=== PATIENT | male | born 1950 | race Caucasian/White ===

== ENCOUNTER → 2024-11-14 | Outpatient (CLI) | payer MEDICARE, SELFPAY ==
--- NOTE | 2024-11-14 11:13 | US_ITS ---
PROCEDURE: HEAD/NECK SOFT TISSUE REASON FOR EXAM: LUMP LEFT NECK History of thyroid cancer with a status post thyroidectomy. COMPARISON: None. TECHNIQUE: Targeted sonogram to the area of the left neck was performed. FINDINGS: In the anterior midline of the left side of the cervical region there is a 1.5 cm x 1.1 cm x 0.4 cm isoechoic density suggestive of a possible lipoma. US/Head/Neck Soft Tissue IMPRESSION: The palpable lump corresponds to a 1.5 cm x 1.1 cm x 0.4 cm isoechoic nodular d ensity suggestive of a lipoma. Reading Location: [id number]
== END | disposition home or self-care (01) ==
PROVIDERS: PCP Family Medicine; Referring Provider Family Medicine; Visit Provider Family Medicine
DX: R22.1 Localized swelling, mass and lump, neck (principal)
CPT/HCPCS: 76536

== ENCOUNTER → 2025-01-08 | Outpatient (CLI) | payer MEDICARE, SELFPAY ==
[2025-01-08 10:24] LABS: Hematocrit 41.5 % (40-54); Hemoglobin 14.1 g/dL (13.0-16.5); Mean Corpuscular Hgb 32.3 pg (27.0-32.0); Mean Platelet Vol. 10.1 fl (6.2-12.0); Platelet Count 272 K/mm3 (150-450); RBC Distribution Width CV 13.3 % (11.6-14.6); RBC Distribution Width SD 47.1 fl (35.1-43.9); Red Blood Count 4.37 M/mm3 (4.6-6.2); White Blood Count 6.1 K/mm3 (4.4-11.0)
[2025-01-08 11:03] LABS: Hemoglobin A1c 5.9 % (<=5.6)
[2025-01-08 11:29] LABS: ALB/GLOB Ratio 1.5 RATIO (0.9-2.4); AST(SGOT) 30 U/L (<=37); Alanine Aminotransfer ALT/SGPT 28 U/L (<=46); Albumin, Serum 3.9 g/dL (3.4-4.8); Alkaline Phosphatase 53 U/L (40-129); Anion Gap 9 (5-15); BUN 15 mg/dL (4-19); BUN/Creat Ratio 12.3 RATIO (10-20); Calcium,Total 8.5 mg/dL (7.6-11.0); Chloride 107 mmol/L (98-108); Cholesterol 119 mg/dL (<=200); Creatinine, Serum 1.24 mg/dL (0.70-1.20); EST Glomerular Filtration Rate 62 (>60); Globulin 2.7 g/dL (2.2-4.2); Glucose 100 mg/dL (70-99); High Density Lipoprotein 47 mg/dL; Low Density Lipoprotein Calc. 57 mg/dL; Protein, Total 6.6 g/dL (5.9-8.4); Sodium Level 140 mmol/L (133-145); Thyroid Stim Hormone (TSH) 0.234 uIU/mL (0.300-4.200); Total Bilirubin 0.49 mg/dL (0.00-1.30); Triglycerides 73 mg/dL; Very Low Density Lipoprotein 15 mg/dL (5-40); cholesterol:hdl ratio screen 2.53
== END | disposition home or self-care (01) ==
LOC: MTLAB 07:09
PROVIDERS: PCP Family Medicine; Referring Provider Family Medicine; Visit Provider Family Medicine
DX: I10 Essential (primary) hypertension (principal); E03.9 Hypothyroidism, unspecified; E55.9 Vitamin D deficiency, unspecified; Z76.89 Persons encountering health services in other specified circumstances
CPT/HCPCS: 36415; 80053; 80061; 82306; 83036; 84439; 84443; 85027

== ENCOUNTER → 2025-02-18 | Outpatient (CLI) | payer MEDICARE, SELFPAY ==
--- NOTE | 2025-02-18 11:23 | US_ITS ---
PROCEDURE: EXT NON VASC LIMITED/SOFT TISS 02/18/2025 REASON FOR EXAM: POSSIBLE HEMATOMA (R) THIGH/INJURY TECHNIQUE: EXT NON VASC LIMITED/SOFT TISS COMPARISON: None US/Ext Non Vasc Limited/Soft Tiss IMPRESSION: Targeted sonogram of the right anterior thigh demonstrates isoechoic, nonvascul ar lesion measuring 1.5 x 2.6 x 0.8 cm. Reading Location: [id number]
--- OUTSIDE RECORDS SUMMARY | 2025-02-18 22:55 | XMS RPT_ITS | CCD ---
Author Organization [facility]iniSy[facility] Care Team Providers Care Contracts Specialist Name Role Phone FREDI MEDEL ID~[id number] Unavailable Unava ilphong GRESHAMANAMIKA Unavailable Unavailable CELESTIN, CINDY Primary Care Physician CANDACE LUGO, KRISTA Primary Care Physician Unavailab coleen CELESTIN, ELIZABETH CINDY Primary Care Unavailable DAYANA REED Attending Unavailab colene MARIA MD, KRISTA Primary Care Unavailable JAIRO VAZQUEZ MD Attending Unavailable CANDACE LUGO, KRISTA Primary Care Unavailable JOSE MARIA MD Attending Unavailable CANDACE LUGO, KRISTA Primary Care Unavailable JOSE MARIA MD Attending Unavailable CELESTIN, CREMATORIUM OPERATOR CINDY Primary Care Unavailable CELESTIN, CREMATORIUM OPERATOR CINDY Attending Unavailable CELESTIN, CREMATORIUM OPERATOR CINDY Primary Care Unavailable PRISCILA PEOPLES MD Attending Unavail able CANDACE LUGO, KRISTA Primary Care Unavailable DR BEATRIS WOODALL DO Attending Unavailable Jose Maria MD Primary Care Provider Jose Maria MD Attending Provider [phone] Jose Maria MD Referring Provider [phone] CANDACE LUGO, KRISTA Primary Care Unavailable ALIYAH CARRINGTON MD Attending Unavailable CANDACE LUGO, KRISTA Primary Care Unavailable ALIYAH CARRINGTON MD Attending Unavailable ALIYAH CARRINGTON MD Admitting Unavailable ALIYAH CARRINGTON MD Attending Unavailable TAUTM FERRERA-YAYA WESTBROOK Referring Unavail phong MARIA MD, KRISTA Primary Care Unavailable ALIYAH CARRINGTON MD Attending Unavailable FAWAD, ELIZABETH CINDY Primary Care Unavailable Jose Maria Attending Unavailable Jose Maria Referring Unavailable Jose Maria Primary Care Unavailable Jose Maria Attending Unavailable Jose Maria Referring Unavailable Jose Maria Primary Care Unavailable Jose Maria Attending Unavailable Jose Maria Referring Unavailable Candace, Chalon Primary Care Unavailable Allergies Allergy Classification Reported Allergen(s) Allergy Type Date of Onset Reaction(s) Facility (7 sources) Penicillin; Translations: [penicillin] Drug Allergy Eruption of skin (disorder) [facility] (7 sources) Sulfonamide; Translations: [sulfa drugs] Drug allergy Eruption of skin (disorder) [facility] Medications Current Medications Medication Drug Class(es) Dates Sig (Normalized) Sig (Original) 0.25 MG, 0.5 MG Dose 3 ML semaglutide 0.68 MG/ML Pen Injector [Ozempic] (2 sources) Start: 11-28-2024 Ozempic 2 mg/3 mL (0.25 mg or 0.5 mg dose) subcutaneous solution Dose : 0.25 mg =, Subcutaneous, Tuesday, rotate injection sites, # 1 EA, 0 Refill(s) Start Date: 11/28/24 Status: Ordered Quantity: 1.0 Unit: EA Repeat number: 1 Start: 11-28-2024 Ozempic 2 mg/3 mL (0.25 mg or 0.5 mg dose) subcutaneous solution Dose : 0.25 mg =, Subcutaneous, Tuesday, rotate injection sites, # 1 EA, 0 Refill(s) Start Date: 11/28/24 Status: Ordered Quantity: 1.0 Unit: EA Repeat number: 1 3 ML semaglutide 2.68 MG/ML Pen Injector [Ozempic] (1 source) Start: 2024 inject 1 dose by subcutaneous injection every week Ozempic 8 mg/3 mL (2 mg dose) subcutaneous solution Dose : 2 mg =, Subcutaneous, qWeek, in the abdomen, thigh, or upper arm, # 3 mL, 0 Refill(s) Start Date: 07/04/24 Status: Ordered amiodarone hydrochloride 200 mg oral tablet (5 sources) Antiarrhythmic Start: 08-01-2024 amiodarone 200 mg oral tablet Dose : 200 mg = 1 tab(s), Oral, qDay, # 90 tab(s), 4 Refill(s), Pharmacy: [facility]/pharmacy #[id number], 172.7, cm, 07/25/24 14:24:00 EST, Height, kg, 07/25/24 14:24:00 EST, Dosing Weight Start Date: 08/01/24 Status: Ordered Quantity: 90.0 Unit: tab(s) Repeat number: 5 apixaban 5 mg oral tablet (6 sources) Factor Xa Inhibitor Start: 07-17-2024 Eliquis 5 mg oral tablet Dose : 5 mg = 1 tab(s), Oral, BID, # 60 tab(s), 5 Refill(s), Pharmacy: [facility]/pharmacy #[id number], 172.7, cm, 07/04/24 12:56:00 EDT, Height, 129.7, kg, 07/04/24 12:56:00 EDT, Dosing Weight Start Date: 07/17/24 Status: Ordered Quantity: 60.0 Unit: tab(s) Repeat number: 6 atorvastatin 20 mg oral tablet (6 sources) HMG-CoA Reductase Inhibitor Start: 2024 atorvastatin 20 mg oral tablet Dose : 20 mg = 1 tab(s), Oral, qHS, # 90 tab(s), 0 Refill(s) Start Date: 07/04/24 Status: Ordered Quantity: 90.0 Unit: tab(s) Repeat number: 1 azithromycin 250 mg oral tablet (1 source) Macrolide Antimicrobial Start: 10-23-2024 End: 10-28-2024 azithromycin 250 mg oral tablet Dose : 250 mg = 1 tab(s), Oral, Daily, Take with a probiotic, X 5 day(s), # 6 tab(s), 0 Refill(s), 10/28/24 12:32:00 PM EST, 131.3 Start Date: 10/23/24 Stop Date: 10/28/24 Status: Ordered Quantity: 6.0 Unit: tab(s) Repeat number: 1 ergocalciferol 1.25 mg oral capsule (2 sources) Provitamin D2 Compound Start: 11-28-2024 ergocalciferol 50,000 intl units (1.25 mg) oral capsule Dose : 50,000 International_Unit = 1 cap(s), Oral, Tuesday, 0 Refill(s) Start Date: 11/28/24 Status: Ordered Repeat number: 1 fenofibrate 160 mg oral tablet (4 sources) Peroxisome Proliferator Receptor alpha Agonist Start: 10-11-2024 fenofibrate 160 mg oral tablet Dose : 160 mg = 1 tab(s), Oral, qAM, TAKE 1 TABLET BY MOUTH EVERY DAY Start Date: 10/11/24 Status: Ordered Repeat number: 1 ipratropium bromide 0.042 mg/actuat metered dose nasal spray (4 sources) Anticholinergic Start: 2024 ipratropium 42 mcg/inh (0.06%) nasal spray 84 mcg Dose = 2 spray(s), Nasal, TID, # 15 mL, 0 Refill(s) Start Date: 07/04/24 Status: Ordered Quantity: 15.0 Unit: mL Repeat number: 1 ketoconazole 20 mg/ml topical cream (2 sources) Azole Antifungal Start: 11-12-2024 ketoconazole 2% topical cream Apply 1 mary, Topical, qDay, MIX 50/50 WITH MOMETASONE AND APPLY TO FACE TWICE A DAY NEEDED Start Date: 11/12/24 Status: Ordered Repeat number: 1 levothyroxine sodium 0.2 mg oral tablet (6 sources) l-Thyroxine Start: 11-12-2024 levothyroxine 200 mcg (0.2 mg) oral tablet Dose : 200 mcg = 1 tab(s), Oral, qAM, # 30 tab(s), 0 Refill(s) Start Date: 11/12/24 Status: Ordered Quantity: 30.0 Unit: tab(s) Repeat number: 1 Start: 2024 levothyroxine 175 mcg (0.175 mg) oral tablet Dose : 175 mcg = 1 tab(s), Oral, qDay, # 90 tab(s), 0 Refill(s) Start Date: 07/04/24 Status: Ordered Quantity: 90.0 Unit: tab(s) Repeat number: 1 lisinopril 10 mg oral tablet (6 sources) Angiotensin Converting Enzyme Inhibitor Start: 07-25-2024 lisinopril 10 mg ora l tablet Dose : 10 mg = 1 tab(s), Oral, qDay, # 90 tab(s), 3 Refill(s), Pharmacy: [facility]/pharmacy #[id number], 172.7, cm, 07/25/24 14:24:00 EST, Height, kg, 07/25/24 14:24:00 EST, Dosing Weight Start Date: 07/25/24 Status: Ordered Quantity: 90.0 Unit: tab(s) Repeat number: 4 Lopressor 25mg--USE metoprolol tartrate 25 mg oral tablet (7 sources) Start: 11-07-2024 Lopressor 25mg --USE metoprolol tartrate 25 mg oral tablet Dose : 25 mg = 1 tab(s), Oral, BID, # 180 tab(s), 0 Refill(s), Pharmacy: [facility]/pharmacy #[id number], 172.7, cm, 10/11/24 9:07:00 EST, Height, kg, 10/23/24 10:57:00 EST, Dosing Weight Start Date: 11/07/24 Status: Ordered Quantity: 180.0 Unit: tab(s) Repeat number: 1 Start: 2024 Lopressor 25mg --USE metoprolol tartrate 25 mg oral tablet Dose : 25 mg = 1 tab(s), Oral, BID, 0 Refill(s) Start Date: 07/04/24 Status: Ordered Repeat number: 1 Start: 2024 Lopressor 25mg --USE metoprolol tartrate 25 mg oral tablet 0 Refill(s) Start Date: 07/04/24 Status: Ordered Repeat number: 1 Start: 2024 Lopressor 25mg --USE metoprolol tartrate 25 mg oral tablet Dose : 25 mg = 1 tab(s), Oral, BID, 0 Refill(s) Start Date: 07/04/24 Status: Ordered Start: 2024 Lopressor 25mg --USE metoprolol tartrate 25 mg oral tablet 0 Refill(s) Start Date: 07/04/24 Status: Ordered omeprazole 20 mg delayed release oral capsule (6 sources) Proton Pump Inhibitor Start: 2024 omeprazo le 20 mg oral delayed release capsule Dose : 20 mg = 1 cap(s), Oral, qAM Start Date: 07/04/24 Status: Ordered Repeat number: 1 Start: 2024 take 2 capsules by m outh twice daily 30 minutes before mealtime omeprazole 20 mg oral delayed release capsule TAKE 2 CAPSULES BY MOUTH TWICE A DAY. TAKE ON AN EMPTY STOMACH AT LEAST 30 MIN BEFORE A MEAL Start Date: 07/04/24 Status: Ordered Repeat number: 1 predniSONE 20 mg oral tablet (1 source) Start: 10-23-2024 End: 10-26-2024 predniSONE 20 mg oral tablet Dose : 20 mg = 1 tab(s), Oral, BID, X 3 day(s), # 6 tab(s), 0 Refill(s), 10/26/24 12:32:00 PM EST Start Date: 10/23/24 Stop Date: 10/26/24 Status: Ordered Quantity: 6.0 Unit: tab(s) Repeat number: 1 pregabalin 100 mg oral capsule (4 sources) Start: 2024 take 1 capsule by mouth twice daily pregabalin 100 mg oral capsule TAKE 1 CAPSULE BY MOUTH TWICE A DAY Start Date: 07/04/24 Status: Ordered Repeat number: 1 Completed/Discontinued Medications Medication Drug Class(es) Dates Sig (Normalized) Sig (Original) Albuterol (4 sources) beta2-Adrenergic Agonist Start: 10-23-2024 End: 11-22-2024 take 1 puff(s) by inhalation four times daily Ventolin HFA MDI (90 mcg/inh) inhalation aerosol 1 puff(s), Inhalation, QID, # 1 EA, 0 Refill(s) Start Date: 10/23/24 Stop Date: 11/22/24 Status: Ordered Quantity: 1.0 Unit: EA Repeat number: 1 Clobetasol (6 sources) Corticosteroid Start: 2024 Clobetasol (Eqv-Temovate) 0.05% topical cream Dose = 1 mary, Topical, qDay, 0 Refill(s) Start Date: 07/04/24 Status: Ordered Repeat number: 1 Start: 2024 Clobetasol (Eq v-Temovate) 0.05% topical cream 0 Refill(s) Start Date: 07/04/24 Status: Ordered Repeat number: 1 Start: 2024 Clobetasol (Eq v-Temovate) 0.05% topical cream 0 Refill(s) Start Date: 07/04/24 Status: Ordered mometasone furoate 1 mg/ml topical cream (7 sources) Corticosteroid Start: 2024 mometasone 0.1 % topical cream Apply 1 mary, Topical, Daily, 0 Refill(s), 129.1 Start Date: 07/04/24 Status: Ordered Repeat number: 1 Problems Problem Classification Problem Date Documented Date Episodic/Chronic Allergic reactions (2 sources) Allergy status to penicillin; Translations: [Allergy status to sulfonamides status] Onset: 12-25-2024 Episodic Anxiety disorders (1 source) Anxiety disorder, unspecified; Translations: [Anxiety disorder, unspecified] Onset: 12-25-2024 Chronic Cancer of prostate (1 source) Personal history of malignant neoplasm of prostate; Translations: [Personal history of malignant neoplasm of prostate] Onset: 12-25-2024 Episodic Cancer of thyroid (1 source) Personal history of malignant neoplasm of thyroid; Translations: [Personal history of malignant neoplasm of thyroid] Onset: 12-25-2024 Episodic Cardiac dysrhythmias (7 sources) Atrial flutter; Translations: [Unspecified atrial flutter] Onset: 07-02-2024 Chronic Cardiac dysrhythmias (4 sources) Sinus bradycardia 10-11-2024 Episodic Coagulation and hemorrhagic disorders (1 source) Bleeds easily 12-01-2024 Chronic Coagulation and hemorrhagic disorders (1 source) Hemorrhagic condition, unspecified; Translations: [Hemorrhagic condition, unspecified] Onset: 12-04-2024 Episodic Complications of surgical procedures or medical care (1 source) Postprocedural hypothyroidism; Translations: [Postprocedural hypothyroidism] Onset: 12-25-2024 Chronic Diabetes mellitus without complication (2 sources) Impaired fasting glucose; Translations: [Impaired fasting glucose] Onset: 12-10-2017 Episodic Disorders of lipid metabolism (1 source) Hyperlipidemia, unspecified; Translations: [Hyperlipidemia, unspecified] Onset: 12-25-2024 Chronic Esophageal disorders (5 sources) Gastroesophageal reflux disease; Translations: [Gastro-esophageal reflux disease without esophagitis] Onset: 12-25-2024 10-11-2024 Chronic Essential hypertension (9 sources) Essential (primary) hypertension; Translations: [Hypertensive disorder] Onset: 12-10-2017 10-11-2024 Chronic Hyperplasia of prostate (1 source) Benign prostatic hyperplasia without lower urinary tract symptoms; Translations: [Benign prostatic hyperplasia without lower urinary tract symptoms] Onset: 12-25-2024 Chronic Menopausal disorders (1 source) Hormone replacement therapy; Translations: [Hormone replacement therapy] Onset: 12-25-2024 Episodic Other aftercare (1 source) Encounter for therapeutic drug level monitoring; Translations: [Encounter for therapeutic drug level monitoring] Onset: 12-25-2024 Episodic Other aftercare (1 source) exterminator termite (current) use of anticoagulants; Translations: [exterminator termite (current) use of anticoagulants] Onset: 12-25-2024 Episodic Other aftercare (1 source) Other half-way (current) drug therapy; Translations: [Other half-way (current) drug therapy] Onset: 12-25-2024 Episodic Other injuries and conditions due to external causes (1 source) Unspecified injury of right thigh, initial encounter; Translations: [Unspecified injury of right thigh, initial encounter] Onset: 02-11-2025 Episodic Other male genital disorders (1 source) Male erectile dysfunction, unspecified; Translations: [Male erectile dysfunction, unspecified] Onset: 12-25-2024 Chronic Other nutritional; endocrine; and metabolic disorders (4 sources) Obesity 10-11-2024 Chronic Other nutritional; endocrine; and metabolic disorders (1 source) Obesity, unspecified; Translations: [Obesity, unspecified] Onset: 12-25-2024 Chronic Other nutritional; endocrine; and metabolic disorders (1 source) Body mass index (BMI) 45.0-49.9, adult; Translations: [Body mass index [BMI] 45.0-49.9, adult] Onset: 12-25-2024 Chronic Other skin disorders (1 source) Localized swelling, mass and lump, neck; Translations: [Localized swelling, mass and lump, neck] Onset: 11-24-2024 Episodic Residual codes; unclassified (4 sources) Obstructive sleep apnea syndrome 10-11-2024 Chronic Residual codes; unclassified (2 sources) Obstructive sleep apnea (adult) (pediatric); Translations: [Obstructive sleep apnea (adult) (pediatric)] Onset: 12-04-2024 Chronic Residual codes; unclassified (1 source) Personal history of irradiation; Translations: [Personal history of irradiation] Onset: 12-25-2024 Episodic Thyroid disorders (2 sources) Hypothyroidism, unspecified; Translations: [Hypothyroidism, unspecified] Onset: 12-10-2017 Chronic Unclassified (2 sources) Encounter for screening for malignant neoplasm of prostate; Translations: [Encounter for screening for malignant neoplasm of prostate] Onset: 12-10-2017 Episodic Unclassified (2 sources) Other persistent atrial fibrillation; Translations: [Other persistent atrial fibrillation] Onset: 12-04-2024 Unclassified (1 source) Long-term (current) use of injectable non-insulin antidiabetic drugs; Translations: [Long-term (current) use of injectable non-insulin antidiabetic drugs] Onset: 12-25-2024 Results Test Name Value Interpretation Reference Range Facility Anion gap in Serum or Plasma Ordered By: Jose Maria on 01-08-2025 Anion gap [Moles/Vol] 9 mmol/L 5-15 [facility] BUN/creatinine ratioOrdered By: Jose Maria on 01-08-2025 Urea nitrogen/Creatinine [Mass ratio] 12.3 mg/mg 10-20 [facility] Bilirubin, totalOrdered By: Jose Maria on 01-08-2025 Bilirubin [Mass/Vol] 0.49 mg/dL 0.00-1.30 [facility] CBC-Complete Blood Cnt No Di ffon 01-08-2025 Erythrocyte distribution width (RBC) [Ratio] 13.3 % Normal 11.6-14.6 [facility] Comment on above: Order Comment: Order Date: 11/01/24 Order Info: [id number] - CBC Performed By: #### L [id number], L500.4100, L506.0400, L100.0500 #### [facility] [address] [place], [address] Hematocrit (Bld) [Volume fraction] 41.5 % Normal 40-54 [facility] Comment on above: Order Comment: Order Date: 11/01/24 Order Info: [id number] - CBC Performed By: #### L 500.4050, L500.4100, L506.0400, L100.0500 #### [facility] [address] [place], [address] Hemoglobin (Bld) [Mass/Vol] 14.1 g/dL Normal 13.0-16.5 [facility] Comment on above: Order Comment: Order Date: 11/01/24 Order Info: [id number] - CBC Performed By: #### L 500.4050, L500.4100, L506.0400, L100.0500 #### [facility] [address] [place], [address] MCH (RBC) [Entitic mass] 32.3 pg High 27.0-32.0 [facility] Comment on above: Order Comment: Order Date: 11/01/24 Order Info: [id number] - CBC Performed By: #### L 500.4050, L500.4100, L506.0400, L100.0500 #### [facility] [address] [place], [address] MCHC (RBC) [Mass/Vol] 34.0 g/dL Normal 32-36 [facility] Comment on above: Order Comment: Order Date: 11/01/24 Order Info: [id number] - CBC Performed By: #### L 500.4050, [id number], L506.0400, L100.0500 #### [facility] [address] [place], [address] MCV (RBC) [Entitic vol] 95.0 fL High 80-94 [facility] Comment on above: Order Comment: Order Date: 11/01/24 Order Info: [id number] - CBC Performed By: #### L 500.4050, L500.4100, L506.0400, L100.0500 #### [facility] [address] [place], [address] Platelet mean volume (Bld) [Entitic vol] 10.1 fL Normal 6.2-12.0 [facility] Comment on above: Order Comment: Order Date: 11/01/24 Order Info: [id number] - CBC Performed By: #### L 500.4050, L500.4100, L506.0400, L100.0500 #### [facility] [address] [place], [address] Platelets (Bld) [#/Vol] 272 10*3/uL Normal 150-450 [facility] Comment on above: Order Comment: Order Date: 11/01/24 Order Info: [id number] - CBC Performed By: #### L 500.4050, L500.4100, L506.0400, L100.0500 #### [facility] [address] [place], [address] RBC (Bld) [#/Vol] 4.37 10*6/uL Low 4.6-6.2 [facility] Comment on above: Order Comment: Order Date: 11/01/24 Order Info: [id number] - CBC Performed By: #### L 500.4050, L500.4100, L506.0400, L100.0500 #### [facility] [address] [place], [address] RDW SD 47.1 fl High 35.1-43.9 [facility] Comment on above: Order Comment: Order Date: 11/01/24 Order Info: [id number] - CBC Performed By: #### L 500.4050, L500.4100, L506.0400, L100.0500 #### [facility] [address] [place], [address] WBC (Bld) [#/Vol] 6.1 10*3/uL Normal 4.4-11.0 [facility] Comment on above: Order Comment: Order Date: 11/01/24 Order Info: [id number] - CBC Performed By: #### L 500.4050, L500.4100, L506.0400, L100.0500 #### [facility] [address] [place], [address] Calculated very low density lipoprotein (VLDL) cholesterol measurementOrdered By: Jose Maria on 01-08-2025 Calculated very low density lipoprotein (VLDL) cholesterol measurement 15 mg/dL 5-40 [facility] Carbon dioxide, total [Moles /volume] in Central venous bloodOrdered By: Jose Maria on 01-08-2025 CO2 [Moles/Vol] 24.0 mmol/L 21.0-32.0 [facility] Chloride assayOrdered By: Kameron Maria on 01-08-2025 Chloride [Moles/Vol] 107 mmol/L 98-108 [facility] Comprehensive Metabolic Prof ilon 01-08-2025 Albumin [Mass/Vol] 3.9 g/dL Normal 3.4-4.8 [facility] Comment on above: Order Comment: Order Date: 11/01/24 Order Info: [id number] - CMP Order Info: [id number] - LIPID Order Date: 11/26/24 Order Info: [id number] - TSH Order Info: [id number] - T4F Performed By: #### L 500.4050, L500.4100, L506.0400, L100.0500 #### [facility] [address] [place], [address] Albumin/Globulin [Mass ratio] 1.5 {ratio} Normal 0.9-2.4 [facility] Comment on above: Order Comment: Order Date: 11/01/24 Order Info: [id number] - CMP Order Info: [id number] - LIPID Order Date: 11/26/24 Order Info: [id number] - TSH Order Info: [id number] - T4F Performed By: #### L 500.4050, L500.4100, L506.0400, L100.0500 #### [facility] [address] [place], [address] ALK PHOS 53 U/L Normal 40-129 [facility] Comment on above: Order Comment: Order Date: 11/01/24 Order Info: [id number] - CMP Order Info: [id number] - LIPID Order Date: 11/26/24 Order Info: [id number] - TSH Order Info: [id number] - T4F Performed By: #### L 500.4050, L500.4100, L506.0400, L100.0500 #### [facility] [address] [place], [address] ALT [Catalytic activity/Vol] 28 U/L Normal <=46 [facility] Comment on above: Order Comment: Order Date: 11/01/24 Order Info: [id number] - CMP Order Info: [id number] - LIPID Order Date: 11/26/24 Order Info: [id number] - TSH Order Info: [id number] - T4F Performed By: #### L 500.4050, L500.4100, L506.0400, L100.0500 #### [facility] [address] [place], [address] AST [Catalytic activity/Vol] 30 U/L Normal <=37 [facility] Comment on above: Order Comment: Order Date: 11/01/24 Order Info: 07-1 - CMP Order Info: [id number] - LIPID Order Date: 11/26/24 Order Info: [id number] - TSH Order Info: [id number] - T4F Performed By: #### L 500.4050, L500.4100, L506.0400, L100.0500 #### [facility] [address] [place], [address] Bilirubin [Mass/Vol] 0.49 mg/dL Normal 0.00-1.30 [facility] Comment on above: Order Comment: Order Date: 11/01/24 Order Info: [id number]- - CMP Order Info: [id number] - LIPID Order Date: 11/26/24 Order Info: [id number] - TSH Order Info: [id number] - T4F Performed By: #### L 500.4050, L500.4100, L506.0400, L100.0500 #### [facility] [address] [place], [address] BUN/CRE 12.3 RATIO Normal 10-20 [facility] Comment on above: Order Comment: Order Date: 11/01/24 Order Info: [id number] - CMP Order Info: [id number] - LIPID Order Date: 11/26/24 Order Info: [id number] - TSH Order Info: [id number] - T4F Performed By: #### L 500.4050, L500.4100, L506.0400, L100.0500 #### [facility] [address] [place], [address] Calcium [Mass/Vol] 8.5 mg/dL Normal 7.6-11.0 [facility] Comment on above: Order Comment: Order Date: 11/01/24 Order Info: [id number] - CMP Order Info: [id number] - LIPID Order Date: 11/26/24 Order Info: [id number] - TSH Order Info: [id number] - T4F Performed By: #### L 500.4050, L500.4100, L506.0400, L100.0500 #### [facility] [address] [place], [address] Chloride [Moles/Vol] 107 mmol/L Normal 98-108 [facility] Comment on above: Order Comment: Order Date: 11/01/24 Order Info: 07-1 - CMP Order Info: [id number] - LIPID Order Date: 11/26/24 Order Info: [id number] - TSH Order Info: [id number] - T4F Performed By: #### L 500.4050, L500.4100, L506.0400, L100.0500 #### [facility] [address] [place], [address] CO2 [Moles/Vol] 24.0 mmol/L Normal 21.0-32.0 [facility] Comment on above: Order Comment: Order Date: 11/01/24 Order Info: [id number] - CMP Order Info: [id number] - LIPID Order Date: 11/26/24 Order Info: [id number] - TSH Order Info: [id number] - T4F Performed By: #### L 500.4050, L500.4100, L506.0400, L100.0500 #### [facility] [address] [place], [address] Creatinine [Mass/Vol] 1.24 mg/dL High 0.70-1.20 [facility] Comment on above: Order Comment: Order Date: 11/01/24 Order Info: [id number] - CMP Order Info: - LIPID Order Date: 11/26/24 Order Info: 3 - TSH Order Info: 7 - T4F Performed By: #### L 500.4050, L500.4100, L506.0400, L100.0500 #### [facility] [address] [place], [address] GAP 9 Normal 5-15 [facility] Comment on above: Order Comment: Order Date: 11/01/24 Order Info: [id number] - CMP Order Info: - LIPID Order Date: 11/26/24 Order Info: 3 - TSH Order Info: 7 - T4F Performed By: #### L 500.4050, L500.4100, L506.0400, L100.0500 #### [facility] [address] [place], [place], [address] GFR/1.73 sq M.predicted among non-blacks MDRD (S/P/Bld) [Vol rate/Area] 62 mL/min/{1.73_m2} Normal >60 [facility] Comment on above: Order Comment: Order Date: 11/01/24 Order Info: [id number] - CMP Order Info: [id number] - LIPID Order Date: 11/26/24 Order Info: 3 - TSH Order Info: 7 - T4F Result Comment: mL/m in/1.73m2 CKD-EPI Creatinine Equation (2020) Performed By: #### L 500.4050, L500.4100, L506.0400, L100.0500 #### [facility] [address] [place], [place], [address] Globulin (S) [Mass/Vol] 2.7 g/dL Normal 2.2-4.2 [facility] Comment on above: Order Comment: Order Date: 11/01/24 Order Info: 07-1 - CMP Order Info: [id number] - LIPID Order Date: 11/26/24 Order Info: [id number] - TSH Order Info: [id number] - T4F Performed By: #### L 500.4050, L500.4100, L506.0400, L100.0500 #### [facility] [address] [place], [address] Glucose [Mass/Vol] 100 mg/dL High 70-99 [facility] Comment on above: Order Comment: Order Date: 11/01/24 Order Info: 86-1 - CMP Order Info: [id number] - LIPID Order Date: 11/26/24 Order Info: 3016-3 - TSH Order Info: 3024-7 - T4F Performed By: #### L 500.4050, L500.4100, L506.0400, L100.0500 #### [facility] [address] [place], [address] Potassium [Moles/Vol] 4.0 mmol/L Normal 3.3-5.1 [facility] Comment on above: Order Comment: Order Date: 11/01/24 Order Info: 86-1 - CMP Order Info: [id number] - LIPID Order Date: 11/26/24 Order Info: 3016-3 - TSH Order Info: 3024-7 - T4F Performed By: #### L 500.4050, L500.4100, L506.0400, L100.0500 #### [facility] [address] [place], [address] Sodium [Moles/Vol] 140 mmol/L Normal 133-145 [facility] Comment on above: Order Comment: Order Date: 11/01/24 Order Info: 0786-1 - CMP Order Info: [id number] - LIPID Order Date: 11/26/24 Order Info: 3016-3 - TSH Order Info: 3024-7 - T4F Performed By: #### L 500.4050, L500.4100, L506.0400, L100.0500 #### [facility] [address] [place], [place], [address] T PROT 6.6 g/dL Normal 5.9-8.4 [facility] Comment on above: Order Comment: Order Date: 11/01/24 Order Info: 0786-1 - CMP Order Info: [id number] - LIPID Order Date: 11/26/24 Order Info: 3016-3 - TSH Order Info: 7 - T4F Performed By: #### L 500.4050, L500.4100, L506.0400, L100.0500 #### [facility] [address] [place], [address] Urea nitrogen [Mass/Vol] 15 mg/dL Normal 4-19 [facility] Comment on above: Order Comment: Order Date: 11/01/24 Order Info: 0786-1 - CMP Order Info: [id number] - LIPID Order Date: 11/26/24 Order Info: 3016-3 - TSH Order Info: 3024-03 - T4F Performed By: #### L 500.4050, L500.4100, L506.0400, L100.0500 #### [facility] [address] [place], [address] Erythrocyte distribution wid th ratioOrdered By: Jose Maria on 01-08-2025 Erythrocyte distribution width (RBC) [Ratio] 13.3 % 11.6-14.6 [facility] Erythrocyte distribution wid th standard deviationOrdered By: Jose Maria on 01-08-2025 Erythrocyte distribution width (RBC) [Ratio] 47.1 fl High 35.1-43.9 [facility] Glomerular filtration rate ( GFR) estimation/1.73 sq m using serum, plasma, or whole bOrdered By: Jose Maria on 01-08-2025 GFR/1.73 sq M.predicted among non-blacks MDRD (S/P/Bld) [Vol rate/Area] 62 mL/min/{1.73_m2} >60 [facility] Comment on above: mL/min/1.73m2 CKD-EP I Creatinine Equation (2020) Hematocrit Auto (Bld) [Volum e fraction]Ordered By: Jose Maria on 01-08-2025 Hematocrit (Bld) [Volume fraction] 41.5 % 40-54 [facility] Hemoglobin A1con 01-08-2025 HbA1c (Bld) [Mass fraction] 5.9 % High <=5.6 [facility] Comment on above: Order Comment: Order Date: 11/20/24 Order Info: [id number] - A1C Result Comment: Norm al < 5.7 % Prediabetic 5.7 - 6.4 % Diabetic >or= 6.5 % Please note range changes. Performed By: #### L 501.9988 #### [facility] [address] [place], [place], [id number] Hemoglobin A1c percentageOrd ered By: Jose Maria on 01-08-2025 HbA1c (Bld) [Mass fraction] 5.9 % High <5.7 [facility] Comment on above: Normal < 5.7 % Predi abetic 5.7 - 6.4 % Diabetic >or= 6.5 % Please note range changes. Hemoglobin measurementOrdere d By: Jose Maria on 01-08-2025 Hemoglobin (Bld) [Mass/Vol] 14.1 g/dL 13.0-16.5 [facility] LDL calc ser/plasOrdered By: Jose Maria on 01-08-2025 Cholesterol in LDL [Mass/Vol] 57 mg/dL [facility] Comment on above: Xziavillis=719-464 m g/dL & Higher Pbhn=988 mg/dL or greater Laboratory - Chemistry and C hemistry - challengeOrdered By: Jose Maria on 01-08-2025 AST [Catalytic activity/Vol] 30 U/L <38 [facility] Lipid Profileon 01-08-2025 CHOL:HDL 2.53 Normal [facility] Comment on above: Order Comment: Order Date: 11/01/24 Order Info: 0786-1 - CMP Order Info: [id number] - LIPID Order Date: 11/26/24 Order Info: 3016-3 - TSH Order Info: 3024-7 - T4F Performed By: #### L 500.4050, L500.4100, L506.0400, L100.0500 #### [facility] [address] [place], [address] Cholesterol [Mass/Vol] 119 mg/dL Normal <=200 [facility] Comment on above: Order Comment: Order Date: 11/01/24 Order Info: 0786-1 - CMP Order Info: [id number] - LIPID Order Date: 11/26/24 Order Info: 6-3 - TSH Order Info: 7 - T4F Result Comment: Chol esterol level, Desirable <200 mg/dL Borderline high cholesterol 200-239 mg/dL High cholesterol >=240 mg/dL Recommendations of the NCEP Adult Treatment Panel for the following risk-cutoff thresholds for the [place] population. Performed By: #### L 500.4050, L500.4100, L506.0400, L100.0500 #### [facility] [address] [place], [address] Cholesterol in HDL [Mass/Vol] 47 mg/dL Normal [facility] Comment on above: Order Comment: Order Date: 11/01/24 Order Info: 0786-1 - CMP Order Info: [id number] - LIPID Order Date: 11/26/24 Order Info: 3 - TSH Order Info: 7 - T4F Result Comment: Elaina onal Cholesterol Education Program (NCEP) guidelines: <40 mg/dL: Low HDL-cholesterol (major risk factor for CHD) >= 60 mg/dL: High HDL-cholesterol (negative risk factor for CHD) HDL-cholesterol is affected by a number of factors, e.g. smoking, exercise, hormones, sex and age. Performed By: #### L 500.4050, L500.4100, L506.0400, L100.0500 #### [facility] [address] [place], [address] Cholesterol in LDL [Mass/Vol] 57 mg/dL Normal [facility] Comment on above: Order Comment: Order Date: 11/01/24 Order Info: 0786-1 - CMP Order Info: [id number] - LIPID Order Date: 11/26/24 Order Info: 3016-3 - TSH Order Info: 3024-03 - T4F Result Comment: Bord efsilm=923-362 mg/dL Higher Vmyu=413 mg/dL or greater Performed By: #### L 500.4050, L500.4100, L506.0400, L100.0500 #### [facility] [address] [place], [address] Cholesterol in VLDL [Mass/Vol] 15 mg/dL Normal 5-40 [facility] Comment on above: Order Comment: Order Date: 11/01/24 Order Info: 0786-1 - CMP Order Info: - LIPID Order Date: 11/26/24 Order Info: [id number] - TSH Order Info: 3024-03 - T4F Performed By: #### L 500.4050, L500.4100, L506.0400, L100.0500 #### [facility] [address] [place], [address] Triglyceride [Mass/Vol] 73 mg/dL Normal [facility] Comment on above: Order Comment: Order Date: 11/01/24 Order Info: 0786- - CMP Order Info: - LIPID Order Date: 11/26/24 Order Info: 3015-11 - TSH Order Info: 3024-03 - T4F Result Comment: The drugs N-Acetylcysteine and Metamizole may falsely depress this assay. Normal range: <150 mg/dL Borderline High: 150-199 mg/dL High: 200-499 mg/dL Very High: >500 mg/dL Performed By: #### L 500.4050, L500.4100, L506.0400, L100.0500 #### [facility] [address] [place], [address] MCV (mean corpuscular volume ) determinationOrdered By: oJse Maria on 01-08-2025 MCV (RBC) [Entitic vol] 95.0 fL High 80-94 [facility] Mean corpuscular hemoglobin (MCH) determinationOrdered By: Jose Maria on 01-08-2025 MCH (RBC) [Entitic mass] 32.3 pg High 27.0-32.0 [facility] Mean corpuscular hemoglobin concentration (MCHC) determinationOrdered By: Jose Maria on 01-08-2025 MCHC (RBC) [Mass/Vol] 34.0 g/dL 32-36 [facility] Mean platelet volume determi nationOrdered By: Jose Maria on 01-08-2025 Platelet mean volume (Bld) [Entitic vol] 10.1 fL 6.2-12.0 [facility] Platelet countOrdered By: Kameron Maria on 01-08-2025 Platelets (Bld) [#/Vol] 272 10*3/uL 150-450 [facility] Potassium measurement (mass/ volume)Ordered By: Jose Maria on 01-08-2025 Potassium (Unsp spec) [Mass/Vol] 4.0 mmol/L 3.3-5.1 [facility] RBC Auto (Bld) [#/Vol]Ordere d By: Jose Maria on 01-08-2025 RBC (Bld) [#/Vol] 4.37 10*6/uL Low 4.6-6.2 [facility] Screening total cholesterol/ high density lipoprotein (HDL) cholesterol ratioOrdered By: Jose Maria on 01-08-2025 Cholesterol.total/Choles terol in HDL [Mass ratio] 2.53 {ratio} [facility] Serum creatinine measurement (mass/volume)Ordered By: Jose Maria on 01-08-2025 Creatinine [Mass/Vol] 1.24 mg/dL High 0.70-1.20 [facility] Serum globulin measurementOr dered By: Jose Maria on 01-08-2025 Globulin (S) [Mass/Vol] 2.7 g/dL 2.2-4.2 [facility] Serum glucose measurement (m ass/volume)Ordered By: Jose Maria on 01-08-2025 Glucose [Mass/Vol] 100 mg/dL High 70-99 [facility] Serum or plasma alanine serrano otransferase (ALT) measurementOrdered By: Jose Maria on 01-08-2025 ALT [Catalytic activity/Vol] 28 U/L <47 [facility] Serum or plasma albumin rolando urement (mass/volume)Ordered By: Jose Maria on 01-08-2025 Albumin [Mass/Vol] 3.9 g/dL 3.4-4.8 [facility] Serum or plasma albumin/glob ulin mass ratioOrdered By: Jose Maria on 01-08-2025 Albumin/Globulin [Mass ratio] 1.5 {ratio} 0.9-2.4 [facility] Serum or plasma alkaline marcelo sphatase measurementOrdered By: Jose Maria on 01-08-2025 ALP [Catalytic activity/Vol] 53 U/L 40-129 [facility] Serum or plasma calcium rolando urement (mass/volume)Ordered By: Jose Maria on 01-08-2025 Calcium [Mass/Vol] 8.5 mg/dL 7.6-11.0 [facility] Serum or plasma cholesterol in HDL measurement (mass/volume)Ordered By: Jose Maria on 01-08-2025 Cholesterol in HDL [Mass/Vol] 47 mg/dL >40 [facility] Comment on above: National Cholesterol Education Program (NCEP) guidelines:<40 mg/dL: Low HDL-cholesterol (major risk factor for CHD)>= 60 mg/dL: High HDL-cholesterol (negative risk factor for CHD)HDL-cholesterol is affected by a number of factors, e.g. smoking, exercise, hormones, sex and age. Serum or plasma cholesterol measurement (mass/volume)Ordered By: oJse Maria on 01-08-2025 Cholesterol [Mass/Vol] 119 mg/dL <201 [facility] Comment on above: Cholesterol level, D esirable <200 mg/dLBorderline high cholesterol 200-239 mg/dLHigh cholesterol >=240 mg/dLRecommendations of the NCEP Adult Treatment Panel for the following risk-cutoff thresholds for the [place] population. Serum or plasma urea nitroge n measurement (mass/volume)Ordered By: Jose Maria on 01-08-2025 Urea nitrogen [Mass/Vol] 15 mg/dL 4-19 [facility] Sodium levelOrdered By: Kristine Maria on 01-08-2025 Sodium [Moles/Vol] 140 mmol/L 133-145 [facility] T4 Free Directon 01-08-2025 T4 FREE DIRECT 2.40 ng/dL High 0.76-1.46 [facility] Comment on above: Order Comment: Order Date: 11/01/24 Order Info: 0786-1 - CMP Order Info: [id number] - LIPID Order Date: 11/26/24 Order Info: 3016-3 - TSH Order Info: 3024-7 - T4F Performed By: #### L 500.4050, L500.4100, L506.0400, L100.0500 #### [facility] [address] [place], [place], [id number] T4 freeOrdered By: Jose byrd on 01-08-2025 Free T4 [Mass/Vol] 2.40 ng/dL High 0.76-1.46 [facility] TSH DL <= 0.005 mIU/L QnOrde red By: Jose Maria on 01-08-2025 TSH Qn 0.234 uIU/mL Low 0.300-4.200 [facility] Thyroid Stim Hormone (TSH)on 01-08-2025 TSH 0.234 uIU/mL Low 0.300-4.200 [facility] Comment on above: Order Comment: Order Date: 11/01/24 Order Info: 0786-1 - CMP Order Info: [id number] - LIPID Order Date: 11/26/24 Order Info: 3016-3 - TSH Order Info: 3024-7 - T4F Performed By: #### L 501.9520 #### [facility] [address] [facility] [place], [place], [id number] Total proteinOrdered By: Charito Maria on 01-08-2025 Protein [Mass/Vol] 6.6 g/dL 5.9-8.4 [facility] Triglycerides measurementOrd ered By: Jose Maria on 01-08-2025 Triglyceride [Mass/Vol] 73 mg/dL <199 [facility] Comment on above: The drugs N-Acetylcy steine and Metamizole may falsely depress this assay. Normal range: <150 mg/dLBorderline High: 150-199 mg/dLHigh: 200-499 mg/dLVery High: >500 mg/dL Vitamin D,25 Hydroxyon 01-08 Vitamin D 25-OH 27.0 ng/mL Low 30-100 [facility] Comment on above: Order Comment: Order Date: 11/01/24 Order Info: 0786-1 - CMP Order Info: [id number] - LIPID Order Date: 11/26/24 Order Info: 3016-3 - TSH Order Info: 3024-7 - T4F Result Comment: Aislinn min D Status Deficiency: <20 ng/mL (50nmol/L) Insufficiency: 20-30 ng/mL (50-75 nmol/L) Sufficiency: 30-100 ng/mL (75-250 nmol/L) Toxicity: >100 ng/mL (>250 nmol/L) Performed By: #### L 506.1001 #### [facility] [address] [place], [address] White blood cell (WBC) count Ordered By: Jose Maria on 01-08-2025 WBC (Bld) [#/Vol] 6.1 10*3/uL 4.4-11.0 [facility] .GFRon 12-26-2024 Estimated Glomerular Filtration Rate 58 ml/min/1.73sqm Normal [facility] Comment on above: Result Comment: Stages of Chronic Kidney Disease (CKD) Stage Description eGFR(ml/min/1.73 sq.m.) CKD 1 Normal kidney function or >=90 normal kindney function with possible kidney damage (ex. Proteinuria) CKD 2 Kidney damage with mild loss 60-89 of kidney function CKD 3a Mild to moderate loss of kidney 45-59 function CKD 3b Moderate to severe loss of 30-44 of kindey function CKD 4 Severe loss of kidney function 15-29 CKD 5 Kidney failure <15 Note: (go live 2024) the eGFR calculation was updated to the 2020 CKD-EPI creatinine equation without a race factor to calculate the eGFR results. Performed By: #### G , BMP #### [facility] [address] [place] [address] BMPon 12-26-2024 BUN/Creatinine Ratio 14.6 ratio Normal 10.0-22.0 [facility] Comment on above: Performed By: #### Alex FR, BMP #### [address] [address] Calcium [Mass/Vol] 8.5 mg/dL Low 8.7-10.4 [facility] Comment on above: Performed By: #### G FR, BMP #### [address] [address] Chloride [Moles/Vol] 107 mmol/L Normal 98-110 [facility] Comment on above: Performed By: #### G FR, BMP #### [address] [address] CO2 [Moles/Vol] 29 mmol/L Normal 22-32 [facility] Comment on above: Performed By: #### Alex ADLER, BMP #### [address] [address] Creatinine [Mass/Vol] 1.30 mg/dL Normal 0.60-1.40 [facility] Comment on above: Result Comment: Test ing performed on [employer] analyzer using enzymatic creatinine methodology. Performed By: #### Alex ADLER, BMP #### [address] [address] Electrolyte Balance 7.0 mEq/L Normal 4.0-15.0 [facility] Comment on above: Performed By: #### Alex FR, BMP #### [address] [address] Glucose [Mass/Vol] 133 mg/dL High 82-115 [facility] Comment on above: Performed By: #### Alex FR, BMP #### [address] [address] Potassium [Moles/Vol] 3.8 mmol/L Normal 3.5-5.0 [facility] Comment on above: Performed By: #### Alex FR, BMP #### [address] [address] Sodium [Moles/Vol] 143 mmol/L Normal 136-145 [facility] Comment on above: Performed By: #### Alex FR, BMP #### [address] [address] Urea nitrogen [Mass/Vol] 19.0 mg/dL Normal 8.0-22.0 [facility] Comment on above: Performed By: #### G , CASSIE #### [facility] [address] [place] [address] LABORATORYOrdered By: SYSTEM SYSTEM on 12-26-2024 Calcium [Mass/Vol] 8.5 mg/dL Low 8.7 - 10. 4 mg/dL ADM SS Chloride [Moles/Vol] 107 mmol/L Normal 98 - 11 0 mEq/L AH ADM SS CO2 [Moles/Vol] 29 mmol/L Normal 22 - 32 mEq/L AH ADM SS Creatinine [Mass/Vol] 1.30 mg/dL Normal 0.60 - 1.40 mg/dL ADM SS Comment on above: Interpretive Data: T esting performed on [employer] analyzer using enzymatic creatinine methodology. Electrolyte Balance 7.0 mEq/L Normal 4.0 - 15 .0 mEq/L AH ADM SS Estimated Glomerular Filtration Rate 58 ml/min/1.73sqm Invalid Interpretation Code Chemistry S Comment on above: Interpretive Data: Stages of Chronic Kidney Disease (CKD) Stage Description eGFR(ml/min/1.73 sq.m.) CKD 1 Normal kidney function or >=90 normal kindney function with possible kidney damage (ex. Proteinuria) CKD 2 Kidney damage with mild loss 60-89 of kidney function CKD 3a Mild to moderate loss of kidney 45-59 function CKD 3b Moderate to severe loss of 30-44 of kindey function CKD 4 Severe loss of kidney function 15-29 CKD 5 Kidney failure <15 Note: (go live 2024) the eGFR calculation was updated to the 2020 CKD-EPI creatinine equation without a race factor to calculate the eGFR results. Glucose [Mass/Vol] 133 mg/dL High 82 - 115 mg/dL AH ADM SS Potassium [Moles/Vol] 3.8 mmol/L Normal 3.5 - 5.0 mEq/L AH ADM SS Sodium [Moles/Vol] 143 mmol/L Normal 136 - 145 mEq/L AH ADM SS Urea nitrogen [Mass/Vol] 19.0 mg/dL Normal 8.0 - 22.0 mg/dL AH ADM SS Urea nitrogen/Creatinine [Mass ratio] 14.6 ratio Normal 10.0 - 22.0 ratio AH ADM SS .Auto Diffon 12-25-2024 Basophil, Absolute 0.1 10 3/mcL Normal 0.0-0.3 [facility] Comment on above: Performed By: #### A NORI RIOS #### [address] [address] Basophils/100 WBC (Bld) 1.1 % Normal 0.0-2.5 [facility] Comment on above: Performed By: #### A NORI RIOS #### [address] [address] Eosinophil, Absolute 0.2 10 3/mcL Normal 0.0-0.7 [facility] Comment on above: Performed By: #### A NORI RIOS #### [address] [address] Eosinophils/100 WBC (Bld) 4.6 % Normal 0.0-6.0 [facility] Comment on above: Performed By: #### A NORI RIOS #### [address] [address] Lymphocyte, Absolute 1.0 10 3/mcL Normal 0.9-4.3 [facility] Comment on above: Performed By: #### NORI ZEPEDA #### [address] [address] Lymphocytes/100 WBC (Bld) 18.3 % Low 20.0-40.0 [facility] Comment on above: Performed By: #### A NORI RIOS #### [address] [address] Monocyte, Absolute 0.7 10 3/mcL Normal 0.1-1.4 [facility] Comment on above: Performed By: #### A NROI RIOS #### [address] [address] Monocytes/100 WBC (Bld) 12.5 % Normal 2.0-13.0 [facility] Comment on above: Performed By: #### A NORI RIOS #### [address] [address] Neutrophils/100 WBC (Bld) 63.5 % Normal 50.0-75.0 [facility] Comment on above: Performed By: #### A NORI RIOS #### [address] [address] .GFRon 12-25-2024 Estimated Glomerular Filtration Rate 71 ml/min/1.73sqm Normal [facility] Comment on above: Result Comment: Stages of Chronic Kidney Disease (CKD) Stage Description eGFR(ml/min/1.73 sq.m.) CKD 1 Normal kidney function or >=90 normal kindney function with possible kidney damage (ex. Proteinuria) CKD 2 Kidney damage with mild loss 60-89 of kidney function CKD 3a Mild to moderate loss of kidney 45-59 function CKD 3b Moderate to severe loss of 30-44 of kindey function CKD 4 Severe loss of kidney function 15-29 CKD 5 Kidney failure <15 Note: (go live 2024) the eGFR calculation was updated to the 2020 CKD-EPI creatinine equation without a race factor to calculate the eGFR results. Performed By: #### A NORI RIOS #### [address] [address] .NEUABSon 12-25-2024 Neutrophil, Absolute 3.4 10 3/mcL Normal 2.3-8.1 [facility] Comment on above: Performed By: #### A NORI RIOS #### [address] [address] ABO/Rh (Gel)on 12-25-2024 ABO/Rh Interp Positive Invalid Interpretation Code [facility] Comment on above: Performed By: #### A NORI RIOS #### [address] [address] ABS (Gel)on 12-25-2024 ABSC Interp (Gel) Negative Normal [facility] Comment on above: Performed By: #### A NORI RIOS #### [address] [address] APTTon 12-25-2024 aPTT Coag (Bld) [Time] 36.4 s High 25.0-35.0 [facility] Comment on above: Result Comment: For Heparin anticoagulation therapy, the recommended therapeutic range is: 54-77 seconds (APTT Correlation with Anti-Xa therapeutic range of 0.3-0.7 units/ml). PLEASE REFERENCE THE PHARMACY PROTOCOL FOR DOSING. Performed By: #### G FR, PRO, CBC, BMP, ADIFF, ANEU #### [address] [address] BMPon 12-25-2024 BUN/Creatinine Ratio 13.5 ratio Normal 10.0-22.0 [facility] Comment on above: Performed By: #### A NORI RIOS #### [address] [address] Calcium [Mass/Vol] 8.9 mg/dL Normal 8.7-10.4 [facility] Comment on above: Performed By: #### A NORI RIOS #### [address] [address] Chloride [Moles/Vol] 107 mmol/L Normal 98-110 [facility] Comment on above: Performed By: #### A NORI RIOS #### [address] [address] CO2 [Moles/Vol] 27 mmol/L Normal 22-32 [facility] Comment on above: Performed By: #### A NORI RIOS #### [address] [address] Creatinine [Mass/Vol] 1.11 mg/dL Normal 0.60-1.40 [facility] Comment on above: Result Comment: Test ing performed on [employer] analyzer using enzymatic creatinine methodology. Performed By: #### A NORI RIOS #### [address] [address] Electrolyte Balance 10.0 mEq/L Normal 4.0-15.0 [facility] Comment on above: Performed By: #### NORI ZEPEDA #### [address] [address] Glucose [Mass/Vol] 99 mg/dL Normal 82-115 [facility] Comment on above: Performed By: #### NORI ZEPEDA #### [address] [address] Potassium [Moles/Vol] 3.8 mmol/L Normal 3.5-5.0 [facility] Comment on above: Performed By: #### A NORI RIOS #### [address] [address] Sodium [Moles/Vol] 144 mmol/L Normal 136-145 [facility] Comment on above: Performed By: #### A NORI RIOS #### [address] [address] Urea nitrogen [Mass/Vol] 15.0 mg/dL Normal 8.0-22.0 [facility] Comment on above: Performed By: #### A NORI RIOS #### [address] [address] CBCon 12-25-2024 Erythrocyte distribution width (RBC) [Ratio] 13.9 % Normal 11.5-15.5 [facility] Comment on above: Performed By: #### A NORI RIOS #### [address] [address] Hematocrit (Bld) [Volume fraction] 42.4 % Normal 40.0-52.0 [facility] Comment on above: Performed By: #### A NROI RIOS #### [address] [address] Hgb 14.7 G/dL Normal 13.0-17.5 [facility] Comment on above: Performed By: #### A NORI RIOS #### [address] [address] MCH (RBC) [Entitic mass] 32.7 pg Normal 27.0-33.0 [facility] Comment on above: Performed By: #### A NORI RIOS #### [address] [address] MCHC 34.6 G/dL Normal 32.0-36.0 [facility] Comment on above: Performed By: #### A NORI RIOS #### [address] [address] MCV (RBC) [Entitic vol] 94.5 fL Normal 81.0-100.0 [facility] Comment on above: Performed By: #### A NORI RIOS #### [place] [address] Platelet 220 10 3/mcL Normal 150-450 [facility] Comment on above: Performed By: #### A NORI RIOS #### [place] [address] Platelet mean volume (Bld) [Entitic vol] 8.4 fL Normal 6.4-10.5 [facility] Comment on above: Performed By: #### A NORI RIOS #### [place] [address] RBC 4.49 10 6/mcL Low 4.50-6.00 [facility] Comment on above: Performed By: #### A NORI RIOS #### [place] [address] WBC 5.3 10 3/mcL Normal 4.5-10.8 [facility] Comment on above: Performed By: #### A NORI RIOS #### [place] [address] FIBon 12-25-2024 Fibrinogen 321 mg/dL Normal 250-560 [facility] Comment on above: Performed By: #### G FR, PRO, CBC, BMP, ADIFF, ANEU #### [place] [address] LABORATORYOrdered By: Florencio Michael on 12-25-2024 ABO and Rh group Nom (Bld) Blood group O Rh(D) positive Invalid Interpretation Code AH BB Auto SS Blood group antibody screen Ql Negative ABSC (12/25/24 11:06 AM) Normal AH BB Auto SS LABORATORYOrdered By: SYSTEM SYSTEM on 12-25-2024 aPTT Coag (Bld) [Time] 36.4 s High 25.0 - 35.0 seconds AH [facility] SS Comment on above: Interpretive Data: F or Heparin anticoagulation therapy, the recommended therapeutic range is: 54-77 seconds (APTT Correlation with Anti-Xa therapeutic range of 0.3-0.7 units/ml). PLEASE REFERENCE THE PHARMACY PROTOCOL FOR DOSING. Basophils (Bld) [#/Vol] 0.1 103/mcL Normal 0.0 - 0.3 10^3/mcL Workflow SS Basophils/100 WBC (Bld) 1.1 % Normal 0.0 - 2.5 % Workflow SS Calcium [Mass/Vol] 8.9 mg/dL Normal 8.7 - 10. 4 mg/dL ADM SS Chloride [Moles/Vol] 107 mmol/L Normal 98 - 11 0 mEq/L AH ADM SS CO2 [Moles/Vol] 27 mmol/L Normal 22 - 32 mEq/L ADM SS Creatinine [Mass/Vol] 1.11 mg/dL Normal 0.60 - 1.40 mg/dL AH ADM SS Comment on above: Interpretive Data: T esting performed on S[employer] Medical analyzer using enzymatic creatinine methodology. Electrolyte Balance 10.0 mEq/L Normal 4.0 - 15 .0 mEq/L ADM SS Eosinophils (Bld) [#/Vol] 0.2 103/mcL Normal 0.0 - 0.7 10^3/mcL Workflow SS Eosinophils/100 WBC (Bld) 4.6 % Normal 0.0 - 6.0 % Workflow SS Erythrocyte distribution width (RBC) [Ratio] 13.9 % Normal 11.5 - 15.5 % Workflow SS Estimated Glomerular Filtration Rate 71 ml/min/1.73sqm Invalid Interpretation Code Chemistry S Comment on above: Interpretive Data: Stages of Chronic Kidney Disease (CKD) Stage Description eGFR(ml/min/1.73 sq.m.) CKD 1 Normal kidney function or >=90 normal kindney function with possible kidney damage (ex. Proteinuria) CKD 2 Kidney damage with mild loss 60-89 of kidney function CKD 3a Mild to moderate loss of kidney 45-59 function CKD 3b Moderate to severe loss of 30-44 of kindey function CKD 4 Severe loss of kidney function 15-29 CKD 5 Kidney failure <15 Note: (go live 2024) the eGFR calculation was updated to the 2020 CKD-EPI creatinine equation without a race factor to calculate the eGFR results. Fibrinogen 321 mg/dL Normal 250 - 560 mg/dL [facility] SS Glucose [Mass/Vol] 99 mg/dL Normal 82 - 115 mg/dL AH ADM SS Hematocrit (Bld) [Volume fraction] 42.4 % Normal 40.0 - 52.0 % AH Workflow SS Hemoglobin (Bld) [Mass/Vol] 14.7 G/dL Normal 13.0 - 17.5 G/dL AH Workflow SS Lymphocytes (Bld) [#/Vol] 1.0 103/mcL Normal 0.9 - 4.3 10^3/mcL AH Workflow SS Lymphocytes/100 WBC (Bld) 18.3 % Low 20.0 - 40.0 % AH Workflow SS MCH (RBC) [Entitic mass] 32.7 pg Normal 27. 0 - 33.0 pg AH Workflow SS MCHC 34.6 G/dL Normal 32.0 - 36.0 G/dL Workflow SS MCV (RBC) [Entitic vol] 94.5 fL Normal 81.0 - 100.0 fL Workflow SS Monocytes (Bld) [#/Vol] 0.7 103/mcL Normal 0.1 - 1.4 10^3/mcL AH Workflow SS Monocytes/100 WBC (Bld) 12.5 % Normal 2.0 - 13.0 % AH Workflow SS Neutrophils (Bld) [#/Vol] 3.4 103/mcL Normal 2.3 - 8.1 10^3/mcL AH Workflow SS Neutrophils/100 WBC (Bld) 63.5 % Normal 50.0 - 75.0 % Workflow SS Platelet mean volume (Bld) [Entitic vol] 8.4 fL Normal 6.4 - 10.5 fL Workflow SS Platelets (Bld) [#/Vol] 220 103/mcL Normal 150 - 450 10^3/mcL Workflow SS Potassium [Moles/Vol] 3.8 mmol/L Normal 3.5 - 5.0 mEq/L ADM SS PT Coag (PPP) [Time] 11.6 s Normal 9.0 - 1 4.4 seconds [facility] SS Comment on above: Interpretive Data: E ffective 03/19/08, Protime results may be affected by some antibiotics (i.e. Ciprofloxacin, Azithromycin, Bactrim) which may potentiate the action of oral anticoagulants, with further increases in Protime/INR. PT International Ratio 1.0 ratio Invalid Interpretation Code [facility] SS Comment on above: Interpretive Data: Александр troncoso [employer] (CHEST, 1992, 102:312S-25S) recommended therapeutic range for oral anticoagulant therapy is: LOW RISK: Prophylaxis of venous thrombosis INR: 2.0-3.0 Treatment of pulmonary embolism 2.0-3.0 Prevention of systemic embolism 2.0-3.0 HIGH RISK: Mechanical prosthetic valves 2.5-3.5 RBC (Bld) [#/Vol] 4.49 106/mcL Low 4.50 - 6.0 0 10^6/mcL AH Workflow SS Sodium [Moles/Vol] 144 mmol/L Normal 136 - 145 mEq/L AH ADM SS Urea nitrogen [Mass/Vol] 15.0 mg/dL Normal 8.0 - 22.0 mg/dL AH ADM SS Urea nitrogen/Creatinine [Mass ratio] 13.5 ratio Normal 10.0 - 22.0 ratio AH ADM SS WBC (Bld) [#/Vol] 5.3 103/mcL Normal 4.5 - 10.8 10^3/mcL AH Workflow SS PROon 12-25-2024 INR Coag (PPP) [Relative time] 1.0 {INR} Normal [facility] Comment on above: Result Comment: [employer] (CHEST, 1992, 102:312S-25S) recommended therapeutic range for oral anticoagulant therapy is: LOW RISK: Prophylaxis of venous thrombosis INR: 2.0-3.0 Treatment of pulmonary embolism 2.0-3.0 Prevention of systemic embolism 2.0-3.0 HIGH RISK: Mechanical prosthetic valves 2.5-3.5 Performed By: #### G FR, PRO, CBC, BMP, ADIFF, ANEU #### [place] [address] PT Coag (PPP) [Time] 11.6 s Normal 9.0-14.4 [facility] Comment on above: Result Comment: Effe ctive 03/19/08, Protime results may be affected by some antibiotics (i.e. Ciprofloxacin, Azithromycin, Bactrim) which may potentiate the action of oral anticoagulants, with further increases in Protime/INR. Performed By: #### G FR, PRO, CBC, BMP, ADIFF, ANEU #### [address] [address] .Auto Diffon 11-28-2024 Basophil, Absolute 0.1 10 3/mcL Normal 0.0-0.3 [facility] Comment on above: Performed By: #### A GABRIEL ABSGEL #### [address] [address] Basophils/100 WBC (Bld) 1.1 % Normal 0.0-2.5 [facility] Comment on above: Performed By: #### A GABRIEL ABSGEL #### [address] [address] Eosinophil, Absolute 0.3 10 3/mcL Normal 0.0-0.7 [facility] Comment on above: Performed By: #### A GABRIEL ABSGEL #### [address] [address] Eosinophils/100 WBC (Bld) 4.5 % Normal 0.0-6.0 [facility] Comment on above: Performed By: #### A GABRIEL ABSGEL #### [address] [address] Lymphocyte, Absolute 1.4 10 3/mcL Normal 0.9-4.3 [facility] Comment on above: Performed By: #### A GABRIEL ABSGEL #### [address] [address] Lymphocytes/100 WBC (Bld) 22.6 % Normal 20.0-40.0 [facility] Comment on above: Performed By: #### A GABRIEL ABSGEL #### [address] [address] Monocyte, Absolute 0.7 10 3/mcL Normal 0.1-1.4 [facility] Comment on above: Performed By: #### A GABRIEL ABSGEL #### [address] [address] Monocytes/100 WBC (Bld) 11.0 % Normal 2.0-13.0 [facility] Comment on above: Performed By: #### A GABRIEL ABSGEL #### [address] [address] Neutrophils/100 WBC (Bld) 60.8 % Normal 50.0-75.0 [facility] Comment on above: Performed By: #### NORI ZEPEDA #### [place] [address] .GFRon 11-28-2024 Estimated Glomerular Filtration Rate 66 ml/min/1.73sqm Normal [facility] Comment on above: Result Comment: Stages of Chronic Kidney Disease (CKD) Stage Description eGFR(ml/min/1.73 sq.m.) CKD 1 Normal kidney function or >=90 normal kindney function with possible kidney damage (ex. Proteinuria) CKD 2 Kidney damage with mild loss 60-89 of kidney function CKD 3a Mild to moderate loss of kidney 45-59 function CKD 3b Moderate to severe loss of 30-44 of kindey function CKD 4 Severe loss of kidney function 15-29 CKD 5 Kidney failure <15 Note: (go live 2024) the eGFR calculation was updated to the 2020 CKD-EPI creatinine equation without a race factor to calculate the eGFR results. Performed By: #### G FR, PRO, CBC, BMP, ADIFF, ANEU #### [place] [address] .NEUABSon 11-28-2024 Neutrophil, Absolute 3.8 10 3/mcL Normal 2.3-8.1 [facility] Comment on above: Performed By: #### A NORI RIOS #### [place] [address] ABO/Rh (Gel)on 11-28-2024 ABO/Rh Interp Positive Invalid Interpretation Code [facility] Comment on above: Performed By: #### NORI ZEPEDA #### [place] [address] ABS (Gel)on 11-28-2024 ABSC Interp (Gel) Negative Normal [facility] Comment on above: Performed By: #### NORI ZEPEDA #### [place] [address] CBCon 11-28-2024 Erythrocyte distribution width (RBC) [Ratio] 14.8 % Normal 11.5-15.5 [facility] Comment on above: Performed By: #### A NORI RIOS #### [place] [id number] Hematocrit (Bld) [Volume fraction] 46.0 % Normal 40.0-52.0 [facility] Comment on above: Performed By: #### A NORI RIOS #### [place] [address] Hgb 15.3 G/dL Normal 13.0-17.5 [facility] Comment on above: Performed By: #### A NORI RIOS #### [place] [address] MCH (RBC) [Entitic mass] 31.6 pg Normal 27.0-33.0 [facility] Comment on above: Performed By: #### A NORI RIOS #### [place] [address] MCHC 33.3 G/dL Normal 32.0-36.0 [facility] Comment on above: Performed By: #### A NORI RIOS #### [place] [address] MCV (RBC) [Entitic vol] 95.0 fL Normal 81.0-100.0 [facility] Comment on above: Performed By: #### A NORI RIOS #### [place] [address] Platelet 225 10 3/mcL Normal 150-450 [facility] Comment on above: Performed By: #### A NORI RIOS #### [place] [address] Platelet mean volume (Bld) [Entitic vol] 8.6 fL Normal 6.4-10.5 [facility] Comment on above: Performed By: #### A NORI RIOS #### [place] [address] RBC 4.85 10 6/mcL Normal 4.50-6.00 [facility] Comment on above: Performed By: #### A NORI RIOS #### [place] [address] WBC 6.3 10 3/mcL Normal 4.5-10.8 [facility] Comment on above: Performed By: #### A GABRIEL NORI #### [place] [phone] CMPon 11-28-2024 Albumin Level 3.9 G/dL Normal 3.2-4.8 [facility] Comment on above: Performed By: #### G FR, PRO, CBC, BMP, ADIFF, ANEU #### [place] [address] Albumin/Globulin [Mass ratio] 1.3 {ratio} Normal 0.9-1.6 [facility] Comment on above: Performed By: #### G FR, PRO, CBC, BMP, ADIFF, ANEU #### [place] [address] ALP [Catalytic activity/Vol] 63 U/L Normal 38-126 [facility] Comment on above: Performed By: #### G FR, PRO, CBC, BMP, ADIFF, ANEU #### [place] [address] ALT [Catalytic activity/Vol] 27 U/L Normal 12-55 [facility] Comment on above: Performed By: #### G FR, PRO, CBC, BMP, ADIFF, ANEU #### [place] [address] AST [Catalytic activity/Vol] 35 U/L High 8-34 [facility] Comment on above: Performed By: #### G FR, PRO, CBC, BMP, ADIFF, ANEU #### [place] [address] Bili Total 0.60 mg/dL Normal 0.20-1.20 [facility] Comment on above: Result Comment: Use of this assay is not recommended for patients undergoing treatment with eltrombopag due to the potential for falsely elevated results. Performed By: #### G FR, PRO, CBC, BMP, ADIFF, ANEU #### [place] [address] BUN/Creatinine Ratio 14.4 ratio Normal 10.0-22.0 [facility] Comment on above: Performed By: #### G FR, PRO, CBC, BMP, ADIFF, ANEU #### [address] [address] Calcium [Mass/Vol] 8.8 mg/dL Normal 8.7-10.4 [facility] Comment on above: Performed By: #### G FR, PRO, CBC, BMP, ADIFF, ANEU #### [address] [address] Chloride [Moles/Vol] 107 mmol/L Normal 98-110 [facility] Comment on above: Performed By: #### G FR, PRO, CBC, BMP, ADIFF, ANEU #### [address] [address] CO2 [Moles/Vol] 24 mmol/L Normal 22-32 [facility] Comment on above: Performed By: #### G FR, PRO, CBC, BMP, ADIFF, ANEU #### [address] [address] Creatinine [Mass/Vol] 1.18 mg/dL Normal 0.60-1.40 [facility] Comment on above: Result Comment: Test ing performed on S[employer] Medical analyzer using enzymatic creatinine methodology. Performed By: #### G FR, PRO, CBC, BMP, ADIFF, ANEU #### [address] [address] Electrolyte Balance 9.0 mEq/L Normal 4.0-15.0 [facility] Comment on above: Performed By: #### G FR, PRO, CBC, BMP, ADIFF, ANEU #### [address] [address] Globulin 3.1 G/dL Normal 1.5-3.8 [facility] Comment on above: Performed By: #### G FR, PRO, CBC, BMP, ADIFF, ANEU #### [address] [address] Glucose [Mass/Vol] 153 mg/dL High 82-115 [facility] Comment on above: Performed By: #### G FR, PRO, CBC, BMP, ADIFF, ANEU #### [address] [address] Potassium [Moles/Vol] 4.1 mmol/L Normal 3.5-5.0 [facility] Comment on above: Performed By: #### G FR, PRO, CBC, BMP, ADIFF, ANEU #### [address] [address] Sodium [Moles/Vol] 140 mmol/L Normal 136-145 [facility] Comment on above: Performed By: #### G FR, PRO, CBC, BMP, ADIFF, ANEU #### [address] [address] Total Protein 7.0 G/dL Normal 5.7-8.2 [facility] Comment on above: Performed By: #### G FR, PRO, CBC, BMP, ADIFF, ANEU #### [address] [address] Urea nitrogen [Mass/Vol] 17.0 mg/dL Normal 8.0-22.0 [facility] Comment on above: Performed By: #### G FR, PRO, CBC, BMP, ADIFF, ANEU #### [address] [address] LABORATORYOrdered By: SYSTEM SYSTEM on 11-28-2024 Albumin BCP dye [Mass/Vol] 3.9 G/dL Normal 3.2 - 4.8 G/dL ADM SS Albumin/Globulin [Mass ratio] 1.3 {ratio} Normal 0.9 - 1.6 ratio ADM SS ALP [Catalytic activity/Vol] 63 U/L Normal 38 - 126 U/L ADM SS ALT No additional P-5'-P [Catalytic activity/Vol] 27 U/L Normal 12 - 55 U/L ADM SS AST [Catalytic activity/Vol] 35 U/L High 8 - 34 U/L ADM SS Basophils (Bld) [#/Vol] 0.1 103/mcL Normal 0.0 - 0.3 10^3/mcL Workflow SS Basophils/100 WBC (Bld) 1.1 % Normal 0.0 - 2.5 % Workflow SS Bilirubin [Mass/Vol] 0.60 mg/dL Normal 0.20 - 1.20 mg/dL ADM SS Comment on above: Interpretive Data: U se of this assay is not recommended for patients undergoing treatment with eltrombopag due to the potential for falsely elevated results. Calcium [Mass/Vol] 8.8 mg/dL Normal 8.7 - 10. 4 mg/dL ADM SS Chloride [Moles/Vol] 107 mmol/L Normal 98 - 11 0 mEq/L ADM SS CO2 [Moles/Vol] 24 mmol/L Normal 22 - 32 mEq/L AH ADM SS Creatinine [Mass/Vol] 1.18 mg/dL Normal 0.60 - 1.40 mg/dL ADM SS Comment on above: Interpretive Data: T esting performed on [employer] analyzer using enzymatic creatinine methodology. Electrolyte Balance 9.0 mEq/L Normal 4.0 - 15 .0 mEq/L ADM SS Eosinophils (Bld) [#/Vol] 0.3 103/mcL Normal 0.0 - 0.7 10^3/mcL Workflow SS Eosinophils/100 WBC (Bld) 4.5 % Normal 0.0 - 6.0 % Workflow SS Erythrocyte distribution width (RBC) [Ratio] 14.8 % Normal 11.5 - 15.5 % Workflow SS Estimated Glomerular Filtration Rate 66 ml/min/1.73sqm Invalid Interpretation Code Chemistry S Comment on above: Interpretive Data: Stages of Chronic Kidney Disease (CKD) Stage Description eGFR(ml/min/1.73 sq.m.) CKD 1 Normal kidney function or >=90 normal kindney function with possible kidney damage (ex. Proteinuria) CKD 2 Kidney damage with mild loss 60-89 of kidney function CKD 3a Mild to moderate loss of kidney 45-59 function CKD 3b Moderate to severe loss of 30-44 of kindey function CKD 4 Severe loss of kidney function 15-29 CKD 5 Kidney failure <15 Note: (go live 2024) the eGFR calculation was updated to the 2020 CKD-EPI creatinine equation without a race factor to calculate the eGFR results. Globulin 3.1 G/dL Normal 1.5 - 3.8 G/dL ADM SS Glucose [Mass/Vol] 153 mg/dL High 82 - 115 mg/dL ADM SS Hematocrit (Bld) [Volume fraction] 46.0 % Normal 40.0 - 52.0 % Workflow SS Hemoglobin (Bld) [Mass/Vol] 15.3 G/dL Normal 13.0 - 17.5 G/dL AH Workflow SS Lymphocytes (Bld) [#/Vol] 1.4 103/mcL Normal 0.9 - 4.3 10^3/mcL AH Workflow SS Lymphocytes/100 WBC (Bld) 22.6 % Normal 20.0 - 40.0 % AH Workflow SS MCH (RBC) [Entitic mass] 31.6 pg Normal 27. 0 - 33.0 pg AH Workflow SS MCHC 33.3 G/dL Normal 32.0 - 36.0 G/dL AH Workflow SS MCV (RBC) [Entitic vol] 95.0 fL Normal 81.0 - 100.0 fL AH Workflow SS Monocytes (Bld) [#/Vol] 0.7 103/mcL Normal 0.1 - 1.4 10^3/mcL AH Workflow SS Monocytes/100 WBC (Bld) 11.0 % Normal 2.0 - 13.0 % AH Workflow SS Neutrophils (Bld) [#/Vol] 3.8 103/mcL Normal 2.3 - 8.1 10^3/mcL AH Workflow SS Neutrophils/100 WBC (Bld) 60.8 % Normal 50.0 - 75.0 % AH Workflow SS Platelet mean volume (Bld) [Entitic vol] 8.6 fL Normal 6.4 - 10.5 fL AH Workflow SS Platelets (Bld) [#/Vol] 225 103/mcL Normal 150 - 450 10^3/mcL AH Workflow SS Potassium [Moles/Vol] 4.1 mmol/L Normal 3.5 - 5.0 mEq/L ADM SS Protein [Mass/Vol] 7.0 G/dL Normal 5.7 - 8.2 G/dL ADM SS RBC (Bld) [#/Vol] 4.85 106/mcL Normal 4.50 - 6.0 0 10^6/mcL AH Workflow SS Sodium [Moles/Vol] 140 mmol/L Normal 136 - 145 mEq/L AH ADM SS Urea nitrogen [Mass/Vol] 17.0 mg/dL Normal 8.0 - 22.0 mg/dL AH ADM SS Urea nitrogen/Creatinine [Mass ratio] 14.4 ratio Normal 10.0 - 22.0 ratio ADM SS WBC (Bld) [#/Vol] 6.3 103/mcL Normal 4.5 - 10.8 10^3/mcL AH Workflow SS A1Con 03-19-2025 Glucose [Mass/Vol] 134 mg/dL Normal [facility] Comment on above: Result Comment: Radha mated Average Glucose calculated by equation ((28.7xA1C)-46.7) Estimated average glucose (eAG) is a calculated value from Hemoglobin A1C and is sales and service representative of the average blood glucose level in the last 2-3 month period. Normal range: less than 114 mg/dL Performed By: #### C BC, ADIFF, ANEU, TSH, CMP, GFR, LIPID, VIDH #### [address] [address] #### FT4 #### [address] [address] HbA1c (Bld) [Mass fraction] 6.3 % Normal 4.3-6.4 [facility] Comment on above: Performed By: #### C BC, ADIFF, ANEU, TSH, CMP, GFR, LIPID, VIDH #### [address] [address] #### FT4 #### [address] [address] Head/Neck Soft Tissueon - Head/Neck Soft Tissue [facility] Imaging Services [address] [place] [id number] Head/Neck Soft Tissue MR#: [id number] Acct: [id number] Name: CHARLOTTE DE LA TORRE Rep #: [id number] : 1950 M 74 From: [address] MD PCP: Dr. Jose Maria MD Status: [facility] Study: Head/Neck Soft Tissue Date of Exam: 11/14/24 Exam# [id number] Ordering Dr: Jose Maria MD PROCEDURE: HEAD/NECK SOFT TISSUE REASON FOR EXAM: LUMP LEFT NECK History of thyroid cancer with a status post thyroidectomy. COMPARISON: None. TECHNIQUE: Targeted sonogram to the area of the left neck was performed. FINDINGS: In the anterior midline of the left side of the cervical region there is a 1.5 cm x 1.1 cm x 0.4 cm isoechoic density suggestive of a possible lipoma. US/Head/Neck Soft Tissue IMPRESSION: The palpable lump corresponds to a 1.5 cm x 1.1 cm x 0.4 cm isoechoic nodular density suggestive of a lipoma. Reading Location: [id number] CC: Dr. Jose Maria MD Rn Immunology: Signed Normal [facility] .Auto Diffon 11-06-2024 Basophil, Absolute 0.1 10 3/mcL Normal 0.0-0.2 [facility] Comment on above: Performed By: #### C BC, ADIFF, ANEU, TSH, CMP, GFR, LIPID, VIDH #### [place] [address] #### FT4 #### [address] [address] Basophils/100 WBC (Bld) 1.4 % Normal 0.0-2.5 [facility] Comment on above: Performed By: #### C BC, ADIFF, ANEU, TSH, CMP, GFR, LIPID, VIDH #### [address] [address] #### FT4 #### [address] [address] Eosinophil, Absolute 0.4 10 3/mcL Normal 0.0-0.7 [facility] Comment on above: Performed By: #### C BC, ADIFF, ANEU, TSH, CMP, GFR, LIPID, VIDH #### [place] [address] #### FT4 #### [address] [address] Eosinophils/100 WBC (Bld) 4.0 % Normal 0.0-7.0 [facility] Comment on above: Performed By: #### C BC, ADIFF, ANEU, TSH, CMP, GFR, LIPID, VIDH #### [place] [address] #### FT4 #### [address] [address] Lymphocyte, Absolute 2.3 10 3/mcL Normal 0.9-4.3 [facility] Comment on above: Performed By: #### C BC, ADIFF, ANEU, TSH, CMP, GFR, LIPID, VIDH #### [address] [address] #### FT4 #### [address] [address] Lymphocytes/100 WBC (Bld) 26.5 % Normal 20.0-40.0 [facility] Comment on above: Performed By: #### C BC, ADIFF, ANEU, TSH, CMP, GFR, LIPID, VIDH #### [place] [address] #### FT4 #### [address] [address] Monocyte, Absolute 1.0 10 3/mcL Normal 0.1-1.4 [facility] Comment on above: Performed By: #### C BC, ADIFF, ANEU, TSH, CMP, GFR, LIPID, VIDH #### [place] [address] #### FT4 #### [address] [address] Monocytes/100 WBC (Bld) 10.8 % Normal 2.0-13.0 [facility] Comment on above: Performed By: #### C BC, ADIFF, ANEU, TSH, CMP, GFR, LIPID, VIDH #### [place] [address] #### FT4 #### [address] [address] Neutrophils/100 WBC (Bld) 57.3 % Normal 50.0-75.0 [facility] Comment on above: Performed By: #### C BC, ADIFF, ANEU, TSH, CMP, GFR, LIPID, VIDH #### [place] [address] #### FT4 #### [address] [address] .GFRon 11-06-2024 Estimated Glomerular Filtration Rate 51 ml/min/1.73sqm Normal [facility] Comment on above: Result Comment: Stages of Chronic Kidney Disease (CKD) Stage Description eGFR(ml/min/1.73 sq.m.) CKD 1 Normal kidney function or >=90 normal kindney function with possible kidney damage (ex. Proteinuria) CKD 2 Kidney damage with mild loss 60-89 of kidney function CKD 3a Mild to moderate loss of kidney 45-59 function CKD 3b Moderate to severe loss of 30-44 of kindey function CKD 4 Severe loss of kidney function 15-29 CKD 5 Kidney failure <15 Note: (go live 2024) the eGFR calculation was updated to the 2020 CKD-EPI creatinine equation without a race factor to calculate the eGFR results. Performed By: #### C BC, ADIFF, ANEU, TSH, CMP, GFR, LIPID, VIDH #### [address] [address] #### FT4 #### [address] [address] .NEUABSon 11-06-2024 Neutrophil, Absolute 5.1 10 3/mcL Normal 2.3-8.1 [facility] Comment on above: Performed By: #### C BC, ADIFF, ANEU, TSH, CMP, GFR, LIPID, VIDH #### [address] [address] #### FT4 #### [address] [address] CBCon 11-06-2024 Erythrocyte distribution width (RBC) [Ratio] 13.9 % Normal 11.5-15.5 [facility] Comment on above: Performed By: #### C BC, ADIFF, ANEU, TSH, CMP, GFR, LIPID, VIDH #### [address] [address] #### FT4 #### [place] [address] Hematocrit (Bld) [Volume fraction] 44.5 % Normal 40.0-52.0 [facility] Comment on above: Performed By: #### C BC, ADIFF, ANEU, TSH, CMP, GFR, LIPID, VIDH #### [place] [address] #### FT4 #### [place] [address] Hgb 15.1 G/dL Normal 13.0-17.5 [facility] Comment on above: Performed By: #### C BC, ADIFF, ANEU, TSH, CMP, GFR, LIPID, VIDH #### [place] [address] #### FT4 #### [place] [address] MCH (RBC) [Entitic mass] 31.9 pg Normal 27.0-33.0 [facility] Comment on above: Performed By: #### C BC, ADIFF, ANEU, TSH, CMP, GFR, LIPID, VIDH #### [place] [address] #### FT4 #### [place] [address] MCHC 33.9 G/dL Normal 32.0-36.0 [facility] Comment on above: Performed By: #### C BC, ADIFF, ANEU, TSH, CMP, GFR, LIPID, VIDH #### [place] [address] #### FT4 #### [place] [address] MCV (RBC) [Entitic vol] 94.2 fL Normal 81.0-100.0 [facility] Comment on above: Performed By: #### C BC, ADIFF, ANEU, TSH, CMP, GFR, LIPID, VIDH #### [place] [address] #### FT4 #### [place] [address] Platelet 261 10 3/mcL Normal 150-450 [facility] Comment on above: Performed By: #### C BC, ADIFF, ANEU, TSH, CMP, GFR, LIPID, VIDH #### [place] [id number] #### FT4 #### [place] [address] Platelet mean volume (Bld) [Entitic vol] 8.0 fL Normal 6.4-10.5 [facility] Comment on above: Performed By: #### C BC, ADIFF, ANEU, TSH, CMP, GFR, LIPID, VIDH #### [place] [id number] #### FT4 #### [place] [address] RBC 4.72 10 6/mcL Normal 4.50-6.00 [facility] Comment on above: Performed By: #### C BC, ADIFF, ANEU, TSH, CMP, GFR, LIPID, VIDH #### [place] [id number] #### FT4 #### [place] [address] WBC 8.8 10 3/mcL Normal 4.5-10.8 [facility] Comment on above: Performed By: #### C BC, ADIFF, ANEU, TSH, CMP, GFR, LIPID, VIDH #### [place] [id number] #### FT4 #### [place] [address] CMPon 11-06-2024 Albumin Level 3.6 G/dL Normal 3.4-4.8 [facility] Comment on above: Performed By: #### C BC, ADIFF, ANEU, TSH, CMP, GFR, LIPID, VIDH #### [place] [address] #### FT4 #### [place] [address] Albumin/Globulin [Mass ratio] 1.0 {ratio} Low 1.1-2.5 [facility] Comment on above: Performed By: #### C BC, ADIFF, ANEU, TSH, CMP, GFR, LIPID, VIDH #### [place] [address] #### FT4 #### [address] [address] ALP [Catalytic activity/Vol] 56 U/L Normal 40-135 [facility] Comment on above: Performed By: #### C BC, ADIFF, ANEU, TSH, CMP, GFR, LIPID, VIDH #### [place] [address] #### FT4 #### [place] [address] ALT [Catalytic activity/Vol] 30 U/L Normal 16-63 [facility] Comment on above: Performed By: #### C BC, ADIFF, ANEU, TSH, CMP, GFR, LIPID, VIDH #### [place] [address] #### FT4 #### [place] [address] AST [Catalytic activity/Vol] 24 U/L Normal 10-40 [facility] Comment on above: Performed By: #### C BC, ADIFF, ANEU, TSH, CMP, GFR, LIPID, VIDH #### [place] [address] #### FT4 #### [place] [address] Bili Total 0.6 mg/dL Normal 0.2-1.0 [facility] Comment on above: Result Comment: Use of this assay is not recommended for patients undergoing treatment with eltrombopag due to the potential for falsely elevated results. Performed By: #### C BC, ADIFF, ANEU, TSH, CMP, GFR, LIPID, VIDH #### [place] [address] #### FT4 #### [place] [address] BUN/Creatinine Ratio 11 ratio Normal 7-27 [facility] Comment on above: Performed By: #### C BC, ADIFF, ANEU, TSH, CMP, GFR, LIPID, VIDH #### [place] [address] #### FT4 #### [address] [address] Calcium [Mass/Vol] 8.6 mg/dL Normal 8.4-10.2 [facility] Comment on above: Performed By: #### C BC, ADIFF, ANEU, TSH, CMP, GFR, LIPID, VIDH #### [place] [address] #### FT4 #### [address] [address] Chloride [Moles/Vol] 105 mmol/L Normal 98-107 [facility] Comment on above: Performed By: #### C BC, ADIFF, ANEU, TSH, CMP, GFR, LIPID, VIDH #### [place] [address] #### FT4 #### [address] [address] CO2 [Moles/Vol] 28 mmol/L Normal 23-31 [facility] Comment on above: Performed By: #### C BC, ADIFF, ANEU, TSH, CMP, GFR, LIPID, VIDH #### [place] [address] #### FT4 #### [address] [address] Creatinine [Mass/Vol] 1.46 mg/dL High 0.70-1.30 [facility] Comment on above: Result Comment: Test ing performed on Siemens Dimension EXL analyzer using a modified kinetic [place] technique. Performed By: #### C BC, ADIFF, ANEU, TSH, CMP, GFR, LIPID, VIDH #### [place] [address] #### FT4 #### [address] [address] Electrolyte Balance 9.0 mEq/L Normal 4.0-15.0 [facility] Comment on above: Performed By: #### C BC, ADIFF, ANEU, TSH, CMP, GFR, LIPID, VIDH #### [address] [address] #### FT4 #### [address] [address] Globulin 3.6 G/dL Normal 1.5-3.8 [facility] Comment on above: Performed By: #### C BC, ADIFF, ANEU, TSH, CMP, GFR, LIPID, VIDH #### [place] [address] #### FT4 #### [address] [address] Glucose [Mass/Vol] 117 mg/dL High 83-110 [facility] Comment on above: Performed By: #### C BC, ADIFF, ANEU, TSH, CMP, GFR, LIPID, VIDH #### [place] [address] #### FT4 #### [address] [address] Potassium [Moles/Vol] 4.0 mmol/L Normal 3.5-5.1 [facility] Comment on above: Performed By: #### C BC, ADIFF, ANEU, TSH, CMP, GFR, LIPID, VIDH #### [address] [address] #### FT4 #### [address] [address] Sodium [Moles/Vol] 142 mmol/L Normal 136-145 [facility] Comment on above: Performed By: #### C BC, ADIFF, ANEU, TSH, CMP, GFR, LIPID, VIDH #### [place] [address] #### FT4 #### [address] [address] Total Protein 7.2 G/dL Normal 6.4-8.2 [facility] Comment on above: Performed By: #### C BC, ADIFF, ANEU, TSH, CMP, GFR, LIPID, VIDH #### [address] [address] #### FT4 #### [address] [address] Urea nitrogen [Mass/Vol] 16 mg/dL Normal 7-18 [facility] Comment on above: Performed By: #### C BC, ADIFF, ANEU, TSH, CMP, GFR, LIPID, VIDH #### [address] [address] #### FT4 #### [address] [address] FT4on 11-06-2024 Free T4 [Mass/Vol] 1.88 ng/dL High 0.89-1.76 [facility] Comment on above: Result Comment: No te - New Reference Range in effect 20 Performed By: #### P SA #### [address] [address] LABORATORYOrdered By: SYSTEM SYSTEM on 11-06-2024 25-hydroxyvitamin D3 [Mass/Vol] 9.1 ng/mL Invalid Interpretation Code AO ADM SS Comment on above: Interpretive Data: I nterpretive Values Based on Total 25(OH) Vitamin D: Deficient <20 ng/mL Insufficient 20 - <30 ng/mL Sufficient 30-100 ng/mL Albumin BCP dye [Mass/Vol] 3.6 G/dL Normal 3.4 - 4.8 G/dL AO ADM SS Albumin/Globulin [Mass ratio] 1.0 {ratio} Low 1.1 - 2.5 ratio AO ADM SS ALP [Catalytic activity/Vol] 56 U/L Normal 40 - 135 U/L AO ADM SS ALT With P-5'-P [Catalytic activity/Vol] 30 U/L Normal 16 - 63 U/L AO ADM SS AST With P-5'-P [Catalytic activity/Vol] 24 U/L Normal 10 - 40 U/L AO ADM SS Basophils (Bld) [#/Vol] 0.1 103/mcL Normal 0.0 - 0.2 10^3/mcL AO Workflow SS Basophils/100 WBC (Bld) 1.4 % Normal 0.0 - 2.5 % AO Workflow SS Bilirubin [Mass/Vol] 0.6 mg/dL Normal 0.2 - 1 .0 mg/dL AO ADM SS Comment on above: Interpretive Data: U se of this assay is not recommended for patients undergoing treatment with eltrombopag due to the potential for falsely elevated results. Calcium [Mass/Vol] 8.6 mg/dL Normal 8.4 - 10. 2 mg/dL AO ADM SS Chloride [Moles/Vol] 105 mmol/L Normal 98 - 10 7 mmol/L AO ADM SS CO2 [Moles/Vol] 28 mmol/L Normal 23 - 31 mmol/L AO ADM SS Creatinine [Mass/Vol] 1.46 mg/dL High 0.70 - 1.30 mg/dL AO ADM SS Comment on above: Interpretive Data: T esting performed on Siemens Dimension EXL analyzer using a modified kinetic [place] technique. Electrolyte Balance 9.0 mEq/L Normal 4.0 - 15 .0 mEq/L AO ADM SS Eosinophil, Absolute 0.4 103/mcL Normal 0.0 - 0 .7 10^3/mcL AO Workflow SS Eosinophils/100 WBC (Bld) 4.0 % Normal 0.0 - 7.0 % AO Workflow SS Erythrocyte distribution width (RBC) [Ratio] 13.9 % Normal 11.5 - 15.5 % AO Workflow SS Estimated Glomerular Filtration Rate 51 ml/min/1.73sqm Invalid Interpretation Code AO Chemistry S Comment on above: Interpretive Data: Stages of Chronic Kidney Disease (CKD) Stage Description eGFR(ml/min/1.73 sq.m.) CKD 1 Normal kidney function or >=90 normal kindney function with possible kidney damage (ex. Proteinuria) CKD 2 Kidney damage with mild loss 60-89 of kidney function CKD 3a Mild to moderate loss of kidney 45-59 function CKD 3b Moderate to severe loss of 30-44 of kindey function CKD 4 Severe loss of kidney function 15-29 CKD 5 Kidney failure <15 Note: (go live 2024) the eGFR calculation was updated to the 2020 CKD-EPI creatinine equation without a race factor to calculate the eGFR results. Free T4 [Mass/Vol] 1.88 ng/dL High 0.89 - 1. 76 ng/dL AH ADM SS Comment on above: Interpretive Data: * *Note - New Reference Range in effect 20 Globulin 3.6 G/dL Normal 1.5 - 3.8 G/dL AO ADM SS Glucose [Mass/Vol] 117 mg/dL High 83 - 110 mg/dL AO ADM SS Hematocrit (Bld) [Volume fraction] 44.5 % Normal 40.0 - 52.0 % AO Workflow SS Hemoglobin (Bld) [Mass/Vol] 15.1 G/dL Normal 13.0 - 17.5 G/dL AO Workflow SS Lymphocytes (Bld) [#/Vol] 2.3 103/mcL Normal 0.9 - 4.3 10^3/mcL AO Workflow SS Lymphocytes/100 WBC (Bld) 26.5 % Normal 20.0 - 40.0 % AO Workflow SS MCH (RBC) [Entitic mass] 31.9 pg Normal 27. 0 - 33.0 pg AO Workflow SS MCHC 33.9 G/dL Normal 32.0 - 36.0 G/dL AO Workflow SS MCV (RBC) [Entitic vol] 94.2 fL Normal 81.0 - 100.0 fL AO Workflow SS Monocytes (Bld) [#/Vol] 1.0 103/mcL Normal 0.1 - 1.4 10^3/mcL AO Workflow SS Monocytes/100 WBC (Bld) 10.8 % Normal 2.0 - 13.0 % AO Workflow SS Neutrophils (Bld) [#/Vol] 5.1 103/mcL Normal 2.3 - 8.1 10^3/mcL AO Workflow SS Neutrophils/100 WBC (Bld) 57.3 % Normal 50.0 - 75.0 % AO Workflow SS Platelet mean volume (Bld) [Entitic vol] 8.0 fL Normal 6.4 - 10.5 fL AO Workflow SS Platelets (Bld) [#/Vol] 261 103/mcL Normal 150 - 450 10^3/mcL AO Workflow SS Potassium [Moles/Vol] 4.0 mmol/L Normal 3.5 - 5.1 mmol/L AO ADM SS Protein [Mass/Vol] 7.2 G/dL Normal 6.4 - 8.2 G/dL AO ADM SS RBC (Bld) [#/Vol] 4.72 106/mcL Normal 4.50 - 6.0 0 10^6/mcL AO Workflow SS Sodium [Moles/Vol] 142 mmol/L Normal 136 - 145 mmol/L AO ADM SS TSH Qn 7.98 m[IU]/L High 0.36 - 3.74 mcIU/mL AO ADM SS Urea nitrogen [Mass/Vol] 16 mg/dL Normal 7 - 18 mg/d L AO ADM SS Urea nitrogen/Creatinine [Mass ratio] 11 ratio Normal 7 - 27 ratio AO ADM SS WBC (Bld) [#/Vol] 8.8 103/mcL Normal 4.5 - 10.8 10^3/mcL AO Workflow SS LABORATORYOrdered By: Darian Paul on 11-06-2024 Cholesterol [Mass/Vol] 127 mg/dL Normal 0 - 2 00 mg/dL AO ADM SS Comment on above: Interpretive Data: C holesterol Reference Interval: Less than 200 Desirable 200-239 Borderline high risk 240 and above High risk Cholesterol in HDL [Mass/Vol] 55 mg/dL Normal 40 - 60 mg/dL AO ADM SS Cholesterol in LDL [Mass/Vol] 55 mg/dL Normal 0 - 130 mg/dL AO ADM SS Triglyceride [Mass/Vol] 87 mg/dL Normal 0 - 150 mg/dL AO ADM SS Comment on above: Interpretive Data: T riglyceride Reference Interval: Less than 150 Normal 150-199 Borderline high risk 200-499 High risk 500 or higher Very high risk LIPIDon 11-06-2024 Cholesterol [Mass/Vol] 127 mg/dL Normal 0-200 [facility] Comment on above: Result Comment: Chol esterol Reference Interval: Less than 200 Desirable 200-239 Borderline high risk 240 and above High risk Performed By: #### C BC, ADIFF, ANEU, TSH, CMP, GFR, LIPID, VIDH #### [address] [address] #### FT4 #### [facility] [address] [place] [address] Cholesterol in HDL [Mass/Vol] 55 mg/dL Normal 40-60 [facility] Comment on above: Performed By: #### C BC, ADIFF, ANEU, TSH, CMP, GFR, LIPID, VIDH #### [address] [address] #### FT4 #### [place] [address] Cholesterol in LDL [Mass/Vol] 55 mg/dL Normal 0-130 [facility] Comment on above: Performed By: #### C BC, ADIFF, ANEU, TSH, CMP, GFR, LIPID, VIDH #### [address] [address] #### FT4 #### [place] [address] Triglyceride [Mass/Vol] 87 mg/dL Normal 0-150 [facility] Comment on above: Result Comment: Trig lyceride Reference Interval: Less than 150 Normal 150-199 Borderline high risk 200-499 High risk 500 or higher Very high risk Performed By: #### C BC, ADIFF, ANEU, TSH, CMP, GFR, LIPID, VIDH #### [place] [address] #### FT4 #### [place] [address] TSHon 11-06-2024 TSH Qn 7.98 m[IU]/L High 0.36-3.74 [facility] Comment on above: Performed By: #### C BC, ADIFF, ANEU, TSH, CMP, GFR, LIPID, VIDH #### [address] [address] #### FT4 #### [place] [address] VIDHon 11-06-2024 Vit. D 25-Hydroxy 9.1 ng/mL Normal [facility] Comment on above: Result Comment: Inte rpretive Values Based on Total 25(OH) Vitamin D: Deficient <20 ng/mL Insufficient 20 - <30 ng/mL Sufficient 30-100 ng/mL Performed By: #### C BC, ADIFF, ANEU, TSH, CMP, GFR, LIPID, VIDH #### [address] [address] #### FT4 #### [place] [address] .Auto Diffon 10-23-2024 Basophil, Absolute 0.1 10 3/mcL Normal 0.0-0.2 [facility] Comment on above: Performed By: #### P SA #### [address] [address] Basophils/100 WBC (Bld) 0.9 % Normal 0.0-2.5 [facility] Comment on above: Performed By: #### P SA #### [address] [address] Eosinophil, Absolute 0.2 10 3/mcL Normal 0.0-0.7 [facility] Comment on above: Performed By: #### P SA #### [address] [address] Eosinophils/100 WBC (Bld) 1.6 % Normal 0.0-7.0 [facility] Comment on above: Performed By: #### P SA #### [address] [address] Lymphocyte, Absolute 0.8 10 3/mcL Low 0.9-4.3 [facility] Comment on above: Performed By: #### P SA #### [address] [address] Lymphocytes/100 WBC (Bld) 7.0 % Low 20.0-40.0 [facility] Comment on above: Performed By: #### P SA #### [address] [address] Monocyte, Absolute 1.6 10 3/mcL High 0.1-1.4 [facility] Comment on above: Performed By: #### P SA #### [address] [address] Monocytes/100 WBC (Bld) 14.0 % High 2.0-13.0 [facility] Comment on above: Performed By: #### P SA #### [address] [address] Neutrophils/100 WBC (Bld) 76.5 % High 50.0-75.0 [facility] Comment on above: Performed By: #### P SA #### [address] [address] .GFRon 10-23-2024 Estimated Glomerular Filtration Rate 53 ml/min/1.73sqm Normal [facility] Comment on above: Result Comment: Stages of Chronic Kidney Disease (CKD) Stage Description eGFR(ml/min/1.73 sq.m.) CKD 1 Normal kidney function or >=90 normal kindney function with possible kidney damage (ex. Proteinuria) CKD 2 Kidney damage with mild loss 60-89 of kidney function CKD 3a Mild to moderate loss of kidney 45-59 function CKD 3b Moderate to severe loss of 30-44 of kindey function CKD 4 Severe loss of kidney function 15-29 CKD 5 Kidney failure <15 Note: (go live 2024) the eGFR calculation was updated to the 2020 CKD-EPI creatinine equation without a race factor to calculate the eGFR results. Performed By: #### P SA #### [address] [address] .MDWon 10-23-2024 Monocyte Distribution Width 20.72 High 0.00-20.00 [facility] Comment on above: Result Comment: For adults in ED, MDW>20.0 may be associated with a higher risk of sepsis during the first 12hrs of hospital admission Performed By: #### P SA #### [address] [address] .NEUABSon 10-23-2024 Neutrophil, Absolute 8.6 10 3/mcL High 2.3-8.1 [facility] Comment on above: Performed By: #### P SA #### [address] [address] BMPon 10-23-2024 BUN/Creatinine Ratio 13 ratio Normal 7-27 [facility] Comment on above: Performed By: #### P SA #### [address] [address] Calcium [Mass/Vol] 8.6 mg/dL Normal 8.4-10.2 [facility] Comment on above: Performed By: #### P SA #### [address] [address] Chloride [Moles/Vol] 102 mmol/L Normal 98-107 [facility] Comment on above: Performed By: #### P SA #### [address] [address] CO2 [Moles/Vol] 23 mmol/L Normal 23-31 [facility] Comment on above: Performed By: #### P SA #### [address] [address] Creatinine [Mass/Vol] 1.41 mg/dL High 0.70-1.30 [facility] Comment on above: Result Comment: Test ing performed on [employer] Dimension EXL analyzer using a modified kinetic [place] technique. Performed By: #### P SA #### [address] [address] Electrolyte Balance 11.0 mEq/L Normal 4.0-15.0 [facility] Comment on above: Performed By: #### P SA #### [address] [address] Glucose [Mass/Vol] 138 mg/dL High 83-110 [facility] Comment on above: Performed By: #### P SA #### [address] [address] Potassium [Moles/Vol] 4.0 mmol/L Normal 3.5-5.1 [facility] Comment on above: Performed By: #### P SA #### [address] [address] Sodium [Moles/Vol] 136 mmol/L Normal 136-145 [facility] Comment on above: Performed By: #### P SA #### [address] [address] Urea nitrogen [Mass/Vol] 19 mg/dL High 7-18 [facility] Comment on above: Performed By: #### P SA #### [address] [address] CBCon 10-23-2024 Erythrocyte distribution width (RBC) [Ratio] 14.3 % Normal 11.5-15.5 [facility] Comment on above: Performed By: #### P SA #### [address] [address] Hematocrit (Bld) [Volume fraction] 44.7 % Normal 40.0-52.0 [facility] Comment on above: Performed By: #### P SA #### [address] [address] Hgb 15.2 G/dL Normal 13.0-17.5 [facility] Comment on above: Performed By: #### P SA #### [address] [address] MCH (RBC) [Entitic mass] 31.9 pg Normal 27.0-33.0 [facility] Comment on above: Performed By: #### P SA #### [address] [address] MCHC 34.0 G/dL Normal 32.0-36.0 [facility] Comment on above: Performed By: #### P SA #### [place] [id number] MCV (RBC) [Entitic vol] 93.7 fL Normal 81.0-100.0 [facility] Comment on above: Performed By: #### P SA #### [address] [address] Platelet 233 10 3/mcL Normal 150-450 [facility] Comment on above: Performed By: #### P SA #### [address] [address] Platelet mean volume (Bld) [Entitic vol] 7.8 fL Normal 6.4-10.5 [facility] Comment on above: Performed By: #### P SA #### [place] [id number] RBC 4.77 10 6/mcL Normal 4.50-6.00 [facility] Comment on above: Performed By: #### P SA #### [place] [id number] [place], [place] [address] WBC 11.3 10 3/mcL High 4.5-10.8 [facility] Comment on above: Performed By: #### P SA #### [facility] [address] [place], [place] [address] LABORATORYOrdered By: SYSTEM SYSTEM on 10-23-2024 Basophils (Bld) [#/Vol] 0.1 103/mcL Normal 0.0 - 0.2 10^3/mcL AO Workflow SS Basophils/100 WBC (Bld) 0.9 % Normal 0.0 - 2.5 % AO Workflow SS Calcium [Mass/Vol] 8.6 mg/dL Normal 8.4 - 10. 2 mg/dL AO ADM SS Chloride [Moles/Vol] 102 mmol/L Normal 98 - 10 7 mmol/L AO ADM SS CO2 [Moles/Vol] 23 mmol/L Normal 23 - 31 mmol/L AO ADM SS Creatinine [Mass/Vol] 1.41 mg/dL High 0.70 - 1.30 mg/dL AO ADM SS Comment on above: Interpretive Data: T esting performed on Siem[employer] Dimension EXL analyzer using a modified kinetic [place] technique. Electrolyte Balance 11.0 mEq/L Normal 4.0 - 15 .0 mEq/L AO ADM SS Eosinophil, Absolute 0.2 103/mcL Normal 0.0 - 0 .7 10^3/mcL AO Workflow SS Eosinophils/100 WBC (Bld) 1.6 % Normal 0.0 - 7.0 % AO Workflow SS Erythrocyte distribution width (RBC) [Ratio] 14.3 % Normal 11.5 - 15.5 % AO Workflow SS Estimated Glomerular Filtration Rate 53 ml/min/1.73sqm Invalid Interpretation Code AO Chemistry S Comment on above: Interpretive Data: Stages of Chronic Kidney Disease (CKD) Stage Description eGFR(ml/min/1.73 sq.m.) CKD 1 Normal kidney function or >=90 normal kindney function with possible kidney damage (ex. Proteinuria) CKD 2 Kidney damage with mild loss 60-89 of kidney function CKD 3a Mild to moderate loss of kidney 45-59 function CKD 3b Moderate to severe loss of 30-44 of kindey function CKD 4 Severe loss of kidney function 15-29 CKD 5 Kidney failure <15 Note: (go live 2024) the eGFR calculation was updated to the 2020 CKD-EPI creatinine equation without a race factor to calculate the eGFR results. Glucose [Mass/Vol] 138 mg/dL High 83 - 110 mg/dL AO ADM SS Hematocrit (Bld) [Volume fraction] 44.7 % Normal 40.0 - 52.0 % AO Workflow SS Hemoglobin (Bld) [Mass/Vol] 15.2 G/dL Normal 13.0 - 17.5 G/dL AO Workflow SS Lymphocytes (Bld) [#/Vol] 0.8 103/mcL Low 0.9 - 4.3 10^3/mcL AO Workflow SS Lymphocytes/100 WBC (Bld) 7.0 % Low 20.0 - 40.0 % AO Workflow SS MCH (RBC) [Entitic mass] 31.9 pg Normal 27. 0 - 33.0 pg AO Workflow SS MCHC 34.0 G/dL Normal 32.0 - 36.0 G/dL AO Workflow SS MCV (RBC) [Entitic vol] 93.7 fL Normal 81.0 - 100.0 fL AO Workflow SS Monocyte distribution width Auto (Bld) [Entitic vol] 20.72 1 High 0.00 - 20.00 AO Workflow SS Comment on above: Result Comment: For adults in ED, MDW>20.0 may be associated with a higher risk of sepsis during the first 12hrs of hospital admission Monocytes (Bld) [#/Vol] 1.6 103/mcL High 0.1 - 1.4 10^3/mcL AO Workflow SS Monocytes/100 WBC (Bld) 14.0 % High 2.0 - 13.0 % AO Workflow SS Neutrophils (Bld) [#/Vol] 8.6 103/mcL High 2.3 - 8.1 10^3/mcL AO Workflow SS Neutrophils/100 WBC (Bld) 76.5 % High 50.0 - 75.0 % AO Workflow SS Platelet mean volume (Bld) [Entitic vol] 7.8 fL Normal 6.4 - 10.5 fL AO Workflow SS Platelets (Bld) [#/Vol] 233 103/mcL Normal 150 - 450 10^3/mcL AO Workflow SS Potassium [Moles/Vol] 4.0 mmol/L Normal 3.5 - 5.1 mmol/L AO ADM SS RBC (Bld) [#/Vol] 4.77 106/mcL Normal 4.50 - 6.0 0 10^6/mcL AO Workflow SS Sodium [Moles/Vol] 136 mmol/L Normal 136 - 145 mmol/L AO ADM SS Urea nitrogen [Mass/Vol] 19 mg/dL High 7 - 18 mg/d L AO ADM SS Urea nitrogen/Creatinine [Mass ratio] 13 ratio Normal 7 - 27 ratio AO ADM SS WBC (Bld) [#/Vol] 11.3 103/mcL High 4.5 - 10.8 10^3/mcL AO Workflow SS XR CHEST 1 VIEWon 10-23-2024 XR CHEST 1 VIEW ORIGINAL HISTORY: Cough COMPARISON: No FINDINGS: There are mild hazy and streaky airspace opacities in the left lower lung. Pulmonary vasculature is unremarkable in appearance. IMPRESSION: Left lower lung consolidation. Interpreted by: Freda Giles MD Preliminary Report By: Freda Giles MD Electronically signed By Freda Giles MD Dictated Date: 10/23/2024 12:15:39 PM Prelim Date: 10/23/2024 12:16:05 PM Sign Date: 10/23/2024 12:16:05 PM Ordering Provider: BEATRIS Garcia [facility] .Auto Diffon 08-21-2024 Basophil, Absolute 0.1 10 3/mcL Normal 0.0-0.3 [facility] Comment on above: Performed By: #### G FR, PRO, CBC, BMP, ADIFF, ANEU #### [address] [address] Basophils/100 WBC (Bld) 1.2 % Normal 0.0-2.5 [facility] Comment on above: Performed By: #### G FR, PRO, CBC, BMP, ADIFF, ANEU #### [address] [address] Eosinophil, Absolute 0.2 10 3/mcL Normal 0.0-0.7 [facility] Comment on above: Performed By: #### G FR, PRO, CBC, BMP, ADIFF, ANEU #### [address] [address] Eosinophils/100 WBC (Bld) 4.2 % Normal 0.0-6.0 [facility] Comment on above: Performed By: #### G FR, PRO, CBC, BMP, ADIFF, ANEU #### [address] [address] Lymphocyte, Absolute 1.0 10 3/mcL Normal 0.9-4.3 [facility] Comment on above: Performed By: #### G FR, PRO, CBC, BMP, ADIFF, ANEU #### [address] [address] Lymphocytes/100 WBC (Bld) 18.9 % Low 20.0-40.0 [facility] Comment on above: Performed By: #### G FR, PRO, CBC, BMP, ADIFF, ANEU #### [address] [address] Monocyte, Absolute 0.7 10 3/mcL Normal 0.1-1.4 [facility] Comment on above: Performed By: #### G FR, PRO, CBC, BMP, ADIFF, ANEU #### [address] [address] Monocytes/100 WBC (Bld) 12.9 % Normal 2.0-13.0 [facility] Comment on above: Performed By: #### G FR, PRO, CBC, BMP, ADIFF, ANEU #### [address] [address] Neutrophils/100 WBC (Bld) 62.8 % Normal 50.0-75.0 [facility] Comment on above: Performed By: #### G FR, PRO, CBC, BMP, ADIFF, ANEU #### [address] [address] .GFRon 08-21-2024 GFR Non- >60 Normal [facility] Comment on above: Result Comment: GFR Population mean for , Non- Americans Ages 20-29 = 116 mL/min/1.73 sq.m. Ages 30-39 = 107 mL/min/1.73 sq.m. Ages 40-49 = 99 mL/min/1.73 sq.m. Ages 50-59 = 93 mL/min/1.73 sq.m. Ages 60-69 = 85 mL/min/1.73 sq.m. Ages 70+ = 75 mL/min/1.73 sq.m. Chronic Kidney Disease: Less than 60 mL/min/1.73 square meters End Stage Renal Disease: Less than 15 mL/min/1.73 square meters Performed By: #### G FR, PRO, CBC, BMP, ADIFF, ANEU #### [address] [address] GFR >60 Normal [facility] Comment on above: Result Comment: GFR Population mean for , Non- Americans Ages 20-29 = 116 mL/min/1.73 sq.m. Ages 30-39 = 107 mL/min/1.73 sq.m. Ages 40-49 = 99 mL/min/1.73 sq.m. Ages 50-59 = 93 mL/min/1.73 sq.m. Ages 60-69 = 85 mL/min/1.73 sq.m. Ages 70+ = 75 mL/min/1.73 sq.m. Chronic Kidney Disease: Less than 60 mL/min/1.73 square meters End Stage Renal Disease: Less than 15 mL/min/1.73 square meters Performed By: #### G FR, PRO, CBC, BMP, ADIFF, ANEU #### [place] [address] .NEUABSon 08-21-2024 Neutrophil, Absolute 3.4 10 3/mcL Normal 2.3-8.1 [facility] Comment on above: Performed By: #### G FR, PRO, CBC, BMP, ADIFF, ANEU #### [address] [address] [facility] BUN/Creatinine Ratio 19.1 ratio Normal 10.0-22.0 [facility] Comment on above: Performed By: #### G FR, PRO, CBC, BMP, ADIFF, ANEU #### [address] [address] Calcium [Mass/Vol] 8.9 mg/dL Normal 8.7-10.4 [facility] Comment on above: Performed By: #### G FR, PRO, CBC, BMP, ADIFF, ANEU #### [address] [address] Chloride [Moles/Vol] 109 mmol/L Normal 98-110 [facility] Comment on above: Performed By: #### G FR, PRO, CBC, BMP, ADIFF, ANEU #### [address] [id number] CO2 [Moles/Vol] 28 mmol/L Normal 22-32 [facility] Comment on above: Performed By: #### G FR, PRO, CBC, BMP, ADIFF, ANEU #### [address] [address] Creatinine [Mass/Vol] 1.15 mg/dL Normal 0.60-1.40 [facility] Comment on above: Result Comment: Test ing performed on [employer] Medical analyzer using enzymatic creatinine methodology. Performed By: #### G FR, PRO, CBC, BMP, ADIFF, ANEU #### [address] [address] Electrolyte Balance 5.0 mEq/L Normal 4.0-15.0 [facility] Comment on above: Performed By: #### G FR, PRO, CBC, BMP, ADIFF, ANEU #### [address] [address] Glucose [Mass/Vol] 109 mg/dL Normal 82-115 [facility] Comment on above: Performed By: #### G FR, PRO, CBC, BMP, ADIFF, ANEU #### [address] [address] Potassium [Moles/Vol] 4.1 mmol/L Normal 3.5-5.0 [facility] Comment on above: Performed By: #### G FR, PRO, CBC, BMP, ADIFF, ANEU #### [address] [address] Sodium [Moles/Vol] 142 mmol/L Normal 136-145 [facility] Comment on above: Performed By: #### G FR, PRO, CBC, BMP, ADIFF, ANEU #### [address] [address] Urea nitrogen [Mass/Vol] 22.0 mg/dL Normal 8.0-22.0 [facility] Comment on above: Performed By: #### G FR, PRO, CBC, BMP, ADIFF, ANEU #### [place] [id number] CBCon 08-21-2024 Erythrocyte distribution width (RBC) [Ratio] 14.1 % Normal 11.5-15.5 [facility] Comment on above: Performed By: #### G FR, PRO, CBC, BMP, ADIFF, ANEU #### [place] [address] Hematocrit (Bld) [Volume fraction] 46.7 % Normal 40.0-52.0 [facility] Comment on above: Performed By: #### G FR, PRO, CBC, BMP, ADIFF, ANEU #### [place] [address] Hgb 16.0 G/dL Normal 13.0-17.5 [facility] Comment on above: Performed By: #### G FR, PRO, CBC, BMP, ADIFF, ANEU #### [place] [address] MCH (RBC) [Entitic mass] 32.7 pg Normal 27.0-33.0 [facility] Comment on above: Performed By: #### G FR, PRO, CBC, BMP, ADIFF, ANEU #### [place] [address] MCHC 34.3 G/dL Normal 32.0-36.0 [facility] Comment on above: Performed By: #### G FR, PRO, CBC, BMP, ADIFF, ANEU #### [place] [address] MCV (RBC) [Entitic vol] 95.3 fL Normal 81.0-100.0 [facility] Comment on above: Performed By: #### G FR, PRO, CBC, BMP, ADIFF, ANEU #### [place] [address] Platelet 216 10 3/mcL Normal 150-450 [facility] Comment on above: Performed By: #### G FR, PRO, CBC, BMP, ADIFF, ANEU #### [place] [id number] [address] [place] [address] Platelet mean volume (Bld) [Entitic vol] 7.9 fL Normal 6.4-10.5 [facility] Comment on above: Performed By: #### G FR, PRO, CBC, BMP, ADIFF, ANEU #### [place] [id number] [address] [place] [address] RBC 4.90 10 6/mcL Normal 4.50-6.00 [facility] Comment on above: Performed By: #### G FR, PRO, CBC, BMP, ADIFF, ANEU #### [place] [address] WBC 5.5 10 3/mcL Normal 4.5-10.8 [facility] Comment on above: Performed By: #### G FR, PRO, CBC, BMP, ADIFF, ANEU #### [place] [address] LABORATORYOrdered By: SYSTEM SYSTEM on 08-21-2024 Basophils (Bld) [#/Vol] 0.1 103/mcL Normal 0.0 - 0.3 10^3/mcL AH Workflow SS Basophils/100 WBC (Bld) 1.2 % Normal 0.0 - 2.5 % AH Workflow SS Calcium [Mass/Vol] 8.9 mg/dL Normal 8.7 - 10. 4 mg/dL ADM SS Chloride [Moles/Vol] 109 mmol/L Normal 98 - 11 0 mEq/L ADM SS CO2 [Moles/Vol] 28 mmol/L Normal 22 - 32 mEq/L ADM SS Creatinine [Mass/Vol] 1.15 mg/dL Normal 0.60 - 1.40 mg/dL ADM SS Comment on above: Interpretive Data: T esting performed on [employer] analyzer using enzymatic creatinine methodology. Electrolyte Balance 5.0 mEq/L Normal 4.0 - 15 .0 mEq/L ADM SS Eosinophils (Bld) [#/Vol] 0.2 103/mcL Normal 0.0 - 0.7 10^3/mcL AH Workflow SS Eosinophils/100 WBC (Bld) 4.2 % Normal 0.0 - 6.0 % AH Workflow SS Erythrocyte distribution width (RBC) [Ratio] 14.1 % Normal 11.5 - 15.5 % Workflow SS GFR/1.73 sq M.predicted among blacks MDRD (S/P/Bld) [Vol rate/Area] ml/min/1.73sqm Invalid Interpretation Code [employer] Chemistry S Comment on above: Interpretive Data: GFR Population mean for , Non- Americans Ages 20-29 = 116 mL/min/1.73 sq.m. Ages 30-39 = 107 mL/min/1.73 sq.m. Ages 40-49 = 99 mL/min/1.73 sq.m. Ages 50-59 = 93 mL/min/1.73 sq.m. Ages 60-69 = 85 mL/min/1.73 sq.m. Ages 70+ = 75 mL/min/1.73 sq.m. Chronic Kidney Disease: Less than 60 mL/min/1.73 square meters End Stage Renal Disease: Less than 15 mL/min/1.73 square meters GFR/1.73 sq M.predicted among non-blacks MDRD (S/P/Bld) [Vol rate/Area] ml/min/1.73sqm Invalid Interpretation Code [employer] Chemistry S Comment on above: Interpretive Data: GFR Population mean for , Non- Americans Ages 20-29 = 116 mL/min/1.73 sq.m. Ages 30-39 = 107 mL/min/1.73 sq.m. Ages 40-49 = 99 mL/min/1.73 sq.m. Ages 50-59 = 93 mL/min/1.73 sq.m. Ages 60-69 = 85 mL/min/1.73 sq.m. Ages 70+ = 75 mL/min/1.73 sq.m. Chronic Kidney Disease: Less than 60 mL/min/1.73 square meters End Stage Renal Disease: Less than 15 mL/min/1.73 square meters Glucose [Mass/Vol] 109 mg/dL Normal 82 - 115 mg/dL ADM SS Hematocrit (Bld) [Volume fraction] 46.7 % Normal 40.0 - 52.0 % Workflow SS Hemoglobin (Bld) [Mass/Vol] 16.0 G/dL Normal 13.0 - 17.5 G/dL Workflow SS Lymphocytes (Bld) [#/Vol] 1.0 103/mcL Normal 0.9 - 4.3 10^3/mcL Workflow SS Lymphocytes/100 WBC (Bld) 18.9 % Low 20.0 - 40.0 % Workflow SS MCH (RBC) [Entitic mass] 32.7 pg Normal 27. 0 - 33.0 pg Workflow SS MCHC 34.3 G/dL Normal 32.0 - 36.0 G/dL Workflow SS MCV (RBC) [Entitic vol] 95.3 fL Normal 81.0 - 100.0 fL Workflow SS Monocytes (Bld) [#/Vol] 0.7 103/mcL Normal 0.1 - 1.4 10^3/mcL Workflow SS Monocytes/100 WBC (Bld) 12.9 % Normal 2.0 - 13.0 % Workflow SS Neutrophils (Bld) [#/Vol] 3.4 103/mcL Normal 2.3 - 8.1 10^3/mcL Workflow SS Neutrophils/100 WBC (Bld) 62.8 % Normal 50.0 - 75.0 % Workflow SS Platelet mean volume (Bld) [Entitic vol] 7.9 fL Normal 6.4 - 10.5 fL Workflow SS Platelets (Bld) [#/Vol] 216 103/mcL Normal 150 - 450 10^3/mcL Workflow SS Potassium [Moles/Vol] 4.1 mmol/L Normal 3.5 - 5.0 mEq/L ADM SS PT Coag (PPP) [Time] 14.1 s Normal 9.0 - 1 4.4 seconds [facility] Comment on above: Interpretive Data: E ffective 03/19/08, Protime results may be affected by some antibiotics (i.e. Ciprofloxacin, Azithromycin, Bactrim) which may potentiate the action of oral anticoagulants, with further increases in Protime/INR. PT International Ratio 1.2 ratio Invalid Interpretation Code [facility] Comment on above: Interpretive Data: Александр troncoso [employer] (CHEST, 1992, 102:312S-25S) recommended therapeutic range for oral anticoagulant therapy is: LOW RISK: Prophylaxis of venous thrombosis INR: 2.0-3.0 Treatment of pulmonary embolism 2.0-3.0 Prevention of systemic embolism 2.0-3.0 HIGH RISK: Mechanical prosthetic valves 2.5-3.5 RBC (Bld) [#/Vol] 4.90 106/mcL Normal 4.50 - 6.0 0 10^6/mcL Workflow SS Sodium [Moles/Vol] 142 mmol/L Normal 136 - 145 mEq/L AH ADM SS Urea nitrogen [Mass/Vol] 22.0 mg/dL Normal 8.0 - 22.0 mg/dL AH ADM SS Urea nitrogen/Creatinine [Mass ratio] 19.1 ratio Normal 10.0 - 22.0 ratio AH ADM SS WBC (Bld) [#/Vol] 5.5 103/mcL Normal 4.5 - 10.8 10^3/mcL AH Workflow SS PROon 08-21-2024 INR Coag (PPP) [Relative time] 1.2 {INR} Normal [facility] MAIN Comment on above: Result Comment: [employer] (CHEST, 1992, 102:[id number]) recommended therapeutic range for oral anticoagulant therapy is: LOW RISK: Prophylaxis of venous thrombosis INR: 2.0-3.0 Treatment of pulmonary embolism 2.0-3.0 Prevention of systemic embolism 2.0-3.0 HIGH RISK: Mechanical prosthetic valves 2.5-3.5 Performed By: #### G FR, PRO, CBC, BMP, ADIFF, ANEU #### [address] [address] PT Coag (PPP) [Time] 14.1 s Normal 9.0-14.4 [facility] MA[facility] Comment on above: Result Comment: Effe ctive 03/19/08, Protime results may be affected by some antibiotics (i.e. Ciprofloxacin, Azithromycin, Bactrim) which may potentiate the action of oral anticoagulants, with further increases in Protime/INR. Performed By: #### G FR, PRO, CBC, BMP, ADIFF, ANEU #### [address] [address] .GFRon 08-13-2024 GFR 70 ml/min/1.73sqm Normal [facility] Comment on above: Result Comment: GFR Population mean for , Non- Americans Ages 20-29 = 116 mL/min/1.73 sq.m. Ages 30-39 = 107 mL/min/1.73 sq.m. Ages 40-49 = 99 mL/min/1.73 sq.m. Ages 50-59 = 93 mL/min/1.73 sq.m. Ages 60-69 = 85 mL/min/1.73 sq.m. Ages 70+ = 75 mL/min/1.73 sq.m. Chronic Kidney Disease: Less than 60 mL/min/1.73 square meters End Stage Renal Disease: Less than 15 mL/min/1.73 square meters Performed By: #### P SA #### [address] [address] GFR Non- 58 ml/min/1.73sqm Normal [facility] Comment on above: Result Comment: GFR Population mean for , Non- Americans Ages 20-29 = 116 mL/min/1.73 sq.m. Ages 30-39 = 107 mL/min/1.73 sq.m. Ages 40-49 = 99 mL/min/1.73 sq.m. Ages 50-59 = 93 mL/min/1.73 sq.m. Ages 60-69 = 85 mL/min/1.73 sq.m. Ages 70+ = 75 mL/min/1.73 sq.m. Chronic Kidney Disease: Less than 60 mL/min/1.73 square meters End Stage Renal Disease: Less than 15 mL/min/1.73 square meters Performed By: #### P SA #### [address] [address] CMPon 08-13-2024 Albumin Level 3.5 G/dL Normal 3.4-4.8 [facility] Comment on above: Performed By: #### P SA #### [address] [address] Albumin/Globulin [Mass ratio] 1.1 {ratio} Normal 1.1-2.5 [facility] Comment on above: Performed By: #### P SA #### [address] [address] ALP [Catalytic activity/Vol] 89 U/L Normal 40-135 [facility] Comment on above: Performed By: #### P SA #### [address] [address] ALT [Catalytic activity/Vol] 31 U/L Normal 16-63 [facility] Comment on above: Performed By: #### P SA #### [place] [id number] AST [Catalytic activity/Vol] 26 U/L Normal 10-40 [facility] Comment on above: Performed By: #### P SA #### [place] [address] Bili Total 0.4 mg/dL Normal 0.2-1.0 [facility] Comment on above: Result Comment: Use of this assay is not recommended for patients undergoing treatment with eltrombopag due to the potential for falsely elevated results. Performed By: #### P SA #### [place] [address] BUN/Creatinine Ratio 14 ratio Normal 7-27 [facility] Comment on above: Performed By: #### P SA #### [place] [address] Calcium [Mass/Vol] 8.8 mg/dL Normal 8.4-10.2 [facility] Comment on above: Performed By: #### P SA #### [place] [address] Chloride [Moles/Vol] 106 mmol/L Normal 98-107 [facility] Comment on above: Performed By: #### P SA #### [place] [address] CO2 [Moles/Vol] 26 mmol/L Normal 23-31 [facility] Comment on above: Performed By: #### P SA #### [place] [address] Creatinine [Mass/Vol] 1.23 mg/dL Normal 0.70-1.30 [facility] Comment on above: Result Comment: Test ing performed on Siemens Dimension EXL analyzer using a modified kinetic [place] technique. Performed By: #### P SA #### [place] [id number] Electrolyte Balance 9.0 mEq/L Normal 4.0-15.0 [facility] Comment on above: Performed By: #### P SA #### [address] [address] Globulin 3.2 G/dL Normal [facility] Comment on above: Performed By: #### P SA #### [address] [address] Glucose [Mass/Vol] 113 mg/dL High 83-110 [facility] Comment on above: Performed By: #### P SA #### [place] [address] Potassium [Moles/Vol] 4.4 mmol/L Normal 3.5-5.1 [facility] Comment on above: Performed By: #### P SA #### [place] [address] Sodium [Moles/Vol] 141 mmol/L Normal 136-145 [facility] Comment on above: Performed By: #### P SA #### [place] [address] Total Protein 6.7 G/dL Normal 6.4-8.2 [facility] Comment on above: Performed By: #### P SA #### [address] [address] Urea nitrogen [Mass/Vol] 17 mg/dL Normal 7-18 [facility] Comment on above: Performed By: #### P SA #### [address] [address] LABORATORYOrdered By: SYSTEM SYSTEM on 08-13-2024 Albumin BCP dye [Mass/Vol] 3.5 G/dL Normal 3.4 - 4.8 G/dL AO ADM SS Albumin/Globulin [Mass ratio] 1.1 {ratio} Normal 1.1 - 2.5 ratio AO ADM SS ALP [Catalytic activity/Vol] 89 U/L Normal 40 - 135 U/L AO ADM SS ALT With P-5'-P [Catalytic activity/Vol] 31 U/L Normal 16 - 63 U/L AO ADM SS AST With P-5'-P [Catalytic activity/Vol] 26 U/L Normal 10 - 40 U/L AO ADM SS Bilirubin [Mass/Vol] 0.4 mg/dL Normal 0.2 - 1 .0 mg/dL AO ADM SS Comment on above: Interpretive Data: U se of this assay is not recommended for patients undergoing treatment with eltrombopag due to the potential for falsely elevated results. Calcium [Mass/Vol] 8.8 mg/dL Normal 8.4 - 10. 2 mg/dL AO ADM SS Chloride [Moles/Vol] 106 mmol/L Normal 98 - 10 7 mmol/L AO ADM SS CO2 [Moles/Vol] 26 mmol/L Normal 23 - 31 mmol/L AO ADM SS Creatinine [Mass/Vol] 1.23 mg/dL Normal 0.70 - 1.30 mg/dL AO ADM SS Comment on above: Interpretive Data: T esting performed on Siemens Dimension EXL analyzer using a modified kinetic [place] technique. Electrolyte Balance 9.0 mEq/L Normal 4.0 - 15 .0 mEq/L AO ADM SS GFR/1.73 sq M.predicted among blacks MDRD (S/P/Bld) [Vol rate/Area] 70 ml/min/1.73sqm Invalid Interpretation Code AO Chemistry S Comment on above: Interpretive Data: GFR Population mean for , Non- Americans Ages 20-29 = 116 mL/min/1.73 sq.m. Ages 30-39 = 107 mL/min/1.73 sq.m. Ages 40-49 = 99 mL/min/1.73 sq.m. Ages 50-59 = 93 mL/min/1.73 sq.m. Ages 60-69 = 85 mL/min/1.73 sq.m. Ages 70+ = 75 mL/min/1.73 sq.m. Chronic Kidney Disease: Less than 60 mL/min/1.73 square meters End Stage Renal Disease: Less than 15 mL/min/1.73 square meters GFR/1.73 sq M.predicted among non-blacks MDRD (S/P/Bld) [Vol rate/Area] 58 ml/min/1.73sqm Invalid Interpretation Code AO Chemistry S Comment on above: Interpretive Data: GFR Population mean for , Non- Americans Ages 20-29 = 116 mL/min/1.73 sq.m. Ages 30-39 = 107 mL/min/1.73 sq.m. Ages 40-49 = 99 mL/min/1.73 sq.m. Ages 50-59 = 93 mL/min/1.73 sq.m. Ages 60-69 = 85 mL/min/1.73 sq.m. Ages 70+ = 75 mL/min/1.73 sq.m. Chronic Kidney Disease: Less than 60 mL/min/1.73 square meters End Stage Renal Disease: Less than 15 mL/min/1.73 square meters Globulin 3.2 G/dL Invalid Interpretation Code AO ADM SS Glucose [Mass/Vol] 113 mg/dL High 83 - 110 mg/dL AO ADM SS Potassium [Moles/Vol] 4.4 mmol/L Normal 3.5 - 5.1 mmol/L AO ADM SS Protein [Mass/Vol] 6.7 G/dL Normal 6.4 - 8.2 G/dL AO ADM SS Sodium [Moles/Vol] 141 mmol/L Normal 136 - 145 mmol/L AO ADM SS TSH Qn 4.64 m[IU]/L High 0.36 - 3.74 mcIU/mL AO ADM SS Urea nitrogen [Mass/Vol] 17 mg/dL Normal 7 - 18 mg/d L AO ADM SS Urea nitrogen/Creatinine [Mass ratio] 14 ratio Normal 7 - 27 ratio AO ADM SS TSHon 08-13-2024 TSH Qn 4.64 m[IU]/L High 0.36-3.74 [facility] Comment on above: Performed By: #### P SA #### [address] [address] LABORATORYOrdered By: SYSTEM SYSTEM on 06-22-2024 Prostate specific Ag [Mass/Vol] ng/mL Normal 0.00 - 4.00 ng/mL AO ADM SS PSAon 06-22-2024 Prostate Specific Antigen <0.05 Normal 0.00-4.00 [facility] Comment on above: Performed By: #### P SA #### [address] [address] A1Con 12-11-2017 Hemoglobin A1c/Hemoglobin.total mass fraction (Bld) 5.4 % Normal 4.0-6.0 [facility] ([place]) Comment on above: Performed By: #### C BC, ADIFF, ANEU, GFR, TSH, CMP, PSA, LIPID, A1C ####[place] [address] UAMICon 12-11-2017 UA Squam Epithelial Negative Normal 0-20 [facility] ([place]) Comment on above: Performed By: #### C BC, ADIFF, ANEU, GFR, TSH, CMP, PSA, LIPID, A1C ####[place] [address] UA WBC Rare Normal 0-5 [facility] ([place]) Comment on above: Performed By: #### C BC, ADIFF, ANEU, GFR, TSH, CMP, PSA, LIPID, A1C ####[place] [address] Urine, erythrocytes Rare Normal 0-2 [facility] ([place]) Comment on above: Performed By: #### C BC, ADIFF, ANEU, GFR, TSH, CMP, PSA, LIPID, A1C ####[place] [address] .Auto Diffon 12-10-2017 Basophils Auto #/vol (Bld) 0.00 10 3/mcL Normal 0.00-0.27 [facility] ([place]) Comment on above: Performed By: #### C BC, ADIFF, ANEU, GFR, TSH, CMP, PSA, LIPID, A1C ####[place] [address] Basophils/100 WBC Auto (Bld) 0.8 % Normal 0.0-2.5 [facility] ([place]) Comment on above: Performed By: #### C BC, ADIFF, ANEU, GFR, TSH, CMP, PSA, LIPID, A1C ####[place] [address] Eosinophils 0.20 10 3/mcL Normal 0.00-0.65 [facility] ([place]) Comment on above: Performed By: #### C BC, ADIFF, ANEU, GFR, TSH, CMP, PSA, LIPID, A1C ####[address] [address] Eosinophils/100 leukocytes 3.4 % Normal 0.0-6.0 [facility] ([place]) Comment on above: Performed By: #### C BC, ADIFF, ANEU, GFR, TSH, CMP, PSA, LIPID, A1C ####[address] [address] Lymphocytes 1.30 10 3/mcL Normal 0.90-4.32 [facility] ([place]) Comment on above: Performed By: #### C BC, ADIFF, ANEU, GFR, TSH, CMP, PSA, LIPID, A1C ####[address] [address] Lymphocytes/100 leukocytes 21.1 % Normal 20.0-40.0 [facility] ([place]) Comment on above: Performed By: #### C BC, ADIFF, ANEU, GFR, TSH, CMP, PSA, LIPID, A1C ####[address] [address] Monocytes 0.80 10 3/mcL Normal 0.09-1.40 [facility] ([place]) Comment on above: Performed By: #### C BC, ADIFF, ANEU, GFR, TSH, CMP, PSA, LIPID, A1C ####[address] [address] Monocytes/100 leukocytes 12.1 % Normal 2.0-13.0 [facility] ([place]) Comment on above: Performed By: #### C BC, ADIFF, ANEU, GFR, TSH, CMP, PSA, LIPID, A1C ####[address] [address] Neutrophils/100 WBC Auto (Bld) 62.6 % Normal 50.0-75.0 [facility] ([place]) Comment on above: Performed By: #### C BC, ADIFF, ANEU, GFR, TSH, CMP, PSA, LIPID, A1C ####[address] [address] .GFRon 12-10-2017 eGFR (non-black) mL/min/{1.73_m2} Normal [facility] ([place]) Comment on above: Result Comment: GFR Population mean for , Non- Americans Ages 20-29 = 116 mL/min/1.73 sq.m. Ages 30-39 = 107 mL/min/1.73 sq.m. Ages 40-49 = 99 mL/min/1.73 sq.m. Ages 50-59 = 93 mL/min/1.73 sq.m. Ages 60-69 = 85 mL/min/1.73 sq.m. Ages 70+ = 75 mL/min/1.73 sq.m.Chronic Kidney Disease: Less than 60 mL/min/1.73 square metersEnd Stage Renal Disease: Less than 15 mL/min/1.73 square meters Performed By: #### C BC, ADIFF, ANEU, GFR, TSH, CMP, PSA, LIPID, A1C ####[place] [address] .NEUABSon 12-10-2017 Neutrophils 3.90 10 3/mcL Normal 2.25-8.10 [facility] ([place]) Comment on above: Performed By: #### C BC, ADIFF, ANEU, GFR, TSH, CMP, PSA, LIPID, A1C ####[place] [address] CBCon 12-10-2017 Erythrocyte distribution width Auto Ratio (RBC) 14.0 % Normal 11.5-15.5 [facility] ([place]) Comment on above: Performed By: #### C BC, ADIFF, ANEU, GFR, TSH, CMP, PSA, LIPID, A1C ####[place] [address] Erythrocytes (RBC) 4.80 10 6/mcL Normal 4.50-6.00 [facility] ([place]) Comment on above: Performed By: #### C BC, ADIFF, ANEU, GFR, TSH, CMP, PSA, LIPID, A1C ####[place] [address] Hematocrit (HCT) 44.8 % Normal 40.0-52.0 [facility] ([place]) Comment on above: Performed By: #### C BC, ADIFF, ANEU, GFR, TSH, CMP, PSA, LIPID, A1C ####[place] [address] Hemoglobin mass conc (Bld) 15.1 G/dL Normal 13.0-17.5 [facility] ([place]) Comment on above: Performed By: #### C BC, ADIFF, ANEU, GFR, TSH, CMP, PSA, LIPID, A1C ####[place] [address] MCH 31.5 pg Normal 27.0-33.0 [facility] ([place]) Comment on above: Performed By: #### C BC, ADIFF, ANEU, GFR, TSH, CMP, PSA, LIPID, A1C ####[place] [address] MCHC mass conc (RBC) 33.8 G/dL Normal 32.0-36.0 [facility] ([place]) Comment on above: Performed By: #### C BC, ADIFF, ANEU, GFR, TSH, CMP, PSA, LIPID, A1C ####[place] [address] MCV 93.2 fL Normal 81.0-100.0 [facility] ([place]) Comment on above: Performed By: #### C BC, ADIFF, ANEU, GFR, TSH, CMP, PSA, LIPID, A1C ####[place] [address] Platelet mean volume (PMV) 9.1 fL Normal 6.4-10.5 [facility] ([place]) Comment on above: Performed By: #### C BC, ADIFF, ANEU, GFR, TSH, CMP, PSA, LIPID, A1C ####[place] [address] Platelets 222 10 3/mcL Normal 150-450 [facility] ([place]) Comment on above: Performed By: #### C BC, ADIFF, ANEU, GFR, TSH, CMP, PSA, LIPID, A1C ####[place] [address] WBC (Leukocytes) 6.20 10 3/mcL Normal 4.50-10.80 [facility] ([place]) Comment on above: Performed By: #### C BC, ADIFF, ANEU, GFR, TSH, CMP, PSA, LIPID, A1C ####[place] [address] CMPon 12-10-2017 Albumin/Globulin Ratio 1.3 {ratio} Normal 0.9-1.6 [facility] ([place]) Comment on above: Performed By: #### C BC, ADIFF, ANEU, GFR, TSH, CMP, PSA, LIPID, A1C ####[place] [address] Alk Phos 83 U/L Normal 38-126 [facility] ([place]) Comment on above: Performed By: #### C BC, ADIFF, ANEU, GFR, TSH, CMP, PSA, LIPID, A1C ####[place] [address] Bili Total 0.4 mg/dL Normal 0.2-1.2 [facility] ([place]) Comment on above: Performed By: #### C BC, ADIFF, ANEU, GFR, TSH, CMP, PSA, LIPID, A1C ####[place] [address] Globulin 3.0 G/dL Normal 1.5-3.8 [facility] ([place]) Comment on above: Performed By: #### C BC, ADIFF, ANEU, GFR, TSH, CMP, PSA, LIPID, A1C ####[place] [address] Protein 6.9 G/dL Normal 6.0-8.5 [facility] ([place]) Comment on above: Performed By: #### C BC, ADIFF, ANEU, GFR, TSH, CMP, PSA, LIPID, A1C ####[place] [address] Alanine aminotransferase (ALT) 24 U/L Normal 12-55 [facility] ([place]) Comment on above: Performed By: #### C BC, ADIFF, ANEU, GFR, TSH, CMP, PSA, LIPID, A1C ####[place] [address] Albumin 3.9 G/dL Normal 3.2-4.8 [facility] ([place]) Comment on above: Performed By: #### C BC, ADIFF, ANEU, GFR, TSH, CMP, PSA, LIPID, A1C ####[place] [address] Aspartate aminotransferase (AST) 16 U/L Normal 8-34 [facility] ([place]) Comment on above: Performed By: #### C BC, ADIFF, ANEU, GFR, TSH, CMP, PSA, LIPID, A1C ####[place] [address] BUN/Creatinine Ratio 14.6 ratio Normal 10.0-22.0 [facility] ([place]) Comment on above: Performed By: #### C BC, ADIFF, ANEU, GFR, TSH, CMP, PSA, LIPID, A1C ####[place] [address] Calcium 8.7 mg/dL Normal 8.4-10.1 [facility] ([place]) Comment on above: Performed By: #### C BC, ADIFF, ANEU, GFR, TSH, CMP, PSA, LIPID, A1C ####[place] [address] Chloride 107 mmol/L Normal 98-110 [facility] ([place]) Comment on above: Performed By: #### C BC, ADIFF, ANEU, GFR, TSH, CMP, PSA, LIPID, A1C ####[place] [address] CO2 25 mmol/L Normal 22-32 [facility] ([place]) Comment on above: Performed By: #### C BC, ADIFF, ANEU, GFR, TSH, CMP, PSA, LIPID, A1C ####[place] [address] Creatinine 0.96 mg/dL Normal 0.60-1.40 [facility] ([place]) Comment on above: Performed By: #### C BC, ADIFF, ANEU, GFR, TSH, CMP, PSA, LIPID, A1C ####[place] [address] Electrolyte Balance 10.0 mEq/L Normal 4.0-15.0 [facility] ([place]) Comment on above: Performed By: #### C BC, ADIFF, ANEU, GFR, TSH, CMP, PSA, LIPID, A1C ####[address] [id number] Glucose mass conc 88 mg/dL Normal 82-115 [facility] ([place]) Comment on above: Performed By: #### C BC, ADIFF, ANEU, GFR, TSH, CMP, PSA, LIPID, A1C ####[address] [address] Potassium molar conc 4.3 mmol/L Normal 3.5-5.0 [facility] ([place]) Comment on above: Performed By: #### C BC, ADIFF, ANEU, GFR, TSH, CMP, PSA, LIPID, A1C ####[place] [address] Sodium 142 mmol/L Normal 136-145 [facility] ([place]) Comment on above: Performed By: #### C BC, ADIFF, ANEU, GFR, TSH, CMP, PSA, LIPID, A1C ####[place] [address] Urea nitrogen 14.0 mg/dL Normal 8.0-22.0 [facility] ([place]) Comment on above: Performed By: #### C BC, ADIFF, ANEU, GFR, TSH, CMP, PSA, LIPID, A1C ####[place] [address] LIPIDon 12-10-2017 Cholesterol 130 mg/dL Normal 50-199 [facility] ([place]) Comment on above: Result Comment: Chol esterol Reference Interval:Less than 200 [id number] Borderline high vmir312 and above High risk Performed By: #### C BC, ADIFF, ANEU, GFR, TSH, CMP, PSA, LIPID, A1C ####[address] [address] HDL Cholesterol 38 mg/dL Low 40-59 [facility] ([place]) Comment on above: Result Comment: HDL Reference Interval:Less than 40 Low - high risk60 or above Optimal/lowers risk Performed By: #### C BC, ADIFF, ANEU, GFR, TSH, CMP, PSA, LIPID, A1C ####[place] [address] LDL Cholesterol 61 mg/dL Normal 0-129 [facility] ([place]) Comment on above: Result Comment: LDL is a calculated result and requires a 12-hr fast.LDL Reference Interval:Less than 100 [id number] Near or above [id number] Borderline high [id number] High kyfc991 and above Very high risk Performed By: #### C BC, ADIFF, ANEU, GFR, TSH, CMP, PSA, LIPID, A1C ####[place] [address] Triglyceride 156 mg/dL High 3-149 [facility] ([place]) Comment on above: Result Comment: Trig lyceride Reference Interval:Less than 150 [id number] Borderline high [id number] High [id number] or higher Very high risk Performed By: #### C BC, ADIFF, ANEU, GFR, TSH, CMP, PSA, LIPID, A1C ####[place] [address] PSAon 12-10-2017 Prostate Specific Antigen <0.01 Low 0.02-4.00 [facility] ([place]) Comment on above: Performed By: #### C BC, ADIFF, ANEU, GFR, TSH, CMP, PSA, LIPID, A1C ####[place] [address] TSHon 12-10-2017 Thyroid stimulating hormone (TSH) 1.520 mcIU/mL Normal 0.360-3.740 [facility] ([place]) Comment on above: Result Comment: Plea se note ? as of 03/19/17 new pediatric reference intervals were added for this test. Performed By: #### C BC, ADIFF, ANEU, GFR, TSH, CMP, PSA, LIPID, A1C ####[place] [address] UAon 12-10-2017 UA Appear Clear Normal Clear [facility] ([place]) Comment on above: Performed By: #### U A, UAMIC ####[place] [address] UA Blood Trace Normal Neg-Trace [facility] ([place]) Comment on above: Performed By: #### U A, UAMIC ####[place] [address] UA Leuk Est Negative Normal Negative [facility] ([place]) Comment on above: Performed By: #### U A, UAMIC ####[place] [address] UA Nitrite Negative Normal Negative [facility] ([place]) Comment on above: Performed By: #### U A, UAMIC ####[place] [address] UA pH 6.0 Normal 5.0 - 8.0 [facility] ([place]) Comment on above: Performed By: #### U A, UAMIC ####[place] [address] UA Protein Negative Normal Negative [facility] ([place]) Comment on above: Performed By: #### U A, UAMIC ####[place] [address] UA Spec Grav 1.020 Normal 1.006-1.029 [facility] ([place]) Comment on above: Performed By: #### U A, UAMIC ####[place] [address] UA Specimen Type Clean Catch Normal [facility] ([place]) Comment on above: Performed By: #### U A, UAMIC ####[place] [address] UA Urobilinogen 0.2 E.U./dL Normal 0.2-1.0 [facility] ([place]) Comment on above: Performed By: #### U A, UAMIC ####[place] [address] Urine, color Yellow Normal [facility] ([place]) Comment on above: Performed By: #### U A, UAMIC ####[place] [address] Urine, glucose Negative Normal Negative [facility] ([place]) Comment on above: Performed By: #### U A, UAMIC ####[place] [address] Urine, ketones presence Negative Normal Neg-Trace [facility] ([place]) Comment on above: Performed By: #### U A, UAMIC ####[facility] [place] [address] Urine, urobilinogen Negative Normal Neg-Trace [facility] ([place]) Comment on above: Performed By: #### U A, UAMIC ####[facility] [place] [address] Vital Signs Date Time Vital Sign Value Performing Clinician Zackeryi hai 12-26-2024 06:43-0400 Heart rate 75 /min ALIYAH CARRINGTON MD [address] [place] [address] 12-26-2024 06:43-0400 Respiratory rate 16 /min ALIYAH CARRINGTON MD [address] [place] [address] 12-26-2024 03:30-0400 Body temperature 97.52 [degF] ALIYAH CARRINGTON MD [address] [place] [address] 12-26-2024 03:30-0400 Diastolic Blood Pressure Non-Invasive 64 mm[Hg] ALIYAH CARRINGTON MD [address] [place] [address] 12-26-2024 03:30-0400 Heart rate 68 /min ALIYAH CARRINGTON MD [address] [place] [address] 12-26-2024 03:30-0400 Respiratory rate 16 /min ALIYAH CRARINGTON MD [address] [place] [address] 12-26-2024 03:30-0400 Systolic Blood Pressure Non-Invasive 119 mm[Hg] ALIAYH CARRINGTON MD [address] [place] [address] 12-26-2024 01:45-0400 Heart rate 74 /min ALIYAH CARRINGTON MD [address] [place] [address] 12-26-2024 01:13-0400 Heart rate 85 /min ALIYAH CARRINGTON MD [address] [place] [address] 12-25-2024 19:24-0400 Blood Pressure Method ALIYAH CARRINGTON MD [address] [place] [address] 12-25-2024 19:24-0400 Body temperature 98.42 [degF] ALIYAH CARRINGTON MD [address] [place] [address] 12-25-2024 19:24-0400 Diastolic Blood Pressure Non-Invasive 68 mm[Hg] ALIYAH CARRINGTON MD [address] [place] [address] 12-25-2024 19:24-0400 Respiratory rate 18 /min ALIYAH CARRINGTON MD [address] [place] [address] 12-25-2024 19:24-0400 Systolic Blood Pressure Non-Invasive 136 mm[Hg] ALIYAH CARRINGTON MD [address] [place] [address] 12-25-2024 16:45-0400 Diastolic Blood Pressure Non-Invasive 75 mm[Hg] ALIYAH CARRINGTON MD [address] [place] [address] 12-25-2024 16:45-0400 Systolic Blood Pressure Non-Invasive 146 mm[Hg] ALIYAH CARRINGTON MD [address] [place] [address] 12-25-2024 15:25-0400 Body temperature 96.98 [degF] ALIYAH CARRINGTON MD [address] [place] [address] 12-25-2024 15:25-0400 Respiratory Rate - Anes 0 br/min ALIYAH CARRINGTON MD [address] [place] [address] 12-25-2024 15:20-0400 Respiratory Rate - Anes 0 br/min ALIYAH CARRINGTON MD [address] [place] [address] 12-25-2024 15:15-0400 Respiratory Rate - Anes 14 br/min ALIYAH CARRINGTON MD [address] [place] [address] 12-25-2024 15:10-0400 Body temperature 96.67 [degF] ALIYAH CARRINGTON MD [address] [place] [address] 12-25-2024 15:05-0400 Body temperature 96.75 [degF] ALIYAH CARRINGTON MD [address] [place] [address] 12-25-2024 11:26-0400 Body height 172.7 cm ALIYAH CARRINGTON MD [address] [place] [address] 12-25-2024 11:26-0400 Body temperature 98.24 [degF] ALIYAH CARRINGTON MD [address] [place] [address] 12-25-2024 11:26-0400 Body weight 132.5 kg ALIYAH CARRINGTON MD [address] [place] [address] 12-25-2024 11:26-0400 Heart rate 68 /min ALIYAH CARRINGTON MD [address] [place] [address] 11-28-2024 09:05-0400 Blood Pressure Cuff Size ALIYAH CARRINGTON MD [address] [place] [address] 11-28-2024 09:05-0400 Blood Pressure Location ALIYAH CARRINGTON MD [address] [place] [address] 11-28-2024 09:05-0400 Blood Pressure Method ALIYAH CARRINGTON MD [address] [place] [address] 11-28-2024 09:05-0400 Body height 169 cm ALIYAH CARRINGTON MD [address] [place] [address] 11-28-2024 09:05-0400 Body temperature 97.34 [degF] ALIYAH CARRINGTON MD [address] [place] [address] 11-28-2024 09:05-0400 Body weight 133.4 kg ALIYAH CARRINGTON MD [address] [place] [address] 11-28-2024 09:05-0400 Body weight 46.71 kg/m2 ALIYAH CARRINGTON MD [address] [place] [address] 11-28-2024 09:05-0400 Diastolic Blood Pressure Non-Invasive 79 mm[Hg] ALIYAH CARRINGTON MD [address] [place] [address] 11-28-2024 09:05-0400 Heart rate 77 /min ALIYAH CARRINGTON MD [address] [place] [address] 11-28-2024 09:05-0400 Systolic Blood Pressure Non-Invasive 138 mm[Hg] ALIYAH CARRINGTON MD [address] [place] [address] 10-23-2024 12:44-0500 Diastolic Blood Pressure Non-Invasive 90 mm[Hg] DR BEATRIS WOODALL DO [facility] 10-23-2024 12:44-0500 Heart rate 77 /min DR SPEAR SABIER DO [facility] 10-23-2024 12:44-0500 Respiratory rate 18 /min DR SPEAR SABIER DO [facility] 10-23-2024 12:44-0500 Systolic Blood Pressure Non-Invasive 150 mm[Hg] DR SPEAR SABIEMRE DO [facility] 10-23-2024 11:47-0500 Heart rate 75 /min DR SPEAR SABIER DO [facility] 10-23-2024 11:47-0500 Respiratory rate 18 /min DR SPEAR SABIER DO [facility] 10-23-2024 10:57-0500 Body temperature 98.78 [degF] DR SPEAR SABIEMRE DO [facility] 10-23-2024 10:57-0500 Body weight 131.[address] SPEAR SABIEMRE DO [facility] 10-23-2024 10:57-0500 Diastolic Blood Pressure Non-Invasive 82 mm[Hg] DR SPEAR SABIEMRE DO [facility] 10-23-2024 10:57-0500 Heart rate 86 /min DR BEATRIS WOODALL DO [facility] 10-23-2024 10:57-0500 Respiratory rate 20 /min DR SPEAR SABIER DO [facility] 10-23-2024 10:57-0500 Systolic Blood Pressure Non-Invasive 165 mm[Hg] DR BEATRIS WOODALL DO [facility] 08-21-2024 08:33-0500 Diastolic Blood Pressure Non-Invasive 79 mm[Hg] ALIYAH CARRINGTON MD [address] [place] [address] 08-21-2024 08:33-0500 Heart rate 64 /min ALIYAH CARRINGTON MD [address] [place] [address] 08-21-2024 08:33-0500 Respiratory rate 16 /min ALIYAH CARRINGTON MD [address] [place] [address] 08-21-2024 08:33-0500 Systolic Blood Pressure Non-Invasive 135 mm[Hg] ALIYAH CARRINGTON MD [address] [place] [address] 08-21-2024 08:24-0500 Diastolic Blood Pressure Non-Invasive 74 mm[Hg] ALIYAH CARRINGTON MD [address] [place] [address] 08-21-2024 08:24-0500 Heart rate 60 /min ALIYAH CARRINGTON MD [address] [place] [address] 08-21-2024 08:24-0500 Respiratory rate 18 /min ALIYAH CARRINGTON MD [address] [place] [address] 08-21-2024 08:24-0500 Systolic Blood Pressure Non-Invasive 126 mm[Hg] ALIYAH CARRINGTON MD [address] [place] [address] 08-21-2024 08:22-0500 Body temperature 97.52 [degF] ALIYAH CARRINGTON MD [address] [place] [address] 08-21-2024 08:22-0500 Diastolic Blood Pressure Non-Invasive 73 mm[Hg] ALIYAH CARRINGTON MD [address] [place] [address] 08-21-2024 08:22-0500 Heart rate 72 /min ALIYAH CARRINGTON MD [address] [place] [address] 08-21-2024 08:22-0500 Respiratory rate 18 /min ALIYAH CARRINGTON MD [address] [place] [address] 08-21-2024 08:22-0500 Systolic Blood Pressure Non-Invasive 130 mm[Hg] ALIYAH CARRINGTON MD [address] [place] [address] 08-21-2024 08:20-0500 Heart rate 64 /min ALIYAH CARRINGTON MD [address] [place], [place] [id number] 08:20-0500 Respiratory Rate - Anes 22 br/min ALIYAH CARRINGTON MD [address] 08-21-2024 08:15-0500 Respiratory Rate - Anes 23 br/min ALIYAH CARRINGTON MD [address] 08-21-2024 08:10-0500 Respiratory Rate - Anes 17 br/min ALIYAH CARRINGTON MD [address] [place] [address] 08-21-2024 06:49-0500 Body height 172.7 cm ALIYAH CARRINGTON MD [address] [place] [address] 08-21-2024 06:49-0500 Body temperature 97.7 [degF] ALIYAH CARRINGTON MD [address] 08-21-2024 06:49-0500 Body weight 130.2 kg ALIYAH CARRINGTON MD [facility] 08-21-2024 06:49-0500 Heart rate 75 /min ALIYAH CARRINGTON MD [facility] 07-02-2024 09:29-0400 Diastolic Blood Pressure Non-Invasive 84 mm[Hg] PRISCILA PEOPLES MD [facility] 07-02-2024 09:29-0400 Heart rate 96 /min PRISCILA PEOPLES MD [facility] 07-02-2024 09:29-0400 Respiratory rate 18 /min PRISCILA PEOPLES MD [facility] 07-02-2024 09:29-0400 Systolic Blood Pressure Non-Invasive 138 mm[Hg] PRISCILA PEOPLES MD [facility] 07-02-2024 08:38-0400 Body height 172.7 cm PRISCILA PEOPLES MD [facility] 07-02-2024 08:38-0400 Body temperature 97.88 [degF] PRISCILA PEOPLES MD [facility] 07-02-2024 08:38-0400 Body weight 129.1 kg PRISCILA PEOPLES MD [facility] 07-02-2024 08:38-0400 Diastolic Blood Pressure Non-Invasive 83 mm[Hg] PRISCILA PEOPLES MD [facility] 07-02-2024 08:38-0400 Heart rate 100 /min PRISCILA PEOPLES MD [facility] 07-02-2024 08:38-0400 Respiratory rate 18 /min PRISCILA PEOPLES MD [facility] 07-02-2024 08:38-0400 Systolic Blood Pressure Non-Invasive 145 mm[Hg] PRISCILA PEOPLES MD [facility] Encounters Encounter Date Encounter Type Care Provider Facility Start: 02-18-2025 ambulatory Jose Maria Facility:[facility] Start: 01-08-2025 End: 01-08-2025 ambulatory Jose Maria MD Work Phone: [facility] Work Phone: Start: 01-08-2025 End: 01-08-[address] Jose Maria MD -Laboratory, [place] Work Phone: Start: 01-08-2025 End: 01-08-2025 ambulatory Jose Maria Facility:[facility] Start: 12-25-2024 End: 12-26-2024 ambulatory ALIYAH CARRINGTON MD Facility:A Start: 12-25-2024 End: 12-26-2024 Observation ALIYAH CARRINGTON MD [facility] Start: 12-04-2024 ambulatory KRISTA MARIA MD Facility:A Start: 11-28-2024 End: 11-28-2024 Admission to establishment ALIYAH CARRINGTON MD [facility] Start: 11-28-2024 End: 11-28-2024 ambulatory KRISTA MARIA MD Facility:A Start: 11-22-2024 End: 11-22-2024 ambulatory KRISTA MARIA MD Facility:[facility] Start: 11-21-2024 End: 11-21-2024 ambulatory KRISTA MARIA MD Facility:[facility] Start: 11-14-2024 End: 11-14-2024 ambulatory Jose Maria MD Work Phone: [facility] Work Phone: Start: 11-14-2024 End: 11-14-[address] Jose Maria MD -Ultrasound, [facility] Work Phone: Start: 11-14-2024 End: 11-14-2024 ambulatory Jose Maria Facility:[facility] Start: 11-06-2024 End: 11-06-2024 ambulatory KRISTA MARIA MD Facility:[facility] Start: 11-06-2024 End: 11-06-2024 Patient encounter procedure JOSE MARIA MD [facility] Start: 10-23-2024 End: 10-23-2024 Emergency department patient visit DR BEATRIS WOODALL DO [facility] Start: 08-21-2024 End: 08-21-2024 ambulatory ALIAYH CARRINGTON MD Facility:A Start: 08-21-2024 End: 08-21-2024 SAME DAY STAY ALIYAH CARRINGTON MD [facility] Start: 08-13-2024 End: 08-13-2024 ambulatory CREMATORIUM OPERATOR CINDY CELESTIN Facility:[facility] Start: 08-13-2024 End: 08-13-2024 Patient encounter procedure DAYANA BENZ [employer]ED [employer] PRESS TENDER-SUPPORT ENGINEER [facility] Start: 07-02-2024 End: 07-02-2024 Emergency department patient visit PRISCILA PEOPLES MD [facility] Start: 06-22-2024 End: 06-22-2024 ambulatory CREMATORIUM OPERATOR CINDY CELESTIN Facility:[facility] Start: 06-22-2024 End: 06-22-2024 Patient encounter procedure CINDY CELESTIN [facility] Start: 12-10-2017 End: 12-15-2017 Ambulatory PHY WO ID~[id number] REFERRING Facility:A Procedures Date Procedure Procedure Detail Performing Clinician Start: 01-08-2025 Vitamin D, 25-hydrox y measurement Jose Maria MD Work Phone: Comment on above: Vitamin D StatusDefi ciency: <20 ng/mL (50nmol/L)Insufficiency: 20-30 ng/mL (50-75 nmol/L)Sufficiency: 30-100 ng/mL (75-250 nmol/L)Toxicity: >100 ng/mL (>250 nmol/L) Start: 12-25-2024 Ablation - action (q ualifier value) ALIYAH CARRINGTON MD Comment on above: pulsed field Start: 11-14-2024 Ultrasonography of t hyroid and parathyroid Jose Maria MD Work Phone: Start: 09-05-1952 Intussusception of c olon (disorder) ALIYAH CARRINGTON MD Comment on above: with appendectomy Arthroplasty of knee PRISCILA GOVEA MD Comment on above: left Cardioversion ALIYAH CARRINGTON MD Cardioversion ALIYAH CARRINGTON MD Comment on above: x2 Destructive procedure PRISCILA ONEAL MD Comment on above: cardiac Hemangioma (disorder) ALIYAH FERNANDEZ MD Comment on above: removed from wrist Malignant neoplasm PRISCILA HANSEN MD Comment on above: thyroid & prostrate Malignant tumor of t hyroid gland (disorder) DAYANA BENZ [employer] PRESS TENDER-SUPPORT ENGINEER Prostatectomy ALIYAH CARRINGTON MD Thyroidectomy ALIYAH CARRINGTON MD Immunizations Immunization Date Immunization Notes Care Provider Fa [facility] 10-16-2024 pneumococcal 20-jhony nt conjugate vaccine ALIYAH CARRINGTON MD [facility] 10-16-2024 RSV vaccine preF3, recombinant ALIYAH CARRINGTON MD [facility] 09-18-2024 influenza virus vacc ine, unspecified formulation ALIYAH CARRINGTON MD [facility] 09-18-2024 SARS-CoV-2 (COVID-19 ) [id number] ALIYAH CARRINGTON MD [facility] Payers Date Payer Category Payer Self-pay [id number] 2024 Private Health Insurance [id number] 2024 Private Health Insurance [id number] 2024 Unknown [id number] 2024 Medicare [id number] 2024 Unknown [id number] 2024 Medicare [id number] 2017 Medicare [id number] 1950 Unknown [id number] 2.16.8 [id number] 1952 Unknown [id number] 2.16.8 [id number] 1952 Unknown [id number] 2.16.8 [id number] 1952 Unknown [id number] 2.16.8 [id number] 1952 Unknown [id number] 2.16.8 [id number] 1952 Unknown [id number] 2.16.8 [id number] 1952 Unknown [id number] 2.16.8 [id number] 1952 Unknown [id number] 2.16.8 [id number] 1952 Unknown [id number] 2.16.8 [id number] 1952 Unknown [id number] 2.16.8 [id number] 1952 Unknown [id number] 2.16.8 [id number] Unknown [id number] 2.16.8 [id number] Unknown [id number] 2.16.8 [id number] Unknown [id number] 2.16.8 [id number] Social History Date Type Detail Facility Start: 07-02-2024 Tobacco smoking status Never s moked tobacco (finding) [facility] Sex Assigned At [facility] Start: 12-10-2017 End: 11-24-2024 Sex Male (finding) [facility] Work Phone: Start: 1950 Sex Assigned At Male [facility] Functional Status Date Assessment Result Facility 12-26-2024 Functional Status Repositions self [facility] 12-26-2024 Functional Status Evening Snack Percent 1 00 [facility] 12-25-2024 Functional Status 100 [facility] 12-25-2024 Functional Status [facility] 12-25-2024 Functional Status Patient Identi fied Identification band, Verbal [facility] 12-25-2024 Functional Status [facility] 11-28-2024 Functional Status Sensory Defici ts Hearing deficit, left ear, Hearing deficit, right ear [facility] 10-23-2024 Functional Status Independent [facility] 10-23-2024 Functional Status Awake [facility] 08-21-2024 Functional Status Independent [facility] 08-21-2024 Functional Status Non-Slip footw ear, Room check performed [facility] 08-21-2024 Functional Status Maintained [facility] 07-02-2024 Functional Status Up ad aden [facility] Mental Status Date Assessment Result [facility] 12-26-2024 Mental Status Oriented x 4 [facility] 12-26-2024 Mental Status [facility] 12-25-2024 Mental Status Oriented x 4 [facility] 10-23-2024 Mental Status Orientation Oriented x 4 [facility] 08-21-2024 Mental Status Orientation Oriented x 4 [facility] 08-21-2024 Mental Status [facility] 07-02-2024 Mental Status Oriented x 4 [facility] Clinical Notes 07-02-2024 to 12-26-2024 Note Date & Type Note Facility 12-26-2024 Discharge summary Date of Service 12/26/24 Discharge Diagnosis afib -- here for ablation Hospital Course HPI: 74-year-old male with recurrent persistent atrial fibrillation/flutter, s/p DCCV x2 (most recent 08/21/2024), HTN, HLP, JOHNNY on CPAP, hypothyroidism s/p thyroidectomy (d/t CA), GERD, obesity on Ozempic, remote history of thyroid/prostate cancer s/p prostatectomy (2017), BPH, anxiety, remote history of viral meningitis, hematuria, and erectile dysfunction, here for AFib ablation. Course: The patient underwent successful atrial fibrillation ablation (PFA-PVI+posterior wall +SVC + CTI). Maintained sinus rhythm following the procedure. Made good urine. No groin issues after ambulation. No other concerns. The patient was ready for d/c home. Will stop amiodarone/bb. Will continue on anticoagulation. Of note, the patient had hematuria (in the absence of jesus), which he did have in the past when he had kidney stones. We will continue OAC despite the hematuria, but we will have him closely f/u with us should this get worse. Allergies penicillin Rash sulfa drug Rash Procedures Summary: 1. Successful atrial fibrillation ablation (pulsed field -- pulmonary vein isolation) 2. Successful ablation of atrial fibrillation foci (pulsed field -- posterior wall ablation) 3. Successful ablation of atrial fibrillation foci (pulsed field -- superior vena cava) 4. Successful ablation to prevent atrial flutter (pulsed field -- cavotricuspid isthmus ablation) Consults No qualifying data available. Imaging Results and Diagnostics none Subjective nad Physical Exam Vitals and Measurements T: 36.4 C (Oral) TMIN: 35.38 C TMAX: 36.9 C (Oral) HR: 75 RR: 16 BP: 119/64 SpO2: 95% HT: 172.7 cm WT: 132.5 kg Weight Dosing Weight: 132.5 kg (12/25/24) General Appearance: Alert and oriented x3, no apparent distress Head: Normocephalic, atraumatic EENT: EOMI, PERRLA, mucous membranes moist Neck: Supple, no thyromegaly. Cardiac: rrr, no mrg. Lungs: Clear to auscultation bilaterally, no wheezing, rales, rhonchi. Abdomen: Nondistended, nontender, bowel sounds present. Musculoskeletal: No gross deformities. Extremities: no significant lower extremity edema, no calf tenderness, pedal pulses are present bilaterally Neurological: No focal deficits Skin: Warm, dry, intact Psychiatric: Mood congruent, cooperative Pending Labs and Studies none Code Status full code Admission Date 12/25/24 Discharge Date 12/26/24 Medications Unchanged albuterol (Ventolin HFA MDI (90 mcg/inh) inhalation aerosol)1 puff(s) by inhalation four (4) times a day for 30 Days. Refills: 0. apixaban (Eliquis 5 mg oral tablet)1 tab(s) by mouth two (2) times a day. Refills: 5. atorvastatin (atorvastatin 20 mg oral tablet)1 tab(s) by mouth daily at bedtime. clobetasol topical (Clobetasol (Eqv-Temovate) 0.05% topical cream)1 application Topical once a day. ergocalciferol (ergocalciferol 50,000 intl units (1.25 mg) oral capsule)1 cap by mouth every Tuesday. fenofibrate (fenofibrate 160 mg oral tablet)1 tab(s) by mouth once a day (in the morning). TAKE 1 TABLET BY MOUTH EVERY DAY. ketoconazole topical (ketoconazole 2% topical cream)1 application Topical once a day. MIX 50/50 WITH MOMETASONE AND APPLY TO FACE TWICE A DAY NEEDED. levothyroxine (levothyroxine 200 mcg (0.2 mg) oral tablet)1 tab(s) by mouth once a day (in the morning). lisinopril (lisinopril 10 mg oral tablet)1 tab(s) by mouth once a day. Refills: 3. mometasone topical (mometasone 0.1% topical cream)1 application Topical every day. omeprazole (omeprazole 20 mg oral delayed release capsule)1 cap by mouth once a day (in the morning). semaglutide (Ozempic 2 mg/3 mL (0.25 mg or 0.5 mg dose) subcutaneous solution)0.25 Milligram Subcutaneous every Tuesday. rotate injection sites. Discontinued amiodarone (amiodarone 200 mg oral tablet)1 tab(s) by mouth once a day. Refills: 4. metoprolol (Lopressor 25mg--USE metoprolol tartrate 25 mg oral tablet)1 tab(s) by mouth two (2) times a day. Refills: 0. Follow Up Follow Up with ALIYAH CARRINGTON MD Where:[address] [facility] [address] [facility] [place] [address]- [phone] Additional Information: SOMEONE FROM THIS OFFICE WILL CALL YOU WITH A FOLLOW UP APPOINTMENT. Follow Up Appointments No qualifying data available. Follow Up Labs/Studies Discharge Labs No Follow-up Labs Discharge Studies No Follow-up Studies Discharge Diet Discharge Diet - Ordered -- No changes were made to your diet during your hospital stay. Please resume your pre hospitalization diet on discharge., 12/26/24 8:12:00 EDT Discharge Activity Discharge Activity - Ordered -- Other, No heavy lifting (>20 pounds) for the next 3 days, 12/26/24 8:12:00 EDT Condition on Discharge stable Discharge Disposition home Information Provided To patient Digitally Signed by ALIYAH CARRINGTON MD on 12/26/2024 10:17 AM [facility] 12-26-2024 History and physical note Date of Service December 24, 2024 Primary EP: Dr. Carrington Chief Complaint AF/AFL -> Presenting for ablation (12/25/24) History of Present Illness Per OV note dated 10/14/24: Incident to Dr. Carrington (Primary EP: Dr. Carrington) (GC: Dayana Benz APRN CNP) This is a 74-year-old male who presents today to establish care with EP regarding his atrial fibrillation. ------- Patient recently established care with Dayana Benz APRN CNP in June 2024 after moving here from [place]. Patient had previously been following at [facility] in [place] (Dr. Harvey) where he was last evaluated on April 24, 2024. Documentation from this encounter notes the patient experienced some notable bradycardia on amiodarone 200mg once daily for which his dose had been reduced to 100mg once daily (this was later increased back to 200mg once daily by Sussy due to breakthrough atrial flutter). He allegedly had recent TFTs/LFTs which were within normal limits. ------- Past medical history is significant for: 1. Recurrent persistent atrial fibrillation/flutter, s/p DCCV x2 (most recent-08/21/2024) ---> Stage 3 per 2022 ACC guidelines 2. Hypertension 3. Dyslipidemia 4. JOHNNY on CPAP 5. Hypothyroidism s/p thyroidectomy (d/t CA) 6. GERD 7. Obesity, on Ozempic 8. Remote history of thyroid/prostate cancer s/p prostatectomy (2017) 9. BPH 10. Anxiety 11. Remote history of viral meningitis 12. Erectile dysfunction ------- Prior 2D echocardiogram performed July 21, 2023 demonstrates: - LVEF 60-65% - Normal LV size/systolic function ------- Prior stress test performed July 21, 2023 demonstrates: - No scintigraphic evidence of exercise induced myocardial ischemia - Normal LV systolic function, LVEF 59% ------- Patient presents today feeling well. He denies any acute/ongoing complaints at this time from a cardiac standpoint. Review of Systems Per OV note dated 10/14/24: Pertinent positives included within the HPI. Physical Exam Vitals and Measurements No qualifying data available. Per OV note dated 10/14/24: ?GENERAL: No acute distress. PSYCHIATRIC: Alert and oriented, cooperative. Affect normal. HEAD: Normocephalic/atraumatic. ENT: Mucus membranes pink/moist. NECK: Supple. No gross thyromegaly noted. CARDIAC: Regular S1S2 present. Grade 2/6 systolic murmur. No rub/gallop. RESPIRATORY: Regular rate and depth; no distress. No conversational dyspnea noted. Lung sounds clear throughout. ABDOMEN: Soft, nontender. Positive bowel sounds. EXTREMITIES: Adequately perfused. NEURO: Cranial Nerves II-XII grossly intact. MUSCULOSKELETAL: Strength/tone equal bilaterally. DERM: Warm/dry. Lab Results No 36 Hour Lab Data Assessment/Plan Per OV note dated 10/14/24: ?1. Recurrent persistent atrial fibrillation/flutter, s/p DCCV x2 (most recent-08/21/2024) ---> Stage 3 per 2022 ACC guidelines ---> CHADSVASc 2, HAS-BLED 3 ---> Incidentally diagnosed during a colonoscopy procedure in 2023 --- Antiarrhythmic- amiodarone 200mg once daily ---> Previously reduced to 100mg once daily due to bradycardia. Rate Control- metoprolol tartrate 25mg twice daily OAC- Eliquis 5mg twice daily ---- Creatinine clearance 93mL/min. ---- EKG performed in office today demonstrates normal sinus rhythm at a heart rate of 61bpm. ---- I did offer the patient a variety of options regarding long-term management of his atrial arrhythmias including remaining on his current drug regimen, transitioning to alternative antiarrhythmic drug therapy with lower long-term risk profile (i.e. sotalol), or pursuing Pulsed Field Ablation to prevent cessation of antiarrhythmic/beta-skinny therapy for which he ultimately elected to proceed with ablation. He also expressed several concerns regarding the need to remain on long-term anticoagulation and would strongly prefer coming off of this if possible which is reasonable given his heightened bleeding risk, thus we will plan for concomitant LAAO at the time of his PFA. --> An in-depth risk/benefit discussion was held with the patient for which understanding was verbalized. --> All questions/concerns were addressed to the patient's satisfaction. ---- Follow-up 3 months after ablation or sooner if needed. ------- Plan: - Continue current drug regimen for now - Arrange concomitant PFA (PVI/PWI + CTI) + WATCHMAN LAAO; stop amiodarone/metoprolol after procedure - Follow-up 3 months after ablation or sooner if needed Problem List/Past Medical History Ongoing Bleeding diathesis GERD (gastroesophageal reflux disease) Hypertension Obesity JOHNNY on CPAP Persistent atrial fibrillation Sinus bradycardia Procedure/Surgical History Colonic intussusception: 1955 Arthroplasty of the knee Cancer Cardioversion Hemangioma Thyroidectomy Prostatectomy Medications Home Medications (15) Active amiodarone 200 mg oral tablet 200 mg = 1 tab(s), Oral, qDay atorvastatin 20 mg oral tablet 20 mg = 1 tab(s), Oral, qHS Clobetasol (Eqv-Temovate) 0.05% topical cream 1 mary, Topical, qDay Eliquis 5 mg oral tablet 5 mg = 1 tab(s), Oral, BID ergocalciferol 50,000 intl units (1.25 mg) oral capsule 50,000 International_Unit = 1 cap(s), Oral, Marcelo fenofibrate 160 mg oral tablet 160 mg = 1 tab(s), Oral, qAM ketoconazole 2% topical cream 1 mary, Topical, qDay levothyroxine 200 mcg (0.2 mg) oral tablet 200 mcg = 1 tab(s), Oral, qAM lisinopril 10 mg oral tablet 10 mg = 1 tab(s), Oral, qDay Lopressor 25mg--USE metoprolol tartrate 25 mg oral tablet 25 mg = 1 tab(s), Oral, BID mometasone 0.1% topical cream 1 mary, Topical, Daily mometasone 0.1% topical cream 1 mary, Topical, Daily omeprazole 20 mg oral delayed release capsule 20 mg = 1 cap(s), Oral, qAM Ozempic 2 mg/3 mL (0.25 mg or 0.5 mg dose) subcutaneous solution 0.25 mg, Subcutaneous, Tuesday Ventolin HFA MDI (90 mcg/inh) inhalation aerosol 1 puff(s), Inhalation, QID Allergies penicillin Rash sulfa drug Rash Social History Alcohol Use: Current. Frequency: 1-2 times per year., 07/02/2024 Home/Environment Living situation: Home/Independent. Safe place to go: Yes. Domestic Concerns: None. Lives In: Single level home., 11/28/2024 Nutrition/Health Type of diet: Regular. Caffeine intake amount: 2 cups coffee daily., 11/12/2024 Sexual Self described orientation: Straight or heterosexual. Gender Identity: Identifies as male., 08/21/2024 Substance Abuse Use: Current. Type: Marijuana. Frequency: 1-2 times per month., 11/28/2024 Tobacco Nicotine Use: Never (less than 100 in lifetime)., 07/02/2024 Family History COVID-19: Sister. Heart attack: Father. Stroke: Mother. Health Status Family Member(s) Brother: History is negative Immunizations No qualifying data available. Code Status No qualifying data available. Digitally Signed by ELY SHEETS on 12/24/2024 11:45 AM [facility] 12-26-2024 Hospital Discharg e instructions Patient Education 12/26/2024 08:13:16 3-- EP Study/Ablation (06/2018)(CUSTOM) ELECTROPHYSIOLOGY STUDY/ABLATION Discharge Instructions DIET INSTRUCTIONS Resume diet as prior to procedure ACTIVITIES Do not drive FOR 24 HOURS No heavy lifting GREATER THAN 20 POUNDS or pushing or straining FOR 3 DAYS BATHING/SHOWERING May tub bathe in 4 days Do not sit in hot tub, whirlpool, or swim for 4 days May shower today WOUND CARE Groin: You may go home with a Band-Aid over your procedure site. Keep this Band-Aid on for the next 24 hours and then remove it leaving the site open to air. Left wrist: Keep band aid on site for next 3- days changing daily. Some degree of bruising and tenderness is normal around the procedure site. It will take a while for any bruising to completely resolve. Keep your site clean and dry. You need to report the following to your corporate director: Any draining or oozing from the site Any swelling at the site Any increased pain or tenderness at the site Any numbness in your leg where the procedure was done Any sign of infection WATCH FOR SIGNS OF INFECTION: Elevated temperature above 100.5 Redness or swelling Increased pain Foul odor or drainage. If you have any questions, please call your doctor at the number listed on your follow up instructions. Follow all instructions given to you by your physician. Document Released: 08/22/2006 Document Revised: 08/08/2013 Document Reviewed: 08/23/2014 ExitCare Patient Information 2015 [employer]. This information is not intended to replace advice given to you by your health care provider. Make sure you discuss any questions you have with your health care provider. Follow Up Care 12/05/2024 11:39:04 With:ALIYAH CARRINGTON MD Address: [address] [facility] [address] [place] [address]- [phone] When: Unknown Comments:SOMEONE FROM THIS OFFICE WILL CALL YOU WITH A FOLLOW UP APPOINTMENT. [facility] 12-26-2024 Summary of episod e note Discharge Instructions Thank you for allowing [facility] to assist you with your healthcare needs. The following is important discharge information regarding your hospital visit. Your Care Team KRISTA MARIA MD Your Diagnosis AF (atrial fibrillation) What to do next Follow Up Appointments Follow Up with ALIYAH CARRINGTON MD Where:[address] [facility] [address] [place] [address]- [phone] Additional Information: SOMEONE FROM THIS OFFICE WILL CALL YOU WITH A FOLLOW UP APPOINTMENT. The Following Activity and Diet Have Been Ordered for You Discharge Activity - Ordered -- Other, No heavy lifting (>20 pounds) for the next 3 days, 12/26/24 8:12:00 EDT Discharge Diet - Ordered -- No changes were made to your diet during your hospital stay. Please resume your pre hospitalization diet on discharge., 12/26/24 8:12:00 EDT Allergies penicillin Rash sulfa drug Rash Medications Please ask your primary doctor or pharmacist before taking any other medication not listed, including over the counter drugs, herbal medications, vitamins and or supplements as they may interact with your home medications. What How Much When Instructions Last Dose Unchanged albuterol (Ventolin HFA MDI (90 mcg/ inh) inhalation aerosol) 1 puff(s) by inhalation Four (4) times a day Duration: 30 Days None given Unchanged apixaban (Eliquis 5 mg oral tablet) 1 tab(s) by mouth Two (2) times a day Yesterday 12/25/24 8:50PM Unchanged atorvastatin (atorvastatin 20 mg oral tablet) 1 tab(s) by mouth Daily at bedtime Yesterday 12/25/24 8:50PM Unchanged clobetasol topical (Clobetasol (Eqv-Temovate) 0.05% topical cream) 1 application Topical Once a day None given Unchanged ergocalciferol (ergocalciferol 50,000 intl units (1.25 mg) oral capsule) 1 cap by mouth Every Tuesday None given Unchanged fenofibrate (fenofibrate 160 mg oral tablet) 1 tab(s) by mouth Once a day (in the morning) TAKE 1 TABLET BY MOUTH EVERY DAY None given Unchanged ketoconazole topical (ketoconazole 2% topical cream) 1 application Topical Once a day MIX 50/ 50 WITH MOMETASONE AND APPLY TO FACE TWICE A DAY NEEDED None given Unchanged levothyroxine (levothyroxine 200 mcg (0.2 mg) oral tablet) 1 tab(s) by mouth Once a day (in the morning) None given Unchanged lisinopril (lisinopril 10 mg oral tablet) 1 tab(s) by mouth Once a day None given Unchanged mometasone topical (mometasone 0.1% topical cream) 1 application Topical Every day None given Unchanged omeprazole (omeprazole 20 mg oral delayed release capsule) 1 cap by mouth Once a day (in the morning) None given Unchanged semaglutide (Ozempic 2 mg/ 3 mL (0.25 mg or 0.5 mg dose) subcutaneous solution) 0.25 Milligram Subcutaneous Every Tuesday rotate injection sites None given What How Much When Comments Stop Taking amiodarone (amiodarone 200 mg oral tablet) 1 tab(s) by mouth Once a day Stop Taking metoprolol (Lopressor 25mg--USE metoprolol tartrate 25 mg oral tablet) 1 tab(s) by mouth Two (2) times a day Please take this list to your next doctor s visit. Bring all medications you take, including over the counter medications, herbals and other supplements with you to your doctor s visit. Patients and families are reminded to discard old lists and to update any records with all medication providers or retail pharmacies. Education Materials ELECTROPHYSIOLOGY STUDY/ABLATION Discharge Instructions DIET INSTRUCTIONS Resume diet as prior to procedure ACTIVITIES Do not drive FOR 24 HOURS No heavy lifting GREATER THAN 20 POUNDS or pushing or straining FOR 3 DAYS BATHING/SHOWERING May tub bathe in 4 days Do not sit in hot tub, whirlpool, or swim for 4 days May shower today WOUND CARE Groin: You may go home with a Band-Aid over your procedure site. Keep this Band-Aid on for the next 24 hours and then remove it leaving the site open to air. Left wrist: Keep band aid on site for next 3- days changing daily. Some degree of bruising and tenderness is normal around the procedure site. It will take a while for any bruising to completely resolve. Keep your site clean and dry. You need to report the following to your corporate director: Any draining or oozing from the site Any swelling at the site Any increased pain or tenderness at the site Any numbness in your leg where the procedure was done Any sign of infection WATCH FOR SIGNS OF INFECTION: Elevated temperature above 100.5 Redness or swelling Increased pain Foul odor or drainage. If you have any questions, please call your doctor at the number listed on your follow up instructions. Follow all instructions given to you by your physician. Document Released: 08/22/2006 Document Revised: 08/08/2013 Document Reviewed: 08/23/2014 ExitCare Patient Information 2015 [employer]. This information is not intended to replace advice given to you by your health care provider. Make sure you discuss any questions you have with your health care provider. Additional Information VACCINATE! IT SAVES LIVES! Members of the community who have not yet received the COVID-19 vaccine and would like to receive it can visit one of [facility] vaccine clinics. There are many vaccine clinic locations within the [facility]. For locations and available times, please visit [email or web address].o hio.gov/. It is important to note that some COVID mobile vaccine clinics are held outdoors and may be canceled in rainy or stormy conditions. To learn more about pediatric vaccinations (ages 5-11), we invite you to visit the [facility] webpage. [email or web address] To learn more about the COVID-19 vaccine, we invite you to visit the CDC website for a list of frequently asked questions.https://www.cdc.gov/co ronavirus/2019-ncov/vaccines/faq .html [employer] Patient Portal Access Instructions: Stay connected with your healthcare team and access your personal medical information anytime with the [employer] Patient Portal. Please follow the directions below to create your [employer] account: 1.Access the email account you provided upon registration to the hospital/physician office.2.Look for an invitation email from [facility].3.Open the email and access the invitation link: Accept Invitation to [employer].4.Fill in the required galeano to create your account. To access your account, visit [employer]. Click the blue button labeled Access Patient Portal and then log in with the username and password that you created in the steps above. You will be able to view your test results, lab results, a summary of your visits, upcoming appointments and more. There is also a convenient messaging option where you can send secure messages to your provider. In addition, you will have the ability to download any documents or summaries to your computer and/or send the information securely to a physician. Remember that your healthcare information is confidential, so carefully consider who you will allow to register on the [employer] Patient Portal for access to your information. You can also access the [employer] Patient Portal on the [employer]er[employer]where mary. Simply click on Patient Portal and then log into your account. If you would like to receive a full copy of your medical records, please contact the [facility] Medical Records Department by calling [phone], Tuesday through Tuesday between 8 a.m. and 4:30 p.m. HOW TO SAFELY DISPOSE OF PRESCRIPTION MEDICATIONS Please use one of the following methods to safely dispose of your unused medications. 1.Use a drug disposal kit: the drug disposal pouch allows you to safely discard your old and unused drugs. Ask your nurse to give you one when you are discharged.2.Visit a local take-back location: Many local pharmacies and police departments have programs that collect old and unwanted prescription drugs. Call your local pharmacy or go to http://EcoFactor.Newsgrape/8H8Wb8m to find one close to you.3.Make use of household items: Use cat litter or old coffee grounds to dispose medications if other options are not available. Mix your drugs with these household products, seal them in an airtight container and throw it into the garbage. Call [facility]: [phone] to be sure your drugs can be disposed of in this way. Some medicines may require a different approach.4.Never flush your medications down the toilet. IF YOU HAVE BEEN PRESCRIBED AN OPIOID FOR PAIN If you have been prescribed an opioid (such as hydrocodone, oxycodone or morphine), it is critical to understand the possible side effects and risks of opioid pain medications. Even when taken as directed, opioids can have several side effects including: Tolerance, meaning you might need to take more of a medication for the same pain relief. Nausea, vomiting and/or constipation. Sleepiness, dizziness, dry mouth, confusion, depression or itching. Physical dependence, meaning you have withdrawal symptoms when a medication is stopped, can develop within a few days. KNOW YOUR RESPONSIBILITIES It is important to know exactly how much and how often to take the opioid pain medications you are prescribed. Never take opioids in higher amounts or more often than prescribed. Do not combine opioids with alcohol or other drugs that cause drowsiness, such as benzodiazepines, also known as benzos, including diazepam and alprazolam, muscle relaxants or sleep aids. Never sell or share prescription opioids. This is illegal. Store opioids in a secure place and out of reach of others (including children, family, friends and visitors). The last page of this document has been signed and retained as a CHART COPY. Signatures Patient Education Materials 3-- EP Study/Ablation (06/2018)(CUSTOM) Medication Leaflets My discharge plan and instructions have been reviewed and explained to me and I,CHARLOTTE DE LA TORRE understand my current condition and have read and understand these discharge instructions. I have received a written copy of the plan/instructions. If I have questions, I am aware that I should contact my doctor. 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: Date/Time: Relationship to Patient: Witness Name/Signature: Date/Time: [facility] 12-25-2024 Note Exam Date Time Procedure Performing Provider Status 12/25/24 1:01 PM Ablation CV ALIYAH CARRINGTON MD; Auth (Cecilia ified) [id number] Anesthesiology Consult note Patient: CHARLOTTE DE LA TORRE Age: 74 years Sex: Male : 1950 Associated Diagnoses: None Author: WILD GONG MD Preoperative Information Greater than 6 hours Anesthesia history Patient's history: negative. Family's history: negative. Review of Systems Ear/Nose/Mouth/Throat: Negative except as documented in history of present illness. Respiratory: Negative except as documented in history of present illness. Cardiovascular: Negative except as documented in history of present illness. Gastrointestinal: Negative except as documented in history of present illness. Genitourinary: Negative except as documented in history of present illness. Endocrine: Negative except as documented in history of present illness. Musculoskeletal: Negative except as documented in history of present illness. Integumentary: Negative except as documented in history of present illness. Neurologic: Negative except as documented in history of present illness. Health Status Allergies: Allergic Reactions (Selected) Severity Not Documented Penicillin- Rash. Sulfa drug- Rash., Allergies (2) ActiveSeverityReaction penicillinRash sulfa drugRash Current medications: (Selected) Inpatient Medications Ordered Peridex 0.12% oral rinse liquid: 15 mL, Swish & Spit, PREOP pharm Future vancomycin IVPB: 2,000 mg, 500 mL, 250 mL/hr, IV Piggyback, PREOP pharm Prescriptions Prescribed Eliquis 5 mg oral tablet: 5 mg, 1 tab(s), Oral, BID, 60 tab(s), 5 Refill(s) Lopressor 25mg--USE metoprolol tartrate 25 mg oral tablet: 25 mg, 1 tab(s), Oral, BID, 180 tab(s), 0 Refill(s) Ventolin HFA MDI (90 mcg/inh) inhalation aerosol: 1 puff(s), Inhalation, QID, for 30 day(s), 1 EA, 0 Refill(s) amiodarone 200 mg oral tablet: 200 mg, 1 tab(s), Oral, qDay, 90 tab(s), 4 Refill(s) lisinopril 10 mg oral tablet: 10 mg, 1 tab(s), Oral, qDay, 90 tab(s), 3 Refill(s) Documented Medications Documented Clobetasol (Eqv-Temovate) 0.05% topical cream: 1 mary, Topical, qDay, 0 Refill(s) Ozempic 2 mg/3 mL (0.25 mg or 0.5 mg dose) subcutaneous solution: 0.25 mg, Subcutaneous, Tuesday, rotate injection sites, 1 EA, 0 Refill(s) atorvastatin 20 mg oral tablet: 20 mg, 1 tab(s), Oral, qHS, 90 tab(s), 0 Refill(s) ergocalciferol 50,000 intl units (1.25 mg) oral capsule: 50,000 International_Unit, 1 cap(s), Oral,Tuesday, 0 Refill(s) fenofibrate 160 mg oral tablet: 160 mg, 1 tab(s), Oral, qAM, TAKE 1 TABLET BY MOUTH EVERY DAY ketoconazole 2% topical cream: 1 mary, Topical, qDay, MIX 50/50 WITH MOMETASONE AND APPLY TO FACE TWICE A DAY NEEDED levothyroxine 200 mcg (0.2 mg) oral tablet: 200 mcg, 1 tab(s), Oral, qAM, 30 tab(s), 0 Refill(s) mometasone 0.1% topical cream: 1 mary, Topical, Daily, 0 Refill(s) mometasone 0.1% topical cream: 1 mary, Topical, Daily, 0 Refill(s) omeprazole 20 mg oral delayed release capsule: 20 mg, 1 cap(s), Oral, qAM, No qualifying data available Problem list: Medical Bleeding diathesis / SNOMED CT 079657355 / Confirmed GERD (gastroesophageal reflux disease) / SNOMED CT 393767520 / Confirmed Hypertension / SNOMED CT 9135262735 / Confirmed Obesity / SNOMED CT 6796375010 / Confirmed JOHNNY on CPAP / SNOMED CT 767181189 / Confirmed Persistent atrial fibrillation / SNOMED CT 6498622120 / Confirmed Sinus bradycardia / SNOMED CT 96455402 / Confirmed, Active Problems (22) Abnormal gait Arthritis Atrial flutter Bleeding diathesis BMI 45.0-49.9, adult Cataract Claustrophobia Diabetes mellitus type 2 GERD (gastroesophageal reflux disease) Hard of hearing Hearing aid Heart murmur History of radiation therapy Hypertension Hypothyroidism Kidney stone Obesity JOHNNY on CPAP Persistent atrial fibrillation Sinus bradycardia Tinnitus Vitamin D deficiency Histories Past Medical History: No active or resolved past medical history items have been selected or recorded. Family History: Stroke Mother Heart attack Father COVID-19 Sister Procedure history: Colonic intussusception ([id number]) in 1953 at 4 Years. Comments: 11/28/2024 9:16 RADHA Fofana with appendectomy Cancer ([id number]). Comments: 07/02/2024 8:46 RADHA Lopez thyroid & prostrate Arthroplasty of the knee ([id number]). Comments: 07/02/2024 8:47 RADHA Lopez left Cardioversion ([id number]). Comments: 11/28/2024 9:14 RADHA Fofana x2 Hemangioma ([id number]). Comments: 11/28/2024 9:15 RADHA Fofana removed from wrist Thyroidectomy ([id number]). Prostatectomy ([id number]). Social History: Social & Psychosocial Habits Alcohol 11/28/2024 Use: Current Frequency: 1-2 times per year Substance Abuse 11/28/2024 Use: Current Type: Marijuana Frequency: 1-2 times per month Comment: Arycelinafrance - 10/11/2024 09:08 - JoseFarzana Dajuan STRONG Tobacco 11/28/2024 Tobacco Use: Never (less than 100 in l Home/Environment 11/28/2024 Living situation: Home/Independent Safe place to go: Yes Domestic Concerns None Lives In Single level home Nutrition/Health 11/28/2024 Type of diet: Regular Caffeine intake amount: 2 cups coffee daily Sexual 11/28/2024 Self described orientation: Straight or heterosexual What is your current gender identity? (Check all that apply) Identifies as male Physical Examination No qualifying data available General: Alert and oriented. Airway: Normal temporomandibular joint mobility, Normal mouth, Normal throat, Normal neck range of motion, Trachea midline. Mallampati classification: II (soft palate, fauces, uvula visible). Head: Normocephalic. Dentition Evaluation: Intact, Own teeth, Denies loose/chipped teeth. Neck: Supple. Respiratory: Lungs are clear to auscultation, Respirations are non-labored. Cardiovascular: Normal rate, Regular rhythm, No murmur. Heart Sounds: Normal. Gastrointestinal: Soft. Musculoskeletal Normal range of motion. Integumentary: Intact, Warm, Dry. Neurologic: Alert, Oriented. Review / Management Results review: No qualifying data available , Lab results 12/24/2024 11:44 EDT History and Physical History and Physical History of Present Illness Documentation History of Present Illness Documentation Impression and Plan Documentation Impression and Plan Documentation Review of Systems Documentation Review of Systems Documentation Physical Examination Documentation Physical Examination Documentation . Assessment and Plan [place] [employer]esthesiologists (ASA) physical status classification: Class III. Anesthetic Preoperative Plan Premedication: intravenous. Anesthetic technique: General. Induction: intravenously. Maintenance airway: Oral endotracheal tube. Special techniques: Warming device. Special Monitoring: Arterial line. Postoperative pain management: Per surgeon. Risks discussed: nausea, vomiting, headache, sore throat, dental injury, hypotension, allergic reaction, serious complications. Informed consent: signed by patient. Beta Skinny: Beta Skinny Taken Within 24 Hrs. Digitally Signed by WILD GONG MD on 12/25/2024 07:18 AM [id number] Evaluation + Plan noteExtracted from: Title:History and Physical Author:ELY SHEETS APRN-SUPPORT ENGINEER Date:12/24/24 Per OV note dated 10/14/24: ? 1. Recurrent persistent atrial fibrillation/flutter, s/p DCCV x2 (most recent-08/21/2024) ---> Stage 3 per 2022 ACC guidelines ---> CHADSVASc 2, HAS-BLED 3 ---> Incidentally diagnosed during a colonoscopy procedure in 2023 --- Antiarrhythmic- amiodarone 200mg once daily ---> Previously reduced to 100mg once daily due to bradycardia. Rate Control- metoprolol tartrate 25mg twice daily OAC- Eliquis 5mg twice daily ---- Creatinine clearance 93mL/min. ---- EKG performed in office today demonstrates normal sinus rhythm at a heart rate of 61bpm. ---- I did offer the patient a variety of options regarding long-term management of his atrial arrhythmias including remaining on his current drug regimen, transitioning to alternative antiarrhythmic drug therapy with lower long-term risk profile (i.e. sotalol), or pursuing Pulsed Field Ablation to prevent cessation of antiarrhythmic/beta-skinny therapy for which he ultimately elected to proceed with ablation. He also expressed several concerns regarding the need to remain on long-term anticoagulation and would strongly prefer coming off of this if possible which is reasonable given his heightened bleeding risk, thus we will plan for concomitant LAAO at the time of his PFA. --> An in-depth risk/benefit discussion was held with the patient for which understanding was verbalized. --> All questions/concerns were addressed to the patient's satisfaction. ---- Follow-up 3 months after ablation or sooner if needed. ------- Plan: - Continue current drug regimen for now - Arrange concomitant PFA (PVI/PWI + CTI) + WATCHMAN LAAO; stop amiodarone/metoprolol after procedure - Follow-up 3 months after ablation or sooner if needed Addendum by ALIYAH CARRINGTON MD December 26, 2024 10:11:33 EDT This is a split/shared visit with MARY Wiggins. I saw and discussed the patient with [facility]. I concur with the above plan formulated under my direct supervision. This is a 74-year-old male with recurrent persistent atrial fibrillation/flutter, s/p DCCV x2 (most recent 08/21/2024), HTN, HLP, JOHNNY on CPAP, hypothyroidism s/p thyroidectomy (d/t CA), GERD, obesity on Ozempic, remote history of thyroid/prostate cancer s/p prostatectomy (2017), BPH, anxiety, remote history of viral meningitis, hematuria, and erectile dysfunction, here for AFib ablation. General Appearance: Alert and oriented x3, no apparent distress Head: Normocephalic, atraumatic EENT: EOMI, PERRLA, mucous membranes moist Neck: Supple, no thyromegaly. Cardiac: rrr, no mrg. Lungs: Clear to auscultation bilaterally, no wheezing, rales, rhonchi. Abdomen: Nondistended, nontender, bowel sounds present. Musculoskeletal: No gross deformities. Extremities: no significant lower extremity edema, no calf tenderness, pedal pulses are present bilaterally Neurological: No focal deficits Skin: Warm, dry, intact Psychiatric: Mood congruent, cooperative A/P 1. AFib. - to EP lab for ablation Aliyah Carrington MD Cardiac Electrophysiology [phone] [facility] 04-21-[facility] History and physical note Date of Service December 24, 2024 Primary EP: Dr. Carrington Chief Complaint AF/AFL -> Presenting for ablation (12/25/24) History of Present Illness Per OV note dated 10/14/24: Incident to Dr. Carrington (Primary EP: Dr. Carrington) (GC: Dayana Benz APRN CNP) This is a 74-year-old male who presents today to establish care with EP regarding his atrial fibrillation. ------- Patient recently established care with Dayana Benz APRN CNP in June 2024 after moving here from [place]. Patient had previously been following at [facility] in [place] (Dr. Harvey) where he was last evaluated on April 24, 2024. Documentation from this encounter notes the patient experienced some notable bradycardia on amiodarone 200mg once daily for which his dose had been reduced to 100mg once daily (this was later increased back to 200mg once daily by Sussy due to breakthrough atrial flutter). He allegedly had recent TFTs/LFTs which were within normal limits. ------- Past medical history is significant for: 1. Recurrent persistent atrial fibrillation/flutter, s/p DCCV x2 (most recent-08/21/2024) ---> Stage 3 per 2022 ACC guidelines 2. Hypertension 3. Dyslipidemia 4. JOHNNY on CPAP 5. Hypothyroidism s/p thyroidectomy (d/t CA) 6. GERD 7. Obesity, on Ozempic 8. Remote history of thyroid/prostate cancer s/p prostatectomy (2017) 9. BPH 10. Anxiety 11. Remote history of viral meningitis 12. Erectile dysfunction ------- Prior 2D echocardiogram performed July 21, 2023 demonstrates: - LVEF 60-65% - Normal LV size/systolic function ------- Prior stress test performed July 21, 2023 demonstrates: - No scintigraphic evidence of exercise induced myocardial ischemia - Normal LV systolic function, LVEF 59% ------- Patient presents today feeling well. He denies any acute/ongoing complaints at this time from a cardiac standpoint. Review of Systems Per OV note dated 10/14/24: Pertinent positives included within the HPI. Physical Exam Vitals and Measurements No qualifying data available. Per OV note dated 10/14/24: ?GENERAL: No acute distress. PSYCHIATRIC: Alert and oriented, cooperative. Affect normal. HEAD: Normocephalic/atraumatic. ENT: Mucus membranes pink/moist. NECK: Supple. No gross thyromegaly noted. CARDIAC: Regular S1S2 present. Grade 2/6 systolic murmur. No rub/gallop. RESPIRATORY: Regular rate and depth; no distress. No conversational dyspnea noted. Lung sounds clear throughout. ABDOMEN: Soft, nontender. Positive bowel sounds. EXTREMITIES: Adequately perfused. NEURO: Cranial Nerves II-XII grossly intact. MUSCULOSKELETAL: Strength/tone equal bilaterally. DERM: Warm/dry. Lab Results No 36 Hour Lab Data Assessment/Plan Per OV note dated 10/14/24: ?1. Recurrent persistent atrial fibrillation/flutter, s/p DCCV x2 (most recent-08/21/2024) ---> Stage 3 per 2022 ACC guidelines ---> CHADSVASc 2, HAS-BLED 3 ---> Incidentally diagnosed during a colonoscopy procedure in 2023 --- Antiarrhythmic- amiodarone 200mg once daily ---> Previously reduced to 100mg once daily due to bradycardia. Rate Control- metoprolol tartrate 25mg twice daily OAC- Eliquis 5mg twice daily ---- Creatinine clearance 93mL/min. ---- EKG performed in office today demonstrates normal sinus rhythm at a heart rate of 61bpm. ---- I did offer the patient a variety of options regarding long-term management of his atrial arrhythmias including remaining on his current drug regimen, transitioning to alternative antiarrhythmic drugtherapy with lower long-term risk profile (i.e. sotalol), or pursuing Pulsed Field Ablation to prevent cessation of antiarrhythmic/beta-skinny therapy for which he ultimately elected to proceed withablation. He also expressed several concerns regarding the need to remain on long-term anticoagulation and would strongly prefer coming off of this if possible which is reasonable given his heightened bleeding risk, thus we will plan for concomitant LAAO at the time of his PFA. --> An in-depth risk/benefit discussion was held with the patient for which understanding was verbalized. --> All questions/concerns were addressed to the patient's satisfaction. ---- Follow-up 3 months after ablation or sooner if needed. ------- Plan: - Continue current drug regimen for now - Arrange concomitant PFA (PVI/PWI + CTI) + WATCHMAN LAAO; stop amiodarone/metoprolol after procedure - Follow-up 3 months after ablation or sooner if needed Problem List/Past Medical History Ongoing Bleeding diathesis GERD (gastroesophageal reflux disease) Hypertension Obesity JOHNNY on CPAP Persistent atrial fibrillation Sinus bradycardia Procedure/Surgical History Colonic intussusception: 1955 Arthroplasty of the knee Cancer Cardioversion Hemangioma Thyroidectomy Prostatectomy Medications Home Medications (15) Active amiodarone 200 mg oral tablet 200 mg = 1 tab(s), Oral, qDay atorvastatin 20 mg oral tablet 20 mg = 1 tab(s), Oral, qHS Clobetasol (Eqv-Temovate) 0.05% topical cream 1 mary, Topical, qDay Eliquis 5 mg oral tablet 5 mg = 1 tab(s), Oral, BID ergocalciferol 50,000 intl units (1.25 mg) oral capsule 50,000 International_Unit = 1 cap(s), Oral,Marcelo fenofibrate 160 mg oral tablet 160 mg = 1 tab(s), Oral, qAM ketoconazole 2% topical cream 1 mary, Topical, qDay levothyroxine 200 mcg (0.2 mg) oral tablet 200 mcg = 1 tab(s), Oral, qAM lisinopril 10 mg oral tablet 10 mg = 1 tab(s), Oral, qDay Lopressor 25mg--USE metoprolol tartrate 25 mg oral tablet 25 mg = 1 tab(s), Oral, BID mometasone 0.1% topical cream 1 mary, Topical, Daily mometasone 0.1% topical cream 1 mary, Topical, Daily omeprazole 20 mg oral delayed release capsule 20 mg = 1 cap(s), Oral, qAM Ozempic 2 mg/3 mL (0.25 mg or 0.5 mg dose) subcutaneous solution 0.25 mg, Subcutaneous, Tuesday Ventolin HFA MDI (90 mcg/inh) inhalation aerosol 1 puff(s), Inhalation, QID Allergies penicillin Rash sulfa drug Rash Social History Alcohol Use: Current. Frequency: 1-2 times per year., 07/02/2024 Home/Environment Living situation: Home/Independent. Safe place to go: Yes. Domestic Concerns: None. Lives In: Single level home., 11/28/2024 Nutrition/Health Type of diet: Regular. Caffeine intake amount: 2 cups coffee daily., 11/12/2024 Sexual Self described orientation: Straight or heterosexual. Gender Identity: Identifies as male., 08/21/2024 Substance Abuse Use: Current. Type: Marijuana. Frequency: 1-2 times per month., 11/28/2024 Tobacco Nicotine Use: Never (less than 100 in lifetime)., 07/02/2024 Family History COVID-19: Sister. Heart attack: Father. Stroke: Mother. Health Status Family Member(s) Brother: History is negative Immunizations No qualifying data available. Code Status No qualifying data available. Digitally Signed by ELY SHEETS on 12/24/2024 11:45 AM [id number] Radiology Diagnostic study note [facility] Imaging Services [address] [place] [address] Head/Neck Soft Tissue MR#: [id number] Acct: [id number] Name: CHARLOTTE DE LA TORRE Rep #: [id number] : 1950 M 74 From: Puma Mcmillan MD PCP: Dr. Jose Maria MD Status: REG CL I Study:Head/Neck Soft Tissue Date of Exam: 11/14/24 Exam# [id number] Ordering Dr: Charito Maria MD PROCEDURE: HEAD/NECK SOFT TISSUE REASON FOR EXAM: LUMP LEFT NECK History of thyroid cancer with a status post thyroidectomy. COMPARISON: None. TECHNIQUE: Targeted sonogram to the area of the left neck was performed. FINDINGS: In the anterior midline of the left side of the cervical region there is a 1.5 cm x 1.1 cm x 0.4 cmisoechoic density suggestive of a possible lipoma. US/Head/Neck Soft Tissue IMPRESSION: The palpable lump corresponds to a 1.5 cm x 1.1 cm x 0.4 cm isoechoic nodular density suggestive ofa lipoma. Reading Location: [facility] CC: Dr. Jose Maria MD ~ Rn Immunology: Signed [facility]02-18-2025 Hospital Discharge instructions Patient Education 10/23/2024 12:32:03 Pneumonia (Adult) Pneumonia (Adult) Pneumonia is an infection deep within the lungs. It is in the small air sacs (alveoli). Pneumonia may be caused by a virus or bacteria. Pneumonia caused by bacteria is usually treated with an antibiotic. Severe cases may need to be treated in the hospital. Milder cases can be treated at home. Symptoms usually start to get better during the first 2 days of treatment. Home care Follow these guidelines when caring for yourself at home: Rest at home for the first 2 to 3 days, or until you feel stronger. Don t let yourself get overly tired when you go back to your activities. Stay away from cigarette smoke yours or other people s. You may use acetaminophen or ibuprofen to control fever or pain, unless another medicine was prescribed. If you have chronic liver or kidney disease, talk with your healthcare provider before using these medicines. Also talk with your provider if you ve had a stomach ulcer or gastrointestinal bleeding. Don t give aspirin to anyone younger than 18 years of age who is ill with a fever. It may causesevere liver damage. Your appetite may be poor, so a light diet is fine. Drink 6 to 8 glasses of fluids every day to make sure you are getting enough fluids. Beverages can include water, sport drinks, sodas without caffeine, juices, tea, or soup. Fluids will help loosen secretions in the lung. This will make it easier for you to cough up the phlegm (sputum). If you alsohave heart or kidney disease, check with your healthcare provider before you drink extra fluids. Take antibiotic medicine prescribed until it is all gone, even if you are feeling better after a few days. Follow-up care Follow up with your healthcare provider in the next 2 to 3 days, or as advised. This is to be sure the medicine is helping you get better. If you are 65 or older, you should get a pneumococcal vaccine and a yearly flu (influenza) shot. You should also get these vaccines if you have chronic lung disease like asthma, emphysema, or COPD. Recently, a second type of pneumonia vaccine has become available for everyone over 65 years old. This is in addition to the previous vaccine. Ask your provider about this. When to seek medical advice Call your healthcare provider right away if any of these occur: You don t get better within the first 48 hours of treatment Shortness of breath gets worse Rapid breathing (more than 25 breaths per minute) Coughing up blood Chest pain gets worse with breathing Fever of 100.4 F (38 C) or higher that doesn t get better with fever medicine Weakness, dizziness, or fainting that gets worse Thirst or dry mouth that gets worse Sinus pain, headache, or a stiff neck Chest pain not caused by coughing [id number] [employer]. [address] [place] [address], [place] [address]. All rights reserved. This information is not intended as a substitute for professional medical care. Always follow yourhealthcare professional's instructions. Follow Up Care 10/23/2024 10:49:42 With:KRISTA MARIA MD Address:Unknown When:2-4 days [facility] 02-18-2025 Note Discharge Instructions Thank you for allowing [facility] to assist you with your healthcare needs. The following is importantdischarge information regarding your hospital visit. What to Do Next Instructions from Your Care Team No qualifying data available. Post Acute Orders No qualifying data available. You Need to Schedule the Following Appointments Follow Up with KRISTA MARIA MD When:Within 2-4 days Allergies penicillin sulfa drug Medications Please ask your primary doctor or pharmacist before taking any other medication not listed, including over the counter drugs, herbal medications, vitamins and or supplements as they may interact withyour home medications. What How Much When Instructions Last Dose New albuterol (Ventolin HFA MDI (90 mcg/ inh) inhalation aerosol) 1 puff(s) by inhalation Four (4) times a day Duration: 30 Days Printed Prescription New azithromycin (azithromycin 250 mg oral tablet) 1 tab(s) by mouth Every day Duration: 5 Days Take with a probiotic Printed Prescription New predniSONE (predniSONE 20 mg oral tablet) 1 tab(s) by mouth Two (2) times a day Duration: 3 Days Printed Prescription Unchanged amiodarone (amiodarone 200 mg oral tablet) 1 tab(s) by mouth Once a day Unchanged apixaban (Eliquis 5 mg oral tablet) 1 tab(s) by mouth Two (2) times a day Unchanged atorvastatin (atorvastatin 20 mg oral tablet) 1 tab(s) by mouth Once a day Unchanged clobetasol topical (Clobetasol (Eqv-Temovate) 0.05% topical cream) Unchanged fenofibrate (fenofibrate 160 mg oral tablet) TAKE 1 TABLET BY MOUTH EVERY DAY Unchanged ipratropium nasal (ipratropium 42 mcg/ inh (0.06%) nasal spray) 2 spray(s) in the nose Three (3) times a day Unchanged levothyroxine (levothyroxine 175 mcg (0.175 mg) oral tablet) 1 tab(s) by mouth Once a day Unchanged lisinopril (lisinopril 10 mg oral tablet) 1 tab(s) by mouth Once a day Unchanged metoprolol (Lopressor 25mg--USE metoprolol tartrate 25 mg oral tablet) 1 tab(s) by mouth Two (2) times a day Unchanged mometasone topical (mometasone 0.1% topical cream) 1 application Topical Every day Unchanged omeprazole (omeprazole 20 mg oral delayed release capsule) TAKE 2 CAPSULES BY MOUTH TWICE A DAY. TAKE ON AN EMPTY STOMACH AT LEAST 30 MIN BEFORE A MEAL Unchanged pregabalin (pregabalin 100 mg oral capsule) TAKE 1 CAPSULE BY MOUTH TWICE A DAY Please take this list to your next doctor s visit. Bring all medications you take, including over the counter medications, herbals and other supplements with you to your doctor s visit. Patients and families are reminded to discard old lists and to update any records with all medication providers or retail pharmacies. Education Materials Pneumonia (Adult) Pneumonia is an infection deep within the lungs. It is in the small air sacs (alveoli). Pneumonia may be caused by a virus or bacteria. Pneumonia caused by bacteria is usually treated with an antibiotic. Severe cases may need to be treated in the hospital. Milder cases can be treated at home. Symptoms usually start to get better during the first 2 days of treatment. Home care Follow these guidelines when caring for yourself at home: Rest at home for the first 2 to 3 days, or until you feel stronger. Don t let yourself get overly tired when you go back to your activities. Stay away from cigarette smoke yours or other people s. You may use acetaminophen or ibuprofen to control fever or pain, unless another medicine was prescribed. If you have chronic liver or kidney disease, talk with your healthcare provider before using these medicines. Also talk with your provider if you ve had a stomach ulcer or gastrointestinal bleeding. Don t give aspirin to anyone younger than 18 years of age who is ill with a fever. It may causesevere liver damage. Your appetite may be poor, so a light diet is fine. Drink 6 to 8 glasses of fluids every day to make sure you are getting enough fluids. Beverages can include water, sport drinks, sodas without caffeine, juices, tea, or soup. Fluids will help loosen secretions in the lung. This will make it easier for you to cough up the phlegm (sputum). If you alsohave heart or kidney disease, check with your healthcare provider before you drink extra fluids. Take antibiotic medicine prescribed until it is all gone, even if you are feeling better after a few days. Follow-up care Follow up with your healthcare provider in the next 2 to 3 days, or as advised. This is to be sure the medicine is helping you get better. If you are 65 or older, you should get a pneumococcal vaccine and a yearly flu (influenza) shot. You should also get these vaccines if you have chronic lung disease like asthma, emphysema, or COPD. Recently, a second type of pneumonia vaccine has become available for everyone over 65 years old. This is in addition to the previous vaccine. Ask your provider about this. When to seek medical advice Call your healthcare provider right away if any of these occur: You don t get better within the first 48 hours of treatment Shortness of breath gets worse Rapid breathing (more than 25 breaths per minute) Coughing up blood Chest pain gets worse with breathing Fever of 100.4 F (38 C) or higher that doesn t get better with fever medicine Weakness, dizziness, or fainting that gets worse Thirst or dry mouth that gets worse Sinus pain, headache, or a stiff neck Chest pain not caused by coughing [id number] [employer]. [address] [place] [address]. All rights reserved. This information is not intended as a substitute for professional medical care. Always follow yourhealthcare professional's instructions. Additional Information VACCINATE! IT SAVES LIVES! Members of the community who have not yet received the COVID-19 vaccine and would like to receive it can visit one of [facility] vaccine clinics. There are many vaccine clinic locations within the [facility]. For locations and available times, please visit www.gettheshot.coronavirus.[place].gov/. It is important to note that some COVID mobile vaccine clinics are held outdoors and may be canceled in rainy or stormy conditions. To learn more about pediatric vaccinations (ages 5-11), we invite you to visit the [facility] webpage. https://www.[email or web address].org/pages/[email or web address] stions.htmlTo learn more about the COVID-19 vaccine, we invite you to visit the CDC website for a list of frequently asked questions. https://www.cdc.gov/coronavirus/2019-ncov/vaccines/faq.html [facility] Patient Portal Access Instructions: Stay connected with your healthcare team and access your personal medical information anytime with the [facility] Patient Portal. If you would like a full copy of your medical records please contact the [facility] Medical Records Department Tuesday through Tuesday between 8a.m. and 4:30p.m. Please follow the directions below to access the portal: 1.Access the email account you provided upon registration to the [facility].2.Look for an invitation email from [facility].3.Open the email and access the invitation link: Accept Invitation to [facility]4.Fill in the required galeano to create your account. Sign into [email or web address] with your username and password that you created in the above steps to stay up to date. You can then view a summary of results, a summary of your visits, and the ability to download your summaries to your computer or send the information securely to a physician. Remember that your healthcare information is confidential, so carefully consider who you will allow to register on the [facility] Patient Portal for access to your information. You can also access the [facility] Patient Portal on the Giveit100. Simply click on Health Records under USDS and then click on the [employer] logo. HOW TO SAFELY DISPOSE OF PRESCRIPTION MEDICATIONS Please use one of the following methods to safely dispose of your unused medications. 1.Use a drug disposal kit: the drug disposal pouch allows you to safely discard your old and unuseddrugs. Ask your nurse to give you one when you are discharged.2.Visit a local take-back location: Many local pharmacies and police departments have programs that collect old and unwanted prescriptiondrugs. Call your local pharmacy or go to http://bit.Newsgrape/8J1Ys2l to find one close to you.3.Make use of household items: Use cat litter or old coffee grounds to dispose medications if other options arenot available. Mix your drugs with these household products, seal them in an airtight container andthrow it into the garbage. Call [facility]: [phone] to be sure your drugs can be disposed of in this way. Some medicines may require a different approach.4.Never flush your medications down the toilet. IF YOU HAVE BEEN PRESCRIBED AN OPIOIDS FOR PAIN If you have been prescribed an opioid (such as hydrocodone, oxycodone or morphine), it is critical to understand the possible side effects and risks of opioid pain medications. Even when taken as directed, opioids can have several side effects including: Tolerance, meaning you might need to take more of a medication for the same pain relief. Nausea, vomiting and/or constipation. Sleepiness, dizziness, dry mouth, confusion, depression or itching. Physical dependence, meaning you have withdrawal symptoms when a medication is stopped ? this can develop within a few days. KNOW YOUR RESPONSIBILITIES It is important to know exactly how much and how often to take the opioid pain medications you are prescribed. Never take opioids in higher amounts or more often than prescribed. Do not combine opioids with alcohol or other drugs that cause drowsiness, such as benzodiazepines, also known as benzos,including diazepam and alprazolam, muscle relaxants or sleep aids. Never sell or share prescriptionopioids. This is illegal. Store opioids in a secure place and out of reach of others (including children, family, friends and visitors). The last page(s) of this document has been signed and retained as a CHART COPY Signatures Patient Education Materials Pneumonia (Adult) Medication Leaflets My discharge plan and instructions have been reviewed and explained to me and I,CHARLOTTE DE LA TORRE M understand my current condition and have read and understand these discharge instructions. I have received a written copy of the plan/instructions. If I have questions, I am aware that I should contact my doctor. 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 Pulmonary vasculature is unremarkable in appearance. IMPRESSION: Left lower lung consolidation. Interpreted by: Freda Giles MD Preliminary Report By: Freda Giles MD Electronically signed By Freda Giles MD Dictated Date: 10/23/2024 12:15:39 PM Prelim Date: 10/23/2024 12:16:05 PM Sign Date: 10/23/2024 12:16:05 PM Ordering Provider: [facility]12-17-2024 Hospital Discharge instructions Patient Education 08/21/2024 08:49:39 Moderate Conscious Sedation, Adult, Care After Moderate Conscious Sedation, Adult, Care After These instructions provide you with information about caring for yourself after your procedure. Your health care provider may also give you more specific instructions. Your treatment has been plannedaccording to current medical practices, but problems sometimes occur. Call your health care provider if you have any problems or questions after your procedure. What can I expect after the procedure? After your procedure, it is common: To feel sleepy for several hours. To feel clumsy and have poor balance for several hours. To have poor judgment for several hours. To vomit if you eat too soon. Follow these instructions at home: For at least 24 hours after the procedure: Do not: ?Participate in activities where you could fall or become injured. ?Drive. ?Use heavy machinery. ?Drink alcohol. ?Take sleeping pills or medicines that cause drowsiness. ?Make important decisions or sign legal documents. ?Take care of children on your own. Rest. Eating and drinking Follow the diet recommended by your health care provider. If you vomit: ?Drink water, juice, or soup when you can drink without vomiting. ?Make sure you have little or no nausea before eating solid foods. General instructions Have a responsible adult stay with you until you are awake and alert. Take dhxg-ooz-vllkngu and prescription medicines only as told by your health care provider. If you smoke, do not smoke without supervision. Keep all follow-up visits as told by your health care provider. This is important. Contact a health care provider if: You keep feeling nauseous or you keep vomiting. You feel light-headed. You develop a rash. You have a fever. Get help right away if: You have trouble breathing. This information is not intended to replace advice given to you by your health care provider. Make sure you discuss any questions you have with your health care provider. Document Released: 06/12/2014 Document Revised: 08/04/2018 Document Reviewed: 12/11/2016 [employer] Patient Education 2020 [email or web address]. 08/21/2024 08:48:56 3- Cardioversion (06/2018) (CUSTOM) CARDIOVERSION Discharge instructions ACTIVITY/SAFETY Please refrain from the following activities for 24 hours: Do not drive a car or operate heavy equipment. Do not consume alcohol for 24 hours. Do not return to work for 24 hours. Postpone signing any important papers or making important decisions. COMFORT Call your primary doctor if you have any redness, tenderness, warmth, discharge or swelling at yourIV site. Your chest or back may get red and/or develop a burning sensation. Apply fragrance-free Aloe Vera lotion. Take Tylenol as needed for pain. DIET When you return home, resume your regular diet unless otherwise directed. Some of the sedatives, anesthetic medications you received today may make you nauseated. If vomiting persists, call your doctor. Restart your usual medications unless otherwise instructed by your doctor. If you have any questions, please call your doctor at the number listed on your follow up instructions. Document Released: 08/22/2006 Document Revised: 08/08/2013 Document Reviewed: 08/23/2014 ExitCare Patient Information 2015 [employer]. This information is not intended to replace advicegiven to you by your health care provider. Make sure you discuss any questions you have with your health care provider. Follow Up Care 07/30/2024 10:41:37 With:ELY SHEETS APRN-SUPPORT ENGINEER Address: [address] [place] [address] [address] [facility] [place] [address]- [phone] When:10/11/2024 09:00:00 [facility] 12-17-2024 Summary of episode note Discharge Instructions Thank you for allowing [facility] to assist you with your healthcare needs. The following is importantdischarge information regarding your hospital visit. Your Care Team CELESTIN, CREMATORIUM OPERATOR CINDY What to do next Instructions From Your Doctor -No driving for today. -Resume your normal activity and diet as tolerated. -You may experience some redness or skin irritation where the patches were placed. If desired, you may apply a skin moisturizer to the affected area. -Follow-up as directed. -Please notify the office with any questions/concerns including any new onset/worsening symptoms. Follow Up Appointments Follow Up with ELY SHEETS When:10/11/2024 09:00 AM EST Where:[address] [facility] [place] [address]- [phone] The Following Activity and Diet Have Been Ordered for You Discharge Activity - Ordered -- NO activity restrictions, 08/21/24 8:19:00 EST Discharge Driving Restrictions - Ordered -- * Other, specify in special instructions, no driving for today, 08/21/24 8:19:00 EST Discharge Diet - Ordered -- Follow the post-operative/post-procedure diet instructions provided by your physician's office.,08/21/24 8:19:00 EST The Following Equipment Has Been Ordered for You Discharge Home Equipment Discharge Wound Care - Ordered -- Follow the post-operative/post-procedure wound care instructions provided by your physician's office., 08/21/24 8:19:00 EST Allergies penicillin sulfa drug Medications Please ask your primary doctor or pharmacist before taking any other medication not listed, including over the counter drugs, herbal medications, vitamins and or supplements as they may interact withyour home medications. What How Much When Instructions Last Dose Unchanged amiodarone (amiodarone 200 mg oral tablet) 1 tab(s) by mouth Once a day Unchanged apixaban (Eliquis 5 mg oral tablet) 1 tab(s) by mouth Two (2) times a day Unchanged atorvastatin (atorvastatin 20 mg oral tablet) 1 tab(s) by mouth Once a day Unchanged clobetasol topical (Clobetasol (Eqv-Temovate) 0.05% topical cream) Unchanged ipratropium nasal (ipratropium 42 mcg/ inh (0.06%) nasal spray) 2 spray(s) in the nose Three (3) times a day Unchanged levothyroxine (levothyroxine 175 mcg (0.175 mg) oral tablet) 1 tab(s) by mouth Once a day Unchanged lisinopril (lisinopril 10 mg oral tablet) 1 tab(s) by mouth Once a day Unchanged metoprolol (Lopressor 25mg--USE metoprolol tartrate 25 mg oral tablet) 1 tab(s) by mouth Two (2) times a day Unchanged metoprolol (Lopressor 25mg--USE metoprolol tartrate 25 mg oral tablet) Unchanged mometasone topical (mometasone 0.1% topical cream) 1 application Topical Every day Unchanged omeprazole (omeprazole 20 mg oral delayed release capsule) TAKE 2 CAPSULES BY MOUTH TWICE A DAY. TAKE ON AN EMPTY STOMACH AT LEAST 30 MIN BEFORE A MEAL Unchanged pregabalin (pregabalin 100 mg oral capsule) TAKE 1 CAPSULE BY MOUTH TWICE A DAY Please take this list to your next doctor s visit. Bring all medications you take, including over the counter medications, herbals and other supplements with you to your doctor s visit. Patients and families are reminded to discard old lists and to update any records with all medication providers or retail pharmacies. Education Materials Moderate Conscious Sedation, Adult, Care After These instructions provide you with information about caring for yourself after your procedure. Your health care provider may also give you more specific instructions. Your treatment has been plannedaccording to current medical practices, but problems sometimes occur. Call your health care provider if you have any problems or questions after your procedure. What can I expect after the procedure? After your procedure, it is common: To feel sleepy for several hours. To feel clumsy and have poor balance for several hours. To have poor judgment for several hours. To vomit if you eat too soon. Follow these instructions at home: For at least 24 hours after the procedure: Do not: ? Participate in activities where you could fall or become injured. ? Drive. ? Use heavy machinery. ? Drink alcohol. ? Take sleeping pills or medicines that cause drowsiness. ? Make important decisions or sign legal documents. ? Take care of children on your own. Rest. Eating and drinking Follow the diet recommended by your health care provider. If you vomit: ? Drink water, juice, or soup when you can drink without vomiting. ? Make sure you have little or no nausea before eating solid foods. General instructions Have a responsible adult stay with you until you are awake and alert. Take dmag-euv-nwllezs and prescription medicines only as told by your health care provider. If you smoke, do not smoke without supervision. Keep all follow-up visits as told by your health care provider. This is important. Contact a health care provider if: You keep feeling nauseous or you keep vomiting. You feel light-headed. You develop a rash. You have a fever. Get help right away if: You have trouble breathing. This information is not intended to replace advice given to you by your health care provider. Make sure you discuss any questions you have with your health care provider. Document Released: 06/12/2014 Document Revised: 08/04/2018 Document Reviewed: 12/11/2016 [employer] Patient Education 2020 [email or web address]. CARDIOVERSION Discharge instructions ACTIVITY/SAFETY Please refrain from the following activities for 24 hours: Do not drive a car or operate heavy equipment. Do not consume alcohol for 24 hours. Do not return to work for 24 hours. Postpone signing any important papers or making important decisions. COMFORT Call your primary doctor if you have any redness, tenderness, warmth, discharge or swelling at yourIV site. Your chest or back may get red and/or develop a burning sensation. Apply fragrance-free Aloe Vera lotion. Take Tylenol as needed for pain. DIET When you return home, resume your regular diet unless otherwise directed. Some of the sedatives, anesthetic medications you received today may make you nauseated. If vomiting persists, call your doctor. Restart your usual medications unless otherwise instructed by your doctor. If you have any questions, please call your doctor at the number listed on your follow up instructions. Document Released: 08/22/2006 Document Revised: 08/08/2013 Document Reviewed: 08/23/2014 ExitCare Patient Information 2015 [employer]. This information is not intended to replace advicegiven to you by your health care provider. Make sure you discuss any questions you have with your health care provider. Additional Information VACCINATE! IT SAVES LIVES! Members of the community who have not yet received the COVID-19 vaccine and would like to receive it can visit one of [facility] vaccine clinics. There are many vaccine clinic locations within the [facility]. For locations and available times, please visit [email or web address].coronavirus.[place].gov/. It is important to note that some COVID mobile vaccine clinics are held outdoors and may be canceled in rainy or stormy conditions. To learn more about pediatric vaccinations (ages 5-11), we invite you to visit the [facility] webpage. https://www.[facility].org/pages/5310-Bttzj-Nuzxfxqbmwa-Mwiotmjijs-Baxhl-Xur stions.htmlTo learn more about the COVID-19 vaccine, we invite you to visit the CDC website for a list of frequently asked questions.https://www.cdc.gov/coronavirus/2019-ncov/vaccines/faq.html [facility] Patient Portal Access Instructions: Stay connected with your healthcare team and access your personal medical information anytime with the [facility] Patient Portal. Please follow the directions below to create your [facility] account: 1.Access the email account you provided upon registration to the hospital/physician office.2.Look for an invitation email from [facility].3.Open the email and access the invitation link: AcceptInvitation to [facility].4.Fill in the required galeano to create your account. To access your account, visit [employer]Chart. Click the blue button labeled Access Patient Portal and then log in with the username and password that you created in the steps above. You will be able to view your test results, lab results, a summary of your visits, upcoming appointments and more. There is also a convenient messaging option where you can send secure messages to your p rovider. In addition, you will have the ability to download any documents or summaries to your computer and/or send the information securely to a physician. Remember that your healthcare information is confidential, so carefully consider who you will allowto register on the [facility] Patient Portal for access to your information. You can also access the [facility] Patient Portal on the [employer] mary. Simply click on Patient Portal and then log into your account. If you would like to receive a full copy of your medical records, please contact the [facility] Medical Records Department by calling [phone], Tuesday through Tuesday between 8 a.m. and 4:30 p.m. HOW TO SAFELY DISPOSE OF PRESCRIPTION MEDICATIONS Please use one of the following methods to safely dispose of your unused medications. 1.Use a drug disposal kit: the drug disposal pouch allows you to safely discard your old and unuseddrugs. Ask your nurse to give you one when you are discharged.2.Visit a local take-back location: Many local pharmacies and police departments have programs that collect old and unwanted prescriptiondrugs. Call your local pharmacy or go to http://EcoFactor.Newsgrape/3M1Gz9z to find one close to you.3.Make use of household items: Use cat litter or old coffee grounds to dispose medications if other options arenot available. Mix your drugs with these household products, seal them in an airtight container andthrow it into the garbage. Call [facility]: [phone] to be sure your drugs can be disposed of in this way. Some medicines may require a different approach.4.Never flush your medications down the toilet. IF YOU HAVE BEEN PRESCRIBED AN OPIOID FOR PAIN If you have been prescribed an opioid (such as hydrocodone, oxycodone or morphine), it is critical to understand the possible side effects and risks of opioid pain medications. Even when taken as directed, opioids can have several side effects including: Tolerance, meaning you might need to take more of a medication for the same pain relief. Nausea, vomiting and/or constipation. Sleepiness, dizziness, dry mouth, confusion, depression or itching. Physical dependence, meaning you have withdrawal symptoms when a medication is stopped, can develop within a few days. KNOW YOUR RESPONSIBILITIES It is important to know exactly how much and how often to take the opioid pain medications you are prescribed. Never take opioids in higher amounts or more often than prescribed. Do not combine opioids with alcohol or other drugs that cause drowsiness, such as benzodiazepines, also known as benzos, including diazepam and alprazolam, muscle relaxants or sleep aids. Never sell or share prescription opioids. This is illegal. Store opioids in a secure place and out of reach of others (including children, family, friends and visitors). The last page of this document has been signed and retained as a CHART COPY. Signatures Patient Education Materials Moderate Conscious Sedation, Adult, Care After 3- Cardioversion (06/2018) (CUSTOM) Medication Leaflets My discharge plan and instructions have been reviewed and explained to me and IBRITT KEVIN M understand my current condition and have read and understand these discharge instructions. I have received a written copy of the plan/instructions. If I have questions, I am aware that I should contact my doctor. 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 Patient underwent successful direct-current cardioversion with subsequent congregation of normal sinus rhythm which he remains in at this time. He was later discharged home in stable condition with instructions to continue current medical therapies and follow-up as directed. All questions/concerns were addressed to the patient's satisfactionprior to their departure. Allergies penicillin sulfa drug Procedures [facility]-08/21/2024 Consults No qualifying data available. Objective Vitals and Measurements T: 36.4 C (Oral) TMIN: 36.4 C (Oral) TMAX: 36.5 C (Oral) HR: 60 (Monitored) RR: 18 BP: 126/74 SpO2:98% HT: 172.7 cm WT: 130.2 kg Weight Dosing Weight: 130.2 kg (08/21/24) Code Status No qualifying data available. Admission Date August 21, 2024 Discharge Date August 21, 2024 Patient Instructions -No driving for today. -Resume your normal activity and diet as tolerated. -You may experience some redness or skin irritation where the patches were placed. If desired, you may apply a skin moisturizer to the affected area. -Follow-up as directed. -Please notify the office with any questions/concerns including any new onset/worsening symptoms. Medications Unchanged amiodarone (amiodarone 200 mg oral tablet)1 tab(s) by mouth once a day. Refills: 4. apixaban (Eliquis 5 mg oral tablet)1 tab(s) by mouth two (2) times a day. Refills: 5. atorvastatin (atorvastatin 20 mg oral tablet)1 tab(s) by mouth once a day. clobetasol topical (Clobetasol (Eqv-Temovate) 0.05% topical cream) ipratropium nasal (ipratropium 42 mcg/inh (0.06%) nasal spray)2 spray(s) in the nose three (3) times a day. levothyroxine (levothyroxine 175 mcg (0.175 mg) oral tablet)1 tab(s) by mouth once a day. lisinopril (lisinopril 10 mg oral tablet)1 tab(s) by mouth once a day. Refills: 3. metoprolol (Lopressor 25mg--USE metoprolol tartrate 25 mg oral tablet)1 tab(s) by mouth two (2) times a day. metoprolol (Lopressor 25mg--USE metoprolol tartrate 25 mg oral tablet) mometasone topical (mometasone 0.1% topical cream)1 application Topical every day. omeprazole (omeprazole 20 mg oral delayed release capsule)TAKE 2 CAPSULES BY MOUTH TWICE A DAY. TAKE ON AN EMPTY STOMACH AT LEAST 30 MIN BEFORE A MEAL. pregabalin (pregabalin 100 mg oral capsule)TAKE 1 CAPSULE BY MOUTH TWICE A DAY. Follow Up Appointments No qualifying data available. Follow Up Labs/Studies Discharge Labs No Follow-up Labs Discharge Studies No Follow-up Studies Discharge Diet Discharge Diet - Ordered -- Follow the post-operative/post-procedure diet instructions provided by your physician's office.,08/21/24 8:19:00 EST Discharge Activity Discharge Activity - Ordered -- NO activity restrictions, 08/21/24 8:19:00 EST Condition on Discharge Stable Readmission Risk/Palliative Score No qualifying data available. Discharge Disposition Home Information Provided To Patient Digitally Signed by ELY SHEETS on 08/21/2024 08:32 AM Digitally Signed by ALIYAH CARRINGTON MD on 08/21/2024 04:05 PM [id number] Procedure note DATE: 08/21/24 PROCEDURE: DC cardioversion INDICATIONS: persistent atrial fibrillation PHYSICIAN: Dr Carrington MERCHANDISING EXECUTION ASSOCIATE: Ely Sheets, MSN, [facility] HPI: pers AF COMPLICATIONS: none PROCEDURE DETAILS: The patient presented to the EP lab in the fasting state. The rhythm was atrial flutter with ventricular rate in the 80 bpm range. Patient verification, allergies, informed consent, and procedure type were discussed with the patient and the team. The patient reported compliance with anticoagulation, with no missed doses over the prior 3 weeks. Anterior and posterior adhesive patch electrodes wereplaced in the appropriate position. The anesthesia team then administered propofol for sedation. A 100 J biphasic synchronized shock was administered and converted the patient to sinus rhythm. There was no conversion pauses noted. The patient tolerated the procedure well and returned to cardiac same-day in good condition. Will discharge home later. Impression - Successful DCCV Aliyah Carrington MD Cardiac Electrophysiology Digitally Signed by ALIYAH CARRINGTON MD on 08/21/2024 08:19 AM [id number] Anesthesiology Consult note Patient: CHARLOTTE DE LA TORRE Age: 74 years Sex: Male : 1950 Associated Diagnoses: None Author: RASHAD GUTIERREZ DO Preoperative Information Greater than 6 hours Anesthesia history Patient's history: negative. Family's history: negative. Review of Systems Ear/Nose/Mouth/Throat: Negative except as documented in history of present illness. Respiratory: Negative except as documented in history of present illness. Cardiovascular: Negative except as documented in history of present illness, Recurrent AF/Flutter for repeat DCC, last DCC at OSH. Gastrointestinal: Negative except as documented in history of present illness. Genitourinary: Negative except as documented in history of present illness. Endocrine: Negative except as documented in history of present illness. Musculoskeletal: Negative except as documented in history of present illness. Integumentary: Negative except as documented in history of present illness. Neurologic: Negative except as documented in history of present illness. Health Status Allergies: Allergic Reactions (Selected) Severity Not Documented Penicillin- No reactions were documented. Sulfa drug- No reactions were documented., Allergies (2) ActiveSeverityReaction penicillinNone Documented sulfa drugNone Documented Current medications: (Selected) Prescriptions Prescribed Eliquis 5 mg oral tablet: 5 mg, 1 tab(s), Oral, BID, 60 tab(s), 5 Refill(s) amiodarone 200 mg oral tablet: 200 mg, 1 tab(s), Oral, qDay, 90 tab(s), 4 Refill(s) lisinopril 10 mg oral tablet: 10 mg, 1 tab(s), Oral, qDay, 90 tab(s), 3 Refill(s) Documented Medications Documented Clobetasol (Eqv-Temovate) 0.05% topical cream: 0 Refill(s) Lopressor 25mg--USE metoprolol tartrate 25 mg oral tablet: 0 Refill(s) Lopressor 25mg--USE metoprolol tartrate 25 mg oral tablet: 25 mg, 1 tab(s), Oral, BID, 0 Refill(s) atorvastatin 20 mg oral tablet: 20 mg, 1 tab(s), Oral, qDay, 90 tab(s), 0 Refill(s) ipratropium 42 mcg/inh (0.06%) nasal spray: 84 mcg, 2 spray(s), Nasal, TID, 15 mL, 0 Refill(s) levothyroxine 175 mcg (0.175 mg) oral tablet: 175 mcg, 1 tab(s), Oral, qDay, 90 tab(s), 0 Refill(s) mometasone 0.1% topical cream: 1 mary, Topical, Daily, 0 Refill(s) omeprazole 20 mg oral delayed release capsule: TAKE 2 CAPSULES BY MOUTH TWICE A DAY. TAKE ON AN EMPTY STOMACH AT LEAST 30 MIN BEFORE A MEAL pregabalin 100 mg oral capsule: TAKE 1 CAPSULE BY MOUTH TWICE A DAY, No qualifying data available Problem list: Active Problems (2) Atrial fibrillation Cancer Histories Past Medical History: No active or resolved past medical history items have been selected or recorded. Family History: Stroke Mother Heart attack Father Procedure history: Cancer ([id number]). Comments: 07/02/2024 8:46 RADHA Lopez thyroid & prostrate Ablation ([id number]). Comments: 07/02/2024 8:47 RADHA Lopez cardiac Arthroplasty of the knee ([id number]). Comments: 07/02/2024 8:47 DESEAN Soto RN Ysabel left Thyroid cancer ([id number]). Cardioversion ([id number]). Social History: Social & Psychosocial Habits Alcohol 08/21/2024 Use: Current Frequency: 1-2 times per year Substance Abuse 08/21/2024 Use: Never 08/21/2024 Type: Marijuana Tobacco 08/21/2024 Tobacco Use: Never (less than 100 in l Home/Environment 08/21/2024 Living situation: Home/Independent Nutrition/Health 08/21/2024 Type of diet: Regular Sexual 08/21/2024 Self described orientation: Straight or heterosexual What is your current gender identity? (Check all that apply) Identifies as male Physical Examination Vital Signs (last 24 hrs) Last Charted Temp Oral36.5 DegC (AUG 21 06:49) SBPH 146 mmHg (AUG 21 06:49) DBPH 90 mmHg (AUG 21 06:49) General: Alert and oriented. Airway: Normal temporomandibular joint mobility, Normal mouth, Normal throat, Normal neck range of motion, Trachea midline. Mallampati classification: II (soft palate, fauces, uvula visible). Head: Normocephalic. Dentition Evaluation: Intact, Own teeth, Denies loose/chipped teeth. Neck: Supple. Respiratory: Lungs are clear to auscultation. Cardiovascular: Normal rate. Heart Sounds: Normal. Gastrointestinal: Soft. Musculoskeletal Normal range of motion. Integumentary: Intact, Warm, Dry, [place]. Neurologic: Alert, Oriented. Review / Management Results review: Labs (Last four charted values) WBC 5.5(AUG 21) Hgb 16.0(AUG 21) Hct 46.7(AUG 21) Plt 216(AUG 21) Na 142(AUG 21) K 4.1(AUG 21) CO2 28(AUG 21) Cl 109(AUG 21) Cr 1.15(AUG 21) BUN 22.0(AUG 21) Glucose 109(AUG 21) Ca 8.9(AUG 21) PT 14.1(AUG 21) INR 1.2(AUG 21) . Assessment and Plan [place] Society [employer] Anesthesiologists (ASA) physical status classification: Class IV. Anesthetic Preoperative Plan Premedication: None. Anesthetic technique: General. Induction: intravenously. Maintenance airway: Mask. Special techniques: Warming device, no Extracorporeal. Special Monitoring. Postoperative pain management: Per surgeon. Risks discussed: nausea, vomiting, headache, sore throat, dental injury, hypotension, allergic reaction, serious complications. Informed consent: signed by patient. Beta Skinny: Beta Skinny Taken Within 24 Hrs: Yes. Digitally Signed by RASHAD GUTIERREZ DO on 08/21/2024 08:10 AM [id number] Hospital Discharge instructions Patient Education 07/02/2024 09:20:03 Atrial Flutter Atrial Flutter Atrial flutter means that your heart is beating very fast. It is caused by a problem in the electrical pathways of the heart. It can be a sign of heart disease or other health problems that affect your heart. Palpitations are the most common symptom of atrial flutter. This is the feeling that your heart is fluttering or beating fast or hard. When your heart beats too fast, it doesn t pump blood very well.This can cause other symptoms, including: Anxiety Fatigue Shortness of breath Chest pain Dizziness Fainting If this is the first time you ve had atrial flutter, and you don t have heart or lung disease, it may never happen again. But in most cases, atrial flutter comes and goes. It can last from a few hours to a couple of days. Sometimes the atrial flutter doesn t ever go away. This is chronic atrial flutter. Atrial flutter may be caused by heart disease. It may also be caused by other conditions that affect the heart: Coronary artery disease (arteriosclerosis) High blood pressure Disease of the heart valves Enlarged heart Atrial flutter can occur without heart disease. This may be because of: Overactive thyroid (hyperthyroid) Chronic lung disease (COPD, emphysema, or bronchitis) Alcohol use Drugs or medicines that stimulate the heart. These include cocaine, amphetamines, diet pills, some decongestant cold medicines, caffeine, and nicotine. Infection Treating or removing these causes will make it more likely that treatment for atrial flutter will work. It will also make it less likely that atrial flutter will come back. Atrial flutter can happen along with another abnormal rhythm called atrial fibrillation. The risk for stroke is higher with these conditions. Getting treatment can reduce your risk. Home care Follow these guidelines when caring for yourself at home: Go back to your usual activities as soon as you feel back to normal. If you smoke, stop smoking. Talk with your healthcare provider or call a local stop-smoking programfor help. Don t take drugs or medicines that stimulate your heart. These include cocaine, amphetamines, diet pills, some decongestant cold medicines, caffeine, and nicotine. Your provider may have prescribed medicine to stop atrial fibrillation from coming back. Take this medicine exactly as directed. Some medicines must be taken every day to work as they should. Your provider may also have prescribed warfarin to lower your risk for stroke. Have your blood tested regularly as advised by your healthcare provider. This will help make sure the dose is right for you. Follow-up care Follow up with your healthcare provider, or as advised. When should I call my healthcare provider? Call your healthcare provider right away if any of these occur: Shortness of breath gets worse Swelling in either leg Unexpected weight gain Chest pain or pressure Near fainting or fainting You feel like your heart is fluttering, or beating fast or hard Fever of 100.4 F (38 C) or higher, or as directed by your healthcare provider Cough with dark-colored or bloody mucus Also call your provider right away if you have signs of stroke: Weakness or numbness of an arm or leg or one side of the face Difficulty speaking or seeing Extreme drowsiness, confusion, dizziness, or fainting 2878-2009 [employer]. [address] [place] [address]. All rights reserved. This information is not intended as a substitute for professional medical care. Always follow yourhealthcare professional's instructions. Follow Up Care 07/02/2024 08:29:44 With:DAYANA BENZ APRN-SUPPORT ENGINEER Address: [address] [facility] [address] [facility] [place] [address] [phone] When:2-4 days [facility] 10-28-2024 Note Discharge Instructions Thank you for allowing [facility] to assist you with your healthcare needs. The following is importantdischarge information regarding your hospital visit. Diagnosis from Today's Visit Atrial flutter What to Do Next Instructions from Your Care Team return to the ER for severe discomfort, chest pain, shortness of breath or if you are concerned. Call cardiology today to establish followup No qualifying data available. Post Acute Orders No qualifying data available. You Need to Schedule the Following Appointments Follow Up with DAYANA BENZ When:Within 2-4 days Where:[address] [facility] [place] [address]- [phone] Allergies penicillin sulfa drug Medications Please ask your primary doctor or pharmacist before taking any other medication not listed, including over the counter drugs, herbal medications, vitamins and or supplements as they may interact withyour home medications. Please take this list to your next doctor s visit. Bring all medications you take, including over the counter medications, herbals and other supplements with you to your doctor s visit. Patients and families are reminded to discard old lists and to update any records with all medication providers or retail pharmacies. Education Materials Atrial Flutter Atrial flutter means that your heart is beating very fast. It is caused by a problem in the electrical pathways of the heart. It can be a sign of heart disease or other health problems that affect your heart. Palpitations are the most common symptom of atrial flutter. This is the feeling that your heart is fluttering or beating fast or hard. When your heart beats too fast, it doesn t pump blood very well.This can cause other symptoms, including: Anxiety Fatigue Shortness of breath Chest pain Dizziness Fainting If this is the first time you ve had atrial flutter, and you don t have heart or lung disease, it may never happen again. But in most cases, atrial flutter comes and goes. It can last from a few hours to a couple of days. Sometimes the atrial flutter doesn t ever go away. This is chronic atrial flutter. Atrial flutter may be caused by heart disease. It may also be caused by other conditions that affect the heart: Coronary artery disease (arteriosclerosis) High blood pressure Disease of the heart valves Enlarged heart Atrial flutter can occur without heart disease. This may be because of: Overactive thyroid (hyperthyroid) Chronic lung disease (COPD, emphysema, or bronchitis) Alcohol use Drugs or medicines that stimulate the heart. These include cocaine, amphetamines, diet pills, some decongestant cold medicines, caffeine, and nicotine. Infection Treating or removing these causes will make it more likely that treatment for atrial flutter will work. It will also make it less likely that atrial flutter will come back. Atrial flutter can happen along with another abnormal rhythm called atrial fibrillation. The risk for stroke is higher with these conditions. Getting treatment can reduce your risk. Home care Follow these guidelines when caring for yourself at home: Go back to your usual activities as soon as you feel back to normal. If you smoke, stop smoking. Talk with your healthcare provider or call a local stop-smoking programfor help. Don t take drugs or medicines that stimulate your heart. These include cocaine, amphetamines, diet pills, some decongestant cold medicines, caffeine, and nicotine. Your provider may have prescribed medicine to stop atrial fibrillation from coming back. Take this medicine exactly as directed. Some medicines must be taken every day to work as they should. Your provider may also have prescribed warfarin to lower your risk for stroke. Have your blood tested regularly as advised by your healthcare provider. This will help make sure the dose is right for you. Follow-up care Follow up with your healthcare provider, or as advised. When should I call my healthcare provider? Call your healthcare provider right away if any of these occur: Shortness of breath gets worse Swelling in either leg Unexpected weight gain Chest pain or pressure Near fainting or fainting You feel like your heart is fluttering, or beating fast or hard Fever of 100.4 F (38 C) or higher, or as directed by your healthcare provider Cough with dark-colored or bloody mucus Also call your provider right away if you have signs of stroke: Weakness or numbness of an arm or leg or one side of the face Difficulty speaking or seeing Extreme drowsiness, confusion, dizziness, or fainting [id number] [employer]. [address] [place] [address]. All rights reserved. This information is not intended as a substitute for professional medical care. Always follow yourhealthcare professional's instructions. Additional Information VACCINATE! IT SAVES LIVES! Members of the community who have not yet received the COVID-19 vaccine and would like to receive it can visit one of [facility] vaccine clinics. There are many vaccine clinic locations within the [facility]. For locations and available times, please visit www.gettheshot.coronavirus.[place].gov/. It is important to note that some COVID mobile vaccine clinics are held outdoors and may be canceled in rainy or stormy conditions. To learn more about pediatric vaccinations (ages 5-11), we invite you to visit the [facility] webpage. https://www.[facility].org/pages/6513-Ashyd-Isjrqnblqdj-Twzogeaxlc-Luoyf-Utd stions.htmlTo learn more about the COVID-19 vaccine, we invite you to visit the CDC website for a list of frequently asked questions. https://www.cdc.gov/coronavirus/2019-ncov/vaccines/faq.html [facility] Patient Portal Access Instructions: Stay connected with your healthcare team and access your personal medical information anytime with the [facility] Patient Portal. If you would like a full copy of your medical records please contact the [facility] Medical Records Department Tuesday through Tuesday between 8a.m. and 4:30p.m. Please follow the directions below to access the portal: 1.Access the email account you provided upon registration to the [facility].2.Look for an invitation email from [facility].3.Open the email and access the invitation link: Accept Invitation to [facility]4.Fill in the required galeano to create your account. Sign into www.[employer] with your username and password that you created in the above steps to stay up to date. You can then view a summary of results, a summary of your visits, and the ability to download your summaries to your computer or send the information securely to a physician. Remember that your healthcare information is confidential, so carefully consider who you will allow to register on the [facility] Patient Portal for access to your information. You can also access the [facility] Patient Portal on the My [employer] mary. Simply click on Health Records under [employer] and then click on the [facility] logo. HOW TO SAFELY DISPOSE OF PRESCRIPTION MEDICATIONS Please use one of the following methods to safely dispose of your unused medications. 1.Use a drug disposal kit: the drug disposal pouch allows you to safely discard your old and unuseddrugs. Ask your nurse to give you one when you are discharged.2.Visit a local take-back location: Many local pharmacies and police departments have programs that collect old and unwanted prescriptiondrugs. Call your local pharmacy or go to http://bit.Newsgrape/0Z1Ti5a to find one close to you.3.Make use of household items: Use cat litter or old coffee grounds to dispose medications if other options arenot available. Mix your drugs with these household products, seal them in an airtight container andthrow it into the garbage. Call [facility]: [phone] to be sure your drugs can be disposed of in this way. Some medicines may require a different approach.4.Never flush your medications down the toilet. IF YOU HAVE BEEN PRESCRIBED AN OPIOIDS FOR PAIN If you have been prescribed an opioid (such as hydrocodone, oxycodone or morphine), it is critical to understand the possible side effects and risks of opioid pain medications. Even when taken as directed, opioids can have several side effects including: Tolerance, meaning you might need to take more of a medication for the same pain relief. Nausea, vomiting and/or constipation. Sleepiness, dizziness, dry mouth, confusion, depression or itching. Physical dependence, meaning you have withdrawal symptoms when a medication is stopped ? this can develop within a few days. KNOW YOUR RESPONSIBILITIES It is important to know exactly how much and how often to take the opioid pain medications you are prescribed. Never take opioids in higher amounts or more often than prescribed. Do not combine opioids with alcohol or other drugs that cause drowsiness, such as benzodiazepines, also known as benzos,including diazepam and alprazolam, muscle relaxants or sleep aids. Never sell or share prescriptionopioids. This is illegal. Store opioids in a secure place and out of reach of others (including children, family, friends and visitors). The last page(s) of this document has been signed and retained as a CHART COPY Signatures Patient Education Materials Atrial Flutter Medication Leaflets My discharge plan and instructions have been reviewed and explained to me and I,CHARLOTTE DE LA TORRE M understand my current condition and have read and understand these discharge instructions. I have received a written copy of the plan/instructions. If I have questions, I am aware that I should contact my doctor. 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: Date/Time: Relationship to Patient: Witness Name/Signature: Date/Time: [facility]10-28-2024 NoteAtrial flutter with predominant 3:1 AV block Incomplete left bundle branch block Left ventricular hypertrophy Prolonged QT interval ST depression V1-V3, suggest recording posterior leads Electronic Signature: PRISCILA PEOPLES MD 07/02/2024 09:18:57[facility] Evaluation + Plan note No data available for this section [facility] Evaluation + Plan note Future Appointments Appointment Date:2024 01:00:00 PM Scheduled Provider:DAYANA BENZ Location:[facility] Appointment Type:[facility] Evaluation + Plan note Future Appointments [facility] Evaluation + Plan note Future Appointments Appointment Date:10/11/2024 09:00:00 AM Scheduled Provider:ELY SHEETS Location:[facility] Appointment Type:CV OV Hospital [facility] Evaluation + Plan note Future Appointments Appointment Date:10/30/2024 09:00:00 AM Scheduled Provider:AMADOU VAZQUEZ Location:[facility] Appointment Type:CV OV [facility] Evaluation + Plan note Future Appointments Appointment Date:11/12/2024 10:45:00 AM Scheduled Provider:AMADOU VAZQUEZ Location:[facility] Appointment Type:CV OV Appointment Date:12/05/2024 11:15:00 AM Scheduled Provider: Location:Heart Lab Appointment Type:EP Ablation [facility] [place] Evaluation + Plan note Future Appointments Appointment Date:12/05/2024 08:15:00 AM Scheduled Provider: Location:Heart Lab Appointment Type:EP Ablation [facility] Evaluation noteNo assessment information available [facility] Work Phone: Hospital Discharge instructions No data available for this section [facility] Progress note No data available for this section [facility] Reason for referral (narrative)No reason for referral information availableWMagruder [facility] Work Phone: Summary Purpose Family History No Family History Records Found No data available for this section No data available for this section No data available for this section No data available for this section No data available for this section No data available for this section No Family History Records Found No data available for this section No data available for this section No Family History Records FoundNo Family History Records Found Advance Directives No Advanced Directives Records FoundNo Advanced Directives Records FoundNo Advanced Directives Records FoundNo Advanced Directives Records Found Chief Complaint and Reason for Visit Chief Complaint Admit Date LUMP LT NECK November 14, 2024 11: 02am Chief Complaint Admit Date LUMP LT NECK November 14, 2024 11: 02am EORDERS- DO ALL OCTOBER AND NOVEMBER ORDER S January 08, 2025 7:08am Additional Source Comments (unrecognized sect ion and content) No Status Records FoundNo Status Records FoundNo Status Records FoundNo Status Records Found INFORMATION SOURCE (unrecogn ized section and content) DATE CREATED AUTHOR 02/24/2018 [facility] ([place]) DATE CREATED AUTHOR AUTHOR'S ORGANIZ ATION 11/25/2024 [facility] DATE CREATED AUTHOR AUTHOR'S ORGANIZ ATION 01/01/2025 [facility] DATE CREATED AUTHOR AUTHOR'S ORGANIZ ATION 02/12/2025 [facility] Patient Care team informatio n (unrecognized section and content) Team Status: Active Member Role Status Dates Jose Maria MD Primary Care Provider Active Team Status: Inactive Member Role Status Yissel Maria MD Primary Care Provider Active St art: November 14, 2024 End: November 14, 2024 Jose Maria MD Attending Provider Active Start : November 14, 2024 End: November 14, 2024 Jose Maria MD Referring Provider Active Start : November 14, 2024 End: November 14, 2024 Team Status: Inactive Member Role Status Yissel Maria MD Primary Care Provider Active St art: January 08, 2025 End: January 08, 2025 Jose Maria MD Attending Provider Active Start : January 08, 2025 End: January 08, 2025 Jose Maria MD Referring Provider Active Start : January 08, 2025 End: January 08, 2025 Goals (unrecognized section and content) Goals may be documented in a n alternate section FOR RECORDS PERTAINING TO PATIENTS WHO ARE OR HAVE BEEN ENROLLED IN A CHEMICAL DEPENDENCY/SUBSTANCEABUSE PROGRAM, SOME INFORMATION MAY BE OMITTED. This clinical summary was aggregated from multiple sources. Caution should be exercised in using it in the provision of clinical care. This summary normalizes information from multiple sources, and as a consequence, information in this document may materially change the coding, format and clinical context of patient data. In addition, data may be omitted in some cases. CLINICAL DECISIONS SHOULD BE BASED ON THE PRIMARY CLINICAL RECORDS. [employer] provides no warranty or guarantee of the accuracy or completeness of information in this document.
== END | disposition home or self-care (01) ==
LOC: US 11:19
PROVIDERS: PCP Family Medicine; Referring Provider Family Medicine; Visit Provider Family Medicine
DX: S70.11XA Contusion of right thigh, initial encounter (principal)
CPT/HCPCS: 76882

== ENCOUNTER → 2025-03-20 | Outpatient (CLI) | payer MEDICARE, SELFPAY ==
[2025-03-20 14:21] LABS: Creatinine, Urine (random) 52.90 mg/dL (39.00-259.00); Microalbumin,Random Urine < 12.0 mg/L (<20 mg/L)
== END | disposition home or self-care (01) ==
LOC: MFPLAB 11:11
PROVIDERS: PCP Family Medicine; Referring Provider Family Medicine; Visit Provider Family Medicine
DX: E03.9 Hypothyroidism, unspecified (principal)
CPT/HCPCS: 36415; 82043; 82570; 84443

== ENCOUNTER → 2025-08-09 | Outpatient (CLI) | payer MEDICARE, SELFPAY ==
--- OUTSIDE RECORDS SUMMARY | 2025-08-09 14:27 | XMS RPT_ITS | CCD ---
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 Driver Name Role Phone REFERRINGFREDI WO [id number] Unavailable Unava ilable ANAMIKA GRESHAM Unavailable Unavailable CINDY CELESTIN Primary Care Physician [phone] CANDACE LUGO, KRISTA Primary Care Physician Unavailab Jose Gomez MD Primary Care Provider Jose Maria MD Attending Provider Jose Maria MD Referring Provider KRISTA MARIA MD Primary Care Unavailable ALIYAH CARRINGTON MD Attending Unavailable KRISTA MARIA MD Primary Care Unavailable ALIYAH CARRINGTON MD Attending Unavailable ALIYAH CARRINGTON MD Admitting Unavailable ALIYAH CARRINGTON MD Attending Unavailable [facility]UM [facility]OL[facility] ASSESSOR, YAYA Referring Unavail able CANDACE LUGO, KRISTA Primary Care Unavailable ALIYAH CARRINGTON MD Attending Unavailable CELESTIN, MEDICARE BILLER CINDY Primary Care Unavailable Snow Ward Unavailable Unavailable Jose Maria MD Primary Care Provider Jose Maria MD Attending Provider Jose Maria MD Referring Provider Milo CLINICAL STAFF RN-CLeonarda Attending Provider Dr. Mor Lee MD Attending Provider Mor Lee Attending Unavailable Jose Maria Referring Unavailable Candace, Chalon Primary Care Unavailable Candace, Chalon Primary Care Unavailable Leonarda Pedraza Attending Unavailable CandaceJose Referring Unavailable Candace, Chalon Primary Care Unavailable CandaceJose Attending Unavailable Candace Chalon Referring Unavailable Candace, Chalon Primary Care Unavailable Jose Maria Attending Unavailable CandaceJose Referring Unavailable Candace, Chalon Primary Care Unavailable CandaceKristineon Attending Unavailable Candace, Chalon Referring Unavailable Jose Maria Primary Care Unavailable Jose Maria Attending Unavailable Jose Maria Referring Unavailable CANDACE LUGO, KRISTA Primary Care Unavailable CANDACE LUGO, JOSE Attending Unavailable CANDACE LUGO, KRISTA Primary Care Unavailable TALISHA MALLOY, DR BEATRIS Andres Attending Unavailable CANDACE LUGO, KRISTA Primary Care Unavailable LYNDA DO, JUNIOR Attending Unavailable CANDACE LUGO, [facility] Primary Care Unavailable JAIRO VAZQUEZ MD Attending Unavailable SHANELL [facility] CONTROLS ASSESSOR, DAYANA Attending Unavailab Vásquez, [facility] Primary Care Unavailable CANDACE LUGO, [facility] Primary [facility] Unavailable CANDACE LUGO, JOSE Attending Unavailable CANDACE LUGO, [facility] Primary [facility] Unavailable JOSÉ MANUEL LUGO, DR PATRICK MARTINEZ Attending Unaguero MARIA MD, [facility] Primary [facility] Unavailable CANDACE LUGO, JOSE Attending Unavailable CANDACE LUGO, [facility] Unavailable KORTNEY [facility]OLS ASSESSOR, SHANNON Fountain Attending Unavail able Allergies Allergy Classification Reported Allergen(s) Allergy Type Date of Onset Reaction(s) Facility (11 sources) Penicillin; Translations: [penicillin] Drug Allergy Eruption of skin (disorder) [facility] (11 sources) Sulfonamide; Translations: [sulfa drugs] Drug allergy Eruption of skin (disorder) [facility] (3 sources) Penicillins Propensity to adverse reactions 5 [facility] (3 sources) Sulfonamides (Antibiotic) Propensity to adverse reactions 5 [facility] (1 source) Penicillins Drug allergy (disorder) 5 [facility] Repository (1 source) Sulfonamides (Antibiotic) Drug allergy (disorder) [address] [place] [address] Repository Medications Current Medications Medication Drug Class(es) Dates Sig (Normalized) Sig (Original) 0.25 MG, 0.5 MG Dose 3 ML semaglutide 0.68 MG/ML Pen Injector [Ozempic] (6 sources) Start: 11-28-2024 Ozempic 2 mg/3 mL (0.25 mg or 0.5 mg dose) subcutaneous solution Dose : 0.25 mg =, Subcutaneous, Tuesday, rotate injection sites, # 1 EA, 0 Refill(s) Start Date: 11/28/24 Status: Ordered Medication Dispense Status: Completed Quantity: 1.0 Unit: EA Total Allowed Fills: 1 Fills Dispensed: 0 Start: 11-28-2024 Ozempic 2 mg/3 mL (0.25 [...] qDay, # 90 tab(s), 4 Refill(s), Pharmacy: [facility]/pharmacy #[id number], 172.7, cm, 07/25/24 14:24:00 EST, Height, kg, 07/25/24 14:24:00 EST, Dosing Weight Start Date: 08/01/24 Status: Ordered Quantity: 90.0 Unit: tab(s) Repeat number: 5 apixaban 5 mg oral tablet (6 sources) Factor Xa Inhibitor Start: 07-17-2024 Eliquis 5 mg oral tablet Dose : 5 mg = 1 tab(s), Oral, BID, # 60 tab(s), 5 Refill(s), Pharmacy: [facility]/pharmacy #[id number], 172.7, cm, 07/04/24 12:56:00 EDT, Height, 129.7, kg, 07/04/24 12:56:00 EDT, Dosing Weight Start Date: 07/17/24 Status: Ordered Quantity: 60.0 Unit: tab(s) Repeat number: 6 atorvastatin 20 mg oral tablet (13 sources) HMG-CoA Reductase Inhibitor Start: 07-01-2025 atorvastatin 20 mg oral tablet Dose : 20 mg = 1 tab(s), Oral, qHS, # 30 tab(s), 1 Refill(s), Pharmacy: [facility]/pharmacy #[id number], 172.7, cm, 02/07/25 13:07:00 EDT, Height, kg, 03/13/25 5:20:00 EDT, Dosing Weight Start Date: 07/01/25 Status: Ordered Medication Dispense Status: Completed Quantity: 30.0 Unit: tab(s) Total Allowed Fills: 2 Fills Dispensed: 0 Start: 03-25-2025 take 1 tablet by dolores th at bedtime Atorvastatin 20 mg tablet Active 20 mg PO AT BEDTIME March 25, 2025 12:00am Start: 2024 atorvastatin 2 0 mg oral tablet Dose : 20 mg [...] Quantity: 6.0 Unit: tab(s) Repeat number: 1 clobetasol propionate 0.5 mg/ml topical cream (13 sources) Corticosteroid Start: 03-25-2025 Clobetasol 0.0 5 % cream Active 1 NMA TOPICAL daily March 25, 2025 12:00am Start: 2024 Clobetasol (Eq v-Temovate) 0.05% topical cream Dose = 1 mary, Topical, qDay, 0 Refill(s) Start Date: 07/04/24 Status: Ordered Medication Dispense Status: Completed Total Allowed Fills: 1 Fills Dispensed: 0 Start: 2024 Clobetasol (Eq v-Temovate) 0.05% topical cream Dose = 1 mary, Topical, qDay, 0 Refill(s) Start Date: 07/04/24 Status: Ordered Repeat number: 1 Start: 2024 Clobetasol (Eq v-Temovate) 0.05% topical cream 0 Refill(s) Start Date: 07/04/24 Status: Ordered Repeat number: 1 Start: 2024 Clobetasol (Eq v-Temovate) 0.05% topical cream 0 Refill(s) Start Date: 07/04/24 Status: Ordered dabigatran etexilate 150 mg oral capsule (7 sources) Start: 02-07-2025 take 1 capsule by mouth twice daily Dabigatran Etexilate 150 mg capsule Active 150 mg PO TWICE A DAY March 25, 2025 12:00am ergocalciferol 1.25 mg oral capsule (6 sources) Provitamin D2 Compound Start: 11-28-2024 ergocalciferol 50,000 intl units (1.25 mg) oral capsule Dose : 50,000 International_Unit = 1 cap(s), Oral, Tuesday, 0 Refill(s) Start Date: 11/28/24 Status: Ordered Medication Dispense Status: Completed Total Allowed Fills: 1 Fills Dispensed: 0 fenofibrate 160 mg oral tablet (11 sources) Peroxisome Proliferator Receptor alpha Agonist Start: 10-11-2024 take 1 tablet by mouth once daily Fenofibrate 160 mg tablet Active 160 mg PO daily March 25, 2025 12:00am ipratropium bromide 0.042 mg/actuat metered dose nasal spray (7 sources) Anticholinergic Start: 03-25-2025 Ipratropium Victoria 42 mcg (0.06 %) spray,non-aerosol Active INTRANASAL THREE TIMES A DAY March 25, 2025 12:00am Start: 2024 ipratropium 42 mcg/inh (0.06%) nasal spray 84 mcg Dose = 2 spray(s), Nasal, TID, # 15 mL, 0 Refill(s) Start Date: 07/04/24 Status: Ordered Quantity: 15.0 Unit: mL Repeat number: 1 ketoconazole 20 mg/ml topical cream (9 sources) Azole Antifungal Start: 03-25-2025 Ketoconazole 2 % cream Active NMA TOPICAL TWICE A DAY as needed March 25, 2025 12:00am Start: 11-12-2024 ketoconazole 2 % topical cream Apply 1 mary, Topical, qDay, MIX 50/50 WITH MOMETASONE AND APPLY TO FACE TWICE A DAY NEEDED Start Date: 11/12/24 Status: Ordered Medication Dispense Status: Completed Total Allowed Fills: 1 Fills Dispensed: 0 levothyroxine (13 sources) l-Thyroxine Start: 03-25-2025 take 1 tablet by mouth once daily Levothyroxine 175 mcg tablet Active 175 ug PO daily March 25, 2025 12:00am Start: 02-07-2025 take 1 tablet by dolores once daily levothyroxine 175 mcg (0.175 mg) oral tablet TAKE 1 TABLET BY MOUTH EVERY DAY Start Date: 02/07/25 Status: Ordered Medication Dispense Status: Completed Total Allowed Fills: 1 Fills Dispensed: 0 Start: 11-12-2024 levothyroxine 200 mcg (0.2 mg) [...] number: 1 lisinopril 10 mg oral tablet (13 sources) Angiotensin Converting Enzyme Inhibitor Start: 07-25-2024 take 1 tablet by mouth once daily Lisinopril 10 mg tablet Active 10 mg PO daily March 25, 2025 12:00am Lopressor 25mg--USE metoprolol tartrate 25 mg oral tablet (7 sources) Start: 11-07-2024 Lopressor 25mg--USE metoprolol tartrate 25 mg oral tablet Dose : 25 mg = 1 tab(s), Oral, BID, # 180 tab(s), 0 Refill(s), Pharmacy: [facility]/pharmacy #[id number], 172.7, cm, 10/11/24 9:07:00 EST, Height, [...] 0 Refill(s) Start Date: 07/04/24 Status: Ordered meclizine hydrochloride 25 mg oral tablet (2 sources) Antiemetic Start: 03-13-2025 End: 03-18-2025 meclizine 25 mg oral tablet Dose : 25 mg = 1 tab(s), Oral, TID, PRN as needed for dizziness, X 5 day(s), # 15 tab(s), 0 Refill(s), 03/18/25 10:02:00 AM EDT, Pharmacy: [facility]/pharmacy #[id number], 172.7, cm, 02/07/25 13:07:00 EDT, Height, kg, 03/13/25 5:20:00 EDT, Dosing Weight Start Date: 03/13/25 Stop Date: 03/18/25 Status: Ordered Quantity: 15.0 Unit: tab(s) Repeat number: 1 24 hr metoprolol succinate 25 mg extended release oral tablet (2 sources) beta-Adrenergic Skinny Start: 02-27-2025 metopr olol succinate 25 mg oral TABLET extended release Dose : 25 mg = 1 tab(s), Oral, qDay, Do not crush or chew (controlled release), # 90 tab(s), 3 Refill(s), Pharmacy: [facility]/pharmacy #[id number], 172.7, cm, 02/07/25 13:07:00 EDT, Height, kg, 02/07/25 13:07:00 EDT, Dosing Weight Start Date: 02/27/25 Status: Ordered Quantity: 90.0 Unit: tab(s) Repeat number: 4 mometasone furoate 1 mg/ml topical cream (14 sources) Corticosteroid Start: 03-25-2025 Mometasone 0.1 % cream Active 1 NMA TOPICAL daily March 25, 2025 12:00am Start: 2024 mometasone 0.1 % topical cream Apply 1 mary, Topical, Daily, 0 Refill(s), 129.1 Start Date: 07/04/24 Status: Ordered Medication Dispense Status: Completed Total Allowed Fills: 1 Fills Dispensed: 0 omeprazole 20 mg delayed release oral capsule (13 sources) Proton Pump Inhibitor Start: 03-25-2025 take 2 capsules by mouth twice daily Omeprazole 20 mg capsule,delayed release(DR/EC) Active 40 mg PO TWICE A DAY March 25, 2025 12:00am Start: 2024 omeprazole 20 mg oral delayed release capsule Dose : 20 mg = 1 cap(s), Oral, qAM Start Date: 07/04/24 Status: Ordered Medication Dispense Status: Completed Total Allowed Fills: 1 Fills Dispensed: 0 Start: 2024 take 2 capsules by m [...] Date: 07/04/24 Status: Ordered Repeat number: 1 Semaglutide (3 sources) Start: 03-25-2025 Semaglutide (O zempic) 1 mg/dose (4 mg/3 mL) pen injector Active 1 mg SC EVERY WEEK March 25, 2025 12:00am Completed/Discontinued Medications Medication Drug Class(es) Dates Sig (Normalized) Sig (Original) Albuterol (4 sources) beta2-Adrenergic Agonist Start: 10-23-2024 End: 11-22-2024 take 1 puff(s) by inhalation four times daily Ventolin HFA MDI (90 mcg/inh) inhalation aerosol 1 puff(s), Inhalation, QID, # 1 EA, 0 Refill(s) Start Date: 10/23/24 Stop Date: 11/22/24 Status: Ordered Quantity: 1.0 Unit: EA Repeat number: 1 Problems Active Problems Problem Classification Problem Date Documented Date [...] of thyroid] Onset: 12-25-2024 Episodic Cardiac dysrhythmias (11 sources) Atrial flutter; Translations: [Unspecified atrial flutter] Onset: 07-02-2024 Chronic Cardiac dysrhythmias (8 sources) Sinus bradycardia 10-11-2024 Episodic Coagulation and hemorrhagic disorders (5 sources) Bleeds easily 12-01-2024 Chronic Coagulation and hemorrhagic disorders (1 source) Hemorrhagic condition, unspecified; Translations: [Hemorrhagic condition, unspecified] Onset: 12-04-2024 Episodic Complications of surgical procedures or medical care (1 source) Postprocedural hypothyroidism; Translations: [Postprocedural hypothyroidism] Onset: 12-25-2024 Chronic Diabetes mellitus without complication (5 sources) Impaired fasting glucose; Translations: [Prediabetes] Onset: 12-10-2017 03-25-2025 Episodic Disorders of lipid metabolism (1 source) Hyperlipidemia, unspecified; Translations: [Hyperlipidemia, unspecified] Onset: 12-25-2024 Chronic Esophageal disorders (9 sources) Gastroesophageal reflux disease; Translations: [Gastro-esophageal reflux disease without esophagitis] Onset: 12-25-2024 10-11-2024 Chronic Essential hypertension (16 sources) Essential (primary) hypertension; Translations: [Hypertensive disorder] Onset: 12-10-2017 10-11-2024 Chronic Hyperplasia of prostate (1 source) Benign prostatic hyperplasia without lower urinary tract symptoms; Translations: [Benign prostatic hyperplasia without lower urinary tract symptoms] Onset: 12-25-2024 Chronic Menopausal disorders (1 source) Hormone replacement therapy; Translations: [Hormone replacement therapy] Onset: 12-25-2024 Episodic Osteoarthritis (6 sources) Osteoarthritis of right knee joint; Translations: [Unilateral primary osteoarthritis, right knee] 03-25-2025 Chronic Other aftercare (1 source) Encounter for therapeutic drug level monitoring; Translations: [Encounter for therapeutic drug level monitoring] Onset: 12-25-2024 Episodic Other aftercare (1 source) 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; Translations: [correction (current) use of anticoagulants] Onset: 12-25-2024 Episodic Other aftercare (1 source) Other supervisor intermediates (current) drug therapy; Translations: [Other supervisor intermediates (current) drug therapy] Onset: 12-25-2024 Episodic Other and unspecified benign neoplasm (6 sources) Lipoma (clinical); Translations: [Benign lipomatous neoplasm, unspecified] 03-25-2025 Episodic Other lower respiratory disease (4 sources) Dyspnea on exertion 02-07-2025 Episodic Other male genital disorders (1 source) Male erectile dysfunction, unspecified; Translations: [Male erectile dysfunction, unspecified] Onset: 12-25-2024 Chronic Other nutritional; endocrine; and metabolic disorders (8 sources) Obesity 10-11-2024 Chronic Other nutritional; endocrine; and metabolic disorders (1 source) Obesity, unspecified; Translations: [Obesity, unspecified] Onset: 12-25-2024 Chronic Other nutritional; endocrine; and metabolic disorders (1 source) Body mass index (BMI) 45.0-49.9, adult; Translations: [Body mass index [BMI] 45.0-49.9, adult] Onset: 12-25-2024 Chronic Residual codes; unclassified (8 sources) Obstructive sleep apnea syndrome 10-11-2024 Chronic Residual codes; unclassified (2 sources) Obstructive sleep apnea (adult) (pediatric); Translations: [Obstructive sleep apnea (adult) (pediatric)] Onset: 12-04-2024 Chronic Residual codes; unclassified (1 source) Personal history of irradiation; Translations: [Personal history of irradiation] Onset: 12-25-2024 Episodic Superficial injury; contusion (1 source) Contusion of right thigh, initial encounter; Translations: [Contusion of right thigh, initial encounter] Onset: 02-21-2025 Episodic Thyroid disorders (3 sources) Hypothyroidism, unspecified; Translations: [Hypothyroidism, unspecified] Onset: [...] of injectable non-insulin antidiabetic drugs] Onset: 12-25-2024 Past or Other Problems Problem Classification Problem Date Documented Da te Episodic/Chronic Blindness and vision defects (2 sources) Visual disturbance; Translations: [Unspecified visual disturbance] Onset: 03-13-2025 Episodic Conditions associated with dizziness or vertigo (2 sources) Benign paroxysmal positional vertigo; Translations: [Benign paroxysmal vertigo, unspecified ear] Onset: 03-13-2025 Episodic Other skin disorders (1 source) Localized swelling, mass and lump, neck; Translations: [Localized swelling, mass and lump, neck] Onset: 11-24-2024 Episodic Results Test Name Value Interpretation Reference Range Facility LABORATORYOrdered By: SYSTEM SYSTEM on 07-10-2025 Prostate specific Ag [Mass/Vol] ng/mL Normal 0.00 - 4.00 ng/mL AO ADM SS PSAon 07-10-2025 Prostate Specific Antigen <0.05 Normal 0.00-4.00 [facility] Comment on above: Performed By: #### T SH, ADIFF, CBC, LIPID, CMP, VIDH, ANEU, GFR #### [facility] [address] [place], [place] [address] #### FT4 #### [facility] [address] [place] [id number] Plastic Surgery Visit Report on 05-03-2025 Plastic Surgery Visit Report [facility]astic Reconstructive Surgery [address] [facility], [address] [place], [place] [id number] OFFICE VISIT Date of Service: 05/03/25 MR#: [id number] Acct: [id number] Name: CHARLOTTE DE LA TORRE Rep #: [id number] : 1950 Provider: Dr. Mor Lee MD Age/Sex: 74/M Location: [facility] Status: Signed Intake Vital Signs 3 03/25/25 13:03 Height 5 ft 8 in Weight: 294 lb 2 oz BMI 44.7 Intake Visit Reasons: LIPOMA R THIGH Chief Complaint: R thigh Is patient in pain?: No Allergies Penicillins Adverse Reaction (Verified 05/03/25 13:20) Rash Sulfa (Sulfonamide Antibiotics) Adverse Reaction (Verified 05/03/25 13:20) Rash Medications 3 ???Medication ???Instructions ???Recorded ???Confirmed ???Type atorvastatin 20 mg tablet 20 mg PO QHS 03/25/25 05/03/25 His tory clobetasol 0.05 % topical cream 1 applic topical QDAY 03/25/25 History dabigatran etexilate 150 mg capsule 150 mg PO BID 03/25/25 05/03/25 History fenofibrate 160 mg tablet 160 mg PO QDAY 03/25/25 05/03/25 H istory ipratropium bromide 42 mcg (0.06 intranasal TID 03/25/25 05/03/25 H istory %) nasal spray ketoconazole 2 % topical cream applic topical BID PRN 03/25/25 History levothyroxine 175 mcg tablet 175 mcg PO QDAY 03/25/25 05/03/25 History lisinopril 10 mg tablet 10 mg PO QDAY 03/25/25 05/03/25 Hi story mometasone 0.1 % topical cream 1 applic topical QDAY 03/25/25 History omeprazole 20 mg capsule,delayed 40 mg PO BID 03/25/25 05/03/25 His tory release semaglutide 1 mg/dose (4 mg/3 mL) 1 mg subcut QWEEK 03/25/25 History subcutaneous pen injector (Ozempic) Have you fallen in the past year?: No PFSH Surgical History History of abdominal surgery History of thyroidectomy History of prostatectomy History of total knee replacement Family History Father Myocardial infarction Grandfather Myocardial infarction Mother Cerebral hemorrhage Social History household members: spouse Smoking Status: Never smoker alcohol intake: current alcohol intake frequency: holidays/special occasions only substance use type: other details: THC gummies HPI LIPOMA R THIGH Details: The patient is a 74-year-old male presenting with a possible mass in the right anterior thigh. The mass, first noticed several months ago in the shower, presents as a soft tissue/fat asymmetry compared to the contralateral side. It does not cause pain or other significant symptoms, yet the patient seeks evaluation for assurance. No significant weight loss or weight gain. Ultrasound of the mass was obtained and reported a small area consistent with a lipoma but an MRI with contrast was ordered thereafter and did not demonstrate any masses on the right thigh. The area of concern was more consistent with simply having anterior thigh fat. The patient's medical history is notable for atrial fibrillation, managed with prior cardioversions and an ablation. He is currently managed on dabigatran due to cost efficiency in comparison with Eliquis. The patient reports a borderline diabetic status, with A1c values being sustained below 6. Lifestyle inquiries reveal no cigarette smoking habits but documented THC usage, with a denial of any recent weight fluctuation. ROS: - General: Denies recent weight changes - Cardiovascular: Denies chest pain, orthopnea, or syncope - Neurological: Denies numbness or tingling in lower extremities Attestation: Documentation on this patient encounter was supported using ambient scribe technology/ voice AI technology. The patient consented to recording for the purpose of documenting the encounter. Provider reviewed content of the generated note prior to signature. ROS General General: Yes good health and fatigue; No fever(s) or weight loss HENMT HENMT: No rhinitis, sore throat/mouth sore, nasal congestion, contacts or glaucoma Endo Endocrine: Yes thyroid disease; No polydipsia, heat intolerance, cold intolerance, hepatitis or excessive urine Skin Skin: Yes Bleeding and bruising; No changing moles or suspicious lesion Musc Musculoskeletal: Yes joint pain, joint stiffness, muscle weakness, back pain and osteoarthritis; No Muscle aches/ myalgia Neuro Neurological: No headache(s), No lightheadedness and No numbness Cardio Cardiovascular: Yes fatigue; No chest pain, pacemaker or shortness of breat with exertion Psych Psychiatric: Yes claustrophobia; No depression or anxiety Resp Respiratory: Yes shortness of breath, sleep apnea and Cough; No spitting up, asthma, emphysema, TB or Smoker Gastro Gastrointestinal: No diarrhea, constipatio (more content not included)... Normal [facility] Orthopedic Visit Reporton Orthopedic Visit Report [facility] [address] [place] [address] OFFICE VISIT Date of Service: 03/25/25 MR#: [id number] Acct: [id number] Name: CHARLOTTE DE LA TORRE Rep #: [id number] : 1950 Provider: NATALYA wade Age/Sex: 74/M Location: [facility] Status: Signed Intake Vital Signs 03/25/25 13:03 Height 5 ft 8 in Weight: 294 lb 2 oz BMI 44.7 Intake Visit Reasons: RIGHT THIGH Chief Complaint: Right Thigh Pain Accompanied by: Self Is patient in pain?: No Allergies Penicillins Adverse Reaction (Verified 03/25/25 13:04) Rash Sulfa (Sulfonamide Antibiotics) Adverse Reaction (Verified 03/25/25 13:04) Rash Medications ???Medication ???Instructions ???Recorded ???Confirmed ???Type atorvastatin 20 mg tablet 20 mg PO QHS 03/25/25 03/25/25 His tory clobetasol 0.05 % topical cream 1 applic topical QDAY 03/25/25 History dabigatran etexilate 150 mg capsule 150 mg PO BID 03/25/25 03/25/25 History fenofibrate 160 mg tablet 160 mg PO QDAY 03/25/25 03/25/25 H istory ipratropium bromide 42 mcg (0.06 intranasal TID 03/25/25 03/25/25 H istory %) nasal spray ketoconazole 2 % topical cream applic topical BID PRN 03/25/25 History levothyroxine 175 mcg tablet 175 mcg PO QDAY 03/25/25 03/25/25 History lisinopril 10 mg tablet 10 mg PO QDAY 03/25/25 03/25/25 Hi story mometasone 0.1 % topical cream 1 applic topical QDAY 03/25/25 History omeprazole 20 mg capsule,delayed 40 mg PO BID 03/25/25 03/25/25 His tory release semaglutide 1 mg/dose (4 mg/3 mL) 1 mg subcut QWEEK 03/25/25 History subcutaneous pen injector (Ozempic) Have you fallen in the past year?: [facility] History History of abdominal surgery History of thyroidectomy History of prostatectomy History of total knee replacement Family History Father Myocardial infarction Grandfather Myocardial infarction Mother Cerebral hemorrhage Social History (Updated 03/25/25 @ 13:12 by Yamilex Rodriguez) household members: spouse Smoking Status: Never smoker alcohol intake: current alcohol intake frequency: holidays/special occasions only substance use type: other details: THC gummies HPI RIGHT THIGH Details: This documentation accurately reflects the service provided and the decisions made by me, NATALYA Brooke 03/25/25 1300. Part of today???s visit was documented by Yamilex Faria [employer], acting as scribe. CHARLOTTE DE LA TORRE is a 74 year old M here today for right thigh pain. Patient states he started noticing painless leg swelling/lump about a month ago. He denies any specific injury or incident to the leg. He states he noticed it when he was in the shower. He states this does not bother him at all or cause him any pain. He describes it over the anterior aspect of the thigh. He states it doesn't bother him when he bends the leg at all or when he lays on it. He did have an ultrasound and MRI on the leg. He states the diagnoses are different for each test. He denies any issues with the right leg in the past other than the right knee. Agree with above. Is a pleasant 74-year-old gentleman presenting for evaluation of right thigh swelling. Patient was seen by his PCP and had outpatient ultrasound and MRI completed and is here for result review and treatment plan. Patient describes pain as lump to mid distal anterior thigh, soft in texture and slightly mobile. No pain, no aggravators, no change in size or consistency since onset. He has similar smaller swelling to left forearm. Patient also reports history of knee OA and inquiring about gel injections. ROS Const All systems reviewed are unremarkable except as noted in H and other (A O x 3, no apparent distress. No recent illness.) ENT Denies dizziness Card Denies chest pain, Denies dyspnea, Denies edema and Reports other (No palpitations) Resp Denies cough, Denies dyspnea and Reports other (No recent URI) GI Reports system reviewed and no additional complaints, except as documented, Denies nausea and Denies vomiting Musc Reports as per HPI Neuro No dizziness Psych Reports system reviewed and no additional complaints, except as documented Jayjay/Lymph Denies easy bleeding and Denies easy bruising Ortho Exam General General: Yes no acute distress and Yes well groomed Neurologic: Yes alert and Yes oriented x3 Psychologic: Yes reasonable and appropriate Exam Narrative Examination of right thigh during today's visit shows skin is pink, warm, dry and intact. There is no discoloration or visible swelling noted. There is a palpable lump that is soft, slightly mobile and nonpainful with exam and full ran (more content not included)... Normal [facility] Microalb:Creat Ratio,Random URon 03-20-2025 Creatinine [Mass/Vol] 52.90 mg/dL Normal 39.00-259.00 [facility] Comment on above: Order Comment: Order Date: 03/18/25 Order Info: [id number] - MIALB Performed By: #### L 502.0250 #### [facility] [address] [place], [address] MALB:CREAT UNABLE TO CALCULATE Normal <30 mg/g CRE [facility] Comment on above: Order Comment: Order Date: 03/18/25 Order Info: [id number] - MIALB Performed By: #### L 502.0250 #### [facility] [address] [place], [address] MICROALBUMIN,UR < 12.0 Normal <20 mg/L [facility] Comment on above: Order Comment: Order Date: 03/18/25 Order Info: [id number] - MIALB Performed By: #### L 502.0250 #### [facility] [address] [place], [address] Microalbumin/creat ratio urO rdered By: Jose Maria on 03-20-2025 Urine microalbumin/creatinine ratio measurement UNABLE TO CALCULATE mg/g CRE <30 [facility] Random urine creatinine rolando urement (mass/volume)Ordered By: Jose Maria on 03-20-2025 Creatinine Unsp time (U) [Mass/Vol] 52.90 mg/dL 39.00-259.00 [facility] TSH DL <= 0.005 mIU/L QnOrde red By: Jose Maria on 03-20-2025 TSH Qn 2.760 uIU/mL 0.300-4.200 [facility] Thyroid Stim Hormone (TSH)on 03-20-2025 TSH 2.760 uIU/mL Normal 0.300-4.200 [facility] Comment on above: Order Comment: Order Date: 11/01/24 Order Info: [id number] - TSH Performed By: #### L 501.9520 #### [facility] [address] [place], [address] Urine albumin measurement [facility] detection limit of 20 mg/L or less (mass/volume)Ordered By: Jose Maria on 03-20-2025 Albumin DL <= 20 mg/L (U) [Mass/Vol] < 12.0 mg/L <20 mg/L [facility] .Auto Diffon 03-13-2025 Basophil, Absolute 0.0 10 3/mcL Normal 0.0-0.3 [facility] Comment on above: Performed By: #### T SH, ADIFF, CBC, LIPID, CMP, VIDH, ANEU, GFR #### [address] [address] #### FT4 #### [address] [address] Basophils/100 WBC (Bld) 0.9 % Normal 0.0-2.5 [facility] Comment on above: Performed By: #### T SH, ADIFF, CBC, LIPID, CMP, VIDH, ANEU, GFR #### [address] [address] #### FT4 #### [address] [address] Eosinophil, Absolute 0.3 10 3/mcL Normal 0.0-0.7 [facility] Comment on above: Performed By: #### T SH, ADIFF, CBC, LIPID, CMP, VIDH, ANEU, GFR #### [address] [address] #### FT4 #### [address] [address] Eosinophils/100 WBC (Bld) 5.1 % Normal 0.0-6.0 [facility] Comment on above: Performed By: #### T SH, ADIFF, CBC, LIPID, CMP, VIDH, ANEU, GFR #### [address] [address] #### FT4 #### [address] [address] Lymphocyte, Absolute 1.6 10 3/mcL Normal 0.9-4.3 [facility] Comment on above: Performed By: #### T SH, ADIFF, CBC, LIPID, CMP, VIDH, ANEU, GFR #### [address] [address] #### FT4 #### [address] [address] Lymphocytes/100 WBC (Bld) 30.3 % Normal 20.0-40.0 [facility] Comment on above: Performed By: #### T SH, ADIFF, CBC, LIPID, CMP, VIDH, ANEU, GFR #### [address] [address] #### FT4 #### [address] [address] Monocyte, Absolute 0.7 10 3/mcL Normal 0.1-1.4 [facility] Comment on above: Performed By: #### T SH, ADIFF, CBC, LIPID, CMP, VIDH, ANEU, GFR #### [place] [address] #### FT4 #### [address] [address] Monocytes/100 WBC (Bld) 13.6 % High 2.0-13.0 [facility] Comment on above: Performed By: #### T SH, ADIFF, CBC, LIPID, CMP, VIDH, ANEU, GFR #### [place] [address] #### FT4 #### [address] [address] Neutrophils/100 WBC (Bld) 50.1 % Normal 50.0-75.0 [facility] Comment on above: Performed By: #### T SH, ADIFF, CBC, LIPID, CMP, VIDH, ANEU, GFR #### [place] [address] #### FT4 #### [address] [address] .GFRon 03-13-2025 Estimated Glomerular Filtration Rate 58 ml/min/1.73sqm Normal [facility] Comment [...] calculate the eGFR results. Performed By: #### T SH, ADIFF, CBC, LIPID, CMP, VIDH, ANEU, GFR #### [address] [address] #### FT4 #### [address] [address] .MDWon 03-13-2025 Monocyte Distribution Width 15.67 Normal 0.00-20.00 [facility] Comment on above: Result Comment: For ED adult patients suspected of sepsis, MDW<=20.0 does not rule out sepsis or risk of sepsis Performed By: #### T SH, ADIFF, CBC, LIPID, CMP, VIDH, ANEU, GFR #### [address] [address] #### FT4 #### [address] [address] .NEUABSon 03-13-2025 Neutrophil, Absolute 2.7 10 3/mcL Normal 2.3-8.1 [facility] Comment on above: Performed By: #### T SH, ADIFF, CBC, LIPID, CMP, VIDH, ANEU, GFR #### [address] [address] #### FT4 #### [place] [id number] APTTon 03-13-2025 aPTT Coag (Bld) [Time] 52.2 s High 25.0-35.0 [facility] Comment on above: Result Comment: For Heparin anticoagulation therapy, the recommended therapeutic range is: 45.4-75.9 seconds. Patients on heparin therapy may have an extreme result. Performed By: #### T SH, ADIFF, CBC, LIPID, CMP, VIDH, ANEU, GFR #### [place] [address] #### FT4 #### [address] [address] BMPon 03-13-2025 BUN/Creatinine Ratio 18 ratio Normal 7-27 [facility] Comment on above: Performed By: #### T SH, ADIFF, CBC, LIPID, CMP, VIDH, ANEU, GFR #### [place] [address] #### FT4 #### [address] [address] Calcium [Mass/Vol] 8.3 mg/dL Low 8.4-10.2 [facility] Comment on above: Performed By: #### T SH, ADIFF, CBC, LIPID, CMP, VIDH, ANEU, GFR #### [place] [address] #### FT4 #### [address] [address] Chloride [Moles/Vol] 104 mmol/L Normal 98-107 [facility] Comment on above: Performed By: #### T SH, ADIFF, CBC, LIPID, CMP, VIDH, ANEU, GFR #### [address] [address] #### FT4 #### [address] [address] CO2 [Moles/Vol] 28 mmol/L Normal 23-31 [facility] Comment on above: Performed By: #### T SH, ADIFF, CBC, LIPID, CMP, VIDH, ANEU, GFR #### [place] [address] #### FT4 #### [address] [address] Creatinine [Mass/Vol] 1.31 mg/dL High 0.67-1.17 [facility] Comment on above: Performed By: #### T SH, ADIFF, CBC, LIPID, CMP, VIDH, ANEU, GFR #### [place] [address] #### FT4 #### [address] [address] Electrolyte Balance 8.0 mEq/L Normal 4.0-15.0 [facility] Comment on above: Performed By: #### T SH, ADIFF, CBC, LIPID, CMP, VIDH, ANEU, GFR #### [place] [address] #### FT4 #### [place] [address] Glucose [Mass/Vol] 104 mg/dL Normal 83-110 [facility] Comment on above: Performed By: #### T SH, ADIFF, CBC, LIPID, CMP, VIDH, ANEU, GFR #### [place] [address] #### FT4 #### [address] [address] Potassium [Moles/Vol] 3.6 mmol/L Normal 3.5-5.1 [facility] Comment on above: Performed By: #### T SH, ADIFF, CBC, LIPID, CMP, VIDH, ANEU, GFR #### [place] [address] #### FT4 #### [address] [address] Sodium [Moles/Vol] 140 mmol/L Normal 136-145 [facility] Comment on above: Performed By: #### T SH, ADIFF, CBC, LIPID, CMP, VIDH, ANEU, GFR #### [place] [address] #### FT4 #### [address] [address] Urea nitrogen [Mass/Vol] 23 mg/dL High 7-18 [facility] Comment on above: Performed By: #### T SH, ADIFF, CBC, LIPID, CMP, VIDH, ANEU, GFR #### [address] [address] #### FT4 #### [address] [address] CBCon 03-13-2025 Erythrocyte distribution width (RBC) [Ratio] 13.6 % Normal 11.5-15.5 [facility] Comment on above: Performed By: #### G FR, APTT, TROPHS, PRO, ANEU, MDW, BMP, ADIFF, CBC #### [address] [address] Hematocrit (Bld) [Volume fraction] 43.7 % Normal 40.0-52.0 [facility] Comment on above: Performed By: #### G FR, APTT, TROPHS, PRO, ANEU, MDW, BMP, ADIFF, CBC #### [address] [address] Hgb 14.9 G/dL Normal 13.0-17.5 [facility] Comment on above: Performed By: #### G FR, APTT, TROPHS, PRO, ANEU, MDW, BMP, ADIFF, CBC #### [address] [address] MCH (RBC) [Entitic mass] 32.2 pg Normal 27.0-33.0 [facility] Comment on above: Performed By: #### G FR, APTT, TROPHS, PRO, ANEU, MDW, BMP, ADIFF, CBC #### [address] [address] MCHC 34.2 G/dL Normal 32.0-36.0 [facility] Comment on above: Performed By: #### G FR, APTT, TROPHS, PRO, ANEU, MDW, BMP, ADIFF, CBC #### [address] [address] MCV (RBC) [Entitic vol] 94.3 fL Normal 81.0-100.0 [facility] Comment on above: Performed By: #### G FR, APTT, TROPHS, PRO, ANEU, MDW, BMP, ADIFF, CBC #### [address] [address] Platelet 217 10 3/mcL Normal 150-450 [facility] Comment on above: Performed By: #### G FR, APTT, TROPHS, PRO, ANEU, MDW, BMP, ADIFF, CBC #### [address] [address] Platelet mean volume (Bld) [Entitic vol] 7.8 fL Normal 6.4-10.5 [facility] Comment on above: Performed By: #### G FR, APTT, TROPHS, PRO, ANEU, MDW, BMP, ADIFF, CBC #### [address] [address] RBC 4.63 10 6/mcL Normal 4.50-6.00 [facility] Comment on above: Performed By: #### G FR, APTT, TROPHS, PRO, ANEU, MDW, BMP, ADIFF, CBC #### [address] [address] WBC 5.4 10 3/mcL Normal 4.5-10.8 [facility] Comment on above: Performed By: #### G FR, APTT, TROPHS, PRO, ANEU, MDW, BMP, ADIFF, CBC #### [address] [address] [address] ANGIOGRAPHY HEAD W/ CONTR Emely 03-13-2025 CT ANGIOGRAPHY HEAD W/ CONTRAST ORIGINAL EXAMINATION: CTA OF THE HEAD WITH CONTRAST 03/13/2025 6:41 am: TECHNIQUE: CTA of the head/brain was performed with the administration of intravenous contrast. Multiplanar reformatted images are provided for review. MIP images are provided for review. Automated exposure control, iterative reconstruction, and/or weight based adjustment of the mA/kV was utilized to reduce the radiation dose to as low as reasonably achievable. COMPARISON: None. HISTORY: ORDERING SYSTEM PROVIDED HISTORY: Reason for Exam: dizziness, vision changes FINDINGS: ANTERIOR CIRCULATION: No significant stenosis of the intracranial internal carotid, anterior cerebral, or middle cerebral arteries. No aneurysm. POSTERIOR CIRCULATION: No significant stenosis of the vertebral, basilar, or posterior cerebral arteries. No aneurysm. Dominant right vertebral artery. OTHER: No dural venous sinus thrombosis on this non-dedicated study. BRAIN: No mass effect or midline shift. No extra-axial fluid collection. The glasgow-white differentiation is maintained. IMPRESSION: No large vessel occlusion or hemodynamically significant stenosis in the head. I have personally reviewed the images of this examination and agree with the resident's findings and interpretation. Interpreted by: Naa Haney MD Preliminary Report By: Natasha Mcgovern Electronically signed By Naa Haney MD Dictated Date: 03/13/2025 6:49:44 AM Prelim Date: 03/13/2025 6:51:55 AM Sign Date: 03/13/2025 7:05:44 AM Ordering Provider: JUNIOR HOWELL Interpreted by: Naa Haney MD Preliminary Report By: Natasha Mcgovern Electronically signed By Naa Haney MD Dictated Date: 03/13/2025 6:49:44 AM Prelim Date: 03/13/2025 6:51:55 AM Sign Date: 03/13/2025 7:05:44 AM Ordering Provider: JUNIOR HOWELL [facility] CT ANGIOGRAPHY NECK W/CONTRA STon 03-13-2025 CT ANGIOGRAPHY NECK W/CONTRAST ORIGINAL EXAMINATION: CTA OF THE NECK 03/13/2025 6:44 am TECHNIQUE: CTA of the neck was performed with the administration of intravenous contrast. Multiplanar reformatted images are provided for review. MIP images are provided for review. Stenosis of the internal carotid arteries measured using NASCET criteria. Automated exposure control, iterative reconstruction, and/or weight based adjustment of the mA/kV was utilized to reduce the radiation dose to as low as reasonably achievable. COMPARISON: None. HISTORY: ORDERING SYSTEM PROVIDED HISTORY: Reason for Exam: dizziness, vision changes FINDINGS: AORTIC ARCH/ARCH VESSELS: No dissection or arterial injury. No significant stenosis of the brachiocephalic or subclavian arteries. CAROTID ARTERIES: No dissection, arterial injury, or hemodynamically significant stenosis by NASCET criteria. VERTEBRAL ARTERIES: No dissection, arterial injury, or significant stenosis. SOFT TISSUES: The lung apices are clear. No cervical or superior mediastinal lymphadenopathy. The larynx and pharynx are unremarkable. No acute abnormality of the salivary and thyroid glands. BONES: No acute osseous abnormality. Multilevel degenerative changes of the spine. IMPRESSION: No large vessel occlusion or hemodynamically significant stenosis in the neck. I have personally reviewed the images of this examination and agree with the resident's findings and interpretation. Interpreted by: Naa Haney MD Preliminary Report By: Natasha Mcgovern Electronically signed By Naa Haney MD Dictated Date: 03/13/2025 6:52:06 AM Prelim Date: 03/13/2025 6:55:25 AM Sign Date: 03/13/2025 7:14:25 AM Ordering Provider: JUNIOR HOWELL Interpreted by: Naa Haney MD Preliminary Report By: Natasha Mcgovern Electronically signed By Naa Haney MD Dictated Date: 03/13/2025 6:52:06 AM Prelim Date: 03/13/2025 6:55:25 AM Sign Date: 03/13/2025 7:14:25 AM Ordering Provider: JUNIOR HOWELL [facility] CT HEAD OR BRAIN W/O CONTRAS Ton 03-13-2025 CT HEAD OR BRAIN W/O CONTRAST ORIGINAL EXAMINATION: CT OF THE HEAD WITHOUT CONTRAST 03/13/2025 6:38 am TECHNIQUE: CT of the head was performed without the administration of intravenous contrast. Automated exposure control, iterative reconstruction, and/or weight based adjustment of the mA/kV was utilized to reduce the radiation dose to as low as reasonably achievable. COMPARISON: None. HISTORY: ORDERING SYSTEM PROVIDED HISTORY: Reason for Exam: dizziness, vision changes FINDINGS: BRAIN/VENTRICLES: There is no acute intracranial hemorrhage, mass effect or midline shift. No abnormal extra-axial fluid collection. The glasgow-white differentiation is maintained without evidence of an acute infarct. There is no evidence of hydrocephalus. ORBITS: The visualized portion of the orbits demonstrate no acute abnormality. SINUSES: The visualized paranasal sinuses and mastoid air cells demonstrate no acute abnormality. SOFT TISSUES/SKULL: No acute abnormality of the visualized skull or soft tissues. IMPRESSION: No acute intracranial abnormality. Interpreted by: Naa Haney MD Preliminary Report By: Naa Haney MD Electronically signed By Naa Haney MD Dictated Date: 03/13/2025 6:45:53 AM Prelim Date: 03/13/2025 6:46:10 AM Sign Date: 03/13/2025 6:46:10 AM Ordering Provider: JUNIOR HOWELL Interpreted by: Naa Haney MD Preliminary Report By: Naa Haney MD Electronically signed By Naa Haney MD Dictated Date: 03/13/2025 6:45:53 AM Prelim Date: 03/13/2025 6:46:10 AM Sign Date: 03/13/2025 6:46:10 AM Ordering Provider: JUNIOR HOWELL [facility] LABORATORYOrdered By: SYSTEM SYSTEM on 03-13-2025 aPTT Coag (PPP) [Time] 52.2 s High 25.0 - 35.0 seconds AO [facility] Comment on above: Interpretive Data: F or Heparin anticoagulation therapy, the recommended therapeutic range is: 45.4-75.9 seconds. Patients on heparin therapy may have an extreme result. Basophils (Bld) [#/Vol] 0.0 103/mcL Normal 0.0 - 0.3 10^3/mcL AO Workflow SS Basophils/100 WBC (Bld) 0.9 % Normal 0.0 - 2.5 % AO Workflow SS Calcium [Mass/Vol] 8.3 mg/dL Low 8.4 - 10. 2 mg/dL AO ADM SS Chloride [Moles/Vol] 104 mmol/L Normal 98 - 10 7 mmol/L AO ADM SS CO2 [Moles/Vol] 28 mmol/L Normal 23 - 31 mmol/L AO ADM SS Creatinine [Mass/Vol] 1.31 mg/dL High 0.67 - 1.17 mg/dL AO ADM SS Electrolyte Balance 8.0 mEq/L Normal 4.0 - 15 .0 mEq/L AO ADM SS Eosinophil, Absolute 0.3 103/mcL Normal 0.0 - 0 .7 10^3/mcL AO Workflow SS Eosinophils/100 WBC (Bld) 5.1 % Normal 0.0 - 6.0 % AO Workflow SS Erythrocyte distribution width (RBC) [Ratio] 13.6 % Normal 11.5 - 15.5 % AO Workflow SS Estimated Glomerular Filtration Rate 58 ml/min/1.73sqm Invalid Interpretation Code AO Chemistry [...] to calculate the eGFR results. Glucose [Mass/Vol] 104 mg/dL Normal 83 - 110 mg/dL AO ADM SS Hematocrit (Bld) [Volume fraction] 43.7 % Normal 40.0 - 52.0 % AO Workflow SS Hemoglobin (Bld) [Mass/Vol] 14.9 G/dL Normal 13.0 - 17.5 G/dL AO Workflow SS INR Coag (PPP) [Relative time] 1.0 {INR} Invalid Interpretation Code AO [facility] Comment on above: Interpretive Data: Александр troncoso [employer] (CHEST, 1991, 102:312S-25S) recommended therapeutic range for oral anticoagulant therapy is: LOW RISK: Prophylaxis of venous thrombosis INR: 2.0-3.0 Treatment of pulmonary embolism 2.0-3.0 Prevention of systemic embolism 2.0-3.0 HIGH RISK: Mechanical prosthetic valves 2.5-3.5 Lymphocytes (Bld) [#/Vol] 1.6 103/mcL Normal 0.9 - 4.3 10^3/mcL AO Workflow SS Lymphocytes/100 WBC (Bld) 30.3 % Normal 20.0 - 40.0 % AO Workflow SS MCH (RBC) [Entitic mass] 32.2 pg Normal 27.0 - 33.0 pg AO Workflow SS MCHC 34.2 G/dL Normal 32.0 - 36.0 G/dL AO Workflow SS MCV (RBC) [Entitic vol] 94.3 fL Normal 81.0 - 100.0 fL AO Workflow SS Monocyte distribution width Auto (Bld) [Entitic vol] 15.67 1 Normal 0.00 - 20.00 AO Workflow SS Comment on above: Result Comment: For ED adult patients suspected of sepsis, MDW<=20.0 does not rule out sepsis or risk of sepsis Monocytes (Bld) [#/Vol] 0.7 103/mcL Normal 0.1 - 1.4 10^3/mcL AO Workflow SS Monocytes/100 WBC (Bld) 13.6 % High 2.0 - 13.0 % AO Workflow SS Neutrophils (Bld) [#/Vol] 2.7 103/mcL Normal 2.3 - 8.1 10^3/mcL AO Workflow SS Neutrophils/100 WBC (Bld) 50.1 % Normal 50.0 - 75.0 % AO Workflow SS Platelet mean volume (Bld) [Entitic vol] 7.8 fL Normal 6.4 - 10.5 fL AO Workflow SS Platelets (Bld) [#/Vol] 217 103/mcL Normal 150 - 450 10^3/mcL AO Workflow SS Potassium [Moles/Vol] 3.6 mmol/L Normal 3.5 - 5.1 mmol/L AO ADM SS PT Coag (PPP) [Time] 11.8 s Normal 9.0 - 1 4.4 seconds AO [facility] RBC (Bld) [#/Vol] 4.63 106/mcL Normal 4.50 - 6.0 0 10^6/mcL AO Workflow SS Sodium [Moles/Vol] 140 mmol/L Normal 136 - 145 mmol/L AO ADM SS Troponin I.cardiac DL <= 0.01 ng/mL [Mass/Vol] 15 ng/L Normal 0 - 76 ng/L AO ADM SS Comment on above: Interpretive Data: H igh Sensitive Troponin I Reference Ranges: Female: 0-51 ng/L Male: 0-76 ng/L Testing performed on Naked using a homogeneous sandwich chemiluminescent immunoassay based on [employer] technology. Urea nitrogen [Mass/Vol] 23 mg/dL High 7 - 18 mg/dL AO ADM SS Urea nitrogen/Creatinine [Mass ratio] 18 ratio Normal 7 - 27 ratio AO ADM SS WBC (Bld) [#/Vol] 5.4 103/mcL Normal 4.5 - 10.8 10^3/mcL AO Workflow SS MRI FEMUR W/ + W/O CONTRAST RIGHTon 03-13-2025 MRI FEMUR W/ + W/O CONTRAST RIGHT ORIGINAL EXAMINATION: MRI OF THE RIGHT FEMUR WITH AND WITHOUT CONTRAST 03/13/2025 12:03 pm TECHNIQUE: Multiplanar multisequence MRI of the right femur was performed with and without the administration of intravenous contrast. COMPARISON: None. HISTORY: ORDERING SYSTEM PROVIDED HISTORY: Reason for Exam: LIPOMA FINDINGS: No aggressive bony lesion identified. No periostitis or intraosseous edema seen. Mild heterogeneity of the marrow in the proximal diaphysis in likely heterogeneous fatty marrow. Degenerative changes seen of the right hip. There are degenerative changes in the visualized knee. The knee is not evaluated in detail. A joint effusion noted in the knee. At the site of palpable concern, lobulated fat tissue seen. No encapsulated mass is identified. No abnormal intramuscular signal seen. Following the administration of contrast, no enhancing lesions identified. IMPRESSION: 1. Lobulated fat tissue at the site of palpable concern. No encapsulated mass is identified. 2. Degenerative changes in the right hip and knee. The knee and hip are not evaluated in detail. There is a joint effusion in the knee. Interpreted by: Jonah Jeffries MD Preliminary Report By: Jonah Jeffries MD Electronically signed By Jonah Jeffries MD Dictated Date: 03/13/2025 1:14:47 PM Prelim Date: 03/13/2025 1:21:52 PM Sign Date: 03/13/2025 1:21:52 PM Ordering Provider: JOSE MARIA Interpreted by: Jonah Jeffries MD Preliminary Report By: Jonah Jeffries MD Electronically signed By Jonah Jeffries MD Dictated Date: 03/13/2025 1:14:47 PM Prelim Date: 03/13/2025 1:21:52 PM Sign Date: 03/13/2025 1:21:52 PM Ordering Provider: JOSE MARIA Normal [facility] PROon 03-13-2025 PT Coag (PPP) [Time] 11.8 s Normal 9.0-14.4 [facility] Comment on above: Performed By: #### T SH, ADIFF, CBC, LIPID, CMP, VIDH, ANEU, GFR #### [place] [id number] [place], [place] [address] #### FT4 #### [address] [address] PT International Ratio 1.0 Normal [facility] Comment on above: Result Comment: [employer] (CHEST, 1992, 102:312S-25S) recommended therapeutic range for oral anticoagulant therapy is: LOW RISK: Prophylaxis of venous thrombosis INR: 2.0-3.0 Treatment of pulmonary embolism 2.0-3.0 Prevention of systemic embolism 2.0-3.0 HIGH RISK: Mechanical prosthetic valves 2.5-3.5 Performed By: #### T SH, ADIFF, CBC, LIPID, CMP, VIDH, ANEU, GFR #### [address] [address] #### FT4 #### [address] [address] TROPHSon 03-13-2025 High Sensitivity Troponin I 15 ng/L Normal 0-76 [facility] Comment on above: Result Comment: High Sensitive Troponin I Reference Ranges: Female: 0-51 ng/L Male: 0-76 ng/L Testing performed on Naked using a homogeneous sandwich chemiluminescent immunoassay based on [employer] technology. Performed By: #### T SH, ADIFF, CBC, LIPID, CMP, VIDH, ANEU, GFR #### [address] [address] #### FT4 #### [place] [id number] XR CHEST 1 VIEWon 03-13-2025 XR CHEST 1 VIEW ORIGINAL EXAMINATION: ONE XRAY VIEW OF THE CHEST 03/13/2025 6:46 am COMPARISON: 10/23/2024 HISTORY: ORDERING SYSTEM PROVIDED HISTORY: Reason for Exam: dizziness FINDINGS: Stable cardiomediastinal silhouette. Mild blunting of the left costophrenic angle likely secondary to superimposed soft tissue structures. Right costophrenic angle is sharp. No focal consolidation, pulmonary edema or pneumothorax. No acute osseous findings. Sclerotic lesion along the left proximal humeral shaft likely represents an enchondroma. IMPRESSION: No acute radiographic findings. I have personally reviewed the images of this examination and agree with the resident's findings and interpretation. Interpreted by: Naa Haney MD Preliminary Report By: Natasha Mcgovern Electronically signed By Naa Haney MD Dictated Date: 03/13/2025 6:56:49 AM Prelim Date: 03/13/2025 6:58:59 AM Sign Date: 03/13/2025 7:15:12 AM Ordering Provider: JUNIOR HOWELL Interpreted by: Naa Haney MD Preliminary Report By: Natasha Mcgovern Electronically signed By Naa Haney MD Dictated Date: 03/13/2025 6:56:49 AM Prelim Date: 03/13/2025 6:58:59 AM Sign Date: 03/13/2025 7:15:12 AM Ordering Provider: JUNIOR HOWELL [facility] .GFRon 02-18-2025 Estimated Glomerular Filtration Rate 64 ml/min/1.73sqm [facility] Comment on above: Result Comment: Stages of [...] calculate the eGFR results. Performed By: #### T SH, ADIFF, CBC, LIPID, CMP, VIDH, ANEU, GFR #### [address] [address] #### FT4 #### [address] [address] BMPon 02-18-2025 BUN/Creatinine Ratio 16 ratio Normal 7-27 [facility] Comment on above: Performed By: #### T SH, ADIFF, CBC, LIPID, CMP, VIDH, ANEU, GFR #### [address] [address] #### FT4 #### [address] [address] Calcium [Mass/Vol] 8.5 mg/dL Normal 8.4-10.2 [facility] Comment on above: Performed By: #### T SH, ADIFF, CBC, LIPID, CMP, VIDH, ANEU, GFR #### [place] [address] #### FT4 #### [address] [address] Chloride [Moles/Vol] 104 mmol/L Normal 98-107 [facility] Comment on above: Performed By: #### T SH, ADIFF, CBC, LIPID, CMP, VIDH, ANEU, GFR #### [place] [address] #### FT4 #### [address] [address] CO2 [Moles/Vol] 27 mmol/L Normal 23-31 [facility] Comment on above: Performed By: #### T SH, ADIFF, CBC, LIPID, CMP, VIDH, ANEU, GFR #### [place] [address] #### FT4 #### [address] [address] Creatinine [Mass/Vol] 1.21 mg/dL High 0.67-1.17 [facility] Comment on above: Performed By: #### T SH, ADIFF, CBC, LIPID, CMP, VIDH, ANEU, GFR #### [place] [address] #### FT4 #### [place] [address] Electrolyte Balance 6.0 mEq/L Normal 4.0-15.0 [facility] Comment on above: Performed By: #### T SH, ADIFF, CBC, LIPID, CMP, VIDH, ANEU, GFR #### [place] [address] #### FT4 #### [place] [address] Glucose [Mass/Vol] 106 mg/dL Normal 83-110 [facility] Comment on above: Performed By: #### T SH, ADIFF, CBC, LIPID, CMP, VIDH, ANEU, GFR #### [address] [address] #### FT4 #### [address] [address] Potassium [Moles/Vol] 4.2 mmol/L Normal 3.5-5.1 [facility] Comment on above: Performed By: #### T SH, ADIFF, CBC, LIPID, CMP, VIDH, ANEU, GFR #### [address] [address] #### FT4 #### [place] [address] Sodium [Moles/Vol] 137 mmol/L Normal 136-145 [facility] Comment on above: Performed By: #### T SH, ADIFF, CBC, LIPID, CMP, VIDH, ANEU, GFR #### [place] [address] #### FT4 #### [place] [address] Urea nitrogen [Mass/Vol] 19 mg/dL High 7-18 [facility] Comment on above: Performed By: #### T SH, ADIFF, CBC, LIPID, CMP, VIDH, ANEU, GFR #### [place] [address] #### FT4 #### [place] [address] Ext Non Vasc Limited/Soft Ti sson 02-18-2025 Ext Non Vasc Limited/Soft Tiss [facility] [address] [place] [id number] Ext Non Vasc Limited/Soft Tiss MR#: [id number] Acct: [id number] Name: CHARLOTTE DE LA TORRE Rep #: [id number] : 1950 M 74 From: Roger Ruvalcaba PCP: Dr. Jose Maria MD Status: REG CLI Study: Ext Non Vasc Limited/Soft Tiss Date of Exam: 0 02/18/25 Exam# [id number] Ordering Dr: Jose Maria MD PROCEDURE: EXT NON VASC LIMITED/SOFT TISS 02/18/2025 REASON FOR EXAM: POSSIBLE HEMATOMA (R) THIGH/INJURY TECHNIQUE: EXT NON VASC LIMITED/SOFT TISS COMPARISON: None US/Ext Non Vasc Limited/Soft Tiss IMPRESSION: Targeted sonogram of the right anterior thigh demonstrates isoechoic, nonvascular lesion measuring 1.5 x 2.6 x 0.8 cm. Reading Location: [facility] CC: Dr. Jose Maria MD [employer]: Signed Normal [facility] LABORATORYOrdered By: SYSTEM SYSTEM on 02-18-2025 Calcium [Mass/Vol] 8.5 mg/dL Normal 8.4 - 10. 2 mg/dL AO ADM SS Chloride [Moles/Vol] 104 mmol/L Normal 98 - 10 7 mmol/L AO ADM SS CO2 [Moles/Vol] 27 mmol/L Normal 23 - 31 mmol/L AO ADM SS Creatinine [Mass/Vol] 1.21 mg/dL High 0.67 - 1.17 mg/dL AO ADM SS Electrolyte Balance 6.0 mEq/L Normal 4.0 - 15 .0 mEq/L AO ADM SS Estimated Glomerular Filtration Rate 64 ml/min/1.73sqm Invalid Interpretation Code AO Chemistry S [...] to calculate the eGFR results. Glucose [Mass/Vol] 106 mg/dL Normal 83 - 110 mg/dL AO ADM SS Potassium [Moles/Vol] 4.2 mmol/L Normal 3.5 - 5.1 mmol/L AO ADM SS Sodium [Moles/Vol] 137 mmol/L Normal 136 - 145 mmol/L AO ADM SS Urea nitrogen [Mass/Vol] 19 mg/dL High 7 - 18 mg/dL AO ADM SS Urea nitrogen/Creatinine [Mass ratio] 16 ratio Normal 7 - 27 ratio AO ADM SS Anion gap in Serum or Plasma Ordered By: Jose Maria on 01-08-2025 Anion gap [Moles/Vol] 9 mmol/L 5-15 [facility] BUN/creatinine ratioOrdered By: Jose Maria on 01-08-2025 Urea nitrogen/Creatinine [Mass ratio] 12.3 mg/mg 10-20 [facility] Bilirubin, totalOrdered By: Jose Maria on 01-08-2025 Bilirubin [Mass/Vol] 0.49 mg/dL 0.00-1.30 [facility] CBC-Complete Blood Cnt No Di ffon 01-08-2025 Erythrocyte distribution width (RBC) [Ratio] 13.3 % Normal 11.6-14.6 [facility] Comment on above: Order Comment: Order Date: 11/01/24 Order Info: 53299-1 - CBC Performed By: #### L 100.0500, L500.4050, L500.4100, L506.0400 #### [facility] [address] [place], [place], [id number] (178) Hematocrit (Bld) [Volume fraction] 41.5 % Normal 40-54 [facility] Comment on above: Order Comment: Order Date: 11/01/24 Order Info: 60530-0 - CBC Performed By: #### L 100.0500, L500.4050, L500.4100, L506.0400 #### [facility] [address] [place], [address] Hemoglobin (Bld) [Mass/Vol] 14.1 g/dL Normal 13.0-16.5 [facility] Comment on above: Order Comment: Order Date: 11/01/24 Order Info: [id number] - CBC Performed By: #### L 100.0500, L500.4050, L500.4100, L506.0400 #### [facility] [address] [place], [address] MCH (RBC) [Entitic mass] 32.3 pg High 27.0-32.0 [facility] Comment on above: Order Comment: Order Date: 11/01/24 Order Info: [id number] - CBC Performed By: #### L 100.0500, L500.4050, L500.4100, L506.0400 #### [facility] [address] [place], [address] MCHC (RBC) [Mass/Vol] 34.0 g/dL Normal 32-36 [facility] Comment on above: Order Comment: Order Date: 11/01/24 Order Info: [id number] - CBC Performed By: #### L 100.0500, L500.4050, L500.4100, L506.0400 #### [facility] [address] [place], [address] MCV (RBC) [Entitic vol] 95.0 fL High 80-94 [facility] Comment on above: Order Comment: Order Date: 11/01/24 Order Info: [id number] - CBC Performed By: #### L 100.0500, L500.4050, L500.4100, L506.0400 #### [facility] [address] [place], [address] Platelet mean volume (Bld) [Entitic vol] 10.1 fL Normal 6.2-12.0 [facility] Comment on above: Order Comment: Order Date: 11/01/24 Order Info: [id number] - CBC Performed By: #### L 100.0500, L500.4050, L500.4100, L506.0400 #### [facility] [address] [place], [address] Platelets (Bld) [#/Vol] 272 10*3/uL Normal 150-450 [facility] Comment on above: Order Comment: Order Date: 11/01/24 Order Info: [id number] - CBC Performed By: #### L 100.0500, L500.4050, L500.4100, L506.0400 #### [facility] [address] [place], [address] RBC (Bld) [#/Vol] 4.37 10*6/uL Low 4.6-6.2 [facility] Comment on above: Order Comment: Order Date: 11/01/24 Order Info: [id number] - CBC Performed By: #### L 100.0500, L500.4050, L500.4100, L506.0400 #### [facility] [address] [place], [address] RDW SD 47.1 fl High 35.1-43.9 [facility] Comment on above: Order Comment: Order Date: 11/01/24 Order Info: [id number] - CBC Performed By: #### L 100.0500, L500.4050, L500.4100, L506.0400 #### [facility] [address] [place], [address] WBC (Bld) [#/Vol] 6.1 10*3/uL Normal 4.4-11.0 [facility] Comment on above: Order Comment: Order Date: 11/01/24 Order Info: [id number] - CBC Performed By: #### L 100.0500, L500.4050, L500.4100, L506.0400 #### [facility] [address] [place], [address] Calculated very low density lipoprotein (VLDL) cholesterol measurementOrdered By: Jose Maria on 01-08-2025 Calculated very low density lipoprotein (VLDL) cholesterol measurement 15 mg/dL 5-40 [facility] Carbon dioxide, total [Moles /volume] in Central venous bloodOrdered By: Jose Maria on 01-08-2025 CO2 [Moles/Vol] 24.0 mmol/L 21.0-32.0 [facility] Chloride assayOrdered By: Kameron Maria on 01-08-2025 Chloride [Moles/Vol] 107 mmol/L 98-108 [facility] Comprehensive Metabolic Prof ilon 01-08-2025 Albumin [Mass/Vol] 3.9 g/dL Normal 3.4-4.8 [facility] Comment on above: Order Comment: Order Date: 11/01/24 Order Info: 86-1 - CMP Order Info: [id number] - LIPID Order Date: 11/26/24 Order Info: 3015-3 - TSH Order Info: 3024-03 - T4F Performed By: #### L 100.0500, L500.4050, L500.4100, L506.0400 #### [facility] [address] [place], [address] Albumin/Globulin [Mass ratio] 1.5 {ratio} Normal 0.9-2.4 [facility] Comment on above: Order Comment: Order Date: 11/01/24 Order Info: 785- - CMP Order Info: - LIPID Order Date: 11/26/24 Order Info: 3016-3 - TSH Order Info: 7 - T4F Performed By: #### L 100.0500, L500.4050, L500.4100, L506.0400 #### [facility] [address] [place], [address] ALK PHOS 53 U/L Normal 40-129 [facility] Comment on above: Order Comment: Order Date: 11/01/24 Order Info: 0786-1 - CMP Order Info: [id number] - LIPID Order Date: 11/26/24 Order Info: 3016-3 - TSH Order Info: 7 - T4F Performed By: #### L 100.0500, L500.4050, L500.4100, L506.0400 #### [facility] [address] [place], [address] ALT [Catalytic activity/Vol] 28 U/L Normal <=46 [facility] Comment on above: Order Comment: Order Date: 11/01/24 Order Info: 0786-1 - CMP Order Info: [id number] - LIPID Order Date: 11/26/24 Order Info: 3016-3 - TSH Order Info: 3024-7 - T4F Performed By: #### L 100.0500, L500.4050, L500.4100, L506.0400 #### [facility] [address] [place], [address] AST [Catalytic activity/Vol] 30 U/L Normal <=37 [facility] Comment on above: Order Comment: Order Date: 11/01/24 Order Info: 07-1 - CMP Order Info: [id number] - LIPID Order Date: 11/26/24 Order Info: 3016-3 - TSH Order Info: 3024-7 - T4F Performed By: #### L 100.0500, L500.4050, L500.4100, L506.0400 #### [facility] [address] [place], [address] Bilirubin [Mass/Vol] 0.49 mg/dL Normal 0.00-1.30 [facility] Comment on above: Order Comment: Order Date: 11/01/24 Order Info: 0786-1 - CMP Order Info: [id number] - LIPID Order Date: 11/26/24 Order Info: 3015-3 - TSH Order Info: 3024-7 - T4F Performed By: #### L 100.0500, L500.4050, L500.4100, L506.0400 #### [facility] [address] [place], [address] BUN/CRE 12.3 RATIO Normal 10-20 [facility] Comment on above: Order Comment: Order Date: 11/01/24 Order Info: 0786-1 - CMP Order Info: [id number] - LIPID Order Date: 11/26/24 Order Info: 3016-3 - TSH Order Info: 3024-7 - T4F Performed By: #### L 100.0500, L500.4050, L500.4100, L506.0400 #### [facility] [address] [place], [address] Calcium [Mass/Vol] 8.5 mg/dL Normal 7.6-11.0 [facility] Comment on above: Order Comment: Order Date: 11/01/24 Order Info: 0786-1 - CMP Order Info: 03249-0 - LIPID Order Date: 11/26/24 Order Info: 3016-3 - TSH Order Info: 302-7 - T4F Performed By: #### L 100.0500, L500.4050, L500.4100, L506.0400 #### [facility] [address] [place], [address] Chloride [Moles/Vol] 107 mmol/L Normal 98-108 [facility] Comment on above: Order Comment: Order Date: 11/01/24 Order Info: 785-1 - CMP Order Info: 70167-6 - LIPID Order Date: 11/26/24 Order Info: 3016-3 - TSH Order Info: 302-7 - T4F Performed By: #### L 100.0500, L500.4050, L500.4100, L506.0400 #### [facility] [address] [place], [address] CO2 [Moles/Vol] 24.0 mmol/L Normal 21.0-32.0 [facility] Comment on above: Order Comment: Order Date: 11/01/24 Order Info: 0786-1 - CMP Order Info: [id number] - LIPID Order Date: 11/26/24 Order Info: 3016-3 - TSH Order Info: 3024-7 - T4F Performed By: #### L 100.0500, L500.4050, L500.4100, L506.0400 #### [facility] [address] [place], [address] Creatinine [Mass/Vol] 1.24 mg/dL High 0.70-1.20 [facility] Comment on above: Order Comment: Order Date: 11/01/24 Order Info: 0786-1 - CMP Order Info: 07251-2 - LIPID Order Date: 11/26/24 Order Info: 3015-3 - TSH Order Info: 7 - T4F Performed By: #### L 100.0500, L500.4050, L500.4100, L506.0400 #### [facility] [address] [place], [address] GAP 9 Normal 5-15 [facility] Comment on above: Order Comment: Order Date: 11/01/24 Order Info: 07-1 - CMP Order Info: 10109-0 - LIPID Order Date: 11/26/24 Order Info: 3 - TSH Order Info: 3024-03 - T4F Performed By: #### L 100.0500, L500.4050, L500.4100, L506.0400 #### [facility] [address] [place], [address] GFR/1.73 sq M.predicted among non-blacks MDRD (S/P/Bld) [Vol rate/Area] 62 mL/min/{1.73_m2} Normal >60 [facility] Comment on above: Order Comment: Order Date: 11/01/24 Order Info: 0786- - CMP Order Info: 27135-6 - LIPID Order Date: 11/26/24 Order Info: 3 - TSH Order Info: 7 - T4F Result Comment: mL/m in/1.73m2 CKD-EPI Creatinine Equation (2020) Performed By: #### L 100.0500, L500.4050, L500.4100, L506.0400 #### [facility] [address] [place], [address] Globulin (S) [Mass/Vol] 2.7 g/dL Normal 2.2-4.2 [facility] Comment on above: Order Comment: Order Date: 11/01/24 Order Info: 86-1 - CMP Order Info: [id number] - LIPID Order Date: 11/26/24 Order Info: 6-3 - TSH Order Info: 3024-7 - T4F Performed By: #### L 100.0500, L500.4050, L500.4100, L506.0400 #### [facility] [address] [place], [address] Glucose [Mass/Vol] 100 mg/dL High 70-99 [facility] Comment on above: Order Comment: Order Date: 11/01/24 Order Info: 785-1 - CMP Order Info: 82470-3 - LIPID Order Date: 11/26/24 Order Info: 3015-3 - TSH Order Info: 3024-7 - T4F Performed By: #### L 100.0500, L500.4050, L500.4100, L506.0400 #### [facility] [address] [place], [address] Potassium [Moles/Vol] 4.0 mmol/L Normal 3.3-5.1 [facility] Comment on above: Order Comment: Order Date: 11/01/24 Order Info: 86-1 - CMP Order Info: [id number] - LIPID Order Date: 11/26/24 Order Info: 3016-3 - TSH Order Info: 3024-7 - T4F Performed By: #### L 100.0500, L500.4050, L500.4100, L506.0400 #### [facility] [address] [place], [address] Sodium [Moles/Vol] 140 mmol/L Normal 133-145 [facility] Comment on above: Order Comment: Order Date: 11/01/24 Order Info: 0786-1 - CMP Order Info: 77884-1 - LIPID Order Date: 11/26/24 Order Info: 3016-3 - TSH Order Info: 3024-7 - T4F Performed By: #### L 100.0500, L500.4050, L500.4100, L506.0400 #### [facility] [address] [place], [place], [address] T PROT 6.6 g/dL Normal 5.9-8.4 [facility] Comment on above: Order Comment: Order Date: 11/01/24 Order Info: 0786-1 - CMP Order Info: 11185-8 - LIPID Order Date: 11/26/24 Order Info: 3016-3 - TSH Order Info: 3023-7 - T4F Performed By: #### L 100.0500, L500.4050, L500.4100, L506.0400 #### [facility] [address] [place], [place], [address] Urea nitrogen [Mass/Vol] 15 mg/dL Normal 4-19 [facility] Comment on above: Order Comment: Order Date: 11/01/24 Order Info: 0786-1 - CMP Order Info: [id number] - LIPID Order Date: 11/26/24 Order Info: 3016-3 - TSH Order Info: 3023-7 - T4F Performed By: #### L 100.0500, L500.4050, L500.4100, L506.0400 #### [facility] [address] [place], [place], [address] Erythrocyte distribution wid th ratioOrdered By: Jose Maria on 01-08-2025 Erythrocyte distribution width (RBC) [Ratio] 13.3 % 11.6-14.6 [facility] Erythrocyte distribution wid th standard deviationOrdered By: Jose Maria on 01-08-2025 Erythrocyte distribution width (RBC) [Ratio] 47.1 fl High 35.1-43.9 [facility] Glomerular filtration rate ( GFR) estimation/1.73 sq m using serum, plasma, or whole bOrdered By: Jose Maria on 01-08-2025 GFR/1.73 sq M.predicted among non-blacks MDRD (S/P/Bld) [Vol rate/Area] 62 mL/min/{1.73_m2} >60 [facility] Comment on above: mL/min/1.73m2 CKD-EP I Creatinine Equation (2020) Hematocrit Auto (Bld) [Volum e fraction]Ordered By: Jose Maria on 01-08-2025 Hematocrit (Bld) [Volume fraction] 41.5 % 40-54 [facility] Hemoglobin A1con 01-08-2025 HbA1c (Bld) [Mass fraction] 5.9 % High <=5.6 [facility] Comment on above: Order Comment: Order Date: 11/20/24 Order Info: 4548-4 - A1C Result Comment: Norm al < 5.7 % Prediabetic 5.7 - 6.4 % Diabetic >or= 6.5 % Please note range changes. Performed By: #### L 757.0354 #### [facility] [place], [address] Hemoglobin A1c percentageOrd ered By: Jose Maria on 01-08-2025 HbA1c (Bld) [Mass fraction] 5.9 % High <5.7 [facility] Comment on above: Normal < 5.7 % Predi abetic 5.7 - 6.4 % Diabetic >or= 6.5 % Please note range changes. Hemoglobin measurementOrdere d By: Jose Maria on 01-08-2025 Hemoglobin (Bld) [Mass/Vol] 14.1 g/dL 13.0-16.5 [facility] LDL calc ser/plasOrdered By: Jose Maria on 01-08-2025 Cholesterol in LDL [Mass/Vol] 57 mg/dL [facility] Comment on above: Knmuhpvnqx=315-156 m g/dL & Higher Vcar=708 mg/dL or greater Laboratory - Chemistry and C hemistry - challengeOrdered By: Jose Maria on 01-08-2025 AST [Catalytic activity/Vol] 30 U/L <38 [facility] Lipid Profileon 01-08-2025 CHOL:HDL 2.53 Normal [facility] Comment on above: Order Comment: Order Date: 11/01/24 Order Info: 0786-1 - CMP Order Info: 42831-5 - LIPID Order Date: 11/26/24 Order Info: 3016-3 - TSH Order Info: 3024-7 - T4F Performed By: #### L 100.0500, L500.4050, L500.4100, L506.0400 #### [facility] [address] [place], [address] Cholesterol [Mass/Vol] 119 mg/dL Normal <=200 [facility] Comment on above: Order Comment: Order Date: 11/01/24 Order Info: 0786-1 - CMP Order Info: [id number] - LIPID Order Date: 11/26/24 Order Info: 3016-3 - TSH Order Info: 3024-7 - T4F Result Comment: Chol esterol level, Desirable <200 mg/dL Borderline high cholesterol 200-239 mg/dL High cholesterol >=240 mg/dL Recommendations of the NCEP Adult Treatment Panel for the following risk-cutoff thresholds for the [place] population. Performed By: #### L 100.0500, L500.4050, L500.4100, L506.0400 #### [facility] [address] [place], [address] Cholesterol in HDL [Mass/Vol] 47 mg/dL Normal [facility] Comment on above: Order Comment: Order Date: 11/01/24 Order Info: 0786-1 - CMP Order Info: [id number] - LIPID Order Date: 11/26/24 Order Info: 3016-3 - TSH Order Info: 3024-7 - T4F Result Comment: Elaina onal Cholesterol Education Program (NCEP) guidelines: <40 mg/dL: Low HDL-cholesterol (major risk factor for CHD) >= 60 mg/dL: High HDL-cholesterol (negative risk factor for CHD) HDL-cholesterol is affected by a number of factors, e.g. smoking, exercise, hormones, sex and age. Performed By: #### L 100.0500, L500.4050, L500.4100, L506.0400 #### [facility] [address] [place], [address] Cholesterol in LDL [Mass/Vol] 57 mg/dL Normal [facility] Comment on above: Order Comment: Order Date: 11/01/24 Order Info: 0786-1 - CMP Order Info: 86465-2 - LIPID Order Date: 11/26/24 Order Info: 3 - TSH Order Info: 3024-03 - T4F Result Comment: Bord zbjswe=944-239 mg/dL Higher Xudb=253 mg/dL or greater Performed By: #### L 100.0500, L500.4050, L500.4100, L506.0400 #### [facility] [address] [place], [address] Cholesterol in VLDL [Mass/Vol] 15 mg/dL Normal 5-40 [facility] Comment on above: Order Comment: Order Date: 11/01/24 Order Info: 0786-1 - CMP Order Info: 62316-0 - LIPID Order Date: 11/26/24 Order Info: 3 - TSH Order Info: 3024-03 - T4F Performed By: #### L 100.0500, L500.4050, L500.4100, L506.0400 #### [facility] [address] [place], [address] Triglyceride [Mass/Vol] 73 mg/dL Normal [facility] Comment on above: Order Comment: Order Date: 11/01/24 Order Info: 0786-1 - CMP Order Info: 51530-3 - LIPID Order Date: 11/26/24 Order Info: 3 - TSH Order Info: 3024-03 - T4F Result Comment: The drugs N-Acetylcysteine and Metamizole may falsely depress this assay. Normal range: <150 mg/dL Borderline High: 150-199 mg/dL High: 200-499 mg/dL Very High: >500 mg/dL Performed By: #### L 100.0500, L500.4050, L500.4100, L506.0400 #### [facility] [address] [place], [address] MCV (mean corpuscular volume ) determinationOrdered By: Jose Maria on 01-08-2025 MCV (RBC) [Entitic vol] 95.0 fL High 80-94 [facility] Mean corpuscular hemoglobin (MCH) determinationOrdered By: Jose Maria on 01-08-2025 MCH (RBC) [Entitic mass] 32.3 pg High 27.0-32.0 [facility] Mean corpuscular hemoglobin concentration (MCHC) determinationOrdered By: Jose Maria on 01-08-2025 MCHC (RBC) [Mass/Vol] 34.0 g/dL 32-36 [facility] Mean platelet volume determi nationOrdered By: Jose Maria on 01-08-2025 Platelet mean volume (Bld) [Entitic vol] 10.1 fL 6.2-12.0 [facility] Platelet countOrdered By: Kameron Maria on 01-08-2025 Platelets (Bld) [#/Vol] 272 10*3/uL 150-450 [facility] Potassium measurement (mass/ volume)Ordered By: Jose Maria on 01-08-2025 Potassium (Unsp spec) [Mass/Vol] 4.0 mmol/L 3.3-5.1 [facility] RBC Auto (Bld) [#/Vol]Ordere d By: Jose Maria on 01-08-2025 RBC (Bld) [#/Vol] 4.37 10*6/uL Low 4.6-6.2 [facility] Screening total cholesterol/ high density lipoprotein (HDL) cholesterol ratioOrdered By: Jose Maria on 01-08-2025 Cholesterol.total/Cass sterol in HDL [Mass ratio] 2.53 {ratio} [facility] Serum creatinine measurement (mass/volume)Ordered By: Jose Maria on 01-08-2025 Creatinine [Mass/Vol] 1.24 mg/dL High 0.70-1.20 [facility] Serum globulin measurementOr dered By: Jose Maria on 01-08-2025 Globulin (S) [Mass/Vol] 2.7 g/dL 2.2-4.2 [facility] Serum glucose measurement (m ass/volume)Ordered By: Jose Maria on 01-08-2025 Glucose [Mass/Vol] 100 mg/dL High 70-99 [facility] Serum or plasma alanine serrano otransferase (ALT) measurementOrdered By: Jose Maria on 01-08-2025 ALT [Catalytic activity/Vol] 28 U/L <47 [facility] Serum or plasma albumin rolando urement (mass/volume)Ordered By: Jose Maria on 01-08-2025 Albumin [Mass/Vol] 3.9 g/dL 3.4-4.8 [facility] Serum or plasma albumin/glob ulin mass ratioOrdered By: Jose Maria on 01-08-2025 Albumin/Globulin [Mass ratio] 1.5 {ratio} 0.9-2.4 [facility] Serum or plasma alkaline marcelo sphatase measurementOrdered By: Jose Maria on 01-08-2025 ALP [Catalytic activity/Vol] 53 U/L 40-129 [facility] Serum or plasma calcium rolando urement (mass/volume)Ordered By: Jose Maria on 01-08-2025 Calcium [Mass/Vol] 8.5 mg/dL 7.6-11.0 [facility] Serum or plasma cholesterol in HDL measurement (mass/volume)Ordered By: Jose Maria on 01-08-2025 Cholesterol in HDL [Mass/Vol] 47 mg/dL >40 [facility] Comment on above: National Cholesterol Education Program (NCEP) guidelines:<40 mg/dL: Low HDL-cholesterol (major risk factor for CHD)>= 60 mg/dL: High HDL-cholesterol (negative risk factor for CHD)HDL-cholesterol is affected by a number of factors, e.g. smoking, exercise, hormones, sex and age. Serum or plasma cholesterol measurement (mass/volume)Ordered By: Jose Maria on 01-08-2025 Cholesterol [Mass/Vol] 119 mg/dL <201 [facility] Comment on above: Cholesterol level, D esirable <200 mg/dLBorderline high cholesterol 200-239 mg/dLHigh cholesterol >=240 mg/dLRecommendations of the NCEP Adult Treatment Panel for the following risk-cutoff thresholds for the [place] population. Serum or plasma urea nitroge n measurement (mass/volume)Ordered By: Jose Maria on 01-08-2025 Urea nitrogen [Mass/Vol] 15 mg/dL 4-19 [facility] Sodium levelOrdered By: Kristine Maria on 01-08-2025 Sodium [Moles/Vol] 140 mmol/L 133-145 [facility] T4 Free Directon 01-08-2025 T4 FREE DIRECT 2.40 ng/dL High 0.76-1.46 [facility] Comment on above: Order Comment: Order Date: 11/01/24Order Info: [id number] - CMPOrder Info: [id number] - LIPIDOrder Date: 11/26/24Order Info: [id number] - TSHOrder Info: 7 - T4F Performed By: #### L 100.0500, L500.4050, L500.4100, L506.0400 ####[facility] [id number] [place], [place], [id number] T4 freeOrdered By: Jose byrd on 01-08-2025 Free T4 [Mass/Vol] 2.40 ng/dL High 0.76-1.46 [facility] TSH DL <= 0.005 mIU/L QnOrde red By: Jose Maria on 01-08-2025 TSH Qn 0.234 uIU/mL Low 0.300-4.200 [facility] Thyroid Stim Hormone (TSH)on 01-08-2025 TSH 0.234 uIU/mL Low 0.300-4.200 [facility] Comment on above: Order Comment: Order Date: 11/01/24Order Info: [id number] - CMPOrder Info: [id number] - LIPIDOrder Date: 11/26/24Order Info: 6-3 - TSHOrder Info: 7 - T4F Performed By: #### L 501.9520 ####[facility] [id number] [place], [place], [id number] Total proteinOrdered By: Charito Maria on 01-08-2025 Protein [Mass/Vol] 6.6 g/dL 5.9-8.4 [facility] Triglycerides measurementOrd ered By: Jose Maria on 01-08-2025 Triglyceride [Mass/Vol] 73 mg/dL <199 [facility] Comment on above: The drugs N-Acetylcy steine and Metamizole may falsely depress this assay. Normal range: <150 mg/dLBorderline High: 150-199 mg/dLHigh: 200-499 mg/dLVery High: >500 mg/dL Vitamin D,25 Hydroxyon 01-08 Vitamin D 25-OH 27.0 ng/mL Low 30-100 [facility] Comment on above: Order Comment: Order Date: 11/01/24Order Info: [id number] - CMPOrder Info: [id number] - LIPIDOrder Date: 11/26/24Order Info: [id number] - TSHOrder Info: [id number] - T4F Result Comment: Aislinn min D Status Deficiency: <20 ng/mL (50nmol/L) Insufficiency: 20-30 ng/mL (50-75 nmol/L) Sufficiency: 30-100 ng/mL (75-250 nmol/L) Toxicity: >100 ng/mL (>250 nmol/L) Performed By: #### L 506.1001 ####[facility] [id number] [place], [address] White blood cell (WBC) count Ordered By: Jose Maria on 01-08-2025 WBC (Bld) [#/Vol] 6.1 10*3/uL 4.4-11.0 [facility] .GFRon 12-26-2024 Estimated Glomerular Filtration Rate 58 ml/min/1.73sqm [facility] MAIN Comment on above: Result Comment: Stages [...] eGFR results. Performed By: #### G , [facility] #### [place] [address] BMPon 12-26-2024 BUN/Creatinine Ratio 14.6 ratio Normal 10.0-22.0 [facility] MAIN Comment on above: Performed By: #### Alex ADLER, BMP #### [address] [address] Calcium [Mass/Vol] 8.5 mg/dL Low 8.7-10.4 [facility] MAIN Comment on above: Performed By: #### Alex FR, BMP #### [address] [address] Chloride [Moles/Vol] 107 mmol/L Normal 98-110 [facility]IN Comment on above: Performed By: #### Alex FR, BMP #### [address] [address] CO2 [Moles/Vol] 29 mmol/L Normal 22-32 [facility] Comment on above: Performed By: #### Alex ADLER, BMP #### [address] [address] Creatinine [Mass/Vol] 1.30 mg/dL Normal 0.60-1.40 [facility] Comment on above: Result Comment: Test ing performed on [employer] analyzer using enzymatic creatinine methodology. Performed By: #### Alex ADLER, BMP #### [address] [address] Electrolyte Balance 7.0 mEq/L Normal 4.0-15.0 [facility] MAIN Comment on above: Performed By: #### Alex FR, BMP #### [address] [address] Glucose [Mass/Vol] 133 mg/dL High 82-115 [facility] Comment on above: Performed By: #### G FR, BMP #### [address] [address] Potassium [Moles/Vol] 3.8 mmol/L Normal 3.5-5.0 [facility] Comment on above: Performed By: #### G FR, BMP #### [address] [address] Sodium [Moles/Vol] 143 mmol/L Normal 136-145 [facility] Comment on above: Performed By: #### Alex , CASSIE #### [facility] [address] [place] [address] Urea nitrogen [Mass/Vol] 19.0 mg/dL Normal 8.0-22.0 [facility] Comment on above: Performed By: #### G , CASSIE #### [facility] [address] [place] [address] LABORATORYOrdered By: SYSTEM SYSTEM on 12-26-2024 Calcium [Mass/Vol] 8.5 mg/dL Low 8.7 - 10. 4 mg/dL ADM SS Chloride [Moles/Vol] 107 mmol/L Normal 98 - 11 0 mEq/L ADM SS CO2 [Moles/Vol] 29 mmol/L Normal 22 - 32 mEq/L AH ADM SS Creatinine [Mass/Vol] 1.30 mg/dL Normal 0.60 - 1.40 mg/dL AH ADM SS Comment on above: Interpretive Data: T esting performed on [employer] analyzer using enzymatic creatinine methodology. Electrolyte Balance 7.0 mEq/L Normal 4.0 - 15 .0 mEq/L ADM SS Estimated Glomerular Filtration Rate 58 [...] 19.0 mg/dL Normal 8.0 - 22.0 mg/dL ADM SS Urea nitrogen/Creatinine [Mass ratio] 14.6 ratio Normal 10.0 - 22.0 ratio AH ADM SS .Auto Diffon 12-25-2024 Basophil, Absolute 0.1 10 3/mcL Normal 0.0-0.3 [facility] MAIN Comment on above: Performed By: #### NORI ZEPEDA #### [address] [address] Basophils/100 WBC (Bld) 1.1 % Normal 0.0-2.5 [facility] MAIN Comment on above: Performed By: #### A NORI RIOS #### [address] [address] Eosinophil, Absolute 0.2 10 3/mcL Normal 0.0-0.7 [facility] MAIN Comment on above: Performed By: #### A NORI RIOS #### [address] [address] Eosinophils/100 WBC (Bld) 4.6 % Normal 0.0-6.0 [facility] Comment on above: Performed By: #### A NORI RIOS #### [address] [address] Lymphocyte, Absolute 1.0 10 3/mcL Normal 0.9-4.3 [facility] MAIN Comment on above: Performed By: #### NORI ZEPEDA #### [address] [address] Lymphocytes/100 WBC (Bld) 18.3 % Low 20.0-40.0 [facility] Comment on above: Performed By: #### NORI ZEPEDA #### [address] [address] Monocyte, Absolute 0.7 10 3/mcL Normal 0.1-1.4 [facility] MAIN Comment on above: Performed By: #### NORI ZEPEDA #### [address] [address] Monocytes/100 WBC (Bld) 12.5 % Normal 2.0-13.0 [facility] MA[facility] Comment on above: Performed By: #### NORI ZEPEDA #### [address] [address] Neutrophils/100 WBC (Bld) 63.5 % Normal 50.0-75.0 [facility] Comment on above: Performed By: #### A NORI RIOS #### [address] [address] .GFRon 12-25-2024 Estimated Glomerular Filtration Rate 71 ml/min/1.73sqm Normal [facility] MA[facility] Comment on above: Result Comment: Stages [...] Performed By: #### A NORI RIOS #### [address] [address] .NEUABSon 12-25-2024 Neutrophil, Absolute 3.4 10 3/mcL Normal 2.3-8.1 [facility] MAIN Comment on above: Performed By: #### A NORI RIOS #### [address] [address] ABO/Rh (Gel)on 12-25-2024 ABO/Rh Interp Positive Invalid Interpretation Code [facility] MA[facility] Comment on above: Performed By: #### A NORI RIOS #### [address] [address] ABS (Gel)on 12-25-2024 ABSC Interp (Gel) Negative Normal [facility] Comment on above: Performed By: #### A NORI RIOS #### [address] [address] APTTon 12-25-2024 aPTT Coag (Bld) [Time] 36.4 s High 25.0-35.0 [facility] MAIN Comment on above: Result Comment: For Heparin anticoagulation therapy, the recommended therapeutic range is: 54-77 seconds (APTT Correlation with Anti-Xa therapeutic range of 0.3-0.7 units/ml). PLEASE REFERENCE THE PHARMACY PROTOCOL FOR DOSING. Performed By: #### G FR, PRO, CBC, BMP, ADIFF, ANEU #### [address] [address] BMPon 12-25-2024 BUN/Creatinine Ratio 13.5 ratio Normal 10.0-22.0 [facility]IN Comment on above: Performed By: #### A NORI RIOS #### [address] [address] Calcium [Mass/Vol] 8.9 mg/dL Normal 8.7-10.4 [facility] Comment on above: Performed By: #### A NORI RIOS #### [address] [address] Chloride [Moles/Vol] 107 mmol/L Normal 98-110 [facility] MA[facility] Comment on above: Performed By: #### A NORI RIOS #### [address] [address] CO2 [Moles/Vol] 27 mmol/L Normal 22-32 [facility] Comment on above: Performed By: #### NORI ZEPEDA #### [address] [address] Creatinine [Mass/Vol] 1.11 mg/dL Normal 0.60-1.40 [facility] Comment on above: Result Comment: Test ing performed on [employer] analyzer using enzymatic creatinine methodology. Performed By: #### A NORI RIOS #### [address] [address] Electrolyte Balance 10.0 mEq/L Normal 4.0-15.0 [facility] MA[facility] Comment on above: Performed By: #### NORI ZEPEDA #### [address] [address] Glucose [Mass/Vol] 99 mg/dL Normal 82-115 [facility] Comment on above: Performed By: #### A NORI RIOS #### [address] [address] Potassium [Moles/Vol] 3.8 mmol/L Normal 3.5-5.0 [facility] Comment on above: Performed By: #### A JESUSITA RIOSGEL #### [address] [address] Sodium [Moles/Vol] 144 mmol/L Normal 136-145 [facility] Comment on above: Performed By: #### A NORI RIOS #### [address] [address] Urea nitrogen [Mass/Vol] 15.0 mg/dL Normal 8.0-22.0 [facility] Comment on above: Performed By: #### A NORI RIOS #### [address] [address] CBCon 12-25-2024 Erythrocyte distribution width (RBC) [Ratio] 13.9 % Normal 11.5-15.5 [facility] Comment on above: Performed By: #### A NORI RIOS #### [place] [id number] Hematocrit (Bld) [Volume fraction] 42.4 % Normal 40.0-52.0 [facility] MA[facility] Comment on above: Performed By: #### NORI ZEPEDA #### [place] [id number] Hgb 14.7 G/dL Normal 13.0-17.5 [facility] Comment on above: Performed By: #### A NORI RIOS #### [address] [address] MCH (RBC) [Entitic mass] 32.7 pg Normal 27.0-33.0 [facility] Comment on above: Performed By: #### NORI ZEPEDA #### [place] [id number] MCHC 34.6 G/dL Normal 32.0-36.0 [facility] Comment on above: Performed By: #### A NORI RIOS #### [place] [address] MCV (RBC) [Entitic vol] 94.5 fL Normal 81.0-100.0 [facility] Comment on above: Performed By: #### A NORI RIOS #### [place] [address] Platelet 220 10 3/mcL Normal 150-450 [facility] Comment on above: Performed By: #### A NORI RIOS #### [place] [address] Platelet mean volume (Bld) [Entitic vol] 8.4 fL Normal 6.4-10.5 [facility] Comment on above: Performed By: #### A NORI RIOS #### [place] [address] RBC 4.49 10 6/mcL Low 4.50-6.00 [facility] Comment on above: Performed By: #### A NORI RIOS #### [place] [address] WBC 5.3 10 3/mcL Normal 4.5-10.8 [facility] Comment on above: Performed By: #### A NORI RIOS #### [place] [address] FIBon 12-25-2024 Fibrinogen 321 mg/dL Normal 250-560 [facility] MA[facility] Comment on above: Performed By: #### G FR, PRO, CBC, BMP, ADIFF, ANEU #### [place] [address] LABORATORYOrdered By: Florencio Michael on 12-25-2024 ABO [...] 11 0 mEq/L ADM SS CO2 [Moles/Vol] 27 mmol/L Normal 22 - 32 mEq/L ADM SS Creatinine [Mass/Vol] 1.11 mg/dL Normal 0.60 - 1.40 mg/dL ADM SS Comment on above: Interpretive Data: T esting performed on [employer] analyzer using enzymatic creatinine methodology. Electrolyte Balance [...] 99 mg/dL Normal 82 - 115 mg/dL ADM SS Hematocrit (Bld) [Volume fraction] 42.4 % Normal 40.0 - 52.0 % Workflow SS Hemoglobin (Bld) [Mass/Vol] 14.7 G/dL Normal 13.0 - 17.5 G/dL Workflow SS Lymphocytes (Bld) [#/Vol] 1.0 103/mcL Normal 0.9 - 4.3 10^3/mcL Workflow SS Lymphocytes/100 WBC (Bld) 18.3 % Low 20.0 - 40.0 % Workflow SS MCH (RBC) [Entitic mass] 32.7 pg Normal 27.0 - 33.0 pg Workflow SS MCHC 34.6 G/dL Normal 32.0 - 36.0 G/dL Workflow SS MCV (RBC) [Entitic vol] 94.5 fL Normal 81.0 - 100.0 fL Workflow SS Monocytes (Bld) [#/Vol] 0.7 103/mcL Normal 0.1 - 1.4 10^3/mcL Workflow SS Monocytes/100 WBC (Bld) 12.5 % Normal 2.0 - 13.0 % Workflow SS Neutrophils (Bld) [#/Vol] 3.4 103/mcL Normal 2.3 - 8.1 10^3/mcL Workflow SS Neutrophils/100 WBC (Bld) 63.5 % [...] Comment on above: Interpretive Data: Александр troncoso [employer] (CHEST, 1991, 102:312S-25S) recommended therapeutic range for oral anticoagulant therapy is: LOW RISK: Prophylaxis of venous thrombosis INR: 2.0-3.0 Treatment of pulmonary embolism 2.0-3.0 Prevention of systemic embolism 2.0-3.0 HIGH RISK: Mechanical prosthetic valves 2.5-3.5 RBC (Bld) [#/Vol] 4.49 106/mcL Low 4.50 - 6.0 0 10^6/mcL Workflow SS Sodium [Moles/Vol] 144 mmol/L Normal 136 - 145 mEq/L ADM SS Urea nitrogen [Mass/Vol] 15.0 mg/dL Normal 8.0 - 22.0 mg/dL ADM SS Urea nitrogen/Creatinine [Mass ratio] 13.5 ratio Normal 10.0 - 22.0 ratio ADM SS WBC (Bld) [#/Vol] 5.3 103/mcL Normal 4.5 - 10.8 10^3/mcL Workflow SS PROon 12-25-2024 INR Coag (PPP) [Relative time] 1.0 {INR} Normal [facility] MAIN Comment on above: Result Comment: [employer] (CHEST, 1991, 102:312S-25S) recommended therapeutic range for oral anticoagulant therapy is: LOW RISK: Prophylaxis of venous thrombosis INR: 2.0-3.0 Treatment of pulmonary embolism 2.0-3.0 Prevention of systemic embolism 2.0-3.0 HIGH RISK: Mechanical prosthetic valves 2.5-3.5 Performed By: #### G FR, PRO, CBC, BMP, ADIFF, ANEU #### [place] [address] PT Coag (PPP) [Time] 11.6 s Normal 9.0-14.4 [facility] MAIN Comment on above: Result Comment: Effe ctive 03/19/08, Protime results may be affected by some antibiotics (i.e. Ciprofloxacin, Azithromycin, Bactrim) which may potentiate the action of oral anticoagulants, with further increases in Protime/INR. Performed By: #### G FR, PRO, CBC, BMP, ADIFF, ANEU #### [place] [address] .Auto Diffon 11-28-2024 Basophil, Absolute 0.1 10 3/mcL Normal 0.0-0.3 [facility] MA[facility] Comment on above: Performed By: #### A NORI RIOS #### [address] [address] Basophils/100 WBC (Bld) 1.1 % Normal 0.0-2.5 [facility] MA[facility] Comment on above: Performed By: #### A NORI RIOS #### [address] [address] Eosinophil, Absolute 0.3 10 3/mcL Normal 0.0-0.7 [facility] MAIN Comment on above: Performed By: #### A NORI RIOS #### [address] [address] Eosinophils/100 WBC (Bld) 4.5 % Normal 0.0-6.0 [facility] Comment on above: Performed By: #### A NORI RIOS #### [address] [address] Lymphocyte, Absolute 1.4 10 3/mcL Normal 0.9-4.3 [facility] MAIN Comment on above: Performed By: #### A NORI RIOS #### [address] [address] Lymphocytes/100 WBC (Bld) 22.6 % Normal 20.0-40.0 [facility] Comment on above: Performed By: #### NORI ZEPEDA #### [address] [address] Monocyte, Absolute 0.7 10 3/mcL Normal 0.1-1.4 [facility] Comment on above: Performed By: #### A NORI RIOS #### [address] [address] Monocytes/100 WBC (Bld) 11.0 % Normal 2.0-13.0 [facility] Comment on above: Performed By: #### A NORI RIOS #### [address] [address] Neutrophils/100 WBC (Bld) 60.8 % Normal 50.0-75.0 [facility] Comment on above: Performed By: #### A NORI RIOS #### [address] [address] .GFRon 11-28-2024 Estimated Glomerular Filtration Rate 66 ml/min/1.73sqm Normal [facility] Comment on above: Result Comment: Stages [...] FR, PRO, CBC, BMP, ADIFF, ANEU #### [address] [address] .NEUABSon 11-28-2024 Neutrophil, Absolute 3.8 10 3/mcL Normal 2.3-8.1 [facility] Comment on above: Performed By: #### A NORI RIOS #### [address] [address] ABO/Rh (Gel)on 11-28-2024 ABO/Rh Interp Positive Invalid Interpretation Code [facility] Comment on above: Performed By: #### A NORI RIOS #### [address] [address] ABS (Gel)on 11-28-2024 ABSC Interp (Gel) Negative Normal [facility] Comment on above: Performed By: #### NORI ZEPEDA #### [address] [address] CBCon 11-28-2024 Erythrocyte distribution width (RBC) [Ratio] 14.8 % Normal 11.5-15.5 [facility] Comment on above: Performed By: #### A NORI RIOS #### [place] [address] Hematocrit (Bld) [Volume fraction] 46.0 % Normal 40.0-52.0 [facility] Comment on above: Performed By: #### A NORI RIOS #### [place] [address] Hgb 15.3 G/dL Normal 13.0-17.5 [facility] Comment on above: Performed By: #### A NORI RIOS #### [place] [address] MCH (RBC) [Entitic mass] 31.6 pg Normal 27.0-33.0 [facility] Comment on above: Performed By: #### A NORI RIOS #### [place] [address] MCHC 33.3 G/dL Normal 32.0-36.0 [facility] Comment on above: Performed By: #### A NORI RIOS #### [place] [address] MCV (RBC) [Entitic vol] 95.0 fL Normal 81.0-100.0 [facility] Comment on above: Performed By: #### A NORI RIOS #### [place] [address] Platelet 225 10 3/mcL Normal 150-450 [facility] Comment on above: Performed By: #### NORI ZEPEDA #### [place] [address] Platelet mean volume (Bld) [Entitic vol] 8.6 fL Normal 6.4-10.5 [facility] Comment on above: Performed By: #### A NORI RIOS #### [place] [address] RBC 4.85 10 6/mcL Normal 4.50-6.00 [facility] Comment on above: Performed By: #### A NORI RIOS #### [place] [id number] WBC 6.3 10 3/mcL Normal 4.5-10.8 [facility] Comment on above: Performed By: #### A NORI RIOS #### [place] [id number] CMPon 11-28-2024 Albumin Level 3.9 G/dL Normal 3.2-4.8 [facility] Comment on above: Performed By: #### G FR, PRO, CBC, BMP, ADIFF, ANEU #### [place] [address] Albumin/Globulin [Mass ratio] 1.3 {ratio} Normal 0.9-1.6 [facility] Comment on above: Performed By: #### G FR, PRO, CBC, BMP, ADIFF, ANEU #### [place] [address] ALP [Catalytic activity/Vol] 63 U/L Normal 38-126 [facility] Comment on above: Performed By: #### G FR, PRO, CBC, BMP, ADIFF, ANEU #### [place] [address] ALT [Catalytic activity/Vol] 27 U/L Normal 12-55 [facility] Comment on above: Performed By: #### G FR, PRO, CBC, BMP, ADIFF, ANEU #### [place] [address] AST [Catalytic activity/Vol] 35 U/L High 8-34 [facility] Comment on above: Performed By: #### G FR, PRO, CBC, BMP, ADIFF, ANEU #### [place] [address] Bili Total 0.60 mg/dL Normal 0.20-1.20 [facility] Comment on above: Result Comment: Use of this assay is not recommended for patients undergoing treatment with eltrombopag due to the potential for falsely elevated results. Performed By: #### G FR, PRO, CBC, BMP, ADIFF, ANEU #### [place] [address] BUN/Creatinine Ratio 14.4 ratio Normal 10.0-22.0 [facility] Comment on above: Performed By: #### G FR, PRO, CBC, BMP, ADIFF, ANEU #### [address] [address] Calcium [Mass/Vol] 8.8 mg/dL Normal 8.7-10.4 [facility] Comment on above: Performed By: #### G FR, PRO, CBC, BMP, ADIFF, ANEU #### [address] [address] Chloride [Moles/Vol] 107 mmol/L Normal 98-110 [facility] Comment on above: Performed By: #### G FR, PRO, CBC, BMP, ADIFF, ANEU #### [address] [address] CO2 [Moles/Vol] 24 mmol/L Normal 22-32 [facility] Comment on above: Performed By: #### G FR, PRO, CBC, BMP, ADIFF, ANEU #### [address] [address] Creatinine [Mass/Vol] 1.18 mg/dL Normal 0.60-1.40 [facility] Comment on above: Result Comment: Test ing performed on [employer] analyzer using enzymatic creatinine methodology. Performed By: #### G FR, PRO, CBC, BMP, ADIFF, ANEU #### [address] [address] Electrolyte Balance 9.0 mEq/L Normal 4.0-15.0 [facility] Comment on above: Performed By: #### G FR, PRO, CBC, BMP, ADIFF, ANEU #### [address] [address] Globulin 3.1 G/dL Normal 1.5-3.8 [facility] Comment on above: Performed By: #### G FR, PRO, CBC, BMP, ADIFF, ANEU #### [address] [address] Glucose [Mass/Vol] 153 mg/dL High 82-115 [facility] Comment on above: Performed By: #### G FR, PRO, CBC, BMP, ADIFF, ANEU #### [address] [address] Potassium [Moles/Vol] 4.1 mmol/L Normal 3.5-5.0 [facility] Comment on above: Performed By: #### G FR, PRO, CBC, BMP, ADIFF, ANEU #### [address] [address] Sodium [Moles/Vol] 140 mmol/L Normal 136-145 [facility] Comment on above: Performed By: #### G FR, PRO, CBC, BMP, ADIFF, ANEU #### [address] [address] Total Protein 7.0 G/dL Normal 5.7-8.2 [facility] Comment on above: Performed By: #### G FR, PRO, CBC, BMP, ADIFF, ANEU #### [address] [address] Urea nitrogen [Mass/Vol] 17.0 mg/dL Normal 8.0-22.0 [facility] Comment on above: Performed By: #### G FR, PRO, CBC, BMP, ADIFF, ANEU #### [address] [address] LABORATORYOrdered By: SYSTEM SYSTEM on 11-28-2024 Albumin [...] 24 mmol/L Normal 22 - 32 mEq/L ADM SS Creatinine [Mass/Vol] 1.18 mg/dL Normal 0.60 - 1.40 mg/dL ADM SS Comment on above: Interpretive Data: T esting performed on [employer] analyzer using enzymatic creatinine methodology. Electrolyte Balance [...] 46.0 % Normal 40.0 - 52.0 % AH Workflow SS Hemoglobin (Bld) [Mass/Vol] 15.3 G/dL Normal 13.0 - 17.5 G/dL AH Workflow SS Lymphocytes (Bld) [#/Vol] 1.4 103/mcL Normal 0.9 - 4.3 10^3/mcL AH Workflow SS Lymphocytes/100 WBC (Bld) 22.6 % Normal 20.0 - 40.0 % AH Workflow SS MCH (RBC) [Entitic mass] 31.6 pg Normal 27.0 - 33.0 pg AH Workflow SS MCHC [...] 7.0 G/dL Normal 5.7 - 8.2 G/dL AH ADM SS RBC (Bld) [#/Vol] 4.85 106/mcL Normal 4.50 - 6.0 0 10^6/mcL AH Workflow SS Sodium [Moles/Vol] 140 mmol/L Normal 136 - 145 mEq/L AH ADM SS Urea nitrogen [Mass/Vol] 17.0 mg/dL Normal 8.0 - 22.0 mg/dL AH ADM SS Urea nitrogen/Creatinine [Mass ratio] 14.4 ratio Normal 10.0 - 22.0 ratio AH ADM SS WBC (Bld) [#/Vol] 6.3 103/mcL Normal 4.5 - 10.8 10^3/mcL AH Workflow SS A1Con 11-21-2024 Glucose [Mass/Vol] 134 mg/dL Normal [facility] Comment on above: Result Comment: Radha mated Average Glucose calculated by equation ((28.7xA1C)-46.7) Estimated average glucose (eAG) is a calculated value from Hemoglobin A1C and is title insurance sales representative of the average blood glucose level in the last 2-3 month period. Normal range: less than 114 mg/dL Performed By: #### T SH, ADIFF, CBC, LIPID, CMP, VIDH, ANEU, GFR #### [address] [address] #### FT4 #### [address] [address] HbA1c (Bld) [Mass fraction] 6.3 % Normal 4.3-6.4 [facility] Comment on above: Performed By: #### T SH, ADIFF, CBC, LIPID, CMP, VIDH, ANEU, GFR #### [address] [address] #### FT4 #### [address] [address] Head/Neck Soft Tissueon 11-03 Head/Neck Soft Tissue [facility] Imaging Services [address] [place], [place] [address] Head/Neck Soft Tissue MR#: [id number] Acct: [id number] Name: CHARLOTTE DE LA TORRE Rep #: [id number] : 1950 74 From: [address] MD PCP: Dr. Jose Maria MD Status: REG CLI Study: Head/Neck Soft Tissue Date of Exam: 11/14/24 Exam# [id number] Ordering Dr: Jose Maria MD PROCEDURE: HEAD/NECK [...] density suggestive of a lipoma. Reading Location: [id number] CC: Dr. Jose Maria MD [employer]: Signed Normal [facility] .Auto Diffon 11-06-2024 Basophil, Absolute 0.1 10 3/mcL Normal 0.0-0.2 [facility] Comment on above: Performed By: #### T SH, ADIFF, CBC, LIPID, CMP, VIDH, ANEU, GFR #### [place] [address] #### FT4 #### [address] [address] Basophils/100 WBC (Bld) 1.4 % Normal 0.0-2.5 [facility] Comment on above: Performed By: #### T SH, ADIFF, CBC, LIPID, CMP, VIDH, ANEU, GFR #### [place] [address] #### FT4 #### [address] [address] Eosinophil, Absolute 0.4 10 3/mcL Normal 0.0-0.7 [facility] Comment on above: Performed By: #### T SH, ADIFF, CBC, LIPID, CMP, VIDH, ANEU, GFR #### [place] [address] #### FT4 #### [address] [address] Eosinophils/100 WBC (Bld) 4.0 % Normal 0.0-7.0 [facility] Comment on above: Performed By: #### T SH, ADIFF, CBC, LIPID, CMP, VIDH, ANEU, GFR #### [place] [address] #### FT4 #### [address] [address] Lymphocyte, Absolute 2.3 10 3/mcL Normal 0.9-4.3 [facility] Comment on above: Performed By: #### T SH, ADIFF, CBC, LIPID, CMP, VIDH, ANEU, GFR #### [place] [address] #### FT4 #### [address] [address] Lymphocytes/100 WBC (Bld) 26.5 % Normal 20.0-40.0 [facility] Comment on above: Performed By: #### T SH, ADIFF, CBC, LIPID, CMP, VIDH, ANEU, GFR #### [place] [address] #### FT4 #### [address] [address] Monocyte, Absolute 1.0 10 3/mcL Normal 0.1-1.4 [facility] Comment on above: Performed By: #### T SH, ADIFF, CBC, LIPID, CMP, VIDH, ANEU, GFR #### [place] [address] #### FT4 #### [address] [address] Monocytes/100 WBC (Bld) 10.8 % Normal 2.0-13.0 [facility] Comment on above: Performed By: #### T SH, ADIFF, CBC, LIPID, CMP, VIDH, ANEU, GFR #### [place] [address] #### FT4 #### [address] [address] Neutrophils/100 WBC (Bld) 57.3 % Normal 50.0-75.0 [facility] Comment on above: Performed By: #### T SH, ADIFF, CBC, LIPID, CMP, VIDH, ANEU, GFR #### [place] [address] #### FT4 #### [address] [address] .GFRon 11-06-2024 Estimated Glomerular Filtration Rate 51 [...] calculate the eGFR results. Performed By: #### T SH, ADIFF, CBC, LIPID, CMP, VIDH, ANEU, GFR #### [address] [address] #### FT4 #### [address] [address] .NEUABSon 11-06-2024 Neutrophil, Absolute 5.1 10 3/mcL Normal 2.3-8.1 [facility] Comment on above: Performed By: #### T SH, ADIFF, CBC, LIPID, CMP, VIDH, ANEU, GFR #### [address] [address] #### FT4 #### [address] [address] CBCon 11-06-2024 Erythrocyte distribution width (RBC) [Ratio] 13.9 % Normal 11.5-15.5 [facility] Comment on above: Performed By: #### T SH, ADIFF, CBC, LIPID, CMP, VIDH, ANEU, GFR #### [address] [address] #### FT4 #### [address] [address] Hematocrit (Bld) [Volume fraction] 44.5 % Normal 40.0-52.0 [facility] Comment on above: Performed By: #### T SH, ADIFF, CBC, LIPID, CMP, VIDH, ANEU, GFR #### [place] [address] #### FT4 #### [place] [address] Hgb 15.1 G/dL Normal 13.0-17.5 [facility] Comment on above: Performed By: #### T SH, ADIFF, CBC, LIPID, CMP, VIDH, ANEU, GFR #### [place] [address] #### FT4 #### [place] [address] MCH (RBC) [Entitic mass] 31.9 pg Normal 27.0-33.0 [facility] Comment on above: Performed By: #### T SH, ADIFF, CBC, LIPID, CMP, VIDH, ANEU, GFR #### [place] [address] #### FT4 #### [place] [address] MCHC 33.9 G/dL Normal 32.0-36.0 [facility] Comment on above: Performed By: #### T SH, ADIFF, CBC, LIPID, CMP, VIDH, ANEU, GFR #### [place] [address] #### FT4 #### [place] [address] MCV (RBC) [Entitic vol] 94.2 fL Normal 81.0-100.0 [facility] Comment on above: Performed By: #### T SH, ADIFF, CBC, LIPID, CMP, VIDH, ANEU, GFR #### [place] [address] #### FT4 #### [place] [address] Platelet 261 10 3/mcL Normal 150-450 [facility] Comment on above: Performed By: #### T SH, ADIFF, CBC, LIPID, CMP, VIDH, ANEU, GFR #### [address] [address] #### FT4 #### [address] [address] Platelet mean volume (Bld) [Entitic vol] 8.0 fL Normal 6.4-10.5 [facility] Comment on above: Performed By: #### T SH, ADIFF, CBC, LIPID, CMP, VIDH, ANEU, GFR #### [place] [address] #### FT4 #### [place] [address] RBC 4.72 10 6/mcL Normal 4.50-6.00 [facility] Comment on above: Performed By: #### T SH, ADIFF, CBC, LIPID, CMP, VIDH, ANEU, GFR #### [place] [address] #### FT4 #### [address] [address] WBC 8.8 10 3/mcL Normal 4.5-10.8 [facility] Comment on above: Performed By: #### T SH, ADIFF, CBC, LIPID, CMP, VIDH, ANEU, GFR #### [place] [address] #### FT4 #### [address] [address] CMPon 11-06-2024 Albumin Level 3.6 G/dL Normal 3.4-4.8 [facility] Comment on above: Performed By: #### T SH, ADIFF, CBC, LIPID, CMP, VIDH, ANEU, GFR #### [address] [address] #### FT4 #### [place] [address] Albumin/Globulin [Mass ratio] 1.0 {ratio} Low 1.1-2.5 [facility] Comment on above: Performed By: #### T SH, ADIFF, CBC, LIPID, CMP, VIDH, ANEU, GFR #### [place] [address] #### FT4 #### [place] [address] ALP [Catalytic activity/Vol] 56 U/L Normal 40-135 [facility] Comment on above: Performed By: #### T SH, ADIFF, CBC, LIPID, CMP, VIDH, ANEU, GFR #### [place] [address] #### FT4 #### [place] [address] ALT [Catalytic activity/Vol] 30 U/L Normal 16-63 [facility] Comment on above: Performed By: #### T SH, ADIFF, CBC, LIPID, CMP, VIDH, ANEU, GFR #### [place] [address] #### FT4 #### [place] [address] AST [Catalytic activity/Vol] 24 U/L Normal 10-40 [facility] Comment on above: Performed By: #### T SH, ADIFF, CBC, LIPID, CMP, VIDH, ANEU, GFR #### [place] [address] #### FT4 #### [place] [address] Bili Total 0.6 mg/dL Normal 0.2-1.0 [facility] Comment on above: Result Comment: Use of this assay is not recommended for patients undergoing treatment with eltrombopag due to the potential for falsely elevated results. Performed By: #### T SH, ADIFF, CBC, LIPID, CMP, VIDH, ANEU, GFR #### [place] [address] #### FT4 #### [address] [address] BUN/Creatinine Ratio 11 ratio Normal 7-27 [facility] Comment on above: Performed By: #### T SH, ADIFF, CBC, LIPID, CMP, VIDH, ANEU, GFR #### [address] [address] #### FT4 #### [address] [address] Calcium [Mass/Vol] 8.6 mg/dL Normal 8.4-10.2 [facility] Comment on above: Performed By: #### T SH, ADIFF, CBC, LIPID, CMP, VIDH, ANEU, GFR #### [place] [address] #### FT4 #### [address] [address] Chloride [Moles/Vol] 105 mmol/L Normal 98-107 [facility] Comment on above: Performed By: #### T SH, ADIFF, CBC, LIPID, CMP, VIDH, ANEU, GFR #### [place] [address] #### FT4 #### [address] [address] CO2 [Moles/Vol] 28 mmol/L Normal 23-31 [facility] Comment on above: Performed By: #### T SH, ADIFF, CBC, LIPID, CMP, VIDH, ANEU, GFR #### [place] [address] #### FT4 #### [address] [address] Creatinine [Mass/Vol] 1.46 mg/dL High 0.70-1.30 [facility] Comment on above: Result Comment: Test ing performed on elicit Dimension EXL analyzer using a modified kinetic [place] technique. Performed By: #### T SH, ADIFF, CBC, LIPID, CMP, VIDH, ANEU, GFR #### [place] [address] #### FT4 #### [address] [address] Electrolyte Balance 9.0 mEq/L Normal 4.0-15.0 [facility] Comment on above: Performed By: #### T SH, ADIFF, CBC, LIPID, CMP, VIDH, ANEU, GFR #### [address] [address] #### FT4 #### [address] [address] Globulin 3.6 G/dL Normal 1.5-3.8 [facility] Comment on above: Performed By: #### T SH, ADIFF, CBC, LIPID, CMP, VIDH, ANEU, GFR #### [address] [address] #### FT4 #### [address] [address] Glucose [Mass/Vol] 117 mg/dL High 83-110 [facility] Comment on above: Performed By: #### T SH, ADIFF, CBC, LIPID, CMP, VIDH, ANEU, GFR #### [address] [address] #### FT4 #### [address] [address] Potassium [Moles/Vol] 4.0 mmol/L Normal 3.5-5.1 [facility] Comment on above: Performed By: #### T SH, ADIFF, CBC, LIPID, CMP, VIDH, ANEU, GFR #### [address] [address] #### FT4 #### [address] [address] Sodium [Moles/Vol] 142 mmol/L Normal 136-145 [facility] Comment on above: Performed By: #### T SH, ADIFF, CBC, LIPID, CMP, VIDH, ANEU, GFR #### [address] [address] #### FT4 #### [place] [id number] Total Protein 7.2 G/dL Normal 6.4-8.2 [facility] Comment on above: Performed By: #### T SH, ADIFF, CBC, LIPID, CMP, VIDH, ANEU, GFR #### [address] [address] #### FT4 #### [place] [address] Urea nitrogen [Mass/Vol] 16 mg/dL Normal 7-18 [facility] Comment on above: Performed By: #### T SH, ADIFF, CBC, LIPID, CMP, VIDH, ANEU, GFR #### [place] [address] #### FT4 #### [place] [address] FT4on 11-06-2024 Free T4 [Mass/Vol] 1.88 ng/dL High 0.89-1.76 [facility] Comment on above: Result Comment: No te - New Reference Range in effect 20 Performed By: #### T SH, ADIFF, CBC, LIPID, CMP, VIDH, ANEU, GFR #### [place] [address] #### FT4 #### [place] [address] LABORATORYOrdered By: SYSTEM SYSTEM on 11-06-2024 25-hydroxyvitamin [...] MCH (RBC) [Entitic mass] 31.9 pg Normal 27.0 - 33.0 pg AO Workflow SS MCHC [...] [Mass/Vol] 16 mg/dL Normal 7 - 18 mg/dL AO ADM SS Urea nitrogen/Creatinine [Mass ratio] [...] 11-06-2024 Cholesterol [Mass/Vol] 127 mg/dL Normal 0-200 [facility] Comment on above: Result Comment: Chol esterol Reference Interval: Less than 200 Desirable 200-239 Borderline high risk 240 and above High risk Performed By: #### T SH, ADIFF, CBC, LIPID, CMP, VIDH, ANEU, GFR #### [facility] [address] [place], [place] [address] #### FT4 #### [facility] [address] [place] [address] Cholesterol in HDL [Mass/Vol] 55 mg/dL Normal 40-60 [facility] Comment on above: Performed By: #### T SH, ADIFF, CBC, LIPID, CMP, VIDH, ANEU, GFR #### [address] [address] #### FT4 #### [address] [address] Cholesterol in LDL [Mass/Vol] 55 mg/dL Normal 0-130 [facility] Comment on above: Performed By: #### T SH, ADIFF, CBC, LIPID, CMP, VIDH, ANEU, GFR #### [address] [address] #### FT4 #### [address] [address] Triglyceride [Mass/Vol] 87 mg/dL Normal 0-150 [facility] Comment on above: Result Comment: Trig lyceride Reference Interval: Less than 150 Normal 150-199 Borderline high risk 200-499 High risk 500 or higher Very high risk Performed By: #### T SH, ADIFF, CBC, LIPID, CMP, VIDH, ANEU, GFR #### [address] [address] #### FT4 #### [address] [address] TSHon 11-06-2024 TSH Qn 7.98 m[IU]/L High 0.36-3.74 [facility] Comment on above: Performed By: #### T SH, ADIFF, CBC, LIPID, CMP, VIDH, ANEU, GFR #### [address] [address] #### FT4 #### [address] [address] VIDHon 11-06-2024 Vit. D 25-Hydroxy 9.1 ng/mL Normal [facility] Comment on above: Result Comment: Inte rpretive Values Based on Total 25(OH) Vitamin D: Deficient <20 ng/mL Insufficient 20 - <30 ng/mL Sufficient 30-100 ng/mL Performed By: #### T SH, ADIFF, CBC, LIPID, CMP, VIDH, ANEU, GFR #### [address] [address] #### FT4 #### [address] [address] .Auto Diffon 10-23-2024 Basophil, Absolute 0.1 10 3/mcL Normal 0.0-0.2 [facility] Comment on above: Performed By: #### T SH, ADIFF, CBC, LIPID, CMP, VIDH, ANEU, GFR #### [address] [address] #### FT4 #### [address] [address] Basophils/100 WBC (Bld) 0.9 % Normal 0.0-2.5 [facility] Comment on above: Performed By: #### T SH, ADIFF, CBC, LIPID, CMP, VIDH, ANEU, GFR #### [address] [address] #### FT4 #### [address] [address] Eosinophil, Absolute 0.2 10 3/mcL Normal 0.0-0.7 [facility] Comment on above: Performed By: #### T SH, ADIFF, CBC, LIPID, CMP, VIDH, ANEU, GFR #### [address] [address] #### FT4 #### [address] [address] Eosinophils/100 WBC (Bld) 1.6 % Normal 0.0-7.0 [facility] Comment on above: Performed By: #### T SH, ADIFF, CBC, LIPID, CMP, VIDH, ANEU, GFR #### [address] [address] #### FT4 #### [address] [address] Lymphocyte, Absolute 0.8 10 3/mcL Low 0.9-4.3 [facility] Comment on above: Performed By: #### T SH, ADIFF, CBC, LIPID, CMP, VIDH, ANEU, GFR #### [place] [address] #### FT4 #### [address] [address] Lymphocytes/100 WBC (Bld) 7.0 % Low 20.0-40.0 [facility] Comment on above: Performed By: #### T SH, ADIFF, CBC, LIPID, CMP, VIDH, ANEU, GFR #### [place] [address] #### FT4 #### [address] [address] Monocyte, Absolute 1.6 10 3/mcL High 0.1-1.4 [facility] Comment on above: Performed By: #### T SH, ADIFF, CBC, LIPID, CMP, VIDH, ANEU, GFR #### [place] [address] #### FT4 #### [address] [address] Monocytes/100 WBC (Bld) 14.0 % High 2.0-13.0 [facility] Comment on above: Performed By: #### T SH, ADIFF, CBC, LIPID, CMP, VIDH, ANEU, GFR #### [place] [address] #### FT4 #### [address] [address] Neutrophils/100 WBC (Bld) 76.5 % High 50.0-75.0 [facility] Comment on above: Performed By: #### T SH, ADIFF, CBC, LIPID, CMP, VIDH, ANEU, GFR #### [place] [address] #### FT4 #### [address] [address] .GFRon 10-23-2024 Estimated Glomerular Filtration Rate 53 [...] calculate the eGFR results. Performed By: #### T SH, ADIFF, CBC, LIPID, CMP, VIDH, ANEU, GFR #### [place] [address] #### FT4 #### [place] [address] .MDWon 10-23-2024 Monocyte Distribution Width 20.72 High 0.00-20.00 [facility] Comment on above: Result Comment: For adults in ED, MDW>20.0 may be associated with a higher risk of sepsis during the first 12hrs of hospital admission Performed By: #### T SH, ADIFF, CBC, LIPID, CMP, VIDH, ANEU, GFR #### [place] [address] #### FT4 #### [place] [address] .NEUABSon 10-23-2024 Neutrophil, Absolute 8.6 10 3/mcL High 2.3-8.1 [facility] Comment on above: Performed By: #### T SH, ADIFF, CBC, LIPID, CMP, VIDH, ANEU, GFR #### [place] [address] #### FT4 #### [place] [address] BMPon 10-23-2024 BUN/Creatinine Ratio 13 ratio Normal 7-27 [facility] Comment on above: Performed By: #### T SH, ADIFF, CBC, LIPID, CMP, VIDH, ANEU, GFR #### [place] [address] #### FT4 #### [address] [address] Calcium [Mass/Vol] 8.6 mg/dL Normal 8.4-10.2 [facility] Comment on above: Performed By: #### T SH, ADIFF, CBC, LIPID, CMP, VIDH, ANEU, GFR #### [place] [address] #### FT4 #### [address] [address] Chloride [Moles/Vol] 102 mmol/L Normal 98-107 [facility] Comment on above: Performed By: #### T SH, ADIFF, CBC, LIPID, CMP, VIDH, ANEU, GFR #### [place] [address] #### FT4 #### [place] [address] CO2 [Moles/Vol] 23 mmol/L Normal 23-31 [facility] Comment on above: Performed By: #### T SH, ADIFF, CBC, LIPID, CMP, VIDH, ANEU, GFR #### [place] [address] #### FT4 #### [address] [address] Creatinine [Mass/Vol] 1.41 mg/dL High 0.70-1.30 [facility] Comment on above: Result Comment: Test ing performed on Siemens Dimension EXL analyzer using a modified kinetic [place] technique. Performed By: #### T SH, ADIFF, CBC, LIPID, CMP, VIDH, ANEU, GFR #### [place] [address] #### FT4 #### [address] [address] Electrolyte Balance 11.0 mEq/L Normal 4.0-15.0 [facility] Comment on above: Performed By: #### T SH, ADIFF, CBC, LIPID, CMP, VIDH, ANEU, GFR #### [address] [address] #### FT4 #### [address] [address] Glucose [Mass/Vol] 138 mg/dL High 83-110 [facility] Comment on above: Performed By: #### T SH, ADIFF, CBC, LIPID, CMP, VIDH, ANEU, GFR #### [address] [address] #### FT4 #### [address] [address] Potassium [Moles/Vol] 4.0 mmol/L Normal 3.5-5.1 [facility] Comment on above: Performed By: #### T SH, ADIFF, CBC, LIPID, CMP, VIDH, ANEU, GFR #### [place] [address] #### FT4 #### [address] [address] Sodium [Moles/Vol] 136 mmol/L Normal 136-145 [facility] Comment on above: Performed By: #### T SH, ADIFF, CBC, LIPID, CMP, VIDH, ANEU, GFR #### [address] [address] #### FT4 #### [address] [address] Urea nitrogen [Mass/Vol] 19 mg/dL High 7-18 [facility] Comment on above: Performed By: #### T SH, ADIFF, CBC, LIPID, CMP, VIDH, ANEU, GFR #### [address] [address] #### FT4 #### [address] [address] CBCon 10-23-2024 Erythrocyte distribution width (RBC) [Ratio] 14.3 % Normal 11.5-15.5 [facility] Comment on above: Performed By: #### T SH, ADIFF, CBC, LIPID, CMP, VIDH, ANEU, GFR #### [place] [address] #### FT4 #### [place] [address] Hematocrit (Bld) [Volume fraction] 44.7 % Normal 40.0-52.0 [facility] Comment on above: Performed By: #### T SH, ADIFF, CBC, LIPID, CMP, VIDH, ANEU, GFR #### [place] [address] #### FT4 #### [place] [address] Hgb 15.2 G/dL Normal 13.0-17.5 [facility] Comment on above: Performed By: #### T SH, ADIFF, CBC, LIPID, CMP, VIDH, ANEU, GFR #### [place] [address] #### FT4 #### [place] [address] MCH (RBC) [Entitic mass] 31.9 pg Normal 27.0-33.0 [facility] Comment on above: Performed By: #### T SH, ADIFF, CBC, LIPID, CMP, VIDH, ANEU, GFR #### [place] [address] #### FT4 #### [place] [address] MCHC 34.0 G/dL Normal 32.0-36.0 [facility] Comment on above: Performed By: #### T SH, ADIFF, CBC, LIPID, CMP, VIDH, ANEU, GFR #### [place] [address] #### FT4 #### [place] [address] MCV (RBC) [Entitic vol] 93.7 fL Normal 81.0-100.0 [facility] Comment on above: Performed By: #### T SH, ADIFF, CBC, LIPID, CMP, VIDH, ANEU, GFR #### [place] [address] #### FT4 #### [address] [address] Platelet 233 10 3/mcL Normal 150-450 [facility] Comment on above: Performed By: #### T SH, ADIFF, CBC, LIPID, CMP, VIDH, ANEU, GFR #### [place] [address] #### FT4 #### [place] [address] Platelet mean volume (Bld) [Entitic vol] 7.8 fL Normal 6.4-10.5 [facility] Comment on above: Performed By: #### T SH, ADIFF, CBC, LIPID, CMP, VIDH, ANEU, GFR #### [place] [address] #### FT4 #### [place] [address] RBC 4.77 10 6/mcL Normal 4.50-6.00 [facility] Comment on above: Performed By: #### T SH, ADIFF, CBC, LIPID, CMP, VIDH, ANEU, GFR #### [place] [address] #### FT4 #### [place] [address] WBC 11.3 10 3/mcL High 4.5-10.8 [facility] Comment on above: Performed By: #### T SH, ADIFF, CBC, LIPID, CMP, VIDH, ANEU, GFR #### [place] [address] #### FT4 #### [place] [address] LABORATORYOrdered By: SYSTEM SYSTEM on 10-23-2024 Basophils [...] MCH (RBC) [Entitic mass] 31.9 pg Normal 27.0 - 33.0 pg AO Workflow SS MCHC [...] [Mass/Vol] 19 mg/dL High 7 - 18 mg/dL AO ADM SS Urea nitrogen/Creatinine [Mass ratio] [...] Basophil, Absolute 0.1 10 3/mcL Normal 0.0-0.3 [facility] Comment on above: Performed By: #### G FR, PRO, CBC, BMP, ADIFF, ANEU #### [address] [address] Basophils/100 WBC (Bld) 1.2 % Normal 0.0-2.5 [facility] Comment on above: Performed By: #### G FR, PRO, CBC, BMP, ADIFF, ANEU #### [address] [address] Eosinophil, Absolute 0.2 10 3/mcL Normal 0.0-0.7 [facility] Comment on above: Performed By: #### G FR, PRO, CBC, BMP, ADIFF, ANEU #### [address] [address] Eosinophils/100 WBC (Bld) 4.2 % Normal 0.0-6.0 [facility] Comment on above: Performed By: #### G FR, PRO, CBC, BMP, ADIFF, ANEU #### [address] [address] Lymphocyte, Absolute 1.0 10 3/mcL Normal 0.9-4.3 [facility] Comment on above: Performed By: #### G FR, PRO, CBC, BMP, ADIFF, ANEU #### [address] [address] Lymphocytes/100 WBC (Bld) 18.9 % Low 20.0-40.0 [facility] Comment on above: Performed By: #### G FR, PRO, CBC, BMP, ADIFF, ANEU #### [address] [address] Monocyte, Absolute 0.7 10 3/mcL Normal 0.1-1.4 [facility] Comment on above: Performed By: #### G FR, PRO, CBC, BMP, ADIFF, ANEU #### [address] [address] Monocytes/100 WBC (Bld) 12.9 % Normal 2.0-13.0 [facility] Comment on above: Performed By: #### G FR, PRO, CBC, BMP, ADIFF, ANEU #### [address] [address] Neutrophils/100 WBC (Bld) 62.8 % Normal 50.0-75.0 [facility] Comment on above: Performed By: #### G FR, PRO, CBC, BMP, ADIFF, ANEU #### [address] [address] .GFRon 08-21-2024 GFR Non- >60 [facility] Comment on above: Result Comment: GFR [...] FR, PRO, CBC, BMP, ADIFF, ANEU #### [address] [address] GFR >60 Normal [facility] Comment on above: Result [...] FR, PRO, CBC, BMP, ADIFF, ANEU #### [address] [address] .NEUABSon 08-21-2024 Neutrophil, Absolute 3.4 10 3/mcL Normal 2.3-8.1 [facility] MAIN Comment on above: Performed By: #### G FR, PRO, CBC, BMP, ADIFF, ANEU #### [address] [address] [facility] BUN/Creatinine Ratio 19.1 ratio Normal 10.0-22.0 [facility] MAIN Comment on above: Performed By: #### G FR, PRO, CBC, BMP, ADIFF, ANEU #### [address] [address] Calcium [Mass/Vol] 8.9 mg/dL Normal 8.7-10.4 [facility] MAIN Comment on above: Performed By: #### G FR, PRO, CBC, BMP, ADIFF, ANEU #### [address] [address] Chloride [Moles/Vol] 109 mmol/L Normal 98-110 [facility] MAIN Comment on above: Performed By: #### G FR, PRO, CBC, BMP, ADIFF, ANEU #### [address] [address] CO2 [Moles/Vol] 28 mmol/L Normal 22-32 [facility] MAIN Comment on above: Performed By: #### G FR, PRO, CBC, BMP, ADIFF, ANEU #### [address] [address] Creatinine [Mass/Vol] 1.15 mg/dL Normal 0.60-1.40 [facility] MAIN Comment on above: Result Comment: Test ing performed on [employer] analyzer using enzymatic creatinine methodology. Performed By: #### G FR, PRO, CBC, BMP, ADIFF, ANEU #### [address] [address] Electrolyte Balance 5.0 mEq/L Normal 4.0-15.0 [facility] MAIN Comment on above: Performed By: #### G FR, PRO, CBC, BMP, ADIFF, ANEU #### [address] [address] Glucose [Mass/Vol] 109 mg/dL Normal 82-115 [facility] MAIN Comment on above: Performed By: #### G FR, PRO, CBC, BMP, ADIFF, ANEU #### [place] [id number] Potassium [Moles/Vol] 4.1 mmol/L Normal 3.5-5.0 [facility] MAIN Comment on above: Performed By: #### G FR, PRO, CBC, BMP, ADIFF, ANEU #### [address] [address] Sodium [Moles/Vol] 142 mmol/L Normal 136-145 [facility] MAIN Comment on above: Performed By: #### G FR, PRO, CBC, BMP, ADIFF, ANEU #### [address] [address] Urea nitrogen [Mass/Vol] 22.0 mg/dL Normal 8.0-22.0 [facility] MAIN Comment on above: Performed By: #### G FR, PRO, CBC, BMP, ADIFF, ANEU #### [address] [address] [facility]Con 08-21-2024 Erythrocyte distribution width (RBC) [Ratio] 14.1 % Normal 11.5-15.5 [facility] MAIN Comment on above: Performed By: #### G FR, PRO, CBC, BMP, ADIFF, ANEU #### [place] [address] Hematocrit (Bld) [Volume fraction] 46.7 % Normal 40.0-52.0 [facility] MAIN Comment on above: Performed By: #### G FR, PRO, CBC, BMP, ADIFF, ANEU #### [place] [address] Hgb 16.0 G/dL Normal 13.0-17.5 [facility] Comment on above: Performed By: #### G FR, PRO, CBC, BMP, ADIFF, ANEU #### [place] [address] MCH (RBC) [Entitic mass] 32.7 pg Normal 27.0-33.0 [facility] Comment on above: Performed By: #### G FR, PRO, CBC, BMP, ADIFF, ANEU #### [place] [address] MCHC 34.3 G/dL Normal 32.0-36.0 [facility] Comment on above: Performed By: #### G FR, PRO, CBC, BMP, ADIFF, ANEU #### [place] [address] MCV (RBC) [Entitic vol] 95.3 fL Normal 81.0-100.0 [facility] Comment on above: Performed By: #### G FR, PRO, CBC, BMP, ADIFF, ANEU #### [place] [id number] Platelet 216 10 3/mcL Normal 150-450 [facility] Comment on above: Performed By: #### G FR, PRO, CBC, BMP, ADIFF, ANEU #### [place] [address] Platelet mean volume (Bld) [Entitic vol] 7.9 fL Normal 6.4-10.5 [facility] Comment on above: Performed By: #### G FR, PRO, CBC, BMP, ADIFF, ANEU #### [place] [address] RBC 4.90 10 6/mcL Normal 4.50-6.00 [facility] Comment on above: Performed By: #### G FR, PRO, CBC, BMP, ADIFF, ANEU #### [address] [address] WBC 5.5 10 3/mcL Normal 4.5-10.8 [facility] Comment on above: Performed By: #### G FR, PRO, CBC, BMP, ADIFF, ANEU #### [address] [address] LABORATORYOrdered By: SYSTEM SYSTEM on 08-21-2024 Basophils (Bld) [#/Vol] 0.1 103/mcL Normal 0.0 - 0.3 10^3/mcL Workflow SS Basophils/100 WBC (Bld) 1.2 % Normal 0.0 - 2.5 % Workflow SS Calcium [Mass/Vol] 8.9 mg/dL Normal 8.7 - 10. 4 mg/dL ADM SS Chloride [Moles/Vol] 109 mmol/L Normal 98 - 11 0 mEq/L ADM SS CO2 [Moles/Vol] 28 mmol/L Normal 22 - 32 mEq/L ADM SS Creatinine [Mass/Vol] 1.15 mg/dL Normal 0.60 - 1.40 mg/dL ADM SS Comment on above: Interpretive Data: T esting performed on [employer] analyzer using enzymatic creatinine methodology. Electrolyte Balance 5.0 mEq/L Normal 4.0 - 15 .0 mEq/L ADM SS Eosinophils (Bld) [#/Vol] 0.2 103/mcL Normal 0.0 - 0.7 10^3/mcL Workflow SS Eosinophils/100 WBC (Bld) 4.2 % Normal 0.0 - 6.0 % Workflow SS Erythrocyte distribution width (RBC) [Ratio] 14.1 % Normal 11.5 - 15.5 % Workflow SS GFR/1.73 sq M.predicted among blacks MDRD (S/P/Bld) [Vol rate/Area] ml/min/1.73sqm Invalid Interpretation Code Chemistry S Comment [...] (S/P/Bld) [Vol rate/Area] ml/min/1.73sqm Invalid Interpretation Code Chemistry S Comment [...] 16.0 G/dL Normal 13.0 - 17.5 G/dL AH Workflow SS Lymphocytes (Bld) [#/Vol] 1.0 103/mcL Normal 0.9 - 4.3 10^3/mcL Workflow SS Lymphocytes/100 WBC (Bld) 18.9 % Low 20.0 - 40.0 % Workflow SS MCH (RBC) [Entitic mass] 32.7 pg Normal 27.0 - 33.0 pg AH Workflow SS MCHC 34.3 G/dL Normal 32.0 - 36.0 G/dL Workflow SS MCV (RBC) [Entitic vol] 95.3 fL Normal 81.0 - 100.0 fL Workflow SS Monocytes (Bld) [#/Vol] 0.7 103/mcL Normal 0.1 - 1.4 10^3/mcL Workflow SS Monocytes/100 WBC (Bld) 12.9 % Normal 2.0 - 13.0 % AH [...] International Ratio 1.2 ratio Invalid Interpretation Code HemNCub Comment on above: Interpretive Data: Александр troncoso [employer] (CHEST, 1992, 102:312S-25S) [...] Coag (PPP) [Relative time] 1.2 {INR} Normal [facility] Comment on above: Result Comment: [employer] (CHEST, 1992, 102:312S-25S) recommended therapeutic range for oral anticoagulant therapy is: LOW RISK: Prophylaxis of venous thrombosis INR: 2.0-3.0 Treatment of pulmonary embolism 2.0-3.0 Prevention of systemic embolism 2.0-3.0 HIGH RISK: Mechanical prosthetic valves 2.5-3.5 Performed By: #### G FR, PRO, CBC, BMP, ADIFF, ANEU #### [address] [address] PT Coag (PPP) [Time] 14.1 s Normal 9.0-14.4 [facility] Comment on above: Result Comment: Effe ctive 03/19/08, Protime results may be affected by some antibiotics (i.e. Ciprofloxacin, Azithromycin, Bactrim) which may potentiate the action of oral anticoagulants, with further increases in Protime/INR. Performed By: #### G FR, PRO, CBC, BMP, ADIFF, ANEU #### [address] [address] .GFRon 08-13-2024 GFR 70 ml/min/1.73sqm Normal [facility] [...] 15 mL/min/1.73 square meters Performed By: #### T SH, ADIFF, CBC, LIPID, CMP, VIDH, ANEU, GFR #### [address] [address] #### FT4 #### [address] [address] GFR Non- 58 ml/min/1.73sqm Normal [facility] 15 mL/min/1.73 square meters Performed By: #### T SH, ADIFF, CBC, LIPID, CMP, VIDH, ANEU, GFR #### [address] [address] #### FT4 #### [address] [address] CMPon 08-13-2024 Albumin Level 3.5 G/dL Normal 3.4-4.8 [facility] Comment on above: Performed By: #### T SH, ADIFF, CBC, LIPID, CMP, VIDH, ANEU, GFR #### [address] [address] #### FT4 #### [address] [address] Albumin/Globulin [Mass ratio] 1.1 {ratio} Normal 1.1-2.5 [facility] Comment on above: Performed By: #### T SH, ADIFF, CBC, LIPID, CMP, VIDH, ANEU, GFR #### [address] [address] #### FT4 #### [address] [address] ALP [Catalytic activity/Vol] 89 U/L Normal 40-135 [facility] Comment on above: Performed By: #### T SH, ADIFF, CBC, LIPID, CMP, VIDH, ANEU, GFR #### [address] [address] #### FT4 #### [address] [address] ALT [Catalytic activity/Vol] 31 U/L Normal 16-63 [facility] Comment on above: Performed By: #### T SH, ADIFF, CBC, LIPID, CMP, VIDH, ANEU, GFR #### [place] [address] #### FT4 #### [place] [address] AST [Catalytic activity/Vol] 26 U/L Normal 10-40 [facility] Comment on above: Performed By: #### T SH, ADIFF, CBC, LIPID, CMP, VIDH, ANEU, GFR #### [place] [address] #### FT4 #### [place] [address] Bili Total 0.4 mg/dL Normal 0.2-1.0 [facility] Comment on above: Result Comment: Use of this assay is not recommended for patients undergoing treatment with eltrombopag due to the potential for falsely elevated results. Performed By: #### T SH, ADIFF, CBC, LIPID, CMP, VIDH, ANEU, GFR #### [place] [address] #### FT4 #### [place] [address] BUN/Creatinine Ratio 14 ratio Normal 7-27 [facility] Comment on above: Performed By: #### T SH, ADIFF, CBC, LIPID, CMP, VIDH, ANEU, GFR #### [place] [address] #### FT4 #### [place] [address] Calcium [Mass/Vol] 8.8 mg/dL Normal 8.4-10.2 [facility] Comment on above: Performed By: #### T SH, ADIFF, CBC, LIPID, CMP, VIDH, ANEU, GFR #### [address] [address] #### FT4 #### [address] [address] Chloride [Moles/Vol] 106 mmol/L Normal 98-107 [facility] Comment on above: Performed By: #### T SH, ADIFF, CBC, LIPID, CMP, VIDH, ANEU, GFR #### [place] [address] #### FT4 #### [place] [address] CO2 [Moles/Vol] 26 mmol/L Normal 23-31 [facility] Comment on above: Performed By: #### T SH, ADIFF, CBC, LIPID, CMP, VIDH, ANEU, GFR #### [place] [address] #### FT4 #### [place] [address] Creatinine [Mass/Vol] 1.23 mg/dL Normal 0.70-1.30 [facility] Comment on above: Result Comment: Test ing performed on Siemens Dimension EXL analyzer using a modified kinetic [place] technique. Performed By: #### T SH, ADIFF, CBC, LIPID, CMP, VIDH, ANEU, GFR #### [place] [address] #### FT4 #### [place] [id number] Electrolyte Balance 9.0 mEq/L Normal 4.0-15.0 [facility] Comment on above: Performed By: #### T SH, ADIFF, CBC, LIPID, CMP, VIDH, ANEU, GFR #### [place] [address] #### FT4 #### [address] [address] Globulin 3.2 G/dL Normal [facility] Comment on above: Performed By: #### T SH, ADIFF, CBC, LIPID, CMP, VIDH, ANEU, GFR #### [address] [address] #### FT4 #### [address] [address] Glucose [Mass/Vol] 113 mg/dL High 83-110 [facility] Comment on above: Performed By: #### T SH, ADIFF, CBC, LIPID, CMP, VIDH, ANEU, GFR #### [address] [address] #### FT4 #### [address] [address] Potassium [Moles/Vol] 4.4 mmol/L Normal 3.5-5.1 [facility] Comment on above: Performed By: #### T SH, ADIFF, CBC, LIPID, CMP, VIDH, ANEU, GFR #### [address] [address] #### FT4 #### [address] [address] Sodium [Moles/Vol] 141 mmol/L Normal 136-145 [facility] Comment on above: Performed By: #### T SH, ADIFF, CBC, LIPID, CMP, VIDH, ANEU, GFR #### [address] [address] #### FT4 #### [address] [address] Total Protein 6.7 G/dL Normal 6.4-8.2 [facility] Comment on above: Performed By: #### T SH, ADIFF, CBC, LIPID, CMP, VIDH, ANEU, GFR #### [address] [address] #### FT4 #### [address] [address] Urea nitrogen [Mass/Vol] 17 mg/dL Normal 7-18 [facility] Comment on above: Performed By: #### T SH, ADIFF, CBC, LIPID, CMP, VIDH, ANEU, GFR #### [facility] [address] [place], [place] [address] #### FT4 #### [facility] [address] [place] [address] LABORATORYOrdered By: SYSTEM SYSTEM on 08-13-2024 Albumin [...] [Mass/Vol] 17 mg/dL Normal 7 - 18 mg/dL AO ADM SS Urea nitrogen/Creatinine [Mass ratio] 14 ratio Normal 7 - 27 ratio AO ADM SS TSHon 08-13-2024 TSH Qn 4.64 m[IU]/L High 0.36-3.74 [facility] Comment on above: Performed By: #### T SH, ADIFF, CBC, LIPID, CMP, VIDH, ANEU, GFR #### [place] [address] [place], [place] [address] #### FT4 #### [place] [address] LABORATORYOrdered By: SYSTEM SYSTEM on 06-22-2024 Prostate specific Ag [Mass/Vol] ng/mL Normal 0.00 - 4.00 ng/mL AO ADM SS A1Con 12-11-2017 Hemoglobin A1c/Hemoglobin.total mass fraction (Bld) 5.4 % Normal 4.0-6.0 [facility] ([place]) Comment on above: Performed By: #### C BC, ADIFF, ANEU, GFR, TSH, CMP, PSA, LIPID, A1C ####[place] [address] UAMICon 12-11-2017 UA Squam Epithelial Negative Normal 0-20 [facility] ([place]) Comment on above: Performed By: #### C BC, ADIFF, ANEU, GFR, TSH, CMP, PSA, LIPID, A1C ####[place] [address] UA WBC Rare Normal 0-5 [facility] ([place]) Comment on above: Performed By: #### C BC, ADIFF, ANEU, GFR, TSH, CMP, PSA, LIPID, A1C ####[place] [address] Urine, erythrocytes Rare Normal 0-2 [facility] ([place]) Comment on above: Performed By: #### C BC, ADIFF, ANEU, GFR, TSH, CMP, PSA, LIPID, A1C ####[place] [address] .Auto Diffon 12-10-2017 Basophils Auto #/vol (Bld) 0.00 10 3/mcL Normal 0.00-0.27 [facility] ([place]) Comment on above: Performed By: #### C BC, ADIFF, ANEU, GFR, TSH, CMP, PSA, LIPID, A1C ####[address] [address] Basophils/100 WBC Auto (Bld) 0.8 % Normal 0.0-2.5 [facility] ([place]) Comment on above: Performed By: #### C BC, ADIFF, ANEU, GFR, TSH, CMP, PSA, LIPID, A1C ####[address] [address] Eosinophils 0.20 10 3/mcL Normal 0.00-0.65 [facility] ([place]) Comment on above: Performed By: #### C BC, ADIFF, ANEU, GFR, TSH, CMP, PSA, LIPID, A1C ####[address] [address] Eosinophils/100 leukocytes 3.4 % Normal 0.0-6.0 [facility] ([place]) Comment on above: Performed By: #### C BC, ADIFF, ANEU, GFR, TSH, CMP, PSA, LIPID, A1C ####[address] [address] Lymphocytes 1.30 10 3/mcL Normal 0.90-4.32 [facility] ([place]) Comment on above: Performed By: #### C BC, ADIFF, ANEU, GFR, TSH, CMP, PSA, LIPID, A1C ####[address] [address] Lymphocytes/100 leukocytes 21.1 % Normal 20.0-40.0 [facility] ([place]) Comment on above: Performed By: #### C BC, ADIFF, ANEU, GFR, TSH, CMP, PSA, LIPID, A1C ####[address] [address] Monocytes 0.80 10 3/mcL Normal 0.09-1.40 [facility] ([place]) Comment on above: Performed By: #### C BC, ADIFF, ANEU, GFR, TSH, CMP, PSA, LIPID, A1C ####[address] [address] Monocytes/100 leukocytes 12.1 % Normal 2.0-13.0 [facility] ([place]) Comment on above: Performed By: #### C BC, ADIFF, ANEU, GFR, TSH, CMP, PSA, LIPID, A1C ####[address] [address] Neutrophils/100 WBC Auto (Bld) 62.6 % Normal 50.0-75.0 [facility] ([place]) Comment on above: Performed By: #### C BC, ADIFF, ANEU, GFR, TSH, CMP, PSA, LIPID, A1C ####[address] [address] .GFRon 12-10-2017 eGFR (non-black) mL/min/{1.73_m2} Normal [facility] ([place]) Comment on above: Result Comment: GFR Population [...] ANEU, GFR, TSH, CMP, PSA, LIPID, A1C ####[address] [address] .NEUABSon 12-10-2017 Neutrophils 3.90 10 3/mcL Normal 2.25-8.10 [facility] ([place]) Comment on above: Performed By: #### C BC, ADIFF, ANEU, GFR, TSH, CMP, PSA, LIPID, A1C ####[address] [address] CBCon 12-10-2017 Erythrocyte distribution width Auto Ratio (RBC) 14.0 % Normal 11.5-15.5 [facility] ([place]) Comment on above: Performed By: #### C BC, ADIFF, ANEU, GFR, TSH, CMP, PSA, LIPID, A1C ####[place] [address] Erythrocytes (RBC) 4.80 10 6/mcL Normal 4.50-6.00 [facility] ([place]) Comment on above: Performed By: #### C BC, ADIFF, ANEU, GFR, TSH, CMP, PSA, LIPID, A1C ####[place] [address] Hematocrit (HCT) 44.8 % Normal 40.0-52.0 [facility] ([place]) Comment on above: Performed By: #### C BC, ADIFF, ANEU, GFR, TSH, CMP, PSA, LIPID, A1C ####[place] [address] Hemoglobin mass conc (Bld) 15.1 G/dL Normal 13.0-17.5 [facility] ([place]) Comment on above: Performed By: #### C BC, ADIFF, ANEU, GFR, TSH, CMP, PSA, LIPID, A1C ####[place] [address] MCH 31.5 pg Normal 27.0-33.0 [facility] ([place]) Comment on above: Performed By: #### C BC, ADIFF, ANEU, GFR, TSH, CMP, PSA, LIPID, A1C ####[place] [address] MCHC mass conc (RBC) 33.8 G/dL Normal 32.0-36.0 [facility] ([place] Comment on above: Performed By: #### C BC, ADIFF, ANEU, GFR, TSH, CMP, PSA, LIPID, A1C ####[place] [address] MCV 93.2 fL Normal 81.0-100.0 [facility] ([place]) Comment on above: Performed By: #### C BC, ADIFF, ANEU, GFR, TSH, CMP, PSA, LIPID, A1C ####[place] [address] Platelet mean volume (PMV) 9.1 fL Normal 6.4-10.5 [facility] ([place]) Comment on above: Performed By: #### C BC, ADIFF, ANEU, GFR, TSH, CMP, PSA, LIPID, A1C ####[place] [address] Platelets 222 10 3/mcL Normal 150-450 [facility] ([place]) Comment on above: Performed By: #### C BC, ADIFF, ANEU, GFR, TSH, CMP, PSA, LIPID, A1C ####[place] [address] WBC (Leukocytes) 6.20 10 3/mcL Normal 4.50-10.80 [facility] ([place]) Comment on above: Performed By: #### C BC, ADIFF, ANEU, GFR, TSH, CMP, PSA, LIPID, A1C ####[place] [address] CMPon 12-10-2017 Albumin/Globulin Ratio 1.3 {ratio} Normal 0.9-1.6 [facility] ([place]) Comment on above: Performed By: #### C BC, ADIFF, ANEU, GFR, TSH, CMP, PSA, LIPID, A1C ####[place] [address] Alk Phos 83 U/L Normal 38-126 [facility] ([place]) Comment on above: Performed By: #### C BC, ADIFF, ANEU, GFR, TSH, CMP, PSA, LIPID, A1C ####[place] [address] Bili Total 0.4 mg/dL Normal 0.2-1.2 [facility] ([place]) Comment on above: Performed By: #### C BC, ADIFF, ANEU, GFR, TSH, CMP, PSA, LIPID, A1C ####[place] [address] Globulin 3.0 G/dL Normal 1.5-3.8 [facility] ([place]) Comment on above: Performed By: #### C BC, ADIFF, ANEU, GFR, TSH, CMP, PSA, LIPID, A1C ####[place] [address] Protein 6.9 G/dL Normal 6.0-8.5 [facility] ([place]) Comment on above: Performed By: #### C BC, ADIFF, ANEU, GFR, TSH, CMP, PSA, LIPID, A1C ####[place] [address] Alanine aminotransferase (ALT) 24 U/L Normal 12-55 [facility] ([place]) Comment on above: Performed By: #### C BC, ADIFF, ANEU, GFR, TSH, CMP, PSA, LIPID, A1C ####[place] [address] Albumin 3.9 G/dL Normal 3.2-4.8 [facility] ([place]) Comment on above: Performed By: #### C BC, ADIFF, ANEU, GFR, TSH, CMP, PSA, LIPID, A1C ####[place] [address] Aspartate aminotransferase (AST) 16 U/L Normal 8-34 [facility] ([place]) Comment on above: Performed By: #### C BC, ADIFF, ANEU, GFR, TSH, CMP, PSA, LIPID, A1C ####[place] [address] BUN/Creatinine Ratio 14.6 ratio Normal 10.0-22.0 [facility] ([place] Comment on above: Performed By: #### C BC, ADIFF, ANEU, GFR, TSH, CMP, PSA, LIPID, A1C ####[place] [address] Calcium 8.7 mg/dL Normal 8.4-10.1 [facility] ([place]) Comment on above: Performed By: #### C BC, ADIFF, ANEU, GFR, TSH, CMP, PSA, LIPID, A1C ####[place] [address] Chloride 107 mmol/L Normal 98-110 [facility] ([place]) Comment on above: Performed By: #### C BC, ADIFF, ANEU, GFR, TSH, CMP, PSA, LIPID, A1C ####[place] [address] CO2 25 mmol/L Normal 22-32 [facility] ([place]) Comment on above: Performed By: #### C BC, ADIFF, ANEU, GFR, TSH, CMP, PSA, LIPID, A1C ####[place] [address] Creatinine 0.96 mg/dL Normal 0.60-1.40 [facility] ([place]) Comment on above: Performed By: #### C BC, ADIFF, ANEU, GFR, TSH, CMP, PSA, LIPID, A1C ####[place] [address] Electrolyte Balance 10.0 mEq/L Normal 4.0-15.0 [facility] ([place]) Comment on above: Performed By: #### C BC, ADIFF, ANEU, GFR, TSH, CMP, PSA, LIPID, A1C ####[place] [address] Glucose mass conc 88 mg/dL Normal 82-115 [facility] ([place]) Comment on above: Performed By: #### C BC, ADIFF, ANEU, GFR, TSH, CMP, PSA, LIPID, A1C ####[place] [address] Potassium molar conc 4.3 mmol/L Normal 3.5-5.0 [facility] [place] Comment on above: Performed By: #### C BC, ADIFF, ANEU, GFR, TSH, CMP, PSA, LIPID, A1C ####[place] [address] Sodium 142 mmol/L Normal 136-145 [facility] ([place]) Comment on above: Performed By: #### C BC, ADIFF, ANEU, GFR, TSH, CMP, PSA, LIPID, A1C ####[place] [address] Urea nitrogen 14.0 mg/dL Normal 8.0-22.0 [facility] ([place]) Comment on above: Performed By: #### C BC, ADIFF, ANEU, GFR, TSH, CMP, PSA, LIPID, A1C ####[place] [address] LIPIDon 12-10-2017 Cholesterol 130 mg/dL Normal 50-199 [facility] ([place]) Comment on above: Result Comment: Chol esterol Reference Interval:Less than 200 [id number] Borderline high [id number] and above High risk Performed By: #### C BC, ADIFF, ANEU, GFR, TSH, CMP, PSA, LIPID, A1C ####[place] [id number] [place] [address] HDL Cholesterol 38 mg/dL Low 40-59 [facility] ([place]) Comment on above: Result Comment: HDL Reference Interval:Less than 40 Low - high risk60 or above Optimal/lowers risk Performed By: #### C BC, ADIFF, ANEU, GFR, TSH, CMP, PSA, LIPID, A1C ####[place] [id number] [place] [address] LDL Cholesterol 61 mg/dL Normal 0-129 [facility] ([place]) Comment on above: Result Comment: LDL is a calculated result and requires a 12-hr fast.LDL Reference Interval:Less than 100 [id number] Near or above [id number] Borderline high [id number] High [id number] and above Very high risk Performed By: #### C BC, ADIFF, ANEU, GFR, TSH, CMP, PSA, LIPID, A1C ####[place] [address] Triglyceride 156 mg/dL High 3-149 [facility] ([place]) Comment on above: Result Comment: Trig lyceride Reference Interval:Less than 150 [id number] Borderline high [id number] High [id number] or higher Very high risk Performed By: #### C BC, ADIFF, ANEU, GFR, TSH, CMP, PSA, LIPID, A1C ####[address] [address] PSAon 12-10-2017 Prostate Specific Antigen <0.01 Low 0.02-4.00 [facility] ([place]) Comment on above: Performed By: #### C BC, ADIFF, ANEU, GFR, TSH, CMP, PSA, LIPID, A1C ####[address] [address] TSHon 12-10-2017 Thyroid stimulating hormone (TSH) 1.520 mcIU/mL Normal 0.360-3.740 [facility] ([place]) Comment on above: Result Comment: Krunal stern note ? as of 03/19/17 new pediatric reference intervals were added for this test. Performed By: #### C BC, ADIFF, ANEU, GFR, TSH, CMP, PSA, LIPID, A1C ####[place] [address] UAon 12-10-2017 UA Appear Clear Normal Clear [facility] ([place]) Comment on above: Performed By: #### U A, UAMIC ####[place] [address] UA Blood Trace Normal Neg-Trace [facility] ([place]) Comment on above: Performed By: #### U A, UAMIC ####[place] [address] UA Leuk Est Negative Normal Negative [facility] ([place]) Comment on above: Performed By: #### U A, UAMIC ####[place] [address] UA Nitrite Negative Normal Negative [facility] ([place]) Comment on above: Performed By: #### U A, UAMIC ####[place] [address] UA pH 6.0 Normal 5.0 - 8.0 [facility] ([place]) Comment on above: Performed By: #### U A, UAMIC ####[place] [address] UA Protein Negative Normal Negative [facility] ([place]) Comment on above: Performed By: #### U A, UAMIC ####[place] [address] UA Spec Grav 1.020 Normal 1.006-1.029 [facility] ([place]) Comment on above: Performed By: #### U A, UAMIC ####[place] [address] UA Specimen Type Clean Catch Normal [facility] ([place]) Comment on above: Performed By: #### U A, UAMIC ####[place] [address] UA Urobilinogen 0.2 E.U./dL Normal 0.2-1.0 [facility] ([place]) Comment on above: Performed By: #### U A, UAMIC ####[facility] [place] [address] Urine, color Yellow Normal [facility] ([place]) Comment on above: Performed By: #### U A, UAMIC ####[facility] [place] [address] Urine, glucose Negative Normal Negative [facility] ([place]) Comment on above: Performed By: #### U A, UAMIC ####[facility] [place] [address] Urine, ketones presence Negative Normal Neg-Trace A [facility] ([place]) Comment on above: Performed By: #### U A, UAMIC ####[facility] [place] [address] Urine, urobilinogen Negative Normal Neg-Trace [facility] ([place]) Comment on above: Performed By: #### U A, UAMIC ####[facility] [place] [address] Vital Signs Date Time Vital Sign Value Performing Clinician Facility 03-25-2025 13:03-0400 Body height 172.72 cm Jose Maria MD Work Phone: [facility] 03-25-2025 13:03-0400 Body mass index (BMI) [Ratio] 44.7 kg/m2 Jose Maria MD Work Phone: [facility] 03-25-2025 13:03-0400 Body weight 133.41 kg Jose Maria MD Work Phone: [facility] 12-26-2024 06:43-0400 Heart rate 75 /min ALIYAH CARRINGTON MD [facility] 12-26-2024 06:43-0400 Respiratory rate 16 /min ALIYAH CARRINGTON MD [facility] 12-26-2024 03:30-0400 Body temperature 97.52 [degF] ALIYAH CARRINGTON MD [facility] 12-26-2024 03:30-0400 Diastolic Blood Pressure Non-Invasive 64 mm[Hg] ALIYAH CARRINGTON MD [address] [place] [address] 12-26-2024 03:30-0400 Heart rate 68 /min ALIYAH CARRINGTON MD [address] [place] [address] 12-26-2024 03:30-0400 Respiratory rate 16 /min ALIYAH CARRINGTON MD [address] [place] [address] 12-26-2024 03:30-0400 Systolic Blood Pressure Non-Invasive 119 mm[Hg] ALIYAH CARRINGTON MD [address] [place] [address] 12-26-2024 01:45-0400 Heart rate 74 /min ALIYAH CARRINGTON MD [address] [place] [address] 12-26-2024 01:13-0400 Heart rate 85 /min ALIYAH CARRINGTON MD [address] [place] [address] 12-25-2024 19:24-0400 Blood Pressure Method ALIYAH CARRINGTON MD [address] [place] [address] 12-25-2024 19:24-0400 Body temperature 98.42 [degF] ALIYAH CARRINGTON MD [address] [place] [address] 12-25-2024 19:24-0400 Diastolic Blood Pressure Non-Invasive 68 mm[Hg] ALIYAH CARRINGTON MD [address] [place] [address] 12-25-2024 19:24-0400 Respiratory rate 18 /min ALIYAH CARRINGTON MD [address] [place] [address] 12-25-2024 19:24-0400 Systolic Blood Pressure Non-Invasive 136 mm[Hg] ALIYAH CARRINGTON MD [address] [place] [address] 12-25-2024 16:45-0400 Diastolic Blood Pressure Non-Invasive 75 mm[Hg] ALIYAH CARRINGTON MD [address] [place] [address] 12-25-2024 16:45-0400 Systolic Blood Pressure Non-Invasive 146 mm[Hg] ALIYAH CARRINGTON MD [address] [place] [address] 12-25-2024 15:25-0400 Body temperature 96.98 [degF] ALIYAH CARRINGTON MD [address] [place] [address] 12-25-2024 15:25-0400 Respiratory Rate - Anes 0 br/min ALIYAH CARRINGTON MD [address] [place] [address] 12-25-2024 15:20-0400 Respiratory Rate - Anes 0 br/min ALIYAH CARRINGTON MD [address] [place] [address] 12-25-2024 15:15-0400 Respiratory Rate - Anes 14 br/min ALIYAH CARRINGTON MD [address] [place] [address] 12-25-2024 15:10-0400 Body temperature 96.67 [degF] ALIYAH CARRINGTON MD [address] [place] [address] 12-25-2024 15:05-0400 Body temperature 96.75 [degF] ALIYAH CARRINGTON MD [address] [place] [address] 12-25-2024 11:26-0400 Body height 172.7 cm ALIYAH CARRINGTON MD [address] [place] [address] 12-25-2024 11:26-0400 Body temperature 98.24 [degF] ALIYAH CARRINGTON MD [address] [place] [address] 12-25-2024 11:26-0400 Body weight 132.5 kg ALIYAH CARRINGTON MD [address] [place] [address] 12-25-2024 11:26-0400 Heart rate 68 /min ALIYAH CARRINGTON MD [address] [place] [address] 11-28-2024 09:05-0400 Blood Pressure Cuff Size ALIYAH CARRINGTON MD [address] [place] [address] 11-28-2024 09:05-0400 Blood Pressure Location ALIYAH CARRINGTON MD [address] [place] [address] 11-28-2024 09:05-0400 Blood Pressure Method ALIYAH CARRINGTON MD [address] [place] [address] 11-28-2024 09:05-0400 Body height 169 cm ALIYAH CARRINGTON MD [address] [place] [address] 11-28-2024 09:05-0400 Body temperature 97.34 [degF] ALIYAH CARRINGTON MD [facility] 11-28-2024 09:05-0400 Body weight 133.4 kg ALIYAH CARRINGTON MD [facility] 11-28-2024 09:05-0400 Body weight 46.71 kg/m2 ALIYAH CARRINGTON MD [facility] 11-28-2024 09:05-0400 Diastolic Blood Pressure Non-Invasive 79 mm[Hg] ALIYAH CARRINGTON MD [facility] 11-28-2024 09:05-0400 Heart rate 77 /min ALIYAH CARRINGTON MD [facility] 11-28-2024 09:05-0400 Systolic Blood Pressure Non-Invasive 138 mm[Hg] ALIYAH CARRINGTON MD [facility] 10-23-2024 12:44-0500 Diastolic Blood Pressure Non-Invasive 90 mm[Hg] DR BEATRIS WOODALL DO [facility] 10-23-2024 12:44-0500 Heart rate 77 /min DR BEATRIS WOODALL DO [facility] 10-23-2024 12:44-0500 Respiratory rate 18 /min DR BEATRIS WOODALL DO [facility] 10-23-2024 12:44-0500 Systolic Blood Pressure Non-Invasive 150 mm[Hg] DR BEATRIS WOODALL DO [facility] 10-23-2024 11:47-0500 Heart rate 75 /min DR BEATRIS WOODALL DO [facility] 10-23-2024 11:47-0500 Respiratory rate 18 /min DR BEATRIS WOODALL DO [facility] 10-23-2024 10:57-0500 Body temperature 98.78 [degF] DR BEATRIS WOODALL DO [facility] 10-23-2024 10:57-0500 Body weight 131.[address] BEATRIS WOODALL DO [facility] 10-23-2024 10:57-0500 Diastolic Blood Pressure Non-Invasive 82 mm[Hg] DR BEATRIS WOODALL DO [facility] 10-23-2024 10:57-0500 Heart rate 86 /min DR BEATRIS WOODALL DO [facility] 10-23-2024 10:57-0500 Respiratory rate 20 /min DR BEATRIS WOODALL DO [facility] 10-23-2024 10:57-0500 Systolic Blood Pressure Non-Invasive 165 mm[Hg] DR BEATRIS WOODALL DO [facility] 08-21-2024 08:33-0500 Diastolic Blood Pressure Non-Invasive 79 mm[Hg] ALIYAH CARRINGTON MD [facility] 08-21-2024 08:33-0500 Heart rate 64 /min ALIYAH CARRINGTON MD [facility] 08-21-2024 08:33-0500 Respiratory rate 16 /min ALIYAH CARRINGTON MD [facility] 08-21-2024 08:33-0500 Systolic Blood Pressure Non-Invasive 135 mm[Hg] ALIYAH CARRINGTON MD [facility] 08-21-2024 08:24-0500 Diastolic Blood Pressure Non-Invasive 74 mm[Hg] ALIYAH CARRINGTON MD [facility] 08-21-2024 08:24-0500 Heart rate 60 /min ALIYAH CARRINGTON MD [facility] 08-21-2024 08:24-0500 Respiratory rate 18 /min ALIYAH CARRINGTON MD [address] [place] [address] 08-21-2024 08:24-0500 Systolic Blood Pressure Non-Invasive 126 mm[Hg] ALIYAH CARRINGTON MD [address] [place] [address] 08-21-2024 08:22-0500 Body temperature 97.52 [degF] ALIYAH CARRINGTON MD [address] [place] [address] 08-21-2024 08:22-0500 Diastolic Blood Pressure Non-Invasive 73 mm[Hg] ALIYAH CARRINGTON MD [address] [place] [address] 08-21-2024 08:22-0500 Heart rate 72 /min ALIYAH CARRINGTON MD [address] [place] [address] 08-21-2024 08:22-0500 Respiratory rate 18 /min ALIYAH CARRINGTON MD [address] [place] [address] 08-21-2024 08:22-0500 Systolic Blood Pressure Non-Invasive 130 mm[Hg] ALIYAH CARRINGTON MD [address] [place] [address] 08-21-2024 08:20-0500 Heart rate 64 /min ALIYAH CARRINGTON MD [address] [place] [address] 08-21-2024 08:20-0500 Respiratory Rate - Anes 22 br/min ALIYAH CARRINGTON MD [address] [place] [address] 08-21-2024 08:15-0500 Respiratory Rate - Anes 23 br/min ALIYAH CARRINGTON MD [address] [place] [address] 08-21-2024 08:10-0500 Respiratory Rate - Anes 17 br/min ALIYAH CARRINGTON MD [address] [place] [address] 08-21-2024 06:49-0500 Body height 172.7 cm ALIYAH CARRINGTON MD [address] [place] [address] 08-21-2024 06:49-0500 Body temperature 97.7 [degF] ALIYAH CARRINGTON MD [address] [place] [address] 08-21-2024 06:49-0500 Body weight 130.2 kg ALIYAH CARRINGTON MD [facility] 08-21-2024 06:49-0500 Heart rate 75 /min ALIYAH CARRINGTON MD [facility] 07-02-2024 09:29-0400 Diastolic Blood Pressure Non-Invasive 84 mm[Hg] PRISCILA PEOPLES MD [facility] 07-02-2024 09:29-0400 Heart rate 96 /min PRISCILA PEOPLES MD [facility] 07-02-2024 09:29-0400 Respiratory rate 18 /min PRISCILA PEOPLES MD [facility] 07-02-2024 09:29-0400 Systolic Blood Pressure Non-Invasive 138 mm[Hg] PRISCILA PEOPLES MD [facility] 07-02-2024 08:38-0400 Body height 172.7 cm PRISCILA PEOPLES MD [facility] 07-02-2024 08:38-0400 Body temperature 97.88 [degF] PRISCILA PEOPLES MD [facility] 07-02-2024 08:38-0400 Body weight 129.1 kg PRISCILA PEOPLES MD [facility] 07-02-2024 08:38-0400 Diastolic Blood Pressure Non-Invasive 83 mm[Hg] PRISCILA PEOPLES MD [facility] 07-02-2024 08:38-0400 Heart rate 100 /min PRISCILA PEOPLES MD [facility] 07-02-2024 08:38-0400 Respiratory rate 18 /min PRISCILA PEOPLES MD [facility] 07-02-2024 08:38-0400 Systolic Blood Pressure Non-Invasive 145 mm[Hg] PRISCILA PEOPLES MD [facility] Encounters Encounter Date Encounter Type Care Provider Facility Start: 07-10-2025 End: 07-10-2025 ambulatory KRISTA MARIA MD Facility:[facility] Start: 07-10-2025 End: 07-10-[address] PATRICK GEORGES MD [facility] Start: 05-03-2025 End: 05-03-[address] Mor Lee MD -[facility] Work Phone: Start: 05-03-2025 End: 05-03-2025 ambulatory Jose Maria MD Work Phone: -[facility] Start: 03-25-2025 End: 03-25-2025 Patient encounter procedure Leonarda Pedraza CLINICAL STAFF RN-C -[facility] Work Phone: Start: 03-25-2025 End: 03-25-2025 ambulatory Jose Maria MD Work Phone: -[facility] Start: 03-20-2025 End: 03-20-2025 ambulatory Jose Maria MD [facility]: [facility] Start: 03-20-2025 End: 03-20-[address] [facility] Start: 03-20-2025 End: 03-20-2025 ambulatory Jose Maria Facility:[facility] Start: 03-13-2025 End: 03-13-2025 ambulatory KRISTA MARIA MD Facility:[facility] Start: 03-13-2025 End: 03-13-2025 Patient encounter procedure JOSE MARIA MD [facility] Start: 03-13-2025 End: 03-13-2025 Emergency department patient visit ELI RUST MD [facility] Start: 02-18-2025 End: 02-18-2025 ambulatory Jose Maria MD Work Phone: [facility] Work Phone: Start: 02-18-2025 End: 02-18-[address] Jose Maria MD -Ultrasound [facility] Work Phone: Start: 02-18-2025 End: 02-18-2025 ambulatory KRISTA MARIA MD Facility:[facility] Start: 02-18-2025 End: 02-18-2025 Patient encounter procedure SHANNON SHEETS [facility] Start: 02-18-2025 End: 02-18-2025 ambulatory Jose Maria Facility:[facility] Start: 01-08-2025 End: 01-08-2025 ambulatory Jose Maria MD Work Phone: [facility] Work Phone: Start: 01-08-2025 End: 01-08-[address] Jose Maria MD -[facility] [place] Work Phone: Start: 01-08-2025 End: 01-08-2025 ambulatory Jose Maria Facility:[facility] Start: 12-25-2024 End: 12-26-2024 ambulatory ALIYAH CARRINGTON MD Facility:A Start: 12-25-2024 End: 12-26-2024 Observation ALIYAH CARRINGTON MD [facility] Start: 12-04-2024 ambulatory KRISTA MARIA MD Facility:[facility] Start: 11-28-2024 End: 11-28-2024 Admission to establishment ALIYAH CARRINGTON MD [facility] Start: 11-28-2024 End: 11-28-2024 ambulatory KRISTA MARIA MD Facility:[facility] Start: 11-22-2024 End: 11-22-2024 ambulatory KRISTA MARIA MD Facility:[facility] Start: 11-21-2024 End: 11-21-2024 ambulatory KRISTA MARIA MD Facility:[facility] Start: 11-14-2024 End: 11-14-2024 ambulatory Jose Maria MD Work Phone: [facility] Work Phone: Start: 11-14-2024 End: 11-14-[address] Jose Maria MD -Ultrasound, [facility] Work Phone: Start: 11-14-2024 End: 11-14-2024 ambulatory Jose Maria Facility:[facility] Start: 11-06-2024 End: 11-06-2024 ambulatory KRISTA MARIA MD Facility:[facility] Start: 11-06-2024 End: 11-06-2024 Patient encounter procedure JOSE MARIA MD [facility] Start: 10-23-2024 End: 10-23-2024 Emergency department patient visit DR BEATRIS WOODALL DO [facility] Start: 08-21-2024 End: 08-21-2024 ambulatory ALIYAH CARRINGTON MD Facility:A Start: 08-21-2024 End: 08-21-2024 SAME DAY STAY ALIYAH CARRINGTON MD [facility] Start: 08-13-2024 End: 08-13-2024 ambulatory DAYANA BENZ [facility] Facility:[facility] Start: 08-13-2024 End: 08-13-2024 Patient encounter procedure DAYANA BENZ APRN-SECURITY CONTROLS ASSESSOR [facility] Start: 07-02-2024 End: 07-02-2024 Emergency department patient visit PRISCILA PEOPLES MD [facility] Start: 06-22-2024 End: 06-22-2024 Patient encounter procedure CINDY CELESTIN [facility] Start: 12-10-2017 End: 12-15-2017 Ambulatory PHY WO ID~[id number] REFERRING Facility:A Procedures Date Procedure Procedure Detail Performing Clinician Start: 02-18-2025 Ultrasonography of limb Jose Maria MD Work Phone: Start: 01-08-2025 Vitamin D, 25-hydrox y measurement [...] of t hyroid gland (disorder) DAYANA BENZ [facility] Prostatectomy ALIYAH CARRINGTON MD Thyroidectomy ALIYAH CARRINGTON MD Immunizations Immunization Date Immunization Notes Care Provider Fa cili 10-16-2024 pneumococcal 20-jhony nt conjugate vaccine ALIYAH CARRINGTON MD [facility] 10-16-2024 RSV vaccine preF3, recombinant ALIYAH CARRINGTON MD [facility] 09-18-2024 influenza virus vacc ine, unspecified formulation ALIYAH CARRINGTON MD [facility] 09-18-2024 SARS-CoV-2 (COVID-19 ) mRNA-[id number] ALIYAH CARRINGTON MD [facility] Payers Date Payer Category Payer Unknown [id number] 2024 Self-pay [id number] 2024 Private Health Insurance [id number] 2024 Private Health Insurance 1dc [id number] 2024 Unknown [id number] 2024 Unknown [id number] 2024 Medicare [id number] 2024 Medicare [id number] 2017 Medicare [id number] 1950 Unknown [id number] 2.16.8 [id number] 1952 Unknown [id number] 2.16.8 40.1.930736.3.579.2.627 1952 Unknown [id number] 2.16.8 40.1.635715.3.579.2.627 1952 Unknown [id number] 2.16.8 40.1.506060.3.579.2.627 1952 Unknown [id number] 2.16. 840.1.981878.3.579.2.627 1952 Unknown [id number] 2.16. 840.1.694733.3.579.2.7 1952 Unknown [id number] 2.16. 840.1.599022.3.579.2.7 1952 Unknown [id number] 2.16. 840.1.713521.3.579.2.7 1952 Unknown [id number] 2.16.8 40.1.088975.3.579.2.627 1952 Unknown [id number] 2.16.8 40.1.856737.3.579.2.627 1952 Unknown [id number] 2.16.8 40.1.685420.3.579.2.627 1952 Unknown [id number] 2.16.8 40.1.797120.3.579.2.627 1952 Unknown [id number] 2.16.8 40.1.913761.3.579.2.627 Unknown [id number] 2.16.8 40.1.368841.3.579.2.462 Unknown [id number] 2.16.8 40.1.222602.3.579.2.462 Unknown [id number] 2.16.8 40.1.873787.3.579.2.462 Unknown [id number] 2.16.8 40.1.890691.3.579.2.462 Unknown [id number] 2.16.8 40.1.860481.3.579.2.462 Unknown [id number] 2.16.8 40.1.404980.3.579.2.462 Social History Date Type Detail Facility Start: 07-02-2024 End: 03-25-2025 Tobacco smoking status Never smoked tobacco (finding) [facility] Sex Assigned At [facility] Start: 12-10-2017 End: 11-24-2024 Sex Male (finding) [facility] Work Phone: Start: 1950 Sex Assigned At Male [facility] Start: 08-21-2024 Sexual Orientation Heterosexual (fin ding) [facility] Start: 08-21-2024 Gender identity Identifies as male gender (finding) [facility] Functional Status Date Assessment Result Facility 12-26-2024 Functional Status Repositions self [facility] 12-26-2024 Functional Status Evening Snack Percent 1 00 [facility] 12-25-2024 Functional Status 100 [facility] 12-25-2024 Functional Status [facility] 12-25-2024 Functional Status Patient Identi fied Identification band, Verbal [facility] 12-25-2024 Functional Status [facility] 11-28-2024 Functional Status Sensory Defici ts Hearing deficit, left ear, Hearing deficit, right ear [facility] 10-23-2024 Functional Status Independent [facility] 10-23-2024 Functional Status Awake [facility] 08-21-2024 Functional Status Independent [facility] 08-21-2024 Functional Status Non-Slip footw ear, Room check performed [facility] 08-21-2024 Functional Status Maintained [facility] 07-02-2024 Functional Status Up ad aden [facility] Mental Status Date Assessment Result Facility 12-26-2024 Mental Status Oriented x 4 [facility] 12-26-2024 Mental Status [facility] 12-25-2024 Mental Status Oriented x 4 [facility] 10-23-2024 Mental Status Orientation Oriented x 4 [facility] 08-21-2024 Mental Status Orientation Oriented x 4 [facility] 08-21-2024 Mental Status [facility] 07-02-2024 Mental Status Oriented x 4 [facility] Clinical Notes 07-02-2024 to 03-25-2025 Note Date & Type Note Facility 03-25-2025 Evaluation note Diagnosis Onset Date Resolution Lipoma acute March 25 12:58pm Osteoarthritis of right knee acute March 25, 2025 12:58pm [facility] Work Phone: [phone] 361-733707-09-2025 Hospital Discharge instructions Patient Education 03/13/2025 10:02:53 Benign Paroxysmal Positional Vertigo Benign Paroxysmal Positional Vertigo Benign paroxysmal positional vertigo is a common condition. You feel as if the room is spinning after changing position, moving your head quickly, or even just rolling over in bed. Vertigo is a false feeling of motion plus disorientation that makes it seem as though the room is spinning. A vertigo attack may cause sudden nausea, vomiting, and heavy sweating. Severe vertigo causes a loss of balance. You may even fall down. Vertigo is caused by a problem with the inner ear. The inner ear is located behind the middle ear. It is a part of the balance center of the body. It contains small calcium particles within fluid-filled canals (semi-circular canals). These particles can move out of position. This may happen as a result of aging, head injury, or disease of the inner ear. Once that happens, moving your head in certain ways may cause the particles to stimulate the inner ear. This creates the feeling of vertigo. An episode of vertigo may last seconds, minutes, or hours. Once you are over the first episode of vertigo, it may never return. Sometimes symptoms return off and on for several weeks or longer. Home care Follow these guidelines when caring for yourself at home: Rest quietly in bed if your symptoms are severe. Change position slowly. There is usually 1 position that will feel best. This might be lying on 1 side or lying on your back with your head slightly raised on pillows. Until you have no symptoms, you are at a higher risk of falling. Let someone help you when you get up. Get rid of home hazards such as loose electrical cords and throw rugs. Don t walk in unfamiliar areas that are not lighted. Use night lights in bathrooms and kitchen areas. Do not drive or work with dangerous machinery for 1 week after symptoms go away. This is in case symptoms return suddenly. Take medicine as prescribed to relieve your symptoms. Unless another medicine was prescribed for nausea, vomiting, and vertigo, you may use egna-fad-qakedod motion sickness medicine. Examples of thisinclude meclizine and dimenhydrinate. Follow-up care Follow up with your healthcare provider, or as directed. Tell your provider about any ringing in your ear or hearing loss. If you had a CT or MRI scan, a specialist will review it. You will be told of any new findings thatmay affect your care. When to seek medical advice Call your healthcare provider right away if any of these occur: Vertigo gets worse even after taking prescribed medicine Repeated vomiting even after taking prescribed medicine Weakness that gets worse Fainting Severe headache or unusual drowsiness or confusion Weakness of an arm or leg or 1 side of the face Trouble walking Trouble with speech or vision Seizure Trouble hearing Fever of 100.4 F (38 C) or higher, or as directed by your healthcare provider Fast heart rate Chest pain [id number] [employer]. [address] [place] [address]. All rights reserved. This information is not intended as a substitute for professional medical care. Always follow yourhealthcare professional's instructions. Follow Up Care 03/13/2025 04:57:37 With[place] [id number] Address: When:2-4 days With:KRISTA MARIA MD Address:Unknown When:2-4 days [facility] 07-09-2025 Note* Exam Date Time Procedure Performing Provider Status 03/13/25 12:00 PM MRI Femur w/ + w/o C ontrast Right JONAH JEFFRIES MD; Auth ([employer]) [id number] ORIGINAL EXAMINATION: MRI OF THE RIGHT FEMUR WITH AND WITHOUT CONTRAST 03/13/2025 12:03 pm TECHNIQUE: Multiplanar multisequence MRI of the right femur was performed with and without the administration of intravenous contrast. COMPARISON: None. HISTORY: ORDERING SYSTEM PROVIDED HISTORY: Reason for Exam: LIPOMA FINDINGS: No aggressive bony lesion identified. No periostitis or intraosseous edema seen. Mild heterogeneity of the marrow in the proximal diaphysis in likely heterogeneous fatty marrow. Degenerative changes seen of the right hip. There are degenerative changes in the visualized knee. The knee is not evaluated in detail. A joint effusion noted in the knee. At the site of palpable concern, lobulated fat tissue seen. No encapsulated mass is identified. No abnormal intramuscular signal seen. Following the administration of contrast, no enhancing lesions identified. IMPRESSION: 1. Lobulated fat tissue at the site of palpable concern. No encapsulated mass is identified. 2. Degenerative changes in the right hip and knee. The knee and hip are not evaluated in detail. There is a joint effusion in the knee. Interpreted by: Jonah Jeffries MD Preliminary Report By: Jonah Jeffries MD Electronically signed By Jonah Jeffries MD Dictated Date: 03/13/2025 1:14:47 PM Prelim Date: 03/13/2025 1:21:52 PM Sign Date: 03/13/2025 1:21:52 PM Ordering Provider: JOSE MARIA Interpreted by: Jonah Jeffries MD Preliminary Report By: Jonah Jeffrise MD Electronically signed By Jonah Jeffries MD Dictated Date: 03/13/2025 1:14:47 PM Prelim Date: 03/13/2025 1:21:52 PM Sign Date: 03/13/2025 1:21:52 PM Ordering Provider: JOSE MARIA [facility]07-09-2025 Note Discharge Instructions Thank you for allowing [facility] to assist you with your healthcare needs. The following is importantdischarge information regarding your hospital visit. Diagnosis from Today's Visit BPPV (benign paroxysmal positional vertigo) Vision changes What to Do Next Instructions from Your Care Team No qualifying data available. Post Acute Orders No qualifying data available. You Need to Schedule the Following Appointments [place] [phone] When:Within 2-4 days Follow Up with KRISTA MARIA MD When:Within 2-4 days Allergies penicillin Rash sulfa drug Rash Medications Please ask your primary doctor or pharmacist before taking any other medication not listed, including over the counter drugs, herbal medications, vitamins and or supplements as they may interact withyour home medications. What How Much When Why Instructions Last Dose New meclizine (meclizine 25 mg oral tablet) 1 tab(s) by mouth Three (3) times a day as needed for as needed for dizziness Duration: 5 Days Pickup at [facility]/pharmacy #[id number] Unchanged atorvastatin (atorvastatin 20 mg oral tablet) 1 tab(s) by mouth Daily at bedtime Unchanged clobetasol topical (Clobetasol (Eqv-Temovate) 0.05% topical cream) 1 application Topical Once a day Unchanged dabigatran (dabigatran 150 mg oral capsule) 1 cap by mouth Two (2) times a day Recurrent persistent atrial fibrillation/flutter, s/p DCCV x2 (most recent- 08/21/2024), PF-PVI/PWI + CTI/SVC (December 2024) Sinus bradycardia Hypertension JOHNNY on CPAP Obesity, on Ozempic Unchanged ergocalciferol (ergocalciferol 50,000 intl units (1.25 mg) oral capsule) 1 cap by mouth Every Tuesday Unchanged fenofibrate (fenofibrate 160 mg oral tablet) 1 tab(s) by mouth Once a day (in the morning) TAKE 1 TABLET BY MOUTH EVERY DAY Unchanged ketoconazole topical (ketoconazole 2% topical cream) 1 application Topical Once a day MIX 50/ 50 WITH MOMETASONE AND APPLY TO FACE TWICE A DAY NEEDED Unchanged levothyroxine (levothyroxine 175 mcg (0.175 mg) oral tablet) TAKE 1 TABLET BY MOUTH EVERY DAY Unchanged lisinopril (lisinopril 10 mg oral tablet) 1 tab(s) by mouth Once a day Unchanged metoprolol (metoprolol succinate 25 mg oral TABLET extended release) 1 tab(s) by mouth Once a day Do not crush or chew (controlled release) Unchanged mometasone topical (mometasone 0.1% topical cream) 1 application Topical Every day Unchanged omeprazole (omeprazole 20 mg oral delayed release capsule) 1 cap by mouth Once a day (in the morning) Unchanged semaglutide (Ozempic 2 mg/ 3 mL (0.25 mg or 0.5 mg dose) subcutaneous solution) 0.25 Milligram Subcutaneous Every Tuesday rotate injection sites Pharmacy Information [facility]/pharmacy #[id number]: [address] [place], [place] [id number] [phone] Please take this list to your next doctor s visit. Bring all medications you take, including over the counter medications, herbals and other supplements with you to your doctor s visit. Patients and families are reminded to discard old lists and to update any records with all medication providers or retail pharmacies. Education Materials Benign Paroxysmal Positional Vertigo Benign paroxysmal positional vertigo is a common condition. You feel as if the room is spinning after changing position, moving your head quickly, or even just rolling over in bed. Vertigo is a false feeling of motion plus disorientation that makes it seem as though the room is spinning. A vertigo attack may cause sudden nausea, vomiting, and heavy sweating. Severe vertigo causes a loss of balance. You may even fall down. Vertigo is caused by a problem with the inner ear. The inner ear is located behind the middle ear. It is a part of the balance center of the body. It contains small calcium particles within fluid-filled canals (semi-circular canals). These particles can move out of position. This may happen as a result of aging, head injury, or disease of the inner ear. Once that happens, moving your head in certain ways may cause the particles to stimulate the inner ear. This creates the feeling of vertigo. An episode of vertigo may last seconds, minutes, or hours. Once you are over the first episode of vertigo, it may never return. Sometimes symptoms return off and on for several weeks or longer. Home care Follow these guidelines when caring for yourself at home: Rest quietly in bed if your symptoms are severe. Change position slowly. There is usually 1 position that will feel best. This might be lying on 1 side or lying on your back with your head slightly raised on pillows. Until you have no symptoms, you are at a higher risk of falling. Let someone help you when you get up. Get rid of home hazards such as loose electrical cords and throw rugs. Don t walk in unfamiliar areas that are not lighted. Use night lights in bathrooms and kitchen areas. Do not drive or work with dangerous machinery for 1 week after symptoms go away. This is in case symptoms return suddenly. Take medicine as prescribed to relieve your symptoms. Unless another medicine was prescribed for nausea, vomiting, and vertigo, you may use snvv-hju-euwfcax motion sickness medicine. Examples of thisinclude meclizine and dimenhydrinate. Follow-up care Follow up with your healthcare provider, or as directed. Tell your provider about any ringing in your ear or hearing loss. If you had a CT or MRI scan, a specialist will review it. You will be told of any new findings thatmay affect your care. When to seek medical advice Call your healthcare provider right away if any of these occur: Vertigo gets worse even after taking prescribed medicine Repeated vomiting even after taking prescribed medicine Weakness that gets worse Fainting Severe headache or unusual drowsiness or confusion Weakness of an arm or leg or 1 side of the face Trouble walking Trouble with speech or vision Seizure Trouble hearing Fever of 100.4 F (38 C) or higher, or as directed by your healthcare provider Fast heart rate Chest pain [id number] The [employer]. [address] [place] [address]. All rights reserved. This information is not intended as a substitute for professional medical care. Always follow yourhealthcare professional's instructions. Additional Information VACCINATE! IT SAVES LIVES! Members of the community who have not yet received the COVID-19 vaccine and would like to receive it can visit one of [facility] vaccine clinics. There are many vaccine clinic locations within the [facility]. For locations and available times, please visit www.[email or web address].[place].gov/. It is important to note that some COVID mobile vaccine clinics are held outdoors and may be canceled in rainy or stormy conditions. To learn more about pediatric vaccinations (ages 5-11), we invite you to visit the [facility] webpage. https://www.[facility].org/pages/9866-Jjfsb-Mhulavcmmck-Nkyktmkels-Yqsun-Nuw stions.htmlTo learn more about the COVID-19 vaccine, we invite you to visit the CDC website for a list of frequently asked questions. https://www.cdc.gov/coronavirus/2019-ncov/vaccines/faq.html [facility] Patient Portal Access Instructions: Stay connected with your healthcare team and access your personal medical information anytime with the [facility] Patient Portal. If you would like a full copy of your medical records please contact the [facility] Medical Records Department Tuesday through Tuesday between 8a.m. and 4:30p.m. Please follow the directions below to access the portal: 1.Access the email account you provided upon registration to the [facility].2.Look for an invitation email from [facility].3.Open the email and access the invitation link: Accept Invitation to [facility]4.Fill in the required galeano to create your account. Sign into [email or web address] with your username and password that you [...] you will allow to register on the [facility] Portal for access to your information. You can also access the [facility] Patient Portal on the [employer] mary. Simply click on Health Records under [employer] and then click on the Gavi logo. [...] Call your local pharmacy or go to [email or web address] to find one close to you.3.Make use of household items: Use cat litter or old coffee grounds to dispose medications if other options arenot available. Mix your drugs with these household products, seal them in an airtight container andthrow it into the garbage. Call [facility]: [phone] to be sure your drugs can be [...] a CHART COPY Signatures Patient Education Materials Benign Paroxysmal Positional Vertigo Medication Leaflets My discharge plan and instructions have been reviewed and explained to me and I,CHARLOTTE DE LA TORRE M understand my current condition and have read and understand these discharge instructions. I have received a written copy of the plan/instructions. If I have questions, I am aware that I should contact my doctor. 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 Mild blunting of the left costophrenic angle likely secondary to superimposed soft tissue structures. Right costophrenic angle is sharp. No focal consolidation, pulmonary edema or pneumothorax. No acute osseous findings. Sclerotic lesion along the left proximal humeral shaft likely represents an enchondroma. IMPRESSION: No acute radiographic findings. I have personally reviewed the images of this examination and agree with the resident's findings and interpretation. Interpreted by: Naa Haney MD Preliminary Report By: Natasha Mcgovern Electronically signed By Naa Haney MD Dictated Date: 03/13/2025 6:56:49 AM Prelim Date: 03/13/2025 6:58:59 AM Sign Date: 03/13/2025 7:15:12 AM Ordering Provider: JUNIOR HOWELL Interpreted by: Naa Haney MD Preliminary Report By: Natasha Mcgovern Electronically signed By Naa Haney MD Dictated Date: 03/13/2025 6:56:49 AM Prelim Date: 03/13/2025 6:58:59 AM Sign Date: 03/13/2025 7:15:12 AM Ordering Provider: JUNIOR HOWELL [place] [id number] Note* Exam Date Time Procedure Performing Provider Status 03/13/25 6:[address] Angiography Neck w/ Contrast NAA HANEY MD; Auth (Verified) [id number] ORIGINAL EXAMINATION: CTA OF THE NECK 03/13/2025 6:44 am TECHNIQUE: CTA of the neck was performed with the administration of intravenous contrast. Multiplanar reformatted images are provided for review. MIP images are provided for review. Stenosis of the internal carotid arteries measured using NASCET criteria. Automated exposure control, iterative reconstruction, and/or weight based adjustment of the mA/kV was utilized to reduce the radiation dose to as low as reasonably achievable. COMPARISON: None. HISTORY: ORDERING SYSTEM PROVIDED HISTORY: Reason for Exam: dizziness, vision changes FINDINGS: AORTIC ARCH/ARCH VESSELS: No dissection or arterial injury. No significant stenosis of the brachiocephalic or subclavian arteries. CAROTID ARTERIES: No dissection, arterial injury, or hemodynamically significant stenosis by NASCET criteria. VERTEBRAL ARTERIES: No dissection, arterial injury, or significant stenosis. SOFT TISSUES: The lung apices are clear. No cervical or superior mediastinal lymphadenopathy. The larynx and pharynx are unremarkable. No acute abnormality of the salivary and thyroid glands. BONES: No acute osseous abnormality. Multilevel degenerative changes of the spine. IMPRESSION: No large vessel occlusion or hemodynamically significant stenosis in the neck. I have personally reviewed the images of this examination and agree with the resident's findings and interpretation. Interpreted by: Naa Haney MD Preliminary Report By: Natasha Mcgovern Electronically signed By Naa Haney MD Dictated Date: 03/13/2025 6:52:06 AM Prelim Date: 03/13/2025 6:55:25 AM Sign Date: 03/13/2025 7:14:25 AM Ordering Provider: JUNIOR HOWELL Interpreted by: Naa Haney MD Preliminary Report By: Natasha Mcgovern Electronically signed By Naa Haney MD Dictated Date: 03/13/2025 6:52:06 AM Prelim Date: 03/13/2025 6:55:25 AM Sign Date: 03/13/2025 7:14:25 AM Ordering Provider: JUNIOR HOWELL [facility]07-09-2025 Note* Exam Date Time Procedure Performing Provider Status 03/13/25 6:[address] Angiography Head w/ Contrast NAA HANEY MD; Auth (Verified) [id number] ORIGINAL EXAMINATION: CTA OF THE HEAD WITH CONTRAST 03/13/2025 6:41 am: TECHNIQUE: CTA of the head/brain was performed with the administration of intravenous contrast. Multiplanar reformatted images are provided for review. MIP images are provided for review. Automated exposure control, iterative reconstruction, and/or weight based adjustment of the mA/kV was utilized to reduce the radiation dose to as low as reasonably achievable. COMPARISON: None. HISTORY: ORDERING SYSTEM PROVIDED HISTORY: Reason for Exam: dizziness, vision changes FINDINGS: ANTERIOR CIRCULATION: No significant stenosis of the intracranial internal carotid, anterior cerebral, or middle cerebral arteries. No aneurysm. POSTERIOR CIRCULATION: No significant stenosis of the vertebral, basilar, or posterior cerebral arteries. No aneurysm. Dominant right vertebral artery. OTHER: No dural venous sinus thrombosis on this non-dedicated study. BRAIN: No mass effect or midline shift. No extra-axial fluid collection. The glasgow-white differentiation is maintained. IMPRESSION: No large vessel occlusion or hemodynamically significant stenosis in the head. I have personally reviewed the images of this examination and agree with the resident's findings and interpretation. Interpreted by: Naa Haney MD Preliminary Report By: Natasha Mcgovern Electronically signed By Naa Haney MD Dictated Date: 03/13/2025 6:49:44 AM Prelim Date: 03/13/2025 6:51:55 AM Sign Date: 03/13/2025 7:05:44 AM Ordering Provider: JUNIOR HOWELL Interpreted by: Naa Haney MD Preliminary Report By: Natasha Mcgovern Electronically signed By Naa Haney MD Dictated Date: 03/13/2025 6:49:44 AM Prelim Date: 03/13/2025 6:51:55 AM Sign Date: 03/13/2025 7:05:44 AM [facility]* Exam Date Time Procedure Performing Provider Status 03/13/25 6:[address] Head or Brain w/o Contrast Mckenna HANEY MD; Auth (Verified) [id number] ORIGINAL EXAMINATION: CT OF THE HEAD WITHOUT CONTRAST 03/13/2025 6:38 am TECHNIQUE: CT of the head was performed without the administration of intravenous contrast. Automated exposure control, iterative reconstruction, and/or weight based adjustment of the mA/kV was utilized to reduce the radiation dose to as low as reasonably achievable. COMPARISON: None. HISTORY: ORDERING SYSTEM PROVIDED HISTORY: Reason for Exam: dizziness, vision changes FINDINGS: BRAIN/VENTRICLES: There is no acute intracranial hemorrhage, mass effect or midline shift. No abnormal extra-axial fluid collection. The glasgow-white differentiation is maintained without evidence of an acute infarct. There is no evidence of hydrocephalus. ORBITS: The visualized portion of the orbits demonstrate no acute abnormality. SINUSES: The visualized paranasal sinuses and mastoid air cells demonstrate no acute abnormality. SOFT TISSUES/SKULL: No acute abnormality of the visualized skull or soft tissues. IMPRESSION: No acute intracranial abnormality. Interpreted by: Naa Haney MD Preliminary Report By: Naa Haney MD Electronically signed By Naa Haney MD Dictated Date: 03/13/2025 6:45:53 AM Prelim Date: 03/13/2025 6:46:10 AM Sign Date: 03/13/2025 6:46:10 AM Ordering Provider: JUNIOR HOWELL Interpreted by: Naa Haney MD Preliminary Report By: Naa Haney MD Electronically signed By Naa Haney MD Dictated Date: 03/13/2025 6:45:53 AM Prelim Date: 03/13/2025 6:46:10 AM Sign Date: 03/13/2025 6:46:10 AM Ordering Provider: JUNIOR [facility]07-09-2025 Note* Exam Date Time Procedure Performing Provider Status 03/13/25 5:13 AM EKG [ED AOH] - CV JUNIOR HOWELL DO; Auth (Verified) ECG Final Report Sinus rhythm Left ventricular hypertrophy Electronic Signature: JUNIOR HOWELL DO 03/13/2025 05:34:58 [facility]06-16-2025 Radiology Diagnostic study note [facility] Imaging Services [address], [place] [address] Ext Non Vasc Limited/Soft Tiss MR#: [id number] Acct: [id number] Name: CHARLOTTE DE LA TORRE Rep #: [id number] : 1950 M 74 From: Celina Dockery MD PCP: Dr. Jose Maria MD Status: REG CL I Study:Ext Non Vasc Limited/Soft Tiss Date of Exam: 02/18/25 Exam# [id number] Ordering Dr: Charito Maria MD PROCEDURE: EXT NON VASC LIMITED/SOFT TISS 02/18/2025 REASON FOR EXAM: POSSIBLE HEMATOMA (R) THIGH/INJURY TECHNIQUE: EXT NON VASC LIMITED/SOFT TISS COMPARISON: None US/Ext Non Vasc Limited/Soft Tiss IMPRESSION: Targeted sonogram of the right anterior thigh demonstrates isoechoic, nonvascular lesion measuring 1.5 x 2.6 x 0.8 cm. Reading Location: [facility] CC: Dr. Jose Maria MD ~ [employer]: Signed [facility]04-23-2025 Discharge summary Date of Service 12/26/24 Discharge Diagnosis afib -- here for ablation Hospital Course HPI: 74-year-old male with recurrent persistent atrial fibrillation/flutter, s/p DCCV x2 (most recent 08/21/2024), HTN, HLP, JOHNNY on CPAP, hypothyroidism s/p thyroidectomy (d/t CA), GERD, obesity on Ozempic, remote history of thyroid/prostate cancer s/p prostatectomy (2016), BPH, anxiety, remote history of viral meningitis, hematuria, and erectile dysfunction, here for AFib ablation. Course: The patient underwent successful atrial fibrillation ablation (PFA- PVI+posterior wall +SVC + CTI). Maintained sinus rhythm following the procedure. Made good urine. No groin issues after ambulation. No other concerns. The patient was ready for d/c home. Will stop amiodarone/bb. Will continue on anticoagulation. Of note, the patient had hematuria (in the absence of jesus), which he did have in the past when hehad kidney stones. We will continue OAC despite [...] Follow Up with ALIYAH CARRINGTON MD Where:[address] [facility] [address] [facility] [place] [address]- [phone] Additional Information: SOMEONE FROM THIS OFFICE WILL [...] ALIYAH CARRINGTON MD on 12/26/2024 10:17 AM [id number] History and physical note Date of Service [...] in June 2024 after moving here from [place]. Patient had previously been following at [facility] in [place] (Dr. Harvey) where he was last evaluated [...] No qualifying data available. Digitally Signed by SHANNON SHEETS on 12/24/2024 11:45 AM [id number] Hospital Discharge instructions Patient Education 12/26/2024 08:13:16 3-- EP [...] Band-Aid over your procedure site. Keep this Band- Aid on for the next24 hours and then remove it leaving the site open to air. Left wrist: Keep band aid on site for next 3- days changing daily. Some degree of bruising and tenderness is normal around the procedure site. It will take a while for any bruising to completely resolve. Keep your site clean and dry. You need to report the following to your biological plant operator: Any draining or oozing from the site [...] Document Reviewed: 08/23/2014 ExitCare Patient Information 2015 Next audience. This information is not intended to replace advicegiven to you by your health care provider. Make sure you discuss any questions you have with your health care provider. Follow Up Care 12/05/2024 11:39:04 With:ALIYAH CARRINGTON MD Address: [address] [facility] [place] [address] [phone] When: Unknown Comments:SOMEONE FROM THIS OFFICE WILL CALL YOU WITH A FOLLOW UP APPOINTMENT. [facility] 04-23-2025 Summary of episode note Discharge Instructions Thank you for allowing [facility] to assist you with your healthcare needs. The following is importantdischarge information regarding your hospital visit. Your Care Team KRISTA MARIA MD Your Diagnosis AF (atrial fibrillation) What to do next Follow Up Appointments Follow Up with ALIYAH CARRINGTON MD Where:[address] [facility] [address] [facility] [place] [address]- [phone] Additional Information: SOMEONE FROM THIS OFFICE WILL [...] Band-Aid over your procedure site. Keep this Band- Aid on for the next24 hours and then remove it leaving the site open to air. Left wrist: Keep band aid on site for next 3- days changing daily. Some degree of bruising and tenderness is normal around the procedure site. It will take a while for any bruising to completely resolve. Keep your site clean and dry. You need to report the following to your biological plant operator: Any draining or oozing from the site [...] Document Reviewed: 08/23/2014 ExitCare Patient Information 2015 Next audience. This information is not intended to replace advicegiven to you by your health care provider. Make sure you discuss any questions you have with your health care provider. Additional Information VACCINATE! IT SAVES LIVES! Members of the community who have not yet received the COVID-19 vaccine and would like to receive it can visit one of [facility] vaccine clinics. There are many vaccine clinic locations within the [facility]. For locations and available times, please visit [email or web address]/. It is important to note that some COVID mobile vaccine clinics are held outdoors and may be canceled in rainy or stormy conditions. To learn more about pediatric vaccinations (ages 5-11), we invite you to visit the [facility] webpage. https://www.akTERUMO MEDICAL CORPORATIONs.org/pages/3740-Lowtm-Ijgbxsyvxlh-Aebqshxevx-Fcqmi-Ogr stions.htmlTo learn more about the COVID-19 vaccine, we invite you to visit the CDC website for a list of frequently asked questions.https://www.cdc.gov/coronavirus/2019-ncov/vaccines/faq.html [facility] Patient Portal Access Instructions: Stay connected with your healthcare team and access your personal medical information anytime with the [facility] Patient Portal. Please follow the directions below to create your [facility] account: 1.Access the email account you provided upon registration to the hospital/physician office.2.Look for an invitation email from [facility].3.Open the email and access the invitation link: AcceptInvitation to [facility].4.Fill in the required galeano to create your account. To access your account, visit [facility]hela[facility]OneCjonathant. Click the blue button labeled Access Patient [...] who you will allowto register on the [facility] Patient Portal for access to your information. You can also access the [facility] Patient Portal on the [facility] mary. Simply click on Patient Portal and then log into your account. If you would like to receive a full copy of your medical records, please contact the [facility] Medical Records Department by calling [phone], Tuesday through Tuesday between 8 a.m. and [...] Call your local pharmacy or go to [email or web address] to find one close to you.3.Make use of household items: Use cat litter or old coffee grounds to dispose medications if other options arenot available. Mix your drugs with these household products, seal them in an airtight container andthrow it into the garbage. Call [facility]: [phone] to be sure your drugs can be [...] aware that I should contact my doctor. 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 Signature: Date/Time: Relationship to Patient: Witness Name/Signature: Date/Time: [facility]h28-[facility]-8582 Note* Exam Date Time Procedure Performing Provider Status 12/25/24 1:01 PM Ablation CV ALIYAH CARRINGTON MD; Auth (Cecilia ified) [id number] Anesthesiology Consult note Patient: CHARLOTTE DE LA [...] dose) subcutaneous solution: 0.25 mg, Subcutaneous, Tuesday, rota injection sites, 1 EA, 0 Refill(s) atorvastatin [...] list: Medical Bleeding diathesis / SNOMED CT 131084831 / Confirmed GERD (gastroesophageal reflux disease) / SNOMED CT 980095159 / Confirmed Hypertension / SNOMED CT 5366255730 / Confirmed Obesity / SNOMED CT 6536504198 / Confirmed JOHNNY on CPAP / SNOMED CT 054412171 / Confirmed Persistent atrial fibrillation / SNOMED CT 6704572236 / Confirmed Sinus bradycardia / SNOMED CT 55258874 / Confirmed, Active Problems (22) Abnormal gait [...] Father COVID-19 Sister Procedure history: Colonic intussusception (0546161798) in 1953 at 4 Years. Comments: 11/28/2024 9:16 RADHA Fofana with appendectomy Cancer ([id number]). Comments: 07/02/2024 8:46 RADHA Lopez thyroid & prostrate Arthroplasty of the knee (362494089). Comments: 07/02/2024 8:47 RADHA Lopez left Cardioversion (845719608). Comments: 11/28/2024 9:14 RADHA Fofana x2 Hemangioma (3450376857). Comments: 11/28/2024 9:15 RADHA Fofana removed from wrist Thyroidectomy (68621360). Prostatectomy (317436519). Social History: Social & Psychosocial Habits Alcohol 11/28/2024 Use: Current Frequency: 1-2 times per year Substance Abuse 11/28/2024 Use: Current Type: Marijuana Frequency: 1-2 times per month Comment: Gummies - 10/11/2024 09:08 - Farzana Garcia LPN Tobacco 11/28/2024 Tobacco Use: Never (less than [...] Physical Examination Documentation . Assessment and Plan [place] [employer] Anesthesiologists (ASA) physical status classification: [...] WILD GONG MD on 12/25/2024 07:18 AM [facility]Xqregwky08-37-8327 Evaluation + Plan noteExtracted from: Title:History and Physical Author:SHANNON SHEETS APRN-SECURITY CONTROLS ASSESSOR Date:12/24/24 Per OV note dated 10/14/24: ? [...] saw and discussed the patient with the CLINICAL STAFF RN. I concur with the above plan formulated under my direct supervision. This is a 74-year-old male with recurrent persistent atrial fibrillation/flutter, s/p DCCV x2 (most recent 08/21/2024), HTN, HLP, JOHNNY on CPAP, hypothyroidism s/p thyroidectomy (d/t CA), GERD, obesity on Ozempic, remote history of thyroid/prostate cancer s/p prostatectomy (2016), BPH, anxiety, remote history of viral meningitis, [...] for ablation Aliyah Carrington MD Cardiac Electrophysiology [phone] [facility] 04-21-2025 History and physical note Date [...] in June 2024 after moving here from [place]. Patient had previously been following at [facility] in [place] (Dr. Harvey) where he was last evaluated [...] fibrillation Sinus bradycardia Procedure/Surgical History Colonic intussusception: 1954 Arthroplasty of the knee Cancer Cardioversion Hemangioma [...] No qualifying data available. Digitally Signed by SHANNON SHEETS on 12/24/2024 11:45 AM [facility] HospitalIakzixaz95-99-5457 Radiology Diagnostic study note [facility] Imaging Services [address], [place] [address] Head/Neck Soft Tissue MR#: [id number] Acct: [id number] Name: CHARLOTTE DE LA TORRE Rep #: [id number] : 1950 M 74 From: Puma Mcmillan MD PCP: Dr. Jose Maria MD Status: REG CL I Study:Head/Neck Soft Tissue Date of Exam: 11/14/24 Exam# [id number] Ordering Dr: Charito Maria MD PROCEDURE: HEAD/NECK [...] nodular density suggestive ofa lipoma. Reading Location: [facility] CC: Dr. Jose Maria MD ~ [employer]: Signed [facility]02-18-2025 Hospital Discharge instructions Patient Education 10/23/2024 12:32:03 [...] neck Chest pain not caused by coughing [phone] [employer]. [address] [place] [address]697. All rights reserved. This information is not intended as a substitute for professional medical care. Always follow yourhealthcare professional's instructions. Follow Up Care 10/23/2024 10:49:42 With:KRISTA MARIA MD Address:Unknown When:2-4 days [facility] 02-18-2025 Note Discharge Instructions Thank you for allowing [facility] to assist you with your healthcare needs. [...] neck Chest pain not caused by coughing [phone] [employer]. [address] [place] [address]38. All rights reserved. This information is not intended as a substitute for professional medical care. Always follow yourhealthcare professional's instructions. Additional Information VACCINATE! IT SAVES LIVES! Members of the community who have not yet received the COVID-19 vaccine and would like to receive it can visit one of [facility] vaccine clinics. There are many vaccine clinic locations within the [facility]. For locations and available times, please visit www.[email or web address].[place].gov/. It is important to note that some COVID mobile vaccine clinics are held outdoors and may be canceled in rainy or stormy conditions. To learn more about pediatric vaccinations (ages 5-11), we invite you to visit the [facility] webpage. https://www.[facility].org/pages/7525-Ymoph-Ynouebbcyep-Upcvmpugfz-Ufihv-Kgs stions.htmlTo learn more about the COVID-19 vaccine, we invite you to visit the CDC website for a list of frequently asked questions. https://www.cdc.gov/coronavirus/2019-ncov/vaccines/faq.html [facility] Patient Portal Access Instructions: Stay connected with your healthcare team and access your personal medical information anytime with the [facility] Patient Portal. If you would like a full copy of your medical records please contact the [facility] Medical Records Department Tuesday through Tuesday between 8a.m. and 4:30p.m. Please follow the directions below to access the portal: 1.Access the email account you provided upon registration to the [facility].2.Look for an invitation email from [facility].3.Open the email and access the invitation link: Accept Invitation to [facility]4.Fill in the required galeano to create your account. Sign into www.[facility] with your username and password that you [...] you will allow to register on the [facility] Patient Portal for access to your information. You can also access the [facility] Patient Portal on the [facility]. Simply click on Health Records under [employer] and then click on the [employer] logo. HOW TO SAFELY DISPOSE OF PRESCRIPTION [...] Call your local pharmacy or go to http://bit.FOB.com/3T0Zp8d to find one close to you.3.Make use of household items: Use cat litter or old coffee grounds to dispose medications if other options arenot available. Mix your drugs with these household products, seal them in an airtight container andthrow it into the garbage. Call [facility]: [phone] to be sure your drugs can be [...] aware that I should contact my doctor. 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 Take diks-vqe-lvfeayb and prescription medicines only as told by [...] 06/12/2014 Document Revised: 08/04/2018 Document Reviewed: 12/11/2016 [facility] Patient Education Bitly. 08/21/2024 08:48:56 3- Cardioversion (06/2018) (CUSTOM) CARDIOVERSION [...] Document Reviewed: 08/23/2014 ExitCare Patient Information 2015 Next audience. This information is not intended to replace advicegiven to you by your health care provider. Make sure you discuss any questions you have with your health care provider. Follow Up Care 07/30/2024 10:41:37 With:SHANNON SHEETS APRN-[facility] Address: [address] [facility] [address] [place] [address]- [phone] When:10/11/2024 09:00:00 [facility] 12-17-2024 Summary of episode note Discharge Instructions Thank you for allowing [facility] to assist you with your healthcare needs. The following is importantdischarge information regarding your hospital visit. Your Care Team ELIZABETH CELESTIN What to do next Instructions From Your [...] symptoms. Follow Up Appointments Follow Up with SHANNON SHEETS When:10/11/2024 09:00 AM EST Where:[facility] [address] [place] [address] [address] [place] [address]- [phone] The Following Activity and Diet Have Been [...] until you are awake and alert. Take tria-aps-qoykwnp and prescription medicines only as told by [...] 06/12/2014 Document Revised: 08/04/2018 Document Reviewed: 12/11/2016 [employer] Patient Education 2020 [employer]. CARDIOVERSION Discharge instructions ACTIVITY/SAFETY Please refrain from [...] Document Reviewed: 08/23/2014 ExitCare Patient Information 2015 Next audience. This information is not intended to replace advicegiven to you by your health care provider. Make sure you discuss any questions you have with your health care provider. Additional Information VACCINATE! IT SAVES LIVES! Members of the community who have not yet received the COVID-19 vaccine and would like to receive it can visit one of [facility] vaccine clinics. There are many vaccine clinic locations within the [facility]. For locations and available times, please visit [email or web address]/. It is important to note that some COVID mobile vaccine clinics are held outdoors and may be canceled in rainy or stormy conditions. To learn more about pediatric vaccinations (ages 5-11), we invite you to visit the [facility] webpage. https://www.[facility].org/pages/4517-Bjjnr-Qrqrssvmrwx-Ojwpjytxzc-Feqpf-Ayp stions.htmlTo learn more about the COVID-19 vaccine, we invite you to visit the CDC website for a list of frequently asked questions.https://www.cdc.gov/coronavirus/2019-ncov/vaccines/faq.html [facility] Patient Portal Access Instructions: Stay connected with your healthcare team and access your personal medical information anytime with the [facility] Patient Portal. Please follow the directions below to create your [facility] account: 1.Access the email account you provided upon registration to the hospital/physician office.2.Look for an invitation email from [facility].3.Open the email and access the invitation link: AcceptInvitation to [facility].4.Fill in the required galeano to create your account. To access your account, visit [facility]. Click the blue button labeled Access Patient [...] who you will allowto register on the [facility] Patient Portal for access to your information. You can also access the [facility] Patient Portal on the [facility] mary. Simply click on Patient Portal and then log into your account. If you would like to receive a full copy of your medical records, please contact the [facility] Medical Records Department by calling [phone], Tuesday through Tuesday between 8 a.m. and [...] Call your local pharmacy or go to [email or web address] to find one close to you.3.Make use of household items: Use cat litter or old coffee grounds to dispose medications if other options arenot available. Mix your drugs with these household products, seal them in an airtight container andthrow it into the garbage. Call [facility]: [phone] to be sure your drugs can be [...] aware that I should contact my doctor. 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 Hospital Course This is a 74-year-old male who presented today for direct-current cardioversion secondary to atrialflutter. Patient underwent successful direct-current cardioversion with subsequent mormon of normal sinus rhythm which he remains in at this time. He was later discharged home in stable condition with instructions to continue current medical therapies and follow-up as directed. All questions/concerns were addressed to the patient's satisfactionprior to their departure. Allergies penicillin sulfa drug Procedures [facility]-08/21/2024 Consults No qualifying data available. Objective Vitals [...] Information Provided To Patient Digitally Signed by SHANNON SHEETS [facility]OLS ASSESSOR on 08/21/2024 08:32 AM Digitally Signed by ALIYAH CARRINGTON MD on 08/21/2024 04:05 PM [id number] Procedure note DATE: 08/21/24 PROCEDURE: DC cardioversion INDICATIONS: persistent atrial fibrillation PHYSICIAN: Dr Carrington CRYPTOGRAPHIC TECHNICIAN: Shannon Sheets, MSN, [facility]- HPI: pers AF COMPLICATIONS: none PROCEDURE DETAILS: [...] ALIYAH CARRINGTON MD on 08/21/2024 08:19 AM [id number] Anesthesiology Consult note Patient: CHARLOTTE DE LA [...] Mother Heart attack Father Procedure history: Cancer ([id number]). Comments: 07/02/2024 8:46 RADHA Lopez thyroid & prostrate Ablation ([id number]). Comments: 07/02/2024 8:47 RADHA Lopez cardiac Arthroplasty of the knee ([id number]). Comments: 07/02/2024 8:47 RADHA Lopez left Thyroid cancer ([id number]). Cardioversion ([id number]). Social History: Social & Psychosocial Habits Alcohol [...] range of motion. Integumentary: Intact, Warm, Dry, [place]. Neurologic: Alert, Oriented. Review / Management Results review: Labs (Last four charted values) WBC 5.5(AUG 21) Hgb 16.0(AUG 21) Hct 46.7(AUG 21) Plt 216(AUG 21) Na 142(DEC ) K 4.1(AUG 21) CO2 28(AUG 21) Cl 109(AUG 21) Cr 1.15(AUG 21) BUN 22.0(AUG 21) Glucose 109(AUG 21) Ca 8.9(AUG 21) PT 14.1(AUG 21) INR 1.2(AUG 21) . Assessment and Plan [place] [employer] Anesthesiologists (ASA) physical status classification: [...] RASHAD GUTIERREZ DO on 08/21/2024 08:10 AM [id number] Hospital Discharge instructions Patient Education 07/02/2024 09:20:03 [...] seeing Extreme drowsiness, confusion, dizziness, or fainting [phone] The [employer]. [address] [place] [address], [place] [address]. All rights reserved. This information is not intended as a substitute for professional medical care. Always follow yourhealthcare professional's instructions. Follow Up Care 07/02/2024 08:29:44 With:DAYANA BENZ [facility] ASSESSOR Address: [address] [facility] [address] [place] [address] [phone] When:2-4 days [facility] Amadou 10-28-2024 Note Discharge Instructions Thank you for allowing [facility] to assist you with your healthcare needs. [...] 2-4 days Where:[address] [place] [address] [phone] Allergies penicillin sulfa drug Medications Please ask [...] seeing Extreme drowsiness, confusion, dizziness, or fainting [phone] [employer]. [address] [place] [address], [place] [address]. All rights reserved. This information is not intended as a substitute for professional medical care. Always follow yourhealthcare professional's instructions. Additional Information VACCINATE! IT SAVES LIVES! Members of the community who have not yet received the COVID-19 vaccine and would like to receive it can visit one of [facility] vaccine clinics. There are many vaccine clinic locations within the [facility]. For locations and available times, please visit www.[email or web address].[place].gov/. It is important to note that some COVID mobile vaccine clinics are held outdoors and may be canceled in rainy or stormy conditions. To learn more about pediatric vaccinations (ages 5-11), we invite you to visit the [facility] webpage. https://www.[facility].org/pages/8898-Atecm-Djjzptezjcd-Uhzkqltcyf-Dhouc-Lcm stions.htmlTo learn more about the COVID-19 vaccine, we invite you to visit the CDC website for a list of frequently asked questions. https://www.cdc.gov/coronavirus/2019-ncov/vaccines/faq.html [facility] Patient Portal Access Instructions: Stay connected with your healthcare team and access your personal medical information anytime with the [facility] Patient Portal. If you would like a full copy of your medical records please contact the [facility] Medical Records Department Tuesday through Tuesday between 8a.m. and 4:30p.m. Please follow the directions below to access the portal: 1.Access the email account you provided upon registration to the [facility].2.Look for an invitation email from [facility].3.Open the email and access the invitation link: Accept Invitation to [facility]4.Fill in the required galeano to create your account. Sign into www.[facility] with your username and password that you [...] you will allow to register on the [facility] Patient Portal for access to your information. You can also access the [facility] Patient Portal on the [facility]. Simply click on Health Records under [employer] and then click on the [employer] logo. HOW TO SAFELY DISPOSE OF PRESCRIPTION [...] Call your local pharmacy or go to [email or web address].[email or web address] to find one close to you.3.Make use of household items: Use cat litter or old coffee grounds to dispose medications if other options arenot available. Mix your drugs with these household products, seal them in an airtight container andthrow it into the garbage. Call [facility]: [phone] to be sure your drugs can be [...] aware that I should contact my doctor. 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 Signature: Date/Time: Relationship to Patient: Witness Name/Signature: Date/Time: [facility]10-28-2024 NoteAtrial flutter with predominant 3:1 AV block Incomplete left bundle branch block Left ventricular hypertrophy Prolonged QT interval ST depression V1-V3, suggest recording posterior leads Electronic Signature: PRISCILA PEOPLES MD 07/02/2024 09:18:57[facility] Evaluation + Plan note No data available for this section [facility] Evaluation + Plan note Future Appointments Appointment Date:2024 01:00:00 PM Scheduled Provider:DAYANA BENZ [facility] Appointment Type:CV CLINICAL STAFF RN [facility] Evaluation + Plan note Future Appointments [facility] Evaluation + Plan note Future Appointments Appointment Date:10/11/2024 09:00:00 AM Scheduled Provider:SHANNON SHEETS Location:[facility] Appointment Type:CV OV Hospital Follow Up [facility] Evaluation + Plan note Future Appointments Appointment Date:10/30/2024 09:00:00 AM Scheduled Provider:AMADOU VAZQUEZ Location:[facility] Appointment Type:CV OV [facility] Evaluation + Plan note Future Appointments Appointment Date:11/12/2024 10:45:00 AM Scheduled Provider:AMADOU VAZQUEZ Location:[facility] Appointment Type:CV OV Appointment Date:12/05/2024 11:15:00 AM Scheduled Provider: Location:Heart Lab Appointment Type:EP Ablation [facility] Evaluation + Plan note Future Appointments Appointment Date:12/05/2024 08:15:00 AM Scheduled Provider: Location:Heart Lab Appointment Type:EP Ablation [facility] Evaluation + Plan note Future Appointments Appointment Date:08/22/2025 01:00:00 PM Scheduled Provider:JOSE CARLOS CARRINGTON Location:[facility] Appointment Type:CV OV [facility] Evaluation noteNo assessment information available [facility] Work Phone: Evaluation note* Diagnosis Onset Date Resolution Status Admit Date Lipoma acute March 25 12:58pm Osteoarthritis of right knee acute March 25, 2025 12:58pm [facility] Work Phone: Hospital Discharge instructions No data available for this section [facility] Progress note No data available for this section [facility] Reason for referral (narrative)No reason for referral information availableWilson [facility] Hospital Work Phone: Summary Purpose Family History No Family History Records Found Relationship Condition Age at Onset Recorded Date/T germán father Myocardial infarction Unknown grandfather Myocardial infarction Unknown mother Cerebral hemorrhage Unknown Advance Directives No Advanced Directives Records FoundNo Advanced Directives Records FoundNo Advanced Directives Records FoundNo Advanced Directives Records Found Chief Complaint and Reason for Visit Chief Complaint Admit Date LUMP LT NECK November 14, 2024 11: 02am Chief Complaint Admit Date LUMP LT NECK November 14, 2024 11: 02am EORDERS- DO ALL OCTOBER AND NOVEMBER ORDER S January 08, 2025 7:08am Chief Complaint Admit Date LUMP LT NECK November 14, 2024 11: 02am EORDERS- DO ALL OCTOBER AND NOVEMBER ORDER S January 08, 2025 7:08am LUMP RT THIGH February 18, 2025 11:1 9am Chief Complaint Admit Date EORDERS- DO ALL OCTOBER AND NOVEMBER ORDER S January 08, 2025 7:08am LUMP RT THIGH February 18, 2025 11:1 9am RIGHT THIGH March 25, 2025 12:5 8pm Reason for Visit Admit Date Lipoma March 25, 2025 12:5 8pm Osteoarthritis of right knee March 25, 2025 12:58pm Chief Complaint Admit Date EORDERS- DO ALL OCTOBER AND NOVEMBER ORDER S January 08, 2025 7:08am LUMP RT THIGH February 18, 2025 11:1 9am RIGHT THIGH March 25, 2025 12:5 8pm LIPOMA R THIGH May 03, 2025 1: 06pm Additional Source Comments (unrecognized sect ion and content) No Status Records FoundNo Status Records FoundNo Status Records FoundNo Status Records Found INFORMATION SOURCE (unrecogn ized section and content) DATE CREATED AUTHOR 02/24/2018 [facility] ([place]) DATE CREATED AUTHOR AUTHOR'S ORGANIZ ATION 01/01/2025 [facility] DATE CREATED AUTHOR AUTHOR'S ORGANIZ ATION [facility]20[facility] DATE CREATED AUTHOR AUTHOR'S ORGANIZ ATION 07/12/2025 [facility] Patient Care team informatio n (unrecognized section and content) Team Status: Active Member Role Status Yissel Maria MD Primary Care Provider Active Team [...] 2024 Team Status: Inactive Member Role Status Dates Jose Maria MD Primary Care Provider Active St art: January 08, 2025 End: January 08, 2025 Jose Maria MD Attending Provider Active Start : January 08, 2025 End: January 08, 2025 Jose Maria MD Referring Provider Active Start : January 08, 2025 End: January 08, 2025 Team Status: Inactive Member Role Status Yissel Maria MD Primary Care Provider Active St art: February 18, 2025 End: February 18, 2025 Jose Maria MD Attending Provider Active Start : February 18, 2025 End: February 18, 2025 Jose Maria MD Referring Provider Active Start : February 18, 2025 End: February 18, 2025 Team Status: Active Member Role/Relationship Status Yissel Maria MD Primary Care Provider Active Team Status: Inactive Member Role/Relationship Status Yissel Maria MD Primary Care Provider Active St art: January 08, 2025 End: January 08, 2025 Jose Maria MD Attending Provider Active Start : January 08, 2025 End: January 08, 2025 Jose Maria MD Referring Provider Active Start : January 08, 2025 End: January 08, 2025 Team Status: Inactive Member Role/Relationship Status Yissel Maria MD Primary Care Provider Active St art: February 18, 2025 End: February 18, 2025 Jose Maria MD Attending Provider Active Start : February 18, 2025 End: February 18, 2025 Jose Maria MD Referring Provider Active Start : February 18, 2025 End: February 18, 2025 Team Status: Active Member Role/Relationship Status Yissel Maria MD Primary Care Provider Active St art: March 20, 2025 Jose Maria MD Attending Provider Active Start : March 20, 2025 Jose Maria MD Referring Provider Active Start : March 20, 2025 Team Status: Inactive Member Role/Relationship Status Yissel Maria MD Primary Care Provider Active St art: March 25, 2025 End: March 25, 2025 Jose Maria MD Referring Provider Active Start : March 25, 2025 End: March 25, 2025 NATALYA Brooke Attending Provider Active Start: March 25, 2025 End: March 25, 2025 Team Status: Inactive Member Role/Relationship Status Yissel Maria MD Primary Care Provider Active St art: March 20, 2025 End: March 20, 2025 Jose Maria MD Attending Provider Active Start : March 20, 2025 End: March 20, 2025 Jose Maria MD Referring Provider Active Start : March 20, 2025 End: March 20, 2025 Team Status: Inactive Member Role/Relationship Status Dates Jose Maria MD Primary Care Provider Active St art: May 03, 2025 End: May 03, 2025 Jose Maria MD Referring Provider Active Start : May 03, 2025 End: May 03, 2025 Dr. Mor Lee MD Attending Provider Active Start: May 03, 2025 End: May 03, 2025 Goals (unrecognized section and content) Goals [...] BE BASED ON THE PRIMARY CLINICAL RECORDS. [employer] provides no warranty or guarantee of the accuracy or completeness of information in this document.
== END | disposition home or self-care (01) ==
LOC: MFPLAB 14:12
PROVIDERS: PCP Family Medicine; Visit Provider Family Medicine
DX: E03.9 Hypothyroidism, unspecified (principal)
CPT/HCPCS: 36415; 84443